=== PATIENT | female | born 1940 | race Caucasian/White ===

== ENCOUNTER 2019-04-24 08:28 | Inpatient (IN) | payer OTHER, SELFPAY ==
[2019-04-24] VITALS (15 sets, daily range): BP systolic 103–263; BP diastolic 53–114; PULSE 63–90; RESP 9–23; TEMP 36.4–37.2; O2SAT 90–98
--- NOTE | 2019-04-24 08:35 | ED.GENADUL_ITS ---
Discharge Plan Disposition Patient Disposition: [facility] INPATIENT Condition: Stable Discharge Details Chief Complaint: Orthopedic Clinical Impression: Subcapital fracture of right hip Primary Care Provider: [facility] ED Provider: Lennox Lopez Home Meds and New Rx's Prescriptions: No Action cholecalciferol (vitamin D3) 1,000 UNIT capsule 1,000 unit PO DAILY RF: 0 amlodipine 5 MG tablet 5 mg PO DAILY Qty: 90 RF: 4 ascorbate calcium (vitamin C) 500 MG tablet 500 mg PO DAILY RF: 0 pravastatin 10 MG tablet 10 mg PO DAILY Qty: 90 RF: 3 levetiracetam [Keppra] 500 MG tablet 500 mg PO BID Qty: 60 RF: 3 docusate sodium [Stool Softener] 100 MG capsule 100 mg PO DAILY RF: 0 levothyroxine [Synthroid] 88 MCG tablet 88 mcg PO DAILY Qty: 90 RF: 3 aspirin 325 mg Tablet 325 mg PO DAILY RF: 0 Medical Decision Making 78-year-old female presents from home where she lives alone. She states she was feeding her horses yesterday, slipped and fell on icy ground landing on her right hip. She denies striking her head and states no loss of consciousness and no head/neck/chest/back/abdominal pain. She states she hobbled around and was able to make it to bed last night, unable to get out of bed today due to right hip pain. EMS was called and patient brought to the ER. She will note that she has not been taking prescribed Eliquis, but does states she takes her other medications, which were reconciled by our nursing staff. Last meal was yesterday lunch prior to falling. She has normal vital signs. Her right hip is tender to palpation and rotation. Differential diagnosis includes pelvic fracture, right hip fracture. Patient had IV access established, screening labs, EKG, chest x-ray obtained and she is referred for radiographs of the hip and pelvis. She is given 15 mg of Toradol for analgesia, as she requested no narcotics. There is right subcapital hip fracture present. Discussed with Dr. Gaines. As patient has been n.p.o., consideration for repair today. He requests admission of the patient to the medicine service given her past medical history. Social work to see the patient regarding care of her home and animals as well. Note: Triaged with last name Norsworthy, changed to Odell. ECG Data Attestation: I personally reviewed and interpreted this ECG (s) as follows: Interpretation: Normal sinus rhythm, rate of 83, QRS is narrow, there is no ST segment elevation. Biphasic P wave present. HPI General Mode of arrival: EMS . Date/Time Provider Initiated Documentation: 04/24/19 09:11 . Limitations to Documentation: no limitations . Information obtained by: patient and EMS . History of Present Illness 78 year old F presents to the emergency department with the chief complaint of Right hip pain after fall yesterday, described as moderate, Quality is described as dull, and is localized to the right and lower extremity. Patient reports no radiation. Patient started experiencing this hour(s) and it has been constant. Rest improves symptom(s), Movement worsens symptoms . Patient notes no other symptoms.; denies chest pain, headaches, seizure, syncope and weakness. Patient did receive the following treatments prior to arrival, none Related Data Home Medications Medication Instructions Recorded Confirmed cholecalciferol (vitamin D3) 1,000 unit PO DAILY 11/03/12 10/06/15 amlodipine 5 mg PO DAILY #90 tab-cap 12/12/14 ascorbate calcium (vitamin C) 500 mg PO DAILY 01/16/15 10/06/15 pravastatin 10 mg PO DAILY #90 tab-cap 06/25/15 04/24/19 levetiracetam [Keppra] 500 mg PO BID #60 tab-cap 10/08/15 docusate sodium [Stool Softener] 100 mg PO DAILY tab-cap 10/18/15 levothyroxine [Synthroid] 88 mcg PO DAILY #90 tab-cap 12/17/15 04/24/19 aspirin 325 mg PO DAILY 04/24/19 04/24/19 Allergies Allergy/AdvReac Type Severity Reaction Status Date / Time Sulfa (Sulfonamide Allergy Unknown Unverified 04/24/19 10:32 Antibiotics) codeine AdvReac Mild NAUSEA Unverified 04/24/19 10:32 General Stated Complaint: Orthopedic SUSI: 3 Review of Systems Narrative: Mechanical slip on icy ground while feeding horses yesterday. Lives alone. 6 systems reviewed and otherwise negative. PENDING SALE TO [facility] Family History Mother No problems noted. Father Cancer Grandfather , WWII at age 31. No problems noted. Grandfather No problems noted. Grandmother Heart disease Grandmother No problems noted. Social History Smoking/Tobacco Use Status: Current every day Alcohol Intake: never Drug use: Never Substance use type: does not use Do you feel safe at home: Yes Do you feel safe in your relationship?: Yes Additional Social history: Pt lives alone Exam Narrative Exam Narrative: GEN: awake, alert, oriented 3. Pleasant, well groomed, interactive. HEAD: Normocephalic, atraumatic ENT: Mucous membranes dry, oropharynx unremarkable, External ear exam unremarkable EYES: PERRL, EOMI NECK: Full ROM, no NATALIA, no menigismus CHEST/RESP: Nontender, clear to auscultation bilateral, no wheeze/rhonchi/rales CARDIOVASCULAR: RRR, no murmur, rub sherif. 2+ Rad pulse bilateral ABDOMEN: Soft, nontender, no mass. +Bowel sounds EXT: Right hip pain with palpation and rotation. Palpable DP bilateral. Distal sensation intact. Pelvis is stable to compression Neuro: Grossly normal neurologic exam, conversant, interactive. Psych: Speech fluent, thoughts congruent, affect normal Course Vital Signs Vital signs: Vital Signs Temperature 36.8 C 04/24/19 08:24 Pulse 81 04/24/19 08:24 Respiratory Rate 20 04/24/19 08:24 Blood Pressure 137/65 04/24/19 08:24 Pulse Oximetry 95 04/24/19 08:24 Temperature 36.8 C 04/24/19 08:24 Temperature Source Oral 04/24/19 08:24 Pulse 81 04/24/19 08:24 Respiratory Rate 20 04/24/19 08:24 Blood Pressure 137/65 04/24/19 08:24 Blood Pressure Position Sitting 04/24/19 08:24 Pulse Oximetry 95 04/24/19 08:24 Oxygen Delivery Method Room Air 04/24/19 08:24 Oxygen Flow Rate 0 04/24/19 08:24
[2019-04-24] MEDS: Normal Saline 1,000 ML 1000 ML IV (08:47)
[2019-04-24] MEDS: Ketorolac 15 MG/ML VIAL IVP ×3 (08:47→23:50)
[2019-04-24 08:56] LABS: Abs Immature Grans 0.04 k/cumm (0.0-0.09); Absolute Basophil Count 0.03 k/cumm (0.0-0.2); Absolute Eosinophil Count 0.01 k/cumm (0.0-0.7); Absolute Lymphocyte Count 1.08 k/cumm (1.2-3.4); Absolute Monocyte Count 1.43 k/cumm (0.11-0.7); Absolute Neutrophil Count 11.96 k/cumm (1.2-6.7); Basophils % 0.2; Eosinophils % 0.1; HCT 45.3 % (36.0-46.0); HGB 14.9 g/dL (12.0-15.5); Immature Grans % 0.3 %; Lymphocytes % 7.4; Mean Corp. HGB Concentration 32.9 g/dL (32.0-36.0); Mean Corpuscular Hemoglobin 28.9 pg (27.0-33.0); Monocytes % 9.8; Neutrophils % 82.2; Platelet Count 193 x1000/uL (130-400); RBC 5.15 m/cumm (4.00-5.20); RBC Distribution Width 14.8 % (11.7-14.6); White Blood Cell Count 14.55 k/cumm (4.4-10.8)
[2019-04-24 09:07] LABS: ALT 20 U/L (14-59); AST 24 U/L (15-37); Albumin 3.5 g/dL (3.4-5.0); Alkaline Phosphatase 81 U/L (46-116); Anion Gap 9.9 mmol/L (3-11); BUN 19 mg/dL (7-18); Bilirubin, Total 1.2 mg/dL (0.2-1.0); CO2 28.1 mmol/L (21.0-32.0); Calcium 8.9 mg/dL (8.5-10.1); Chloride 103 mmol/L (98-107); Glucose 115 mg/dL (74-106); Potassium 4.1 mmol/L (3.5-5.1); Sodium 141 mmol/L (136-145); Total Protein 7.3 g/dL (6.4-8.2)
--- NOTE | 2019-04-24 09:10 | DI.RAD_ITS ---
EXAM: XR HIP RT COMPLETE AP PELVIS INDICATION: Fall, R pain. COMPARISON: No exams were available for comparison TECHNIQUE: 2D digital imaging was performed. FINDINGS: There is a mildly impacted subcapital fracture of the right femur. The femoral head is seated within the acetabulum. No other fracture or dislocation is identified. Soft tissues are unremarkable. IMPRESSION: Mildly impacted subcapital fracture of the right femur.
[2019-04-24 09:16] LABS: Troponin I < 0.05 ng/Ml (<0.06)
[2019-04-24 09:18] LABS: Prothrombin Time 10.5 sec (9.3-11.0)
--- NOTE | 2019-04-24 09:20 | DI.RAD_ITS ---
EXAM: XR CHEST 1V IN DI DEPT INDICATION: Fall, R hip pain. COMPARISON: CHEST 2 VIEWS PA,LAT from 09/30/2015 TECHNIQUE: 2D digital imaging was performed. FINDINGS: The heart is at the upper limits of normal in size given the projection. There is atherosclerosis of the thoracic aorta. No focal infiltrates are seen. No effusions or pneumothoraces are identified. There is a right convex scoliosis of the thoracic spine. Bones are intact. IMPRESSION: No acute pulmonary process.
--- NOTE | 2019-04-24 10:25 | HPE_ITS ---
Assessment and Plan Assessment and plan (1) Closed right hip fracture: Status: Acute Assessment and plan: Plan: Educated patient on surgery covering surgical technique, recovery process, benefits and risks including but not limited to risk of infection, blood clot, damage to soft tissue/blood vessels/nerves in detail. After discussion patient gives verbal understanding of risks and elects to proceed with scheduling surgery. Patient had opportunity to have questions answered to their satisfaction. They will contact office if issues arise. Pat ient will continue to be scheduled for likely pinning of right hip fracture with Dr. Gaines. Qualifiers: Encounter type: initial encounter Qualified Code(s): S72.001A - Fractu re of unspecified part of neck of right femur, initial encounter for closed fracture History of Present Illness Narrative: Ms. Bain is a 78-year-old female who presents to hospital via ambulance this AM after a fall that happened at home yesterday. Patient reports she fell on the ice at 2 pm yesterady while feeding her horses. Reports she was able to stand up, walk, move a bale of hay and she was able to make her way back to the house. She reports extreme discomfort overnight when laying in bed. This morning she was unable to move and called the ambulance for help. Patient lives alone and cares for her cat, dog and horses on her own. Denies any numbness or tingling. Denies any previous right hip trauma. Denies any baseline right hip/anterior groin pain. Reports the last time she ate was yesterday at lunchtime. Pertinent Surgical Information She describes having a catheter entered into her bladder in her early 20s. However, review of her chart shows previous history of exploratory laparoscopy from documentation on 10/06/15; discharge paperwork from that same visit states exploratory laparotomy on 10/08/15. Provider decided to not do an abdominal exam due to patient's acute hip fracture, lack of positive abdomen ROS and patient already laying uncomfortably on her side. Denies past medical history of: Hypertension, known stroke, angina, asthma, COPD, sleep apnea, renal issues, liver issues, hepatitis, gastrointestinal issues, ulcers, bleeding disorders, known seizures, migraines, anxiety, depression, diabetes, autoimmune disorders Denies prior complications from surgery or anesthesia. Review of Systems Cardiovascular Cardiovascular: Denies chest pain, Denies rapid heart rate, Denies irregular heart rhythm, Denies palpitations, Denies dyspnea, Denies orthopnea, Denies paroxysmal nocturnal dyspnea and Denies slow heart rate Respiratory Respiratory: Reports cough (dry chronic cough; nonproductive; no recent change), Denies dyspnea and Denies wheezing Gastrointestinal Gastrointestinal: Denies abdominal pain Endocrine Endocrine: Denies palpitations Allergic/Immunologic Allergic/Immunologic: Denies wheezing [facility] Medical History (Updated 04/24/19 @ 10:58 by Becky Bowie) Atrial fibrillation (Chronic) Unable to afford eliquis Takes ASA daily Closed right hip fracture (Acute 04/23/19) Hyperlipidemia (Chronic) Hypothyroidism (Chronic) TIA (transient ischemic attack) (Chronic) Pt denied hx of stroke Discharge problem list from 10/08/15 states TIA Surgical History (Updated 04/24/19 @ 10:50 by Becky Bowie) History of cystogram (Acute) Pt describes cystogram Discharge problem list from 10/08/15 states hx of exploratory laparotomy Family History Mother No problems noted. Father Cancer Grandfather , WWII at age 31. No problems noted. Grandfather No problems noted. Grandmother Heart disease Grandmother No problems noted. Social History Smoking/Tobacco Use Status: Current every day Alcohol Intake: never Drug use: Never Substance use type: does not use Do you feel safe at home: Yes Do you feel safe in your relationship?: Yes Additional Social history: Pt lives alone Meds Home Medications and Allergies Home Medications Medication Instructions Recorded Confirmed Type cholecalciferol (vitamin D3) 1,000 unit PO DAILY 11/03/12 10/06/15 History amlodipine 5 mg PO DAILY #90 tab-cap 12/12/14 History ascorbate calcium (vitamin C) 500 mg PO DAILY 01/16/15 10/06/15 History pravastatin 10 mg PO DAILY #90 tab-cap 06/25/15 04/24/19 History levetiracetam [Keppra] 500 mg PO BID #60 tab-cap 10/08/15 History docusate sodium [Stool Softener] 100 mg PO DAILY tab-cap 10/18/15 History levothyroxine [Synthroid] 88 mcg PO DAILY #90 tab-cap 12/17/15 04/24/19 History aspirin 325 mg PO DAILY 04/24/19 04/24/19 History Allergies Allergy/AdvReac Type Severity Reaction Status Date / Time Sulfa (Sulfonamide Allergy Unknown Unverified 04/24/19 10:32 Antibiotics) codeine AdvReac Mild NAUSEA Unverified 04/24/19 10:32 Exam Const General: cooperative and no acute distress Orientation: alert and awake Resp Effort & Inspection: normal respiratory effort and able to speak in complete sentences Auscultation: clear to auscultation bilaterally, no rales, no rhonchi and no wheezes Cardio Heart Sounds: S1 normal, S2 normal and no murmurs Results Labs Result diagrams: 04/24/19 08:37 04/24/19 08:37 Labs: Laboratory Results - last 24 hr 04/24/19 04/24/19 04/24/19 08:37 08:37 08:37 WBC 14.55 H RBC 5.15 Hgb 14.9 Hct 45.3 MCV 88.0 MCH 28.9 MCHC 32.9 RDW 14.8 H Plt Count 193 MPV 11.0 Immature Gran % 0.3 Neutrophils % 82.2 Lymphocytes % 7.4 Monocytes % 9.8 Eosinophils % 0.1 Basophils % 0.2 Absolute Neutrophils 11.96 H Absolute Lymphocytes 1.08 L Absolute Monocytes 1.43 H Absolute Eosinophils 0.01 Absolute Basophils 0.03 PT 10.5 INR 1.0 Sodium 141 Potassium 4.1 Chloride 103 Carbon Dioxide 28.1 Anion Gap 9.9 BUN 19 H Creatinine 0.90 Estimated GFR/1.73 m2 >= 60.00 Glucose 115 H Calcium 8.9 Total Bilirubin 1.2 H AST 24 ALT 20 Alkaline Phosphatase 81 Troponin I Total Protein 7.3 Albumin 3.5 Patient ABO/Rh Antibody Screen 04/24/19 04/24/19 08:37 08:37 WBC RBC Hgb Hct MCV MCH MCHC RDW Plt Count MPV Immature Gran % Neutrophils % Lymphocytes % Monocytes % Eosinophils % Basophils % Absolute Neutrophils Absolute Lymphocytes Absolute Monocytes Absolute Eosinophils Absolute Basophils PT INR Sodium Potassium Chloride Carbon Dioxide Anion Gap BUN Creatinine Estimated GFR/1.73 m2 Glucose Calcium Total Bilirubin AST ALT Alkaline Phosphatase Troponin I < 0.05 Total Protein Albumin Patient ABO/Rh AB Negative Antibody Screen Negative Last Vital Signs Temp 36.8 C 04/24/19 08:24 Pulse 81 04/24/19 08:24 Resp 20 04/24/19 08:24 BP 137/65 04/24/19 08:24 Pulse Ox 95 04/24/19 08:24
[2019-04-24] MEDS: Lactated Ringers 1,000 ML 30 ML IV (12:55)
--- NOTE | 2019-04-24 13:05 | DI.RAD_ITS ---
EXAM: XR HIP RT IN OR CLINICAL HISTORY: fracture of right hip. TECHNIQUE: 2D digital imaging was performed. Fluoroscopy was utilized by Dr. Gaines in the OR becca sharma the reduction and internal fixation of the right subcapital femoral neck fracture. COMPARISON: XR HIP RT COMPLETE AP PELVIS from 04/24/2019 FINDINGS: Three partially threaded screws are seen transfixing the fracture. Please refer to the procedure r eport for complete details. IMPRESSION: Status post internal fixation of the right femoral neck fracture. FLUORO TIME: 81.8 seconds
--- NOTE | 2019-04-24 14:09 | DI.RAD_ITS ---
EXAM: XR HIP RT COMPLETE AND AP PELVIS INDICATION: check hardware and reduction R hip in RR.. COMPARISON: XR HIP RT COMPLETE AP PELVIS from 04/24/2019 TECHNIQUE: 2D digital imaging was performed. FINDINGS: There are now 3 partially threaded screws transfixing the subcapital fracture of the right femur. Al ignment appears near anatomic. No new fracture or dislocation is identified. Soft tissues are unrem arkable. IMPRESSION: Status post internal fixation of the subcapital fracture of the right femur.
[2019-04-24] MEDS: POTASSIUM CHLORIDE/0.9% NACL 1,000 ML 125 MEQ IV ×2 (15:10→23:51)
--- NOTE | 2019-04-24 15:51 | W.PM.HP.N ---
Date of service: 04/24/19 Time of Service: 15:51 Assessment and Plan Assessment and plan (1) Closed right hip fracture: Start date: 04/24/19 Start time: 16:10 Status: Acute Assessment and plan: Fell on ice yesterday, OR today with Dr. Gaines pinning of right femur. Awake post operative with minimal pain. Will check labs in am. PT/OT and pain control. Qualifiers: Encounter type: initial encounter Qualified Code(s): S72.001A - Fracture of unspecified part of neck of right femur, initial encounter for closed fracture (2) Atrial fibrillation: Start date: 04/24/19 Start time: 16:12 Status: Chronic Assessment and plan: Regular rate and rhythm at this time. Can not afford eliquis so she takes Asa 325 daily. Will continue daily aspirin and monitor VSS (3) Mild cognitive impairment with memory loss: Start date: 04/24/19 Start time: 16:13 Status: Acute Assessment and plan: Does not appear impaired at this time. AAOx3. Wants to go home to tend to pets. (4) Hypothyroidism: Start date: 04/24/19 Start time: 16:14 Status: Chronic Assessment and plan: Continue levothyroxine (5) Hyperlipidemia: Start date: 04/24/19 Start time: 16:14 Status: Chronic Assessment and plan: Continue pravastatin (6) TIA (transient ischemic attack): Start date: 04/24/19 Start time: 16:14 Status: Chronic Assessment and plan: In the past With underlying Afib. will continue Asa. (7) DVT prophylaxis: Start date: 04/24/19 Start time: 16:16 Status: Acute Assessment and plan: Enoxaparin subcut (8) Tobacco dependence: Start date: 04/24/19 Start time: 16:15 Status: Acute Assessment and plan: Smokes about 1/4 pack a day. Nicotine replacement ordered. Not interested in cessation at this time. Above case discussed with Dr. Camacho who is in agreement. History of Present Illness History of Present Illness Chief Complaint: Fall, Hip fx Narrative: 78 y.o female with PMH of Afib ( on asa, can not afford eliquis), TIA, Hypothyroidism, HLD, Smoker 1/4 pack per day presents to [facility] ED after a fall on ice yesterday. Imaging in ED revealing mild impacted subcapital fx of the right femur, labs unremarkable. Dr. Gaines consulted on patient. She was taken to the OR for pinning of right hip fracture. Upon evaluation of patient, she is sitting up in bed, pain controlled, stating I can now move my leg without pain. She is asking when she can go home and take care of her pets. She is admitted to M/S for management of post operative care and pain. Labs will be monitored, pain control and PT/OT evaluation. She denies CP, SOB, N/V/D Review of Systems All systems reviewed & are unremarkable except as noted in HPI and below PFSH Medical History Atrial fibrillation (Chronic) Unable to afford eliquis Takes ASA daily Closed right hip fracture (Acute 04/23/19) Hyperlipidemia (Chronic) Hypothyroidism (Chronic) TIA (transient ischemic attack) (Chronic) Pt denied hx of stroke Discharge problem list from 10/08/15 states TIA Surgical History History of cystogram (Acute) Pt describes cystogram Discharge problem list from 10/08/15 states hx of exploratory laparotomy Family History Mother No problems noted. Father Cancer Grandfather , WWII at age 31. No problems noted. Grandfather No problems noted. Grandmother Heart disease Grandmother No problems noted. Social History Smoking/Tobacco Use Status: Current every day Alcohol Intake: never Drug use: Never Substance use type: does not use Do you feel safe at home: Yes Do you feel safe in your relationship?: Yes Additional Social history: Pt lives alone Meds Home Medications and Allergies Home Medications Medication Instructions Recorded Confirmed Type cholecalciferol (vitamin D3) 1,000 unit PO DAILY 11/03/12 04/24/19 History amlodipine 5 mg PO DAILY #90 tab-cap 12/12/14 04/24/19 History ascorbate calcium (vitamin C) 500 mg PO DAILY 01/16/15 04/24/19 History pravastatin 10 mg PO DAILY #90 tab-cap 06/25/15 04/24/19 History docusate sodium [Stool Softener] 100 mg PO DAILY tab-cap 10/18/15 04/24/19 History levothyroxine [Synthroid] 88 mcg PO DAILY #90 tab-cap 12/17/15 04/24/19 History aspirin 325 mg PO DAILY 04/24/19 04/24/19 History Allergies Allergy/AdvReac Type Severity Reaction Status Date / Time Sulfa (Sulfonamide Allergy Unknown Unverified 04/24/19 10:32 Antibiotics) codeine AdvReac Mild NAUSEA Unverified 04/24/19 10:32 Exam Const General: cooperative, healthy appearing, comfortable and no acute distress Nutritional Appearance: average body habitus Orientation: alert, awake and oriented x3 HENMT Head: normal to inspection General nose exam: external nose normal Face and sinus: normal facial exam Mouth: oral mucosae normal Eyes Eyelids: eyelids normal Conjunctivae: conjunctivae normal Pupils: PERRL EOM: EOM intact bilaterally Neck Neck: normal visual inspection Thyroid: thyroid normal Carotids: normal carotid upstroke Lymphatic: no lymphadenopathy noted Chest Chest: normal inspection of the chest Resp Effort & Inspection: normal respiratory effort, able to speak in complete sentences and cough (smokers cough) Quality of cough: dry Auscultation: clear to auscultation bilaterally Cardio Jugular venous pressure: no JVD Rate: regular rate Rhythm: regular rhythm Heart Sounds: S1 normal and S2 normal GI Inspection: normal to inspection Palpation: soft and no hepatosplenomegaly Auscultation: normal bowel sounds General: deferred Back/Spine/Pelvis Back: no CVA tenderness Thoracic/Lumbar Spine: thoracic and lumbar spine normal to inspection Skin General skin exam: other (drsg to right hip from surgical procedure) Lesions: no lesions Rashes: no rashes Neuro General: alert, awake and oriented x3 Cognition: normal cognition Speech: speech normal Extrem General: no clubbing, cyanosis or edema Right upper extremity: full ROM Left upper extremity: full ROM Left lower extremity: full ROM Psych Appearance: grossly normal Mental Status: mental status grossly normal Speech and Movement: speech and movement normal Results Labs Result diagrams: 04/24/19 08:37 04/24/19 08:37 Labs: Laboratory Results - last 24 hr 04/24/19 04/24/19 04/24/19 08:37 08:37 08:37 WBC 14.55 H RBC 5.15 Hgb 14.9 Hct 45.3 MCV 88.0 MCH 28.9 MCHC 32.9 RDW 14.8 H Plt Count 193 MPV 11.0 Immature Gran % 0.3 Neutrophils % 82.2 Lymphocytes % 7.4 Monocytes % 9.8 Eosinophils % 0.1 Basophils % 0.2 Absolute Neutrophils 11.96 H Absolute Lymphocytes 1.08 L Absolute Monocytes 1.43 H Absolute Eosinophils 0.01 Absolute Basophils 0.03 PT 10.5 INR 1.0 Sodium 141 Potassium 4.1 Chloride 103 Carbon Dioxide 28.1 Anion Gap 9.9 BUN 19 H Creatinine 0.90 Estimated GFR/1.73 m2 >= 60.00 Glucose 115 H Calcium 8.9 Total Bilirubin 1.2 H AST 24 ALT 20 Alkaline Phosphatase 81 Troponin I Total Protein 7.3 Albumin 3.5 Patient ABO/Rh Antibody Screen 04/24/19 04/24/19 08:37 08:37 WBC RBC Hgb Hct MCV MCH MCHC RDW Plt Count MPV Immature Gran % Neutrophils % Lymphocytes % Monocytes % Eosinophils % Basophils % Absolute Neutrophils Absolute Lymphocytes Absolute Monocytes Absolute Eosinophils Absolute Basophils PT INR Sodium Potassium Chloride Carbon Dioxide Anion Gap BUN Creatinine Estimated GFR/1.73 m2 Glucose Calcium Total Bilirubin AST ALT Alkaline Phosphatase Troponin I < 0.05 Total Protein Albumin Patient ABO/Rh AB Negative Antibody Screen Negative Last Vital Signs Temp 36.7 C 04/24/19 15:02 Pulse 75 04/24/19 15:02 Resp 18 04/24/19 15:02 BP 107/61 04/24/19 15:02 Pulse Ox 98 04/24/19 15:02
--- NOTE | 2019-04-24 16:45 | ROE_ITS ---
DATE OF PROCEDURE: April 24, 2019 PREOPERATIVE DIAGNOSIS: Subcapital fracture, right femur. POSTOPERATIVE DIAGNOSIS: Same. PROCEDURE: In situ fixation of subcapital fracture right femur using three 6.5 cannulated screws. ANESTHESIA: General, Kayleigh Lieberman CRNA SURGEON: Lennox Gaines M.D. CONCRETE MIXER: Godwin Boss INDICATIONS: This is a 78-year-old white female who lives alone and has horses to take care of. Yes terday she slipped on the ice while tending to the horses, landing on her right side. She was able t o continue with her chores, although was uncomfortable. She went to bed and when she woke up this mo rning her pain had intensified overnight. She was now unable to bear weight on her right leg. She p roceeded to the Emergency Room where x-rays showed a subcapital fracture of the right femur. The fem oral head on the AP view was impacted and in some valgus. On the lateral view the fracture was anato chinyere with no anterior or posterior angulation seen. I felt because of the anatomic lateral view that the patient would be a good candidate for cannulated screw fixation. This was discussed with the abby rincon in detail and she wished to have me proceed with what I thought was best. PROCEDURE: The patient was taken to the operating room on 04/24/2019. She was placed supine on the f racture table and a general anesthetic was administered. The right lower extremity was placed in sin gle leg traction and then internally rotated until the femoral neck was parallel to the floor. Once again the femoral head was in some mild valgus impaction on the AP view but was anatomic on the later al view. With the help of the C-arm intensifier localization, I made an approximately three inch inc ision laterally, centered over the flare of the proximal femur. The incision was carried down throug h the skin, subcu, iliotibial band and lateralis muscle, down to bone. With C-arm image intensificat ion guidance, I placed three guide pins in the femoral head that were widely dispersed on the femoral head. Once I had felt there was good position of the three guide pins, I proceeded to measure the g uide pins, drill the lateral cortex with a cannulated drill, and then insert the appropriate length 6 .5 cannulated screws. Excellent purchase in the femoral head was obtained. The lateral bone from th e lateral femoral cortex was very strong and solid and I got good compression across the fracture. T he C-arm was then used to confirm on AP and lateral views that the threads of the screws were well-co ntained in the subchondral bone of the femoral head and without penetration. At this point the guide pins were removed. The wound was irrigated with saline solution. The wound margins were infiltrate d with 0.25% Marcaine with an epinephrine solution down to bone. The iliotibial band was approximate d with a couple of interrupted [id number] sutures of #1 Vicryl suture material. The skin and perez bcu were approximated with a running subcuticular suture, supplemented with Steri-Strips. Xeroform g auze and sterile gauze 4x4's were placed over the incision and taped with foam elastic tape. The pat ient was taken out of traction, her anesthesia was reversed without complications and she was dischar ged to the recovery room in good condition. Estimated blood loss was 30 cc's. The patient will be a dmitted for postop pain control and mobilization with PT.
[2019-04-24] MEDS: Normal Saline Flush 10 ML SYR IVP ×2 (17:05→23:51)
[2019-04-24] MEDS: ceFAZolin 1 GM/50 ML BAG IVPB ×2 (17:05→23:51)
[2019-04-24] MEDS: Pravastatin 20 MG TAB 10 MG PO (20:27)
[2019-04-24] MEDS: Docusate Sodium 100 MG CAP PO (20:28)
[2019-04-25] VITALS (9 sets, daily range): BP systolic 100–156; BP diastolic 49–82; PULSE 73–93; RESP 14–24; TEMP 36.8–37.5; O2SAT 90–96
[2019-04-25] MEDS: ceFAZolin 1 GM/50 ML BAG IVPB ×2 (05:52→11:48)
[2019-04-25] MEDS: Ketorolac 15 MG/ML VIAL IVP ×4 (05:52→23:58)
[2019-04-25] MEDS: Levothyroxine 88 MCG TAB PO (05:53)
[2019-04-25 06:58] LABS: Abs Immature Grans 0.04 k/cumm (0.0-0.09); Absolute Basophil Count 0.02 k/cumm (0.0-0.2); Absolute Lymphocyte Count 1.02 k/cumm (1.2-3.4); Absolute Monocyte Count 1.24 k/cumm (0.11-0.7); Absolute Neutrophil Count 15.36 k/cumm (1.2-6.7); Basophils % 0.1; HCT 37.6 % (36.0-46.0); HGB 11.9 g/dL (12.0-15.5); Immature Grans % 0.2 %; Lymphocytes % 5.8; Mean Corp. HGB Concentration 31.6 g/dL (32.0-36.0); Mean Corpuscular Hemoglobin 28.6 pg (27.0-33.0); Mean Corpuscular Volume 90.4 fL (80-95); Mean Platelet Volume 11.2 fL (8.0-11.0); Neutrophils % 86.9; Platelet Count 153 x1000/uL (130-400); RBC 4.16 m/cumm (4.00-5.20); RBC Distribution Width 14.9 % (11.7-14.6); White Blood Cell Count 17.67 k/cumm (4.4-10.8)
[2019-04-25 07:18] LABS: Anion Gap 8.6 mmol/L (3-11); BUN 34 mg/dL (7-18); CO2 23.4 mmol/L (21.0-32.0); CREATININE 1.06 mg/dL (0.55-1.02); Chloride 109 mmol/L (98-107); Glucose 135 mg/dL (74-106); Potassium 4.5 mmol/L (3.5-5.1); Sodium 141 mmol/L (136-145)
[2019-04-25] MEDS: Pantoprazole 40 MG TABCR PO (07:23)
[2019-04-25] MEDS: Nicotine 7 MG/24 HR PATCH TD (08:02)
[2019-04-25] MEDS: Multivitamin w/Minerals TAB 1 TAB PO (08:04)
[2019-04-25] MEDS: Aspirin 325 MG TAB PO (08:04)
[2019-04-25] MEDS: amLODIPine 5 MG TAB PO (08:05)
[2019-04-25] MEDS: Ascorbic Acid 500 MG TAB PO (08:05)
[2019-04-25] MEDS: Docusate Sodium 100 MG CAP PO ×2 (08:05→20:27)
[2019-04-25] MEDS: Cholecalciferol (Vitamin D3) 1,000 UNIT TAB 1000 UNITS PO (08:05)
[2019-04-25] MEDS: POTASSIUM CHLORIDE/0.9% NACL 1,000 ML 125 MEQ IV (08:11)
--- NOTE | 2019-04-25 10:18 | IN_ITS ---
Date of service: 04/25/19 PT Notes Visit Reasons: RIGHT HIP FX Physical Therapy Inpatient Initial Evaluation Date: 04/25/2019 Referring Doctor: Lennox Gaines MD PT Orders: PT CONSULT: S/P ortho Surgery Precautions: Fall. Standard. Activity as tolerated. Patient Profile/Admitting Diagnosis: Pt is a 78-year-old female s/p ELIS of right subcapital femoral fracture following a fall on the icy ground while feeding her horses on 04/23/2019. Pt was brought to the ER on 04/24/2019. PMHX: Medical History Atrial fibrillation (Chronic) Unable to afford eliquis Takes ASA daily Closed right hip fracture (Acute 04/23/19) Hyperlipidemia (Chronic) Hypothyroidism (Chronic) TIA (transient ischemic attack) (Chronic) Pt denied hx of stroke Discharge problem list from 10/08/15 states TIA Surgical History History of cystogram (Acute) Pt describes cystogram Discharge problem list from 10/08/15 states hx of exploratory laparotomy Social History/Home Situation: Pt lives alone. She has one step onto her sun porch to enter the home and 14 steps to get to the second floor where her bedroom is. Equipment Owned/DME: none Subjective: Pt reports no pain when lying in bed. Objective: General Observation: IV in RUE. Mental Status: Alert and oriented x4 Pain: 0/10 with rest Vital Signs: SpO2 97% on RA with rest ROM: Right Upper Extremity: Shoulder Flexion WFL. Shoulder abduction WFL. Elbow flexion WFL. Wrist flexion WFL. Opening and closing of hand WFL. Left Upper Extremity: Shoulder Flexion WFL. Shoulder abduction WFL. Elbow flexion WFL. Wrist flexion WFL. Opening and closing of hand WFL. Right Lower Extremity: Hip flexion to about 10 degrees from 90 degrees while sitting on the edge of the bed. Hip abduction WFL. Knee flexion WFL. Ankle dorsiflexion WFL. Ankle plantarflexion WFL. Left Lower Extremity: Hip flexion WFL. Hip abduction WFL. Knee flexion WFL. Ankle dorsiflexion WFL. Ankle plantarflexion WFL. Strength: Right Upper Extremity: Shoulder flexors 5/5. Shoulder abductors 5/5. Elbow flexors 5/5. Elbow extensors 5/5. Metal Cutter strong. Left Upper Extremity: Shoulder flexors 5/5. Shoulder abductors 5/5. Elbow flexors 5/5. Elbow extensors 5/5. Metal Cutter strong. Right Lower Extremity: Hip flexors 3-/5. Hip abductors 4/5. Knee flexors 4+/5. Knee extensors 3-/5. Ankle dorsiflexors 5/5. Ankle plantarflexors 5/5. Left Lower Extremity: Hip flexors 5/5. Hip abductors 5/5. Knee flexors 5/5. Knee extensors 5/5. Ankle dorsiflexors 5/5. Ankle plantarflexors 5/5. Sensation: Intact as to pain and pressure on bilateral lower extremities. Bed Mobility/Transfers: Rolling SBA Supine to sit SBA Sit to supine SBA Sit to stand CGA with cues to push up from chair/bed Stand to sit CGA with cues to reach back for chair/bed Bed to chair Min A Chair to bed Min A Gait: Pt is able to ambulate 30 feet with WBAT using a two-wheeled walker. Min A of PT with wheelchair follow by student PT. Pt required a seated rest break after 10 feet. She reports some pain with ambulation. Balance: Static Sitting: Normal Dynamic Sitting: Normal Static Standing: Good Dynamic Standing: Fair Special Tests: Mobility Limitations Standardized Measure [facility]-PAC 6 clicks Basic Mobility Inpatient Short Form: Raw Score: 20 CMS Score: 35.83% deficit Informed Consent/Education: Patient instructed in purpose of PT consult and plan of care. Assessment: Pt is a 78-year-old female s/p ORIF of right subcapital femoral fracture following a fall on the icy ground while feeding her horses on 04/23/2019. Pt was brought to the ER on 04/24/2019. At the time of the initial evaluation the pt presented with impairment level findings and functional limitations as listed below. AM-PAC score of 20 indicates good prognosis for discharge to home when medically cleared. Patient manifested with antalgic gait and required minimal verbal cues for walker management. Her pain level limited her activity tolerance and added instability during gait activity. Patient will continue to benefit from skilled services in order to facilitate independent mobility level prior to discharge home alone. Patient presents with clinical signs and symptoms consistent with current/admitting diagnoses that have resulted to mobility limitations, gait instability and generalized weakness, as demonstrated by the following impairment level findings: 1. Decreased strength to right LE hip and knee major muscle groups 2. Impaired standing balance 3. Impaired activity tolerance 4. Pain on right hip with ambulation Impairments are contributing to the following functional limitations: 1. Dependent bed mobility skills 2. Increased dependence with transfers 3. Inability to safely ambulate without assistive device and physical assistance 4. Increase completion time for mobility ADL performance 5. Increased fall risk 6. Inability to negotiate steps alone safely Patient is assessed as a 89251 moderate complexity based on the following: History: Pt is a 78-year-old female s/p ORIF of right subcapital femoral fracture following a fall on the icy ground while feeding her horses on 04/23/2019 and brought to the ER on 04/24/2019. Examination: Demonstrable impairment in strength and balance with underlying impairments and functional limitations as documented above Presentation: Evolving Decision Makin moderate complexity Goals: Goals X1 week 1. Supine-Sit independent 2. Sit-Supine independent 3. Sit-Stand independent 4. Stand-Sit independent 5. Bed-Chair independent 6. Chair-Bed independent 7. Independent gait on level surface with use of least restrictive device for at least 300 feet without report of pain nor dyspnea 8. Independent stair negotiation while holding onto bilateral rails for at least 15 steps without report of pain nor dyspnea 9. Independent with home exercise program 10. Good dynamic standing balance/tolerance Plan of Care/Treatment Plan: 1-2x/day, 7 days/week x 1 week. Plan of care has been reviewed with the AIRPLANE NAVIGATOR providing the service under Physical Therapy direction. Initiate Physical Therapy intervention for strengthening, bed mobility, transfers, gait, stairs, balance training, use of assistive device. DISCHARGE RECOMMENDATIONS: Patient will benefit from home health PT services in order to progress mobility level using least restrictive assistive ambulatory device, assess home safety, identify additional equipment needs, and establish a functional maintenance program that will increase ability of patient to remain at home. TREATMENT CODE/TIME: 13944 x 47 minutes beginning at 10:18 A.M. Thank you very much for this referral. Jose Valencia, SPT Doctor of Physical Therapy Student [facility] Supervision provided by Jewell Kelly PT, DPT, CLT [facility], [place]
[2019-04-25] MEDS: Normal Saline Flush 10 ML SYR IVP ×3 (11:47→23:59)
--- NOTE | 2019-04-25 12:46 | W.NUTCONSULT ---
Date of service: 04/25/19 Time of Service: 12:47 Nutritional Consult ASSESSMENT: 78 year old female s/p surg for right hip fracture, pinning of right femur. BMI on low end of normal. Following regular meal plan with excellent intake. not at nutritional risk at this time. will follow prn . MONITORING AND EVALUATION: weight, po intake Time Spent in Nutritional Counseling and Treatment: 0 time spent face to face
[2019-04-25] MEDS: Enoxaparin 30 MG/0.3 ML SYR SC (13:39)
--- NOTE | 2019-04-25 13:55 | W.PM.PROGNOT ---
Date of Service Date of service: 04/25/19 Time of Service: 13:55 Assessment and Plan Assessment and plan (1) Closed right hip fracture: Status: Acute Assessment and plan: Assessment: Stable and doing very well in first postop day following in situ cannulated screw fixation of a subcapital fracture of the right femur. She should be able to be discharged home as long as she has someone to help her with meals and groceries. Plan: Consult discharge planning to obtain adequate resources for home discharge. Will DC her IV fluid. Continue mobilize with PT. Send her home when she is fully independent with transfers and ambulation and is taking just p.o. pain meds. Qualifiers: Encounter type: initial encounter Qualified Code(s): S72.001A - Fracture of unspecified part of neck of right femur, initial encounter for closed fracture Subjective Subjective Interval history since last seen: She says she is having no pain today. She says she would like to go home from the hospital. She has someone who comes in and feeds her animals, but there is no one no help her with her meals. Exam Narrative Exam Narrative: She is afebrile vital signs are stable. Hemoglobin 11.9 g today. Today can passively flex her up to 90 degrees and internal and external rotation are completely non-irritable at this time. She still has a Mcdowell in. She is not taking any IV narcotics. Objective Objective Clinical Data: Abnormal lab results 04/25/19 04/25/19 Range/Units 06:26 06:26 WBC 17.67 H (4.4-10.8) k/cumm Hgb 11.9 L D (12.0-15.5) g/dL MCHC 31.6 L (32.0-36.0) g/dL RDW 14.9 H (11.7-14.6) % MPV 11.2 H (8.0-11.0) fL Absolute Neutrophils 15.36 H (1.2-6.7) k/cumm Absolute Lymphocytes 1.02 L (1.2-3.4) k/cumm Absolute Monocytes 1.24 H (0.11-0.7) k/cumm Chloride 109 H (98-107) mmol/L BUN 34 H D (7-18) mg/dL Creatinine 1.06 H (0.55-1.02) mg/dL Glucose 135 H (74-106) mg/dL Calcium 8.0 L (8.5-10.1) mg/dL Vital Signs Temperature 36.8 C 04/25/19 11:18 Temperature Source Tympanic 04/25/19 11:18 Pulse 74 04/25/19 08:56 Pulse Rhythm Regular 04/25/19 08:40 Respiratory Rate 14 04/25/19 11:18 Respiratory Effort Non-Labored 04/25/19 08:40 Respiratory Depth Normal 04/25/19 08:40 Respiratory Pattern Normal 04/25/19 08:40 Blood Pressure 131/82 04/25/19 11:18 Blood Pressure Position Sitting 04/24/19 08:24 Pulse Oximetry 93 L 04/25/19 11:18 Respiratory End-tidal CO2 36 04/24/19 14:35 Oxygen Delivery Method Room Air 04/25/19 11:18 Oxygen Flow Rate 0 04/25/19 11:18 Pain Level 0 04/25/19 11:48 Intake & Output 04/24/19 04/25/19 04/25/19 23:59 11:59 23:59 Intake Total 2811 / 2811 1548.917 / 1598.917 50 / 1598.917 Output Total 400 / 600 750 / 750 Balance 2411 / 2211 798.917 / 848.917 50 / 848.917 Intake: IV 2561 / 2561 1548.917 / 1598.917 50 / 1598.917 Oral 250 / 250 Output: Urine 300 / 500 750 / 750 Estimated Blood Loss 100 / 100 Other: Urine Color Yellow Light Diana Urine Appearance Clear Clear Emesis Description None Laboratory Results WBC 17.67 k/cumm (4.4-10.8) H 04/25/19 06:26 RBC 4.16 m/cumm (4.00-5.20) 04/25/19 06:26 Hgb 11.9 g/dL (12.0-15.5) L D 04/25/19 06:26 Hct 37.6 % (36.0-46.0) 04/25/19 06:26 MCV 90.4 fL (80-95) 04/25/19 06:26 MCH 28.6 pg (27.0-33.0) 04/25/19 06:26 MCHC 31.6 g/dL (32.0-36.0) L 04/25/19 06:26 RDW 14.9 % (11.7-14.6) H 04/25/19 06:26 Plt Count 153 x1000/uL (130-400) 04/25/19 06:26 MPV 11.2 fL (8.0-11.0) H 04/25/19 06:26 Immature Gran % 0.2 % 04/25/19 06:26 Neutrophils % 86.9 04/25/19 06:26 Lymphocytes % 5.8 04/25/19 06:26 Monocytes % 7.0 04/25/19 06:26 Eosinophils % 0.0 04/25/19 06:26 Basophils % 0.1 04/25/19 06:26 Absolute Neutrophils 15.36 k/cumm (1.2-6.7) H 04/25/19 06:26 Absolute Lymphocytes 1.02 k/cumm (1.2-3.4) L 04/25/19 06:26 Absolute Monocytes 1.24 k/cumm (0.11-0.7) H 04/25/19 06:26 Absolute Eosinophils 0.00 k/cumm (0.0-0.7) 04/25/19 06:26 Absolute Basophils 0.02 k/cumm (0.0-0.2) 04/25/19 06:26 PT 10.5 sec (9.3-11.0) 04/24/19 08:37 INR 1.0 (0.9-1.1) 04/24/19 08:37 Sodium 141 mmol/L (136-145) 04/25/19 06:26 Potassium 4.5 mmol/L (3.5-5.1) 04/25/19 06:26 Chloride 109 mmol/L (98-107) H 04/25/19 06:26 Carbon Dioxide 23.4 mmol/L (21.0-32.0) 04/25/19 06:26 Anion Gap 8.6 mmol/L (3-11) 04/25/19 06:26 BUN 34 mg/dL (7-18) H D 04/25/19 06:26 Creatinine 1.06 mg/dL (0.55-1.02) H 04/25/19 06:26 Estimated GFR/1.73 m2 50.40 (mL/min/1.73m2) 04/25/19 06:26 Glucose 135 mg/dL (74-106) H 04/25/19 06:26 Calcium 8.0 mg/dL (8.5-10.1) L 04/25/19 06:26 Magnesium 2.0 mg/dL (1.8-2.4) 04/25/19 06:26 Total Bilirubin 1.2 mg/dL (0.2-1.0) H 04/24/19 08:37 AST 24 U/L (15-37) 04/24/19 08:37 ALT 20 U/L (14-59) 04/24/19 08:37 Alkaline Phosphatase 81 U/L (46-116) 04/24/19 08:37 Troponin I < 0.05 ng/Ml (<0.06) 04/24/19 08:37 Total Protein 7.3 g/dL (6.4-8.2) 04/24/19 08:37 Albumin 3.5 g/dL (3.4-5.0) 04/24/19 08:37 Patient ABO/Rh AB Negative 04/24/19 16:07 Antibody Screen Negative 04/24/19 16:07
--- NOTE | 2019-04-25 14:55 | CHAPLAIN ---
I know Kelsey as Kelsey Osullivan, from outside the hospital. This morning she said she is feeling well and has been up and walking around. She was tending to her horses when she fell on the ice, then managed to get up, and back inside her house, and into bed for the night before coming to the ER yesterday. She then had surgery on her hip. Kelsey currently attends [employer] in [place] and is very happy there, she said.
--- NOTE | 2019-04-25 15:44 | W.PM.PROGNOT ---
Date of Service Date of service: 04/25/19 Time of Service: 15:45 Assessment and Plan Assessment and plan (1) Closed right hip fracture: Status: Acute Assessment and plan: Postop day #1. Progressing as expected. Pain well controlled. Further management per Ortho Qualifiers: Encounter type: initial encounter Qualified Code(s): S72.001A - Fracture of unspecified part of neck of right femur, initial encounter for closed fracture (2) Atrial fibrillation: Status: Chronic Assessment and plan: Clinically she sounds to be in regular rhythm at present time. She is not on long-term oral anticoagulation but takes antiplatelet therapy with aspirin. She remains on Lovenox for DVT prophylaxis. (3) Acute blood loss anemia: Status: Acute Assessment and plan: We will start the patient on iron supplementation and monitor blood count. (4) Leukocytosis, unspecified: Status: Acute Assessment and plan: May be a leukemoid reaction due to the stress of her fracture. Her white cell count was mildly elevated yesterday but is risen further today. She remains afebrile. I will obtain a urine for urinalysis and urine culture but withhold antibiotics unless there is evidence for UTI or she spikes a fever. Qualifiers: Leukocytosis type: unspecified Qualified Code(s): D72.829 - Elevated white blood cell count, unspecified (5) DVT prophylaxis: Status: Acute Assessment and plan: Continue enoxaparin for DVT prophylaxis for 4 weeks postop. She is to remain on aspirin along with Lovenox. Subjective Subjective Interval history since last seen: Postop day #1 ORIF right subcapital femur fracture. Patient is doing well. Her pain is well controlled. Her pain is currently being managed with Toradol and Tylenol. She does not want any narcotic analgesics. She is tolerating an oral diet well and denies any nausea or vomiting or abdominal pain. She has no dysuria and no fevers. No shortness of breath or chest pain. Her Richey catheter has been removed. Labs this morning show an elevated white cell count of 17,000. She has a mild anemia with a hemoglobin 11.9 g. Electrolytes are within normal limits. BUN and creatinine are mildly elevated at 34 and 1.06. She continues to receive IV fluids. I will check urinalysis and urine culture to rule out UTI given her leukocytosis although she denies symptoms, nevertheless she just had her richey removed. Exam Narrative Exam Narrative: Alert and oriented person place time circumstance lying in bed in supine position. Lungs are clear to auscultation. Heart is regular rate and rhythm without murmur rub or gallop. Abdomen reveals normal active bowel sounds soft and nontender nondistended. Lower extremities right thigh is covered with a dressing. There is some mild tenderness to palpation. There is no ecchymosis around the bandage. She has normal popliteal and pedal pulses in the right leg. Objective Objective Clinical Data: Abnormal lab results 04/25/19 04/25/19 Range/Units 06:26 06:26 WBC 17.67 H (4.4-10.8) k/cumm Hgb 11.9 L D (12.0-15.5) g/dL MCHC 31.6 L (32.0-36.0) g/dL RDW 14.9 H (11.7-14.6) % MPV 11.2 H (8.0-11.0) fL Absolute Neutrophils 15.36 H (1.2-6.7) k/cumm Absolute Lymphocytes 1.02 L (1.2-3.4) k/cumm Absolute Monocytes 1.24 H (0.11-0.7) k/cumm Chloride 109 H (98-107) mmol/L BUN 34 H D (7-18) mg/dL Creatinine 1.06 H (0.55-1.02) mg/dL Glucose 135 H (74-106) mg/dL Calcium 8.0 L (8.5-10.1) mg/dL Vital Signs Temperature 36.8 C 04/25/19 11:18 Temperature Source Tympanic 04/25/19 11:18 Pulse 74 04/25/19 08:56 Pulse Rhythm Regular 04/25/19 08:40 Respiratory Rate 14 04/25/19 11:18 Respiratory Effort Non-Labored 04/25/19 08:40 Respiratory Depth Normal 04/25/19 08:40 Respiratory Pattern Normal 04/25/19 08:40 Blood Pressure 131/82 04/25/19 11:18 Blood Pressure Position Sitting 04/24/19 08:24 Pulse Oximetry 93 L 04/25/19 11:18 Respiratory End-tidal CO2 36 04/24/19 14:35 Oxygen Delivery Method Room Air 04/25/19 11:18 Oxygen Flow Rate 0 04/25/19 11:18 Pain Level 0 04/25/19 11:48 Intake & Output 04/24/19 04/25/19 04/25/19 23:59 11:59 23:59 Intake Total 2811 / 2811 1548.917 / 1598.917 50 / 1598.917 Output Total 400 / 600 750 / 1100 350 / 1100 Balance 2411 / 2211 798.917 / 498.917 -300 / 498.917 Intake: IV 2561 / 2561 1548.917 / 1598.917 50 / 1598.917 Oral 250 / 250 Output: Urine 300 / 500 750 / 1100 350 / 1100 Estimated Blood Loss 100 / 100 Other: Urine Color Yellow Light Diana Yellow Straw Urine Appearance Clear Clear Clear Emesis Description None Voiding Methods Bedside Commode Laboratory Results WBC 17.67 k/cumm (4.4-10.8) H 04/25/19 06:26 RBC 4.16 m/cumm (4.00-5.20) 04/25/19 06:26 Hgb 11.9 g/dL (12.0-15.5) L D 04/25/19 06:26 Hct 37.6 % (36.0-46.0) 04/25/19 06:26 MCV 90.4 fL (80-95) 04/25/19 06:26 MCH 28.6 pg (27.0-33.0) 04/25/19 06:26 MCHC 31.6 g/dL (32.0-36.0) L 04/25/19 06:26 RDW 14.9 % (11.7-14.6) H 04/25/19 06:26 Plt Count 153 x1000/uL (130-400) 04/25/19 06:26 MPV 11.2 fL (8.0-11.0) H 04/25/19 06:26 Immature Gran % 0.2 % 04/25/19 06:26 Neutrophils % 86.9 04/25/19 06:26 Lymphocytes % 5.8 04/25/19 06:26 Monocytes % 7.0 04/25/19 06:26 Eosinophils % 0.0 04/25/19 06:26 Basophils % 0.1 04/25/19 06:26 Absolute Neutrophils 15.36 k/cumm (1.2-6.7) H 04/25/19 06:26 Absolute Lymphocytes 1.02 k/cumm (1.2-3.4) L 04/25/19 06:26 Absolute Monocytes 1.24 k/cumm (0.11-0.7) H 04/25/19 06:26 Absolute Eosinophils 0.00 k/cumm (0.0-0.7) 04/25/19 06:26 Absolute Basophils 0.02 k/cumm (0.0-0.2) 04/25/19 06:26 PT 10.5 sec (9.3-11.0) 04/24/19 08:37 INR 1.0 (0.9-1.1) 04/24/19 08:37 Sodium 141 mmol/L (136-145) 04/25/19 06:26 Potassium 4.5 mmol/L (3.5-5.1) 04/25/19 06:26 Chloride 109 mmol/L (98-107) H 04/25/19 06:26 Carbon Dioxide 23.4 mmol/L (21.0-32.0) 04/25/19 06:26 Anion Gap 8.6 mmol/L (3-11) 04/25/19 06:26 BUN 34 mg/dL (7-18) H D 04/25/19 06:26 Creatinine 1.06 mg/dL (0.55-1.02) H 04/25/19 06:26 Estimated GFR/1.73 m2 50.40 (mL/min/1.73m2) 04/25/19 06:26 Glucose 135 mg/dL (74-106) H 04/25/19 06:26 Calcium 8.0 mg/dL (8.5-10.1) L 04/25/19 06:26 Magnesium 2.0 mg/dL (1.8-2.4) 04/25/19 06:26 Total Bilirubin 1.2 mg/dL (0.2-1.0) H 04/24/19 08:37 AST 24 U/L (15-37) 04/24/19 08:37 ALT 20 U/L (14-59) 04/24/19 08:37 Alkaline Phosphatase 81 U/L (46-116) 04/24/19 08:37 Troponin I < 0.05 ng/Ml (<0.06) 04/24/19 08:37 Total Protein 7.3 g/dL (6.4-8.2) 04/24/19 08:37 Albumin 3.5 g/dL (3.4-5.0) 04/24/19 08:37 Patient ABO/Rh AB Negative 04/24/19 16:07 Antibody Screen Negative 04/24/19 16:07
--- NOTE | 2019-04-25 16:10 | PT.INTREAT ---
Date of service: 04/26/19 Time of Service: 16:10 PT Notes Visit Reasons: RIGHT HIP FX Inpatient Physical Therapy Treatment Note [facility] Date: 04/25/2019 PRECAUTIONS: Fall. Standard. WBAT on R LE. SUBJECTIVE: Patient is agreeable to a PT consult. She reports feeling better after resting in bed the whole afternoon. She did report being tuckered out from the morning's PT session. She continues to report pain on the R hip with weight bearing. Denies headache, chest pain and dizziness through out session. She states that the cough she has had for quite a while now. OBJECTIVE: Wound dressing over surgical area. Minimal swelling noted on adjacent area. PAIN: 6/10 on the right hip aggravated with WB. BED MOBILITY/TRANSFERS Rolling L/R: SBA with HOB flat Supine-sit: SBA with HOB flat Sit-supine: SBA with HOB flat Sit-stand: CGA Stand-sit: CGA Bed-Chair: minimal assist Chair-bed: minimal assist GAIT Assistive Device: FWW Weight bearing: WBAT Assist: CGA Distance: 15' + 15' Deviation: Step to gait pattern, antalgic gait, asymmetric step height and length THEREX: Patient tolerated exercises written on ex sheet to increase range of motion on B hip and knees. ASSESSMENT: Patient understands the decreased safety of going home alone at this time and would like to give it a few days to see how stable she can be with her walking. She is receptive to services to facilitate return to PLOF at her home setting. PLAN: Continue with PT POC as initially established. TREATMENT CODE/TIME: 48248 and 16671 x 30 minutes beginning at 16:10 PM.
--- NOTE | 2019-04-25 19:15 | PDOC.CMIN ---
Care Management Initial Assess REASON FOR HOSPITALIZATION:: Right Hip Fx PAST MEDICAL HISTORY/PAST SURGICAL HISTORY:: Medical: a-fib, TIA, hypercholesterolemia, hyperthyroidism due to Graves disease with secondary ablation 2001 now hypothyroidism, kidney stones, tobacco abuse, H/O hematuria, onchomycosis, COPD, osteoporosis, H/O abnormal mammogram. Surgical: exploratory laparoscopy, thyroid ablation. PREVIOUS FUNCTIONAL STATUS/SOCIAL/FAMILY SUPPORTS:: Kelsey resides alone on her farm in [place], [place] where she has 2 horses, a dog and cats. She also has one son, Dillan, who lives locally with his Nuris. Kelsey fell while feeding her horses, she approximates they are nearing twenty years old as they were old when I got them ten years ago. She is independent for the most part at baseline. She manages her own home and farm animals though appears to take time with tasks and struggles with shortness of breath. She enjoys grocery shopping at the [facility]- and attending jain at the [facility] in [place]. She transports herself. CURRENT FUNCTIONAL STATUS:: Kelsey is lying in bed, she is pleasant in interaction and forthcoming with information, providing animated stories about her life, events leading up to her hospitalization and her support system. She appears to be pursing her lips and short of breath when talking. ADVANCE DIRECTIVES:: On file at [facility]. Her friend Ruby Solorio, is agent, and neighbor Jolene Cast, is alternate. Has patient been provided with information about the portal?: Yes Did the patient sign up for the portal?: No CODE STATUS:: Full Code INSURANCE COVERAGE / FINANCIAL ISSUES:: Medicare replacement-[employer] CURRENT HOME/COMMUNITY SERVICES/EQUIPMENT:: No current supports identified. Kelsey reports previously meeting with an agency service center representative who offered her many supports which she did not accept. She does remember having MOW for awhile as well. She reports she is disabled due to glaucoma and progressively using her sight. PRIMARY CARE PHYSICIAN:: [facility]; [facility] POTENTIAL DISCHARGE NEEDS:: COA: MOW and Options referral. VNA: [facility]/OT, FWW coordinated through DME of patient's choice (orders faxed to [facility]). Follow up appointments, PT intervention for increased mobility and gait training prior to discharge. PATIENT/FAMILY EDUCATION NEEDS:: Review of discharge instructions, discuss [facility]. ANTICIPATED BARRIERS TO DISCHARGE:: None identified. TRANSPORTATION:: Via private vehicle with her good friend, Cassia. PLAN:: Kelsey intends on returning home when ready per MD. CM faxed referrals to COA: M[facility] and [facility] referral, and VNA: [facility] PT/OT, as well FWW coordinated through DME of patient's choice (orders faxed to [facility]). Kelsey will transport via private vehicle with her good friend, Cassia.
[2019-04-25] MEDS: Ferrous Gluconate 324 MG TAB PO (20:28)
[2019-04-25 20:30] LABS: Bilirubin Negative (Negative); Blood Negative (Negative); Clarity Clear (Clear); Glucose Negative (Negative); Ketones Negative (Negative); Leukocyte Esterase Negative (Negative); Nitrite Negative (Negative); Specific Gravity 1.015 (1.005-1.025)
[2019-04-25] MEDS: Pravastatin 20 MG TAB 10 MG PO (20:38)
[2019-04-26] VITALS (7 sets, daily range): BP systolic 112–136; BP diastolic 75–93; PULSE 70–115; RESP 17–24; TEMP 36.5–37.2; O2SAT 93–97
[2019-04-26] MEDS: Acetaminophen 325 MG TAB 650 MG PO ×2 (04:17→23:26)
[2019-04-26] MEDS: Levothyroxine 88 MCG TAB PO (06:02)
[2019-04-26] MEDS: Normal Saline Flush 10 ML SYR IVP ×3 (06:07→19:30)
[2019-04-26] MEDS: Ketorolac 15 MG/ML VIAL IVP ×2 (06:07→11:28)
[2019-04-26] MEDS: Nicotine 7 MG/24 HR PATCH TD (07:55)
[2019-04-26] MEDS: Aspirin 325 MG TAB PO (07:56)
[2019-04-26] MEDS: Multivitamin w/Minerals TAB 1 TAB PO (07:56)
[2019-04-26] MEDS: Pantoprazole 40 MG TABCR PO (07:56)
[2019-04-26] MEDS: Cholecalciferol (Vitamin D3) 1,000 UNIT TAB 1000 UNITS PO (07:56)
[2019-04-26] MEDS: Ascorbic Acid 500 MG TAB PO (07:56)
[2019-04-26] MEDS: amLODIPine 5 MG TAB PO (07:57)
[2019-04-26] MEDS: Ferrous Gluconate 324 MG TAB PO ×2 (08:11→19:29)
[2019-04-26] MEDS: Docusate Sodium 100 MG CAP PO ×2 (09:20→19:29)
[2019-04-26 11:22] LABS: BUN 26 mg/dL (7-18); CREATININE 0.92 mg/dL (0.55-1.02); Calcium 8.8 mg/dL (8.5-10.1); Chloride 104 mmol/L (98-107); Estimated GFR 59.35 (mL/min/1.73m2); Glucose 96 mg/dL (74-106); Potassium 4.4 mmol/L (3.5-5.1); Sodium 140 mmol/L (136-145)
[2019-04-26 11:37] LABS: Abs Immature Grans 0.03 k/cumm (0.0-0.09); Absolute Basophil Count 0.03 k/cumm (0.0-0.2); Absolute Eosinophil Count 0.22 k/cumm (0.0-0.7); Absolute Lymphocyte Count 1.72 k/cumm (1.2-3.4); Basophils % 0.3; HCT 43.1 % (36.0-46.0); HGB 13.7 g/dL (12.0-15.5); Immature Grans % 0.3 %; Lymphocytes % 15.6; Mean Corp. HGB Concentration 31.8 g/dL (32.0-36.0); Mean Corpuscular Hemoglobin 28.7 pg (27.0-33.0); Mean Corpuscular Volume 90.2 fL (80-95); Mean Platelet Volume 11.7 fL (8.0-11.0); Monocytes % 12.7; Neutrophils % 69.1; Platelet Count 176 x1000/uL (130-400); RBC 4.78 m/cumm (4.00-5.20); RBC Distribution Width 15.4 % (11.7-14.6)
--- NOTE | 2019-04-26 12:11 | W.PM.PROGNOT ---
Date of Service Date of service: 04/26/19 Time of Service: 12:11 Assessment and Plan Assessment and plan (1) Closed right hip fracture: Status: Acute Assessment and plan: Postop day #2. Progressing as expected. Pain well controlled. Further management per Ortho Qualifiers: Encounter type: initial encounter Qualified Code(s): S72.001A - Fracture of unspecified part of neck of right femur, initial encounter for closed fracture (2) Atrial fibrillation: Status: Chronic Assessment and plan: Clinically she sounds to be in regular rhythm at present time. She is not on long-term oral anticoagulation but takes antiplatelet therapy with aspirin. She remains on Lovenox for DVT prophylaxis. Qualifiers: Atrial fibrillation type: paroxysmal Qualified Code(s): I48.0 - Paroxysmal atrial fibrillation (3) Acute blood loss anemia: Status: Acute Assessment and plan: Anemia is improving. She is currently being treated with oral iron supplementation.. (4) Leukocytosis, unspecified: Status: Acute Assessment and plan: Probably leukemoid reaction to her hip fracture. She remains afebrile. Urinalysis was negative for UTI. She does have a nonproductive cough. However lung sounds are clear. Preoperative chest x-ray was negative for any pneumonia. In light of her recent leukocytosis I will check a repeat chest x-ray to be sure there is no evidence for atelectasis or perioperative pneumonia. Qualifiers: Leukocytosis type: unspecified Qualified Code(s): D72.829 - Elevated white blood cell count, unspecified (5) DVT prophylaxis: Status: Acute Assessment and plan: Continue enoxaparin for DVT prophylaxis for 4 weeks postop. She is to remain on aspirin along with Lovenox. Subjective Subjective Patient reports: no new complaints and feels better; denies shortness of breath and fever Interval history since last seen: Her leukocytosis is resolving. Total WBC count is down to 11,000 today. She has been afebrile overnight. Urinalysis from yesterday was negative for UTI. Her anemia is improving her hemoglobin is up to 13 g. I have her on oral iron supplementation. Exam Narrative Exam Narrative: Elderly female who was standing up with the use of a walker. 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 She denies any acute complaints and feels good. She is alert and oriented. Lungs are clear to auscultation. Heart is regular rate and rhythm Objective Objective Clinical Data: Abnormal lab results 04/25/19 04/26/19 04/26/19 Range/Units 20:20 11:00 11:00 WBC 11.00 H (4.4-10.8) k/cumm MCHC 31.8 L (32.0-36.0) g/dL RDW 15.4 H (11.7-14.6) % MPV 11.7 H (8.0-11.0) fL Absolute Neutrophils 7.60 H (1.2-6.7) k/cumm Absolute Monocytes 1.40 H (0.11-0.7) k/cumm BUN 26 H (7-18) mg/dL Urine Urobilinogen 1.0 H (Up TO 0.2) EU/dL Vital Signs Temperature 36.9 C 04/26/19 11:10 Temperature Source Tympanic 04/26/19 11:10 Pulse 89 04/26/19 11:10 Pulse Rhythm Irregular 04/26/19 08:20 Respiratory Rate 21 04/26/19 11:10 Respiratory Effort 04/26/19 08:20 Respiratory Depth Deep 04/26/19 08:20 Respiratory Pattern Tachypnea 04/26/19 08:20 Blood Pressure 112/75 04/26/19 11:10 Blood Pressure Position Sitting 04/24/19 08:24 Pulse Oximetry 96 04/26/19 11:10 Respiratory End-tidal CO2 36 04/24/19 14:35 Oxygen Delivery Method Room Air 04/26/19 11:10 Oxygen Flow Rate 0 04/26/19 11:10 Pain Level 1 04/26/19 11:28 Comment 04/26/19 08:16 Intake & Output 04/25/19 04/26/19 04/26/19 23:59 11:59 23:59 Intake Total 744 / 2292.917 Output Total 1450 / 2200 1900 / 1900 Balance -706 / 92.917 -1900 / -1900 Intake: IV 504 / 2.917 Oral 240 / 240 Output: Urine 1450 / 2200 1900 / 1900 Other: Urine Color Yellow Yellow Urine Appearance Clear Clear Urine Odor Normal Voiding Methods Bedside Commode Bedside Commode Laboratory Results WBC 11.00 k/cumm (4.4-10.8) H 04/26/19 11:00 RBC 4.78 m/cumm (4.00-5.20) 04/26/19 11:00 Hgb 13.7 g/dL (12.0-15.5) 04/26/19 11:00 Hct 43.1 % (36.0-46.0) 04/26/19 11:00 MCV 90.2 fL (80-95) 04/26/19 11:00 MCH 28.7 pg (27.0-33.0) 04/26/19 11:00 MCHC 31.8 g/dL (32.0-36.0) L 04/26/19 11:00 RDW 15.4 % (11.7-14.6) H 04/26/19 11:00 Plt Count 176 x1000/uL (130-400) 04/26/19 11:00 MPV 11.7 fL (8.0-11.0) H 04/26/19 11:00 Immature Gran % 0.3 % 04/26/19 11:00 Neutrophils % 69.1 04/26/19 11:00 Lymphocytes % 15.6 04/26/19 11:00 Monocytes % 12.7 04/26/19 11:00 Eosinophils % 2.0 04/26/19 11:00 Basophils % 0.3 04/26/19 11:00 Absolute Neutrophils 7.60 k/cumm (1.2-6.7) H 04/26/19 11:00 Absolute Lymphocytes 1.72 k/cumm (1.2-3.4) 04/26/19 11:00 Absolute Monocytes 1.40 k/cumm (0.11-0.7) H 04/26/19 11:00 Absolute Eosinophils 0.22 k/cumm (0.0-0.7) 04/26/19 11:00 Absolute Basophils 0.03 k/cumm (0.0-0.2) 04/26/19 11:00 PT 10.5 sec (9.3-11.0) 04/24/19 08:37 INR 1.0 (0.9-1.1) 04/24/19 08:37 Sodium 140 mmol/L (136-145) 04/26/19 11:00 Potassium 4.4 mmol/L (3.5-5.1) 04/26/19 11:00 Chloride 104 mmol/L (98-107) 04/26/19 11:00 Carbon Dioxide 32.0 mmol/L (21.0-32.0) 04/26/19 11:00 Anion Gap 4.0 mmol/L (3-11) 04/26/19 11:00 BUN 26 mg/dL (7-18) H 04/26/19 11:00 Creatinine 0.92 mg/dL (0.55-1.02) 04/26/19 11:00 Estimated GFR/1.73 m2 59.35 (mL/min/1.73m2) 04/26/19 11:00 Glucose 96 mg/dL (74-106) 04/26/19 11:00 Calcium 8.8 mg/dL (8.5-10.1) 04/26/19 11:00 Magnesium 2.0 mg/dL (1.8-2.4) 04/25/19 06:26 Total Bilirubin 1.2 mg/dL (0.2-1.0) H 04/24/19 08:37 AST 24 U/L (15-37) 04/24/19 08:37 ALT 20 U/L (14-59) 04/24/19 08:37 Alkaline Phosphatase 81 U/L (46-116) 04/24/19 08:37 Troponin I < 0.05 ng/Ml (<0.06) 04/24/19 08:37 Total Protein 7.3 g/dL (6.4-8.2) 04/24/19 08:37 Albumin 3.5 g/dL (3.4-5.0) 04/24/19 08:37 Urine Color Yellow (Yellow) 04/25/19 20:20 Urine Clarity Clear (Clear) 04/25/19 20:20 Urine pH 6.0 (5-8) 04/25/19 20:20 Ur Specific [place] 1.015 (1.005-1.025) 04/25/19 20:20 Urine Protein Negative mg/dL (Negative) 04/25/19 20:20 Urine Ketones Negative mg/dL (Negative) 04/25/19 20:20 Urine Blood Negative (Negative) 04/25/19 20:20 Urine Nitrite Negative (Negative) 04/25/19 20:20 Urine Bilirubin Negative (Negative) 04/25/19 20:20 Urine Urobilinogen 1.0 EU/dL (Up TO 0.2) H 04/25/19 20:20 Ur Leukocyte Esterase Negative (Negative) 04/25/19 20:20 Urine Glucose Negative mg/dL (Negative) 04/25/19 20:20 Patient ABO/Rh AB Negative 04/24/19 16:07 Antibody Screen Negative 04/24/19 16:07
--- NOTE | 2019-04-26 12:48 | DI.RAD_ITS ---
EXAM: XR CHEST 2V PA LATERAL INDICATION: Cough, leukocytosis. COMPARISON: XR CHEST 1V IN DI DEPT from 04/24/2019 TECHNIQUE: 2D digital imaging was performed. FINDINGS: The heart size and pulmonary vasculature are within normal limits. There is atherosclerosis and tort uosity of the thoracic aorta. No focal consolidating infiltrates are seen. No effusions or pneumoth oraces are identified. The lungs appear hyperinflated consistent with underlying COPD. Age-appropri ate degenerative changes are seen in the spine. IMPRESSION: No acute pulmonary process.
--- NOTE | 2019-04-26 13:22 | PT.INTREAT ---
Date of service: 04/26/19 Time of Service: 11:58 PT Notes Visit Reasons: RIGHT HIP FX Physical Therapy Inpatient Treatment Note Date: 04/26/2019 PRECAUTIONS: Fall. Standard. WBAT on R LE. SUBJECTIVE: Patient is agreeable to a PT consult. She reports feeling better after resting in bed the whole afternoon. She did report being tuckered out from the morning's PT session. She continues to report pain on the R hip with weight bearing. Denies headache, chest pain and dizziness through out session. She states that the cough she has had for quite a while now. OBJECTIVE: Wound dressing over surgical area. Minimal swelling noted on adjacent area. PAIN: 6/10 on the right hip aggravated with WB. BED MOBILITY/TRANSFERS Rolling L/R: SBA with HOB flat Supine-sit: SBA with HOB flat Sit-supine: SBA with HOB flat Sit-stand: CGA Stand-sit: CGA Bed-Chair: [facility] Chair-bed: [facility] GAIT Assistive Device: FWW Weight bearing: WBAT Assist: CGA in the morning, SBA in the afternoon Distance: 30' + 30'. For the afternoon session, patient managed 100' x 2. Deviation: Step to gait pattern, antalgic gait, asymmetric step height and length THEREX: Patient tolerated exercises written on ex sheet to increase range of motion on B hip and knees. For the afternoon session, patient managed therapeutic exercises comprising of LAQs, seated hip flexion as well as hip abduction and extension ins tanding while holding onto horizontal rail without undue pain. ASSESSMENT: Patient understands the decreased safety of going home alone at this time and would like to give it a few days to see how stable she can be with her walking. She is receptive to services to facilitate return to PLOF at her home setting. PLAN: Continue with PT POC as initially established. TREATMENT CODE/TIME: Session 1- 66090 and 14722 x 30 minutes beginning at 11:58 AM. Session 2- [id number] and 65133 x 51 minutes beginning at 13:41 PM.
[2019-04-26] MEDS: Enoxaparin 30 MG/0.3 ML SYR SC (14:11)
--- NOTE | 2019-04-26 17:12 | CMPROGNOTE_ITS ---
- If Service Date Differs Date of service: 04/26/19 Time of Service: 17:12 Care Management Progress Note S/O: Kelsey remains at [facility] awaiting further management per Ortho. CM unsuccessfully attempts to meet with her on several occasions today but she is either sleeping or nursing staff are in the room. CM will continue to follow. A: Kelsey is a 78 year old female admitted to [facility] on 04/24/2019 for a right hip fracture. P: No change in plan. Script for FWW still needs to be signed by Dr. Gaines. CM spoke with [facility] today to confirm receipt of referral. CM will continue to support patient and discharge planning needs.
[2019-04-26] MEDS: Pravastatin 20 MG TAB 10 MG PO (19:30)
[2019-04-27] VITALS (7 sets, daily range): BP systolic 129–176; BP diastolic 70–89; PULSE 65–91; RESP 18–28; TEMP 36.4–36.9; O2SAT 95–98
[2019-04-27] MEDS: HYDROcodone 5/Acetaminophen 325 TAB PO (04:24)
[2019-04-27] MEDS: Levothyroxine 88 MCG TAB PO (06:45)
[2019-04-27] MEDS: Nicotine 7 MG/24 HR PATCH TD (08:51)
[2019-04-27] MEDS: Aspirin 325 MG TAB PO (08:51)
[2019-04-27] MEDS: Multivitamin w/Minerals TAB 1 TAB PO (08:51)
[2019-04-27] MEDS: Ascorbic Acid 500 MG TAB PO (08:52)
[2019-04-27] MEDS: Cholecalciferol (Vitamin D3) 1,000 UNIT TAB 1000 UNITS PO (08:52)
[2019-04-27] MEDS: Ferrous Gluconate 324 MG TAB PO ×2 (08:53→20:30)
[2019-04-27] MEDS: amLODIPine 5 MG TAB PO (08:53)
[2019-04-27] MEDS: Pantoprazole 40 MG TABCR PO (08:53)
[2019-04-27] MEDS: Docusate Sodium 100 MG CAP PO ×2 (08:53→20:31)
[2019-04-27] MEDS: Apixaban 2.5 MG TAB PO ×2 (10:10→20:30)
--- NOTE | 2019-04-27 13:07 | PT.INIE ---
Date of service: 04/27/19 Time of Service: 11:37 PT Notes Visit Reasons: RIGHT HIP FX Physical Therapy Inpatient Initial Evalaution Date: 04/27/2019 PRECAUTIONS: Fall. Standard. WBAT on R LE. SUBJECTIVE: Patient is agreeable to a PT consult. She reports feeling better after resting in bed the whole afternoon. She did report being tuckered out from the morning's PT session. She continues to report pain on the R hip with weight bearing. Denies headache, chest pain and dizziness through out session. She states that the cough she has had for quite a while now. OBJECTIVE: Wound dressing over surgical area. Minimal swelling noted on adjacent area. PAIN: 6/10 on the right hip aggravated with WB. BED MOBILITY/TRANSFERS Sit-stand: SBA Stand-sit: SBA Bed-Chair: SBA Chair-bed: SBA GAIT Assistive Device: FWW Weight bearing: WBAT Assist: CGA in the morning, SBA in the afternoon Distance: 30' + 30'. For the afternoon session, patient managed 100' x 2. Deviation: Step to gait pattern, antalgic gait, asymmetric step height and length THEREX: Patient tolerated exercises written on ex sheet to increase range of motion on B hip and knees. For the afternoon session, patient managed therapeutic exercises comprising of LAQs, seated hip flexion as well as hip abduction and extension ins tanding while holding onto horizontal rail without undue pain. ASSESSMENT: Patient understands the decreased safety of going home alone at this time and would like to give it a few days to see how stable she can be with her walking. She is receptive to services to facilitate return to OF at her home setting. PLAN: Continue with PT POC as initially established. TREATMENT CODE/TIME: Session 1- [id number] and 03622 x 30 minutes beginning at 11:58 AM. Session 2- 70499 and 68733 x 51 minutes beginning at 13:41 PM.
--- NOTE | 2019-04-27 13:49 | PT.INTREAT ---
Date of service: 04/27/19 Time of Service: 11:37 PT Notes Visit Reasons: RIGHT HIP FX Physical Therapy Inpatient Treatment Note Date: 04/27/2019 PRECAUTIONS: Fall. Standard. WBAT on R LE. SUBJECTIVE: Patient states that her friend Mitiz has agreed to stay with her as her live-in caregiver for 2 weeks when she gets discharged from this hospital. She is also agreeable to home health PT and OT to allow her to transition back to home. She does not report any pain in the right hip at rest and with movement for the morning and afternoon sessions. She did express some discomfort with instructions on step through gait pattern. Denies headache, chest pain and dizziness through out session. She states that the cough she has had for quite a while now. OBJECTIVE: Wound dressing now removed from surgical area. Decreased swelling noted on surgical area. PAIN: 0/10 BED MOBILITY/TRANSFERS Rolling L/R: Independent Supine-sit: Independent Sit-supine: Independent Sit-stand: [facility] Stand-sit: [facility] Bed-Chair: [facility] Chair-bed: [facility] GAIT Assistive Device: FWW Weight bearing: WBAT Assist: SBA Distance: 120 feet +30 feet +30 feet for the morning session. 100 feet x 2 for the afternoon session. Deviation: Step to gait pattern. Asymmetric step height and length. Verbal cues given for increased step height and length to facilitate step through gait pattern. STAIRS: Patient negotiated three 4 inch steps and two 6 inch steps while holding onto bilateral rails with step to gait pattern requiring minimal verbal cues for safe technique. ASSESSMENT: Patient has demonstrated increased independence with mobility ADL performance and requires minimal verbal cueing for facilitation of step through gait pattern using the front wheeled walker. PLAN: Will benefit from the use of a front wheeled walker for discharge to home. Continue with PT POC as initially established. Patient will go home with live-in caregiver Mitzi for 2 weeks. Patient will benefit from home health PT services in order to progress mobility level using least restrictive assistive ambulatory device, assess home safety, identify additional equipment needs, and establish a functional maintenance program that will increase ability of patient to remain at home. TREATMENT CODE/TIME: Session 1- 49131 x 25 minutes beginning at 11:37 AM. Session 2- 11591 x 28 minutes beginning at 14:12 PM.
--- NOTE | 2019-04-27 14:19 | CMPROGNOTE_ITS ---
- If Service Date Differs Date of service: 04/27/19 Time of Service: 14:19 Care Management Progress Note S/O: Kelsey is sitting in a chair when CM comes to meet with her. She easily engages in conversation and states she is upset because someone told her she would be going across the street soon. CM reassures her the plan is for her to return home with services. 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 CM will continue to follow. A: Kelsey is a 78 year old female admitted to [facility] on 04/24/2019 for a right hip fracture. P: Kelsey will be discharged home when deemed medically ready by provider. Anticipate [facility] and Meals on Wheels through [employer] [facility], in addition to [facility] nursing, PT and OT at time of discharge. Kelsey will be transported home by her friend Mitzi via private vehicle when ready. CM has coordinated FWW through [facility], which is to be delivered to [facility] tomorrow morning. CM will continue to follow.
--- NOTE | 2019-04-27 14:36 | CHAPLAIN ---
Kelsey was sitting up finishing a conversation with her daycare assistant when I stopped in. She said he hadn't gotten the idea somehow that she was being transported from here to [facility], and that she wouldn't be able to leave there. She is very fearful of this she said, and she is not sure why she thought that was going to happen, but relieved that it isn't. Instead she will likely be discharged home tomorrow. A friend has been caring for her animals, (2 horses, cat, dog) and she said she recently asked a friend is she was willing to take the animals when Kelsey dies and Kelsey was relieved to learn that her friend would do this. Kel[facility] [employer] in [place], [place] and her roller checker, Rev. Josue Ramey, knows that she is here. He likely didn't visit today because of the snow, Kelsey said.
--- NOTE | 2019-04-27 15:04 | PGE_ITS ---
Date of Service Date of service: 04/27/19 Time of Service: 15:05 Assessment and Plan Assessment and plan (1) Closed right hip fracture: Status: Acute Assessment and plan: Postop day #3. Progressing as expected. Pain well controlled. Further management per Ortho. Plan for discharge home tomorrow with home health services including PT and OT and ENTRY LEVEL MANAGEMENT. Patient will need DVT prophylaxis for 4 weeks of Eliquis at 2.5 mg twice a day. Qualifiers: Encounter type: initial encounter Qualified Code(s): S72.001A - Fracture of unspecified part of neck of right femur, initial encounter for closed fracture (2) Atrial fibrillation: Status: Chronic Assessment and plan: As the patient will be placed on low-dose Eliquis for DVT prophylaxis I am going to discontinue her aspirin to reduce her risk of bleeding. Qualifiers: Atrial fibrillation type: paroxysmal Qualified Code(s): I48.0 - Paroxysmal atrial fibrillation (3) Acute blood loss anemia: Status: Acute Assessment and plan: Anemia is improving. She is currently being treated with oral iron supplementation.. (4) DVT prophylaxis: Status: Acute (5) Discharge planning issues: Status: Acute Assessment and plan: Plan is for discharge home tomorrow with home health services including OT and PT and ENTRY LEVEL MANAGEMENT. Subjective Subjective Patient reports: no new complaints Interval history since last seen: Postop day #3 ORIF right femoral subcapital fracture. Patient denies any shortness of breath or chest pain no nausea or vomiting. No dysuria. She states she did well with physical therapy ambulating with the use of her walker. For the ease of the patient's administration of her medications I have switched her Lovenox to Eliquis for DVT prophylaxis.Plan is to discharge the patient tomorrow with home health services including PT and OT as well as ENTRY LEVEL MANAGEMENT. As the patient will not require Lovenox shots there will be no need for nursing care. Exam Narrative Exam Narrative: Elderly female sitting up in her chair reading her book. Lungs are clear to auscultation. Heart is irregularly irregular at a controlled rate Right hip wound is well approximated with no induration and very minuscule bruise at the incision site. No drainage. Objective Objective Clinical Data: Vital Signs Temperature 36.4 C L 04/27/19 07:40 Temperature Source Tympanic 04/27/19 07:40 Pulse 66 04/27/19 07:40 Pulse Rhythm Regular 04/27/19 11:31 Respiratory Rate 28 H 04/27/19 13:57 Respiratory Effort Non-Labored 04/27/19 13:57 Respiratory Depth Shallow 04/27/19 13:57 Respiratory Pattern Tachypnea 04/27/19 13:57 Blood Pressure 129/70 04/27/19 07:40 Blood Pressure Position Sitting 04/24/19 08:24 Pulse Oximetry 96 04/27/19 14:03 Respiratory End-tidal CO2 36 04/24/19 14:35 Oxygen Delivery Method Room Air 04/27/19 14:03 Oxygen Flow Rate 0 04/27/19 14:03 Pain Level 0 04/27/19 07:40 Comment 04/26/19 08:16 Intake & Output 04/26/19 04/27/19 04/27/19 23:59 11:59 23:59 Intake Total 260 / 260 240 / 240 Output Total 400 / 2300 850 / 850 Balance -140 / -2040 -850 / -610 240 / -610 Intake: IV Oral 250 / 250 240 / 240 Output: Urine 400 / 2300 850 / 850 Other: Urine Color Yellow Yellow Urine Appearance Clear Clear Urine Odor Normal Normal Voiding Methods Toilet Toilet Laboratory Results WBC 11.00 k/cumm (4.4-10.8) H 04/26/19 11:00 RBC 4.78 m/cumm (4.00-5.20) 04/26/19 11:00 Hgb 13.7 g/dL (12.0-15.5) 04/26/19 11:00 Hct 43.1 % (36.0-46.0) 04/26/19 11:00 MCV 90.2 fL (80-95) 04/26/19 11:00 MCH 28.7 pg (27.0-33.0) 04/26/19 11:00 MCHC 31.8 g/dL (32.0-36.0) L 04/26/19 11:00 RDW 15.4 % (11.7-14.6) H 04/26/19 11:00 Plt Count 176 x1000/uL (130-400) 04/26/19 11:00 MPV 11.7 fL (8.0-11.0) H 04/26/19 11:00 Immature Gran % 0.3 % 04/26/19 11:00 Neutrophils % 69.1 04/26/19 11:00 Lymphocytes % 15.6 04/26/19 11:00 Monocytes % 12.7 04/26/19 11:00 Eosinophils % 2.0 04/26/19 11:00 Basophils % 0.3 04/26/19 11:00 Absolute Neutrophils 7.60 k/cumm (1.2-6.7) H 04/26/19 11:00 Absolute Lymphocytes 1.72 k/cumm (1.2-3.4) 04/26/19 11:00 Absolute Monocytes 1.40 k/cumm (0.11-0.7) H 04/26/19 11:00 Absolute Eosinophils 0.22 k/cumm (0.0-0.7) 04/26/19 11:00 Absolute Basophils 0.03 k/cumm (0.0-0.2) 04/26/19 11:00 PT 10.5 sec (9.3-11.0) 04/24/19 08:37 INR 1.0 (0.9-1.1) 04/24/19 08:37 Sodium 140 mmol/L (136-145) 04/26/19 11:00 Potassium 4.4 mmol/L (3.5-5.1) 04/26/19 11:00 Chloride 104 mmol/L (98-107) 04/26/19 11:00 Carbon Dioxide 32.0 mmol/L (21.0-32.0) 04/26/19 11:00 Anion Gap 4.0 mmol/L (3-11) 04/26/19 11:00 BUN 26 mg/dL (7-18) H 04/26/19 11:00 Creatinine 0.92 mg/dL (0.55-1.02) 04/26/19 11:00 Estimated GFR/1.73 m2 59.35 (mL/min/1.73m2) 04/26/19 11:00 Glucose 96 mg/dL (74-106) 04/26/19 11:00 Calcium 8.8 mg/dL (8.5-10.1) 04/26/19 11:00 Magnesium 2.0 mg/dL (1.8-2.4) 04/25/19 06:26 Total Bilirubin 1.2 mg/dL (0.2-1.0) H 04/24/19 08:37 AST 24 U/L (15-37) 04/24/19 08:37 ALT 20 U/L (14-59) 04/24/19 08:37 Alkaline Phosphatase 81 U/L (46-116) 04/24/19 08:37 Troponin I < 0.05 ng/Ml (<0.06) 04/24/19 08:37 Total Protein 7.3 g/dL (6.4-8.2) 04/24/19 08:37 Albumin 3.5 g/dL (3.4-5.0) 04/24/19 08:37 Urine Color Yellow (Yellow) 04/25/19 20:20 Urine Clarity Clear (Clear) 04/25/19 20:20 Urine pH 6.0 (5-8) 04/25/19 20:20 Ur Specific [place] 1.015 (1.005-1.025) 04/25/19 20:20 Urine Protein Negative mg/dL (Negative) 04/25/19 20:20 Urine Ketones Negative mg/dL (Negative) 04/25/19 20:20 Urine Blood Negative (Negative) 04/25/19 20:20 Urine Nitrite Negative (Negative) 04/25/19 20:20 Urine Bilirubin Negative (Negative) 04/25/19 20:20 Urine Urobilinogen 1.0 EU/dL (Up TO 0.2) H 04/25/19 20:20 Ur Leukocyte Esterase Negative (Negative) 04/25/19 20:20 Urine Glucose Negative mg/dL (Negative) 04/25/19 20:20 Patient ABO/Rh AB Negative 04/24/19 16:07 Antibody Screen Negative 04/24/19 16:07
--- NOTE | 2019-04-27 15:57 | PHARADMIT ---
Addendum entered by Leslie Wagner 05/01/19 16:40: Pharmacy Note Subjective significantly improved PT glover per morning report Objective VS okay no labs Assessment no med changed Plan waiting to hear from [facility] about placement Addendum entered by Marjan Preciado 04/30/19 09:41: Pharmacy Note Subjective post op day 6, SNF referrals sent, working with PT Objective vs ok, no labs Assessment pt on apixaban, no med changes noted Plan Addendum entered by Pedro Pablo Parekh III 04/28/19 12:57: Pharmacy Note Subjective Closed right hip fracture post-op day #4. Objective VS-OK Pain:0/10 No Labs Assessment on Eliquis Plan Patient was to be discharged home today, but PT did not feel patient would be safe at home. Recommends SNF for rehab. CM sending referrals. Original Note: Admission Pharmacy Clinical Review RIGHT HIP FRACTURE Code Status Full Code Current Weight Wgt-56.5 kg Renally Cleared and Narrow Therapeutic Index Meds CrCl~ 44.9 mL/min Meds-OK QTc Value / Action Taken QTc-437 (na) BP Control, Fever BP-129/70 Tmax- 37C Electrolytes reviewed Na-140 K+4.4 Mag-2.0 DVT Prophylaxis Lovenox DC'd on Eliquis Opiate Usage / Scheduled Bowel Regimen Ordered Yes Yes Plt/SCr for Heparin / Enoxaparin Plts-176 SCr-0.92 INR for Warfarin inr-1.0 H/H stable, WBC/Bands H&H- 13.7/43.1 WBC- 11.00 Antibiotic appropriateness Ancef Pre & Post-OP Cultures and Sensitivities Urine-No Growt/24hrs Surgical ABX d/c within 24 hr Yes DM control / Insulin Dosing BG-96 Heart Failure (Check EF%) (DAWIT's, B-Block, Diuretics) Norvasc, IV to PO Switch No Home Meds Reviewed Yes Home Meds Not Ordered Keppra, ASA, Xarelto Comments
[2019-04-27] MEDS: Pravastatin 20 MG TAB 10 MG PO (20:30)
--- NOTE | 2019-04-27 23:10 | NUR.NOTE ---
Patient rang the calling brown and was on the phone and stated the person on the phone would like to speak to me seeing that i am her nurse for the night. The person on the opposite end identified her name has Becky, and she stated the patient will not be able to go home tomorrow has was scheduled because she will not be living with patient. Becky stated the only thing she will be able to do is to look after the patients horses, because she has her own place and she is unable to stay with the patient. Charge Nurse was informed of same
[2019-04-28] MEDS: Acetaminophen 325 MG TAB 650 MG PO ×2 (00:36→21:13)
[2019-04-28] MEDS: Levothyroxine 88 MCG TAB PO (05:26)
[2019-04-28 07:55] VITALS: BP 123/86; PULSE 82; RESP 20; TEMP 36.8; O2SAT 94
[2019-04-28] MEDS: amLODIPine 5 MG TAB PO (09:45)
[2019-04-28] MEDS: Ferrous Gluconate 324 MG TAB PO ×2 (09:45→20:59)
[2019-04-28] MEDS: Multivitamin w/Minerals TAB 1 TAB PO (09:45)
[2019-04-28] MEDS: Docusate Sodium 100 MG CAP PO ×2 (09:45→20:59)
[2019-04-28] MEDS: Apixaban 2.5 MG TAB PO ×2 (09:46→20:59)
[2019-04-28] MEDS: Pantoprazole 40 MG TABCR PO (09:46)
[2019-04-28] MEDS: Cholecalciferol (Vitamin D3) 1,000 UNIT TAB 1000 UNITS PO (09:46)
[2019-04-28] MEDS: Ascorbic Acid 500 MG TAB PO (09:46)
[2019-04-28] MEDS: Nicotine 7 MG/24 HR PATCH TD (09:48)
[2019-04-28 11:40] VITALS: BP 147/84; PULSE 67; RESP 21; TEMP 36.7; O2SAT 97
--- NOTE | 2019-04-28 12:34 | W.PM.PROGNOT ---
Date of Service Date of service: 04/28/19 Time of Service: 12:34 Assessment and Plan Assessment and plan (1) Closed right hip fracture: Start date: 04/28/19 Start time: 12:37 Status: Acute Assessment and plan: Postop day #4. Pain well controlled. Further management per Ortho. Eliquis BID x 4 weeks. PT recommend Rehab patient is agreeable. CM to place referrals. Qualifiers: Encounter type: initial encounter Qualified Code(s): S72.001A - Fracture of unspecified part of neck of right femur, initial encounter for closed fracture (2) Atrial fibrillation: Start date: 04/28/19 Start time: 12:38 Status: Chronic Assessment and plan: Rate controlled at this time. Placed on eliquis for hip surgery. Low dose aspirin dcd. Qualifiers: Atrial fibrillation type: paroxysmal Qualified Code(s): I48.0 - Paroxysmal atrial fibrillation (3) Hypothyroidism: Start date: 04/28/19 Start time: 12:40 Status: Chronic Assessment and plan: Continue levothyroxine (4) Hyperlipidemia: Start date: 04/28/19 Start time: 12:40 Status: Chronic Assessment and plan: Continue pravastatin (5) TIA (transient ischemic attack): Start date: 04/28/19 Start time: 12:40 Status: Chronic Assessment and plan: In the past With underlying Afib. Asa changed to eliquis. See above. (6) DVT prophylaxis: Start date: 04/28/19 Start time: 12:41 Status: Acute Assessment and plan: 2.5 mg eliquis po BID (7) Tobacco dependence: Start date: 04/28/19 Start time: 12:41 Status: Acute Assessment and plan: Smokes about 1/4 pack a day. Nicotine replacement ordered. Not interested in cessation at this time. . (8) Acute blood loss anemia: Start date: 04/28/19 Start time: 12:41 Status: Acute Assessment and plan: Anemia no present at this time. She is currently being treated with oral iron supplementation.. (9) Discharge planning issues: Start date: 04/28/19 Start time: 12:42 Status: Acute Assessment and plan: PT recommend rehab, patient is agreeable. CM to send Referrals, Thank you CM. Above case discussed with Dr. Fitzpatrick who is in agreement. Subjective Subjective Patient reports: no new complaints Interval history since last seen: Doing well. pain controlled, Ideally would like to go home but at this point PT feels patient is not safe for home. She has agreed to Rehab. CM is working on referrals at this time. She denies CP, SOB, N/V/D. Exam Narrative Exam Narrative: Elderly female sitting up in chair. Pleasant cooperative, answering questions appropriately. Lungs are clear to auscultation. Even unlabored breaths Heart is irregularly irregular at a controlled rate. Right hip wound is well approximated with no induration and very minuscule bruise at the incision site. No drainage. Objective Objective Clinical Data: Vital Signs Temperature 36.7 C 04/28/19 11:40 Temperature Source Tympanic 04/28/19 11:40 Pulse 67 04/28/19 11:40 Pulse Rhythm Regular 04/28/19 00:40 Respiratory Rate 21 04/28/19 11:40 Respiratory Effort Non-Labored 04/28/19 00:40 Respiratory Depth Normal 04/28/19 00:40 Respiratory Pattern Normal 04/28/19 00:40 Blood Pressure 147/84 H 04/28/19 11:40 Blood Pressure Position Sitting 04/24/19 08:24 Pulse Oximetry 97 04/28/19 11:40 Respiratory End-tidal CO2 36 04/24/19 14:35 Oxygen Delivery Method Room Air 04/28/19 11:40 Oxygen Flow Rate 0 04/28/19 11:40 Pain Level 0 04/28/19 11:40 Comment 04/26/19 08:16 Intake & Output 04/27/19 04/28/19 04/28/19 23:59 11:59 23:59 Intake Total 720 / 720 Output Total 700 / 1550 300 / 300 Balance 20 / -830 -300 / -300 Intake: Oral 720 / 720 Output: Urine 700 / 1550 300 / 300 Other: Urine Color Yellow Yellow Urine Appearance Clear Cloudy Urine Odor None Normal Voiding Methods Toilet Toilet Laboratory Results WBC 11.00 k/cumm (4.4-10.8) H 04/26/19 11:00 RBC 4.78 m/cumm (4.00-5.20) 04/26/19 11:00 Hgb 13.7 g/dL (12.0-15.5) 04/26/19 11:00 Hct 43.1 % (36.0-46.0) 04/26/19 11:00 MCV 90.2 fL (80-95) 04/26/19 11:00 MCH 28.7 pg (27.0-33.0) 04/26/19 11:00 MCHC 31.8 g/dL (32.0-36.0) L 04/26/19 11:00 RDW 15.4 % (11.7-14.6) H 04/26/19 11:00 Plt Count 176 x1000/uL (130-400) 04/26/19 11:00 MPV 11.7 fL (8.0-11.0) H 04/26/19 11:00 Immature Gran % 0.3 % 04/26/19 11:00 Neutrophils % 69.1 04/26/19 11:00 Lymphocytes % 15.6 04/26/19 11:00 Monocytes % 12.7 04/26/19 11:00 Eosinophils % 2.0 04/26/19 11:00 Basophils % 0.3 04/26/19 11:00 Absolute Neutrophils 7.60 k/cumm (1.2-6.7) H 04/26/19 11:00 Absolute Lymphocytes 1.72 k/cumm (1.2-3.4) 04/26/19 11:00 Absolute Monocytes 1.40 k/cumm (0.11-0.7) H 04/26/19 11:00 Absolute Eosinophils 0.22 k/cumm (0.0-0.7) 04/26/19 11:00 Absolute Basophils 0.03 k/cumm (0.0-0.2) 04/26/19 11:00 PT 10.5 sec (9.3-11.0) 04/24/19 08:37 INR 1.0 (0.9-1.1) 04/24/19 08:37 Sodium 140 mmol/L (136-145) 04/26/19 11:00 Potassium 4.4 mmol/L (3.5-5.1) 04/26/19 11:00 Chloride 104 mmol/L (98-107) 04/26/19 11:00 Carbon Dioxide 32.0 mmol/L (21.0-32.0) 04/26/19 11:00 Anion Gap 4.0 mmol/L (3-11) 04/26/19 11:00 BUN 26 mg/dL (7-18) H 04/26/19 11:00 Creatinine 0.92 mg/dL (0.55-1.02) 04/26/19 11:00 Estimated GFR/1.73 m2 59.35 (mL/min/1.73m2) 04/26/19 11:00 Glucose 96 mg/dL (74-106) 04/26/19 11:00 Calcium 8.8 mg/dL (8.5-10.1) 04/26/19 11:00 Magnesium 2.0 mg/dL (1.8-2.4) 04/25/19 06:26 Total Bilirubin 1.2 mg/dL (0.2-1.0) H 04/24/19 08:37 AST 24 U/L (15-37) 04/24/19 08:37 ALT 20 U/L (14-59) 04/24/19 08:37 Alkaline Phosphatase 81 U/L (46-116) 04/24/19 08:37 Troponin I < 0.05 ng/Ml (<0.06) 04/24/19 08:37 Total Protein 7.3 g/dL (6.4-8.2) 04/24/19 08:37 Albumin 3.5 g/dL (3.4-5.0) 04/24/19 08:37 Urine Color Yellow (Yellow) 04/25/19 20:20 Urine Clarity Clear (Clear) 04/25/19 20:20 Urine pH 6.0 (5-8) 04/25/19 20:20 Ur Specific [place] 1.015 (1.005-1.025) 04/25/19 20:20 Urine Protein Negative mg/dL (Negative) 04/25/19 20:20 Urine Ketones Negative mg/dL (Negative) 04/25/19 20:20 Urine Blood Negative (Negative) 04/25/19 20:20 Urine Nitrite Negative (Negative) 04/25/19 20:20 Urine Bilirubin Negative (Negative) 04/25/19 20:20 Urine Urobilinogen 1.0 EU/dL (Up TO 0.2) H 04/25/19 20:20 Ur Leukocyte Esterase Negative (Negative) 04/25/19 20:20 Urine Glucose Negative mg/dL (Negative) 04/25/19 20:20 Patient ABO/Rh AB Negative 04/24/19 16:07 Antibody Screen Negative 04/24/19 16:07
--- NOTE | 2019-04-28 13:46 | PDOC.CMPRO ---
- If Service Date Differs Date of service: 04/28/19 Time of Service: 13:46 Care Management Progress Note S/O: Kelsey is sitting in a chair when CM comes to meet with her. She expresses concerns about running out of heating fuel at home. CM contacts [employer] and [facility] for assistance with emergency fuel and is informed that Kelsey has exhausted financial assistance with both agencies. CM then contacts [facility] [employer] to enlist their help in obtaining emergency fuel. Rossy from [employer] states they will pay for fuel as long as Kelsey can find someone to turn down the thermostat in her home. Kelsey contacts her friend, Zenobia, and asks that she do so. CM will continue to follow. A: Kelsey is a 78 year old female admitted to [facility] on 04/24/2019 for a right hip fracture. P: At PT and provider's recommendation, CM discussed a SNF placement with patient. She is agreeable to the [facility] in [place], [place], and [facility]. CM coordinates referrals to both facilities. Kelsey will remain at [facility] awaiting placement. CM will continue to follow.
--- NOTE | 2019-04-28 14:55 | PT.INTREAT ---
Date of service: 04/28/19 Time of Service: 14:55 PT Notes Visit Reasons: RIGHT HIP FX Inpatient Physical Therapy Treatment Note [facility] Date: 04/28/2019 PRECAUTIONS: Fall. Standard. Activity as tolerated. SUBJECTIVE: Pt reports that she is tired today. She notes that she has agreed to go to a SNF ([facility]) as her plans to go home had fallen through. OBJECTIVE: PAIN: 0/10 at rest BED MOBILITY/TRANSFERS Rolling L/R: Supine-sit: Independent Sit-supine: Independent with cues to hook LLE under RLE to transfer back into bed Sit-stand: Supervision Stand-sit: Supervision Bed-Chair: Supervision Chair-bed: Supervision GAIT Assistive Device: FWW Weight bearing: WBAT Assist: SBA by PT and HUMAN RESOURCES FILE CLERK with intermittent CGA Distance: 75 feet + 75 feet Comments: Step to gait pattern. Provided cues for pt to step through for more normalized gait, however, the pt had a difficult time with this. Asymmetrical step length and height. Often requires cues to bend her R knee with swing through. Pt complained of pain of 5-6/10 with leading with the LLE. THERAPEUTIC ACTIVITIES: Side stepping to R at the edge of mat table x 6 LLE Forward stepping to green tape on floor with forward/backward weight shift 2x10 ASSESSMENT: Pt appeared to be more fatigued today with ambulation. She had great difficulty following cues to ambulate with a step through gait pattern. Pt reports increases in pain in the RLE when leading with the LLE, however was able to complete anterior/posterior weight shifts without increases in pain. She would continue to benefit from skilled physical therapy for reduction in pain and improved functional mobility prior to returning home. PLAN: Continue to with established POC. Pt is to be discharge to SNF when medically cleared and a bed has been secured in SNF. TREATMENT CODE/TIME: 45105 x 50' beginning at 15:55 P.M. Jose Valencia, SPT Doctor of Physical Therapy Student [facility] Supervision provided by Jewell Kelly PT, DPT, CLT [facility] [place], [place]
[2019-04-28 16:10] VITALS: BP 112/64; PULSE 74; RESP 21; TEMP 36.6; O2SAT 95
--- NOTE | 2019-04-28 16:18 | PTTR_ITS ---
Date of service: 04/28/19 Time of Service: 16:18 PT Notes Visit Reasons: RIGHT HIP FX Inpatient Physical Therapy Treatment Note [facility] Date: 04/28/2019 PRECAUTIONS: Fall, WBAT R SUBJECTIVE: Kelsey feels upset by her friend flaking out on me last night. She reports that her friend no longer wants her to stay in her home or to help care for Kelsey. OBJECTIVE: PAIN: Patient complained of right LE pain with ther ex and gait training BED MOBILITY/TRANSFERS Supine-sit: I with HOB flat Sit-supine: S with HOB flat and with use of leg international guest coordinator Sit-stand: S Stand-sit: S GAIT Assistive Device: FWW Weight bearing: WBAT R Assist: SBA Distance: 100' x2 Deviation:Max instruction for step-through gait pattern, verbal and tactile cueing for continuous FWW advancement THEREX: Patient completed a lower extremity strengthening and stabilization program, in a supine position, as per flow sheet. She requires assist with hip abduction exercise. STAIRS: Up/down 3?4 and 2?6 using 1 rail/SPC and a step to pattern with SBA ASSESSMENT: Patient tolerated session with complaint of increased right LE pain with all PT activity. She requires step through instruction as well as cueing for continuous FWW advancement. She would benefit from continued gait and transfer training as well as strengthening for improved mobility. PLAN: Continue with PT's POC TREATMENT CODE/TIME: Session 1: 50 minutes; 06346 x2, [id number]
[2019-04-28] MEDS: Pravastatin 20 MG TAB 10 MG PO (20:59)
[2019-04-28 21:50] VITALS: BP 105/51; PULSE 72; RESP 16; TEMP 37.4; O2SAT 96
[2019-04-29 01:03] VITALS: BP 130/76; PULSE 62; RESP 18; TEMP 36.7; O2SAT 92
[2019-04-29 04:00] VITALS: BP 143/74; PULSE 64; RESP 16; TEMP 36.9; O2SAT 96
[2019-04-29] MEDS: Levothyroxine 88 MCG TAB PO (05:49)
[2019-04-29] MEDS: Nicotine 7 MG/24 HR PATCH TD (07:54)
[2019-04-29] MEDS: Cholecalciferol (Vitamin D3) 1,000 UNIT TAB 1000 UNITS PO (07:55)
[2019-04-29] MEDS: Docusate Sodium 100 MG CAP PO ×2 (07:55→20:02)
[2019-04-29] MEDS: amLODIPine 5 MG TAB PO (07:55)
[2019-04-29] MEDS: Multivitamin w/Minerals TAB 1 TAB PO (07:55)
[2019-04-29] MEDS: Ascorbic Acid 500 MG TAB PO (07:56)
[2019-04-29] MEDS: Pantoprazole 40 MG TABCR PO (07:56)
[2019-04-29] MEDS: Ferrous Gluconate 324 MG TAB PO ×2 (07:56→19:59)
[2019-04-29] MEDS: Apixaban 2.5 MG TAB PO ×2 (07:56→19:58)
[2019-04-29 08:10] VITALS: BP 138/68; PULSE 68; RESP 16; TEMP 36.8; O2SAT 95
[2019-04-29 15:20] VITALS: BP 113/62; PULSE 71; RESP 16; TEMP 36.8; O2SAT 99
--- NOTE | 2019-04-29 16:18 | PGE_ITS ---
Date of Service Date of service: 04/29/19 Time of Service: 16:18 Assessment and Plan Assessment and plan (1) Closed right hip fracture: Start date: 04/29/19 Start time: 16:19 Status: Acute Assessment and plan: Postop day #5. Pain well controlled. Further management per Ortho. Eliquis BID x 4 weeks. PT recommend Rehab patient is agreeable. Waiting to hear back on referrals. Qualifiers: Encounter type: initial encounter Qualified Code(s): S72.001A - Fracture of unspecified part of neck of right femur, initial encounter for closed fracture (2) Atrial fibrillation: Start date: 04/29/19 Start time: 16:19 Status: Chronic Assessment and plan: Rate controlled at this time. Placed on eliquis for hip surgery. Low dose aspirin dcd. Qualifiers: Atrial fibrillation type: paroxysmal Qualified Code(s): I48.0 - Paroxysmal atrial fibrillation (3) Hypothyroidism: Start date: 04/29/19 Start time: 16:19 Status: Chronic Assessment and plan: Continue levothyroxine (4) Hyperlipidemia: Start date: 04/29/19 Start time: 16:19 Status: Chronic Assessment and plan: Continue pravastatin (5) TIA (transient ischemic attack): Start date: 04/29/19 Start time: 16:19 Status: Chronic Assessment and plan: In the past With underlying Afib. Asa changed to eliquis. See above. (6) DVT prophylaxis: Start date: 04/29/19 Start time: 16:19 Status: Acute Assessment and plan: 2.5 mg eliquis po BID (7) Tobacco dependence: Start date: 04/29/19 Start time: 16:19 Status: Acute Assessment and plan: Smokes about 1/4 pack a day. Nicotine replacement ordered. Not interested in cessation at this time. . (8) Acute blood loss anemia: Start date: 04/29/19 Start time: 16:19 Status: Acute Assessment and plan: Anemia not present at this time. She is currently being treated with oral iron supplementation.. (9) Discharge planning issues: Start date: 04/29/19 Start time: 16:20 Status: Acute Assessment and plan: PT recommend rehab, patient is agreeable. Waiting to hear back on referrals. Above case discussed with Dr. Mccord who is in agreement. Subjective Subjective Patient reports: no new complaints Interval history since last seen: Doing well sitting up in chair eating lunch. Not in any pain, continue to work with PT/OT while waiting for bed at rehab. Exam Narrative Exam Narrative: Elderly female sitting up in chair. Pleasant cooperative, answering questions appropriately. Lungs are clear to auscultation. Even unlabored breaths Heart is irregularly irregular at a controlled rate. Right hip wound is well approximated with no induration and very minuscule bruise at the incision site. No drainage. Objective Objective Clinical Data: Vital Signs Temperature 36.8 C 04/29/19 15:20 Temperature Source Tympanic 04/29/19 15:20 Pulse 71 04/29/19 15:20 Pulse Rhythm Irregular 04/29/19 10:39 Respiratory Rate 16 04/29/19 15:20 Respiratory Effort Non-Labored 04/29/19 10:39 Respiratory Depth Normal 04/29/19 10:39 Respiratory Pattern Normal 04/29/19 10:39 Blood Pressure 113/62 04/29/19 15:20 Blood Pressure Position Sitting 04/24/19 08:24 Pulse Oximetry 99 04/29/19 15:20 Respiratory End-tidal CO2 36 04/24/19 14:35 Oxygen Delivery Method Room Air 04/29/19 15:20 Oxygen Flow Rate 0 04/29/19 15:20 Pain Level 0 04/29/19 08:10 Comment 04/26/19 08:16 Intake & Output 04/28/19 04/29/19 04/29/19 23:59 11:59 23:59 Intake Total 480 / 1090 500 / 500 Output Total 1550 / 2200 825 / 825 Balance -1070 / -1110 -325 / -325 Intake: Oral 480 / 1090 500 / 500 Output: Urine 1550 / 2200 825 / 825 Other: Urine Color Yellow Yellow Yellow Urine Appearance Clear Clear Clear Urine Odor None Normal Stool Occult Blood Positive Stool Size Moderate Moderate Moderate Stool Characteristics Formed Soft Soft Hard Brown Brown Voiding Methods Toilet Toilet Laboratory Results WBC 11.00 k/cumm (4.4-10.8) H 04/26/19 11:00 RBC 4.78 m/cumm (4.00-5.20) 04/26/19 11:00 Hgb 13.7 g/dL (12.0-15.5) 04/26/19 11:00 Hct 43.1 % (36.0-46.0) 04/26/19 11:00 MCV 90.2 fL (80-95) 04/26/19 11:00 MCH 28.7 pg (27.0-33.0) 04/26/19 11:00 MCHC 31.8 g/dL (32.0-36.0) L 04/26/19 11:00 RDW 15.4 % (11.7-14.6) H 04/26/19 11:00 Plt Count 176 x1000/uL (130-400) 04/26/19 11:00 MPV 11.7 fL (8.0-11.0) H 04/26/19 11:00 Immature Gran % 0.3 % 04/26/19 11:00 Neutrophils % 69.1 04/26/19 11:00 Lymphocytes % 15.6 04/26/19 11:00 Monocytes % 12.7 04/26/19 11:00 Eosinophils % 2.0 04/26/19 11:00 Basophils % 0.3 04/26/19 11:00 Absolute Neutrophils 7.60 k/cumm (1.2-6.7) H 04/26/19 11:00 Absolute Lymphocytes 1.72 k/cumm (1.2-3.4) 04/26/19 11:00 Absolute Monocytes 1.40 k/cumm (0.11-0.7) H 04/26/19 11:00 Absolute Eosinophils 0.22 k/cumm (0.0-0.7) 04/26/19 11:00 Absolute Basophils 0.03 k/cumm (0.0-0.2) 04/26/19 11:00 PT 10.5 sec (9.3-11.0) 04/24/19 08:37 INR 1.0 (0.9-1.1) 04/24/19 08:37 Sodium 140 mmol/L (136-145) 04/26/19 11:00 Potassium 4.4 mmol/L (3.5-5.1) 04/26/19 11:00 Chloride 104 mmol/L (98-107) 04/26/19 11:00 Carbon Dioxide 32.0 mmol/L (21.0-32.0) 04/26/19 11:00 Anion Gap 4.0 mmol/L (3-11) 04/26/19 11:00 BUN 26 mg/dL (7-18) H 04/26/19 11:00 Creatinine 0.92 mg/dL (0.55-1.02) 04/26/19 11:00 Estimated GFR/1.73 m2 59.35 (mL/min/1.73m2) 04/26/19 11:00 Glucose 96 mg/dL (74-106) 04/26/19 11:00 Calcium 8.8 mg/dL (8.5-10.1) 04/26/19 11:00 Magnesium 2.0 mg/dL (1.8-2.4) 04/25/19 06:26 Total Bilirubin 1.2 mg/dL (0.2-1.0) H 04/24/19 08:37 AST 24 U/L (15-37) 04/24/19 08:37 ALT 20 U/L (14-59) 04/24/19 08:37 Alkaline Phosphatase 81 U/L (46-116) 04/24/19 08:37 Troponin I < 0.05 ng/Ml (<0.06) 04/24/19 08:37 Total Protein 7.3 g/dL (6.4-8.2) 04/24/19 08:37 Albumin 3.5 g/dL (3.4-5.0) 04/24/19 08:37 Urine Color Yellow (Yellow) 04/25/19 20:20 Urine Clarity Clear (Clear) 04/25/19 20:20 Urine pH 6.0 (5-8) 04/25/19 20:20 Ur Specific [place] 1.015 (1.005-1.025) 04/25/19 20:20 Urine Protein Negative mg/dL (Negative) 04/25/19 20:20 Urine Ketones Negative mg/dL (Negative) 04/25/19 20:20 Urine Blood Negative (Negative) 04/25/19 20:20 Urine Nitrite Negative (Negative) 04/25/19 20:20 Urine Bilirubin Negative (Negative) 04/25/19 20:20 Urine Urobilinogen 1.0 EU/dL (Up TO 0.2) H 04/25/19 20:20 Ur Leukocyte Esterase Negative (Negative) 04/25/19 20:20 Urine Glucose Negative mg/dL (Negative) 04/25/19 20:20 Patient ABO/Rh AB Negative 04/24/19 16:07 Antibody Screen Negative 04/24/19 16:07
--- NOTE | 2019-04-29 19:04 | CMPROGNOTE_ITS ---
- If Service Date Differs Date of service: 04/29/19 Time of Service: 19:04 Care Management Progress Note S/O: Kelsey was lying in bed when CM met with her. She reported that she was feeling comfortable at this time. CM discussed her plan of care, which is to consider her placement options on Wednesday, when the admissions department will review her referrals. Referrals have been sent to [facility] as well as the [facility]. Her insurance will require a prior auth from the facilities. Kelsey reported that she is doing well working with PT, and she is encouraged by her progress. CM will continue to follow. A: Kelsey is a 78 year old female admitted to [facility] on 04/24/2019 for a right hip fracture. P: At PT and provider's recommendation, CM discussed a SNF placement with patient. She is agreeable to the [facility] in [place], [place], and [facility]. CM coordinates referrals to both facilities. Kelsey's insurance will require a prior auth for SNF placement. Kelsey will remain at [facility] awaiting placement. CM will continue to follow.
[2019-04-29 19:11] VITALS: BP 123/76; PULSE 75; RESP 16; TEMP 36.6; O2SAT 95
[2019-04-29] MEDS: Pravastatin 20 MG TAB 10 MG PO (19:58)
[2019-04-29 20:20] VITALS: BP 132/79; PULSE 72; RESP 17; TEMP 36.5; O2SAT 95
[2019-04-30 03:22] VITALS: BP 125/78; PULSE 62; RESP 16; TEMP 36.5; O2SAT 94
[2019-04-30] MEDS: Levothyroxine 88 MCG TAB PO (04:48)
[2019-04-30 08:57] VITALS: BP 130/79; PULSE 63; RESP 22; TEMP 36.6; O2SAT 94
[2019-04-30] MEDS: amLODIPine 5 MG TAB PO (09:10)
[2019-04-30] MEDS: Nicotine 7 MG/24 HR PATCH TD (09:10)
[2019-04-30] MEDS: Cholecalciferol (Vitamin D3) 1,000 UNIT TAB 1000 UNITS PO (09:10)
[2019-04-30] MEDS: Ascorbic Acid 500 MG TAB PO (09:10)
[2019-04-30] MEDS: Docusate Sodium 100 MG CAP PO ×2 (09:11→20:50)
[2019-04-30] MEDS: Multivitamin w/Minerals TAB 1 TAB PO (09:11)
[2019-04-30] MEDS: Ferrous Gluconate 324 MG TAB PO ×2 (09:11→20:49)
[2019-04-30] MEDS: Apixaban 2.5 MG TAB PO ×2 (09:11→20:50)
[2019-04-30] MEDS: Pantoprazole 40 MG TABCR PO (09:11)
--- NOTE | 2019-04-30 11:17 | PTTR_ITS ---
PT Notes Visit Reasons: RIGHT HIP FX Date: 04/29/2019 PRECAUTIONS:fall SUBJECTIVE: Kelsey states that she feels as though she can go home. OBJECTIVE: [] BED MOBILITY/TRANSFERS Sit-stand: S Stand-sit: S GAIT Assistive Device: FWW Weight bearing: AT right Assist: SBA Distance: 150' Deviation: cues to take longer stride length, especially of left LE, as well as cues to pay attention to what she is doing. THEREX: seated global LE strength and stabilization. ASSESSMENT: tolerated session well. Is relatively safe with transfers as long as she pays attention to what she is doing. PLAN: continue POC TREATMENT CODE/TIME: 30 min. [id number], [id number] CC: Dictated by: RACHELLE Ortega, ReneeDictated: 04/29/19Dictated Time: 1203 <Electronically signed by RACHELLE Ortega>04/29/19 1211 Transcribed Date: 04/29/19 Transcribed Time: 1203 By: ARLENE
--- NOTE | 2019-04-30 11:27 | W.PM.PROGNOT ---
Date of Service Date of service: 04/30/19 Time of Service: 11: Assessment and Plan Assessment and plan (1) Closed right hip fracture: Start date: 04/30/19 Start time: 11:29 Status: Acute Assessment and plan: Postop day #6 Pain well controlled. Awaiting pre auth at this time for patient to go to Rehab facility for PT/OT to regain strength and mobility Qualifiers: Encounter type: initial encounter Qualified Code(s): S72.001A - Fracture of unspecified part of neck of right femur, initial encounter for closed fracture (2) DVT prophylaxis: Start date: 04/30/19 Start time: 11:30 Status: Acute Assessment and plan: 2.5 mg eliquis po BID (3) Tobacco dependence: Start date: 04/30/19 Start time: 11:30 Status: Acute Assessment and plan: Smokes about 1/4 pack a day. Nicotine replacement ordered. Continue to check interest in smoking cessation . (4) Discharge planning issues: Start date: 04/30/19 Start time: 11:30 Status: Acute Assessment and plan: PT recommend rehab, patient is agreeable. [facility]. Above case discussed with Dr. Mccord who is in agreement. Subjective Subjective Patient reports: no new complaints Interval history since last seen: Continue to be doing well. Pain controlled awaiting preauthorization for a bed at rehab. Denies CP, SOB, N/V/D. Exam Narrative Exam Narrative: Elderly female sitting up in chair. Pleasant cooperative, answering questions appropriately. Lungs are clear to auscultation. Even unlabored breaths Heart is RRR s1 s2 no murmur appreciated. Eyes PERRLA, Right hip wound is well approximated with no induration and very minuscule bruise at the incision site. No drainage. Objective Objective Clinical Data: Vital Signs Temperature 36.6 C 04/30/19 08:57 Temperature Source Temporal Artery Scan 04/30/19 08:57 Pulse 63 04/30/19 08:57 Pulse Rhythm Irregular 04/30/19 10:06 Respiratory Rate 22 04/30/19 08:57 Respiratory Effort Non-Labored 04/30/19 10:06 Respiratory Depth Normal 04/30/19 10:06 Respiratory Pattern Normal 04/30/19 10:06 Blood Pressure 130/79 04/30/19 08:57 Blood Pressure Position Sitting 04/24/19 08:24 Pulse Oximetry 94 L 04/30/19 08:57 Respiratory End-tidal CO2 36 04/24/19 14:35 Oxygen Delivery Method Room Air 04/30/19 08:57 Oxygen Flow Rate 0 04/30/19 08:57 Pain Level 0 04/30/19 08:57 Comment 04/26/19 08:16 Intake & Output 04/29/19 04/29/19 04/30/19 11:59 23:59 11:59 Intake Total 500 / 980 480 / 980 1450 / 1450 Output Total 825 / 1175 350 / 1175 1300 / 1300 Balance -325 / -195 130 / -195 150 / 150 Intake: Oral 500 / 980 480 / 980 1450 / 1450 Output: Urine 825 / 1175 350 / 1175 1300 / 1300 Other: Urine Color Yellow Yellow Yellow Urine Appearance Clear Clear Clear Urine Odor Normal Comment voided at toilet Stool Occult Blood Positive Stool Size Moderate Moderate Stool Characteristics Soft Soft Brown Voiding Methods Toilet Toilet Toilet Laboratory Results WBC 11.00 k/cumm (4.4-10.8) H 04/26/19 11:00 RBC 4.78 m/cumm (4.00-5.20) 04/26/19 11:00 Hgb 13.7 g/dL (12.0-15.5) 04/26/19 11:00 Hct 43.1 % (36.0-46.0) 04/26/19 11:00 MCV 90.2 fL (80-95) 04/26/19 11:00 MCH 28.7 pg (27.0-33.0) 04/26/19 11:00 MCHC 31.8 g/dL (32.0-36.0) L 04/26/19 11:00 RDW 15.4 % (11.7-14.6) H 04/26/19 11:00 Plt Count 176 x1000/uL (130-400) 04/26/19 11:00 MPV 11.7 fL (8.0-11.0) H 04/26/19 11:00 Immature Gran % 0.3 % 04/26/19 11:00 Neutrophils % 69.1 04/26/19 11:00 Lymphocytes % 15.6 04/26/19 11:00 Monocytes % 12.7 04/26/19 11:00 Eosinophils % 2.0 04/26/19 11:00 Basophils % 0.3 04/26/19 11:00 Absolute Neutrophils 7.60 k/cumm (1.2-6.7) H 04/26/19 11:00 Absolute Lymphocytes 1.72 k/cumm (1.2-3.4) 04/26/19 11:00 Absolute Monocytes 1.40 k/cumm (0.11-0.7) H 04/26/19 11:00 Absolute Eosinophils 0.22 k/cumm (0.0-0.7) 04/26/19 11:00 Absolute Basophils 0.03 k/cumm (0.0-0.2) 04/26/19 11:00 PT 10.5 sec (9.3-11.0) 04/24/19 08:37 INR 1.0 (0.9-1.1) 04/24/19 08:37 Sodium 140 mmol/L (136-145) 04/26/19 11:00 Potassium 4.4 mmol/L (3.5-5.1) 04/26/19 11:00 Chloride 104 mmol/L (98-107) 04/26/19 11:00 Carbon Dioxide 32.0 mmol/L (21.0-32.0) 04/26/19 11:00 Anion Gap 4.0 mmol/L (3-11) 04/26/19 11:00 BUN 26 mg/dL (7-18) H 04/26/19 11:00 Creatinine 0.92 mg/dL (0.55-1.02) 04/26/19 11:00 Estimated GFR/1.73 m2 59.35 (mL/min/1.73m2) 04/26/19 11:00 Glucose 96 mg/dL (74-106) 04/26/19 11:00 Calcium 8.8 mg/dL (8.5-10.1) 04/26/19 11:00 Magnesium 2.0 mg/dL (1.8-2.4) 04/25/19 06:26 Total Bilirubin 1.2 mg/dL (0.2-1.0) H 04/24/19 08:37 AST 24 U/L (15-37) 04/24/19 08:37 ALT 20 U/L (14-59) 04/24/19 08:37 Alkaline Phosphatase 81 U/L (46-116) 04/24/19 08:37 Troponin I < 0.05 ng/Ml (<0.06) 04/24/19 08:37 Total Protein 7.3 g/dL (6.4-8.2) 04/24/19 08:37 Albumin 3.5 g/dL (3.4-5.0) 04/24/19 08:37 Urine Color Yellow (Yellow) 04/25/19 20:20 Urine Clarity Clear (Clear) 04/25/19 20:20 Urine pH 6.0 (5-8) 04/25/19 20:20 Ur Specific [place] 1.015 (1.005-1.025) 04/25/19 20:20 Urine Protein Negative mg/dL (Negative) 04/25/19 20:20 Urine Ketones Negative mg/dL (Negative) 04/25/19 20:20 Urine Blood Negative (Negative) 04/25/19 20:20 Urine Nitrite Negative (Negative) 04/25/19 20:20 Urine Bilirubin Negative (Negative) 04/25/19 20:20 Urine Urobilinogen 1.0 EU/dL (Up TO 0.2) H 04/25/19 20:20 Ur Leukocyte Esterase Negative (Negative) 04/25/19 20:20 Urine Glucose Negative mg/dL (Negative) 04/25/19 20:20 Patient ABO/Rh AB Negative 04/24/19 16:07 Antibody Screen Negative 04/24/19 16:07
--- NOTE | 2019-04-30 11:29 | PT.INTREAT ---
PT Notes Visit Reasons: RIGHT HIP FX Inpatient Physical Therapy Treatment Note [facility] Date: 04/30/2019 SUBJECTIVE: I want to go home. OBJECTIVE: [] BED MOBILITY/TRANSFERS Sit-stand: S Stand-sit: S GAIT Assistive Device: FWW Weight bearing: AT right Assist: SBA Distance: 75' Deviation: cues to increase stride length of the left LE. THEREX: global LE strength and hip stabilization. See flowsheet for details. STAIRS: ascend/descend 3-4 steps and 2-6 steps x 2 with 2 rails and SBA, using the step to gait pattern. ASSESSMENT: tolerated session well. She continues to require cues for proper stride length. Reports no pain. Is safe with her transfers. PLAN: continue progressing following PT POC. TREATMENT CODE/TIME: 40'. [id number], [id number] x2.
[2019-04-30 11:36] VITALS: BP 105/74; PULSE 64; RESP 20; TEMP 36.6; O2SAT 942
[2019-04-30 16:10] VITALS: BP 156/76; PULSE 68; RESP 22; TEMP 37; O2SAT 97
[2019-04-30 19:05] VITALS: BP 131/71; PULSE 74; RESP 18; TEMP 36.2; O2SAT 96
--- NOTE | 2019-04-30 20:03 | PDOC.CMPRO ---
- If Service Date Differs Date of service: 04/30/19 Time of Service: 20:03 Care Management Progress Note S/O: Kelsey had visitors when CM attempted to visit. Per provider, no change to current plan. Seeking placement for short rehab stay, which will need prior auth for her insurance. CM will follow up with facilities chosen by Kelsey. CM will continue to follow. A: Kelsey is a 78 year old female admitted to [facility] on 04/24/2019 for a right hip fracture. P: At PT and provider's recommendation, CM discussed a SNF placement with patient. She is agreeable to the [facility] in [place], [place], and [facility]. CM coordinates referrals to both facilities. Kelsey's insurance will require a prior auth for SNF placement. Kelsey will remain at [facility] awaiting placement. CM will continue to follow.
[2019-04-30] MEDS: Pravastatin 20 MG TAB 10 MG PO (20:49)
[2019-04-30 23:41] VITALS: BP 131/81; PULSE 68; RESP 20; TEMP 36.4; O2SAT 94
[2019-05-01 03:45] VITALS: BP 135/79; PULSE 65; RESP 18; TEMP 36.8; O2SAT 95
[2019-05-01] MEDS: Levothyroxine 88 MCG TAB PO (05:26)
[2019-05-01 07:45] VITALS: BP 116/71; PULSE 71; RESP 18; TEMP 36.2; O2SAT 98
[2019-05-01] MEDS: Ascorbic Acid 500 MG TAB PO (07:47)
[2019-05-01] MEDS: Nicotine 7 MG/24 HR PATCH TD (07:47)
[2019-05-01] MEDS: Docusate Sodium 100 MG CAP PO ×2 (07:47→20:26)
[2019-05-01] MEDS: Multivitamin w/Minerals TAB 1 TAB PO (07:47)
[2019-05-01] MEDS: Ferrous Gluconate 324 MG TAB PO ×2 (07:47→20:26)
[2019-05-01] MEDS: amLODIPine 5 MG TAB PO (07:47)
[2019-05-01] MEDS: Cholecalciferol (Vitamin D3) 1,000 UNIT TAB 1000 UNITS PO (07:47)
[2019-05-01] MEDS: Apixaban 2.5 MG TAB PO ×2 (07:47→20:26)
[2019-05-01] MEDS: Pantoprazole 40 MG TABCR PO (07:47)
[2019-05-01 10:43] VITALS: O2SAT 98
[2019-05-01 10:44] VITALS: RESP 26
--- NOTE | 2019-05-01 14:04 | PGE_ITS ---
Date of Service Date of service: 05/01/19 Time of Service: 14:04 Assessment and Plan Assessment and plan (1) Closed right hip fracture: Start date: 05/01/19 Start time: 14:29 Status: Acute Assessment and plan: Postop day 7 doing well. No pain, ambulatory with walker. Would benefit from SNIF, H/R accepted pending auth. Qualifiers: Encounter type: initial encounter Qualified Code(s): S72.001A - Fracture of unspecified part of neck of right femur, initial encounter for closed fracture (2) DVT prophylaxis: Start date: 05/01/19 Start time: 14:34 Status: Acute Assessment and plan: 2.5 mg eliquis po BID (3) Tobacco dependence: Start date: 05/01/19 Start time: 14:34 Status: Acute Assessment and plan: Smokes about 1/4 pack a day. Nicotine replacement ordered. Continue to check interest in smoking cessation . (4) Discharge planning issues: Start date: 05/01/19 Start time: 14:34 Status: Acute Assessment and plan: PT recommend rehab, patient is agreeable. Waiting for [facility] willing to take patient. Above case discussed with Dr. Mccord who is in agreement. Subjective Subjective Patient reports: no new complaints Interval history since last seen: Doing well. No complaints. Continues to wait for authorization to SNIF. H/R pending. Possible discharge to there tomorrow. Exam Narrative Exam Narrative: Elderly female sitting up in chair. Pleasant cooperative, answering questions appropriately. Lungs are clear to auscultation. Even unlabored breaths Heart is RRR s1 s2 no murmur appreciated. Eyes PERRLA, Right hip wound is well approximated with no induration and very minuscule bruise at the incision site. No drainage. Const General: cooperative, healthy appearing, comfortable and no acute distress Nutritional Appearance: average body habitus Orientation: alert, awake and oriented x3 HENMT Head: normal to inspection General nose exam: external nose normal Face and sinus: normal facial exam Mouth: oral mucosae normal Eyes Eyelids: eyelids normal Conjunctivae: conjunctivae normal Pupils: PERRL EOM: EOM intact bilaterally Neck Neck: normal visual inspection Thyroid: thyroid normal Carotids: normal carotid upstroke Lymphatic: no lymphadenopathy noted Chest Chest: normal inspection of the chest Resp Effort & Inspection: normal respiratory effort, able to speak in complete sentences and cough (smokers cough) Quality of cough: dry Auscultation: clear to auscultation bilaterally Cardio Jugular venous pressure: no JVD Rate: regular rate Rhythm: regular rhythm Heart Sounds: S1 normal and S2 normal GI Inspection: normal to inspection Palpation: soft and no hepatosplenomegaly Auscultation: normal bowel sounds General: deferred Back/Spine/Pelvis Back: no CVA tenderness Thoracic/Lumbar Spine: thoracic and lumbar spine normal to inspection Skin General skin exam: other (drsg to right hip from surgical procedure) Lesions: no lesions Rashes: no rashes Neuro General: alert, awake and oriented x3 Cognition: normal cognition Speech: speech normal Extrem General: no clubbing, cyanosis or edema Right upper extremity: full ROM Left upper extremity: full ROM Left lower extremity: full ROM Psych Appearance: grossly normal Mental Status: mental status grossly normal Speech and Movement: speech and movement normal Objective Objective Clinical Data: Vital Signs Temperature 36.2 C L 05/01/19 07:45 Temperature Source Temporal Artery Scan 05/01/19 07:45 Pulse 71 05/01/19 07:45 Pulse Rhythm Irregular 05/01/19 07:34 Respiratory Rate 26 H 05/01/19 10:44 Respiratory Effort 05/01/19 10:44 Respiratory Depth Shallow 05/01/19 10:44 Respiratory Pattern Normal 05/01/19 07:34 Blood Pressure 116/71 05/01/19 07:45 Blood Pressure Position Sitting 04/24/19 08:24 Pulse Oximetry 98 05/01/19 10:43 Respiratory End-tidal CO2 36 04/24/19 14:35 Oxygen Delivery Method Room Air 05/01/19 10:43 Oxygen Flow Rate 0 05/01/19 10:43 Pain Level 0 05/01/19 07:45 Comment 04/26/19 08:16 Intake & Output 04/30/19 05/01/19 05/01/19 23:59 11:59 23:59 Intake Total 240 / 1690 200 / 440 240 / 440 Output Total 400 / 1700 Balance -160 / -10 200 / 440 240 / 440 Intake: Oral 240 / 1690 200 / 440 240 / 440 Output: Urine 400 / 1700 Other: Urine Color Yellow Yellow Urine Appearance Clear Clear Urine Odor Normal Normal Stool Size Moderate Stool Characteristics Formed Soft Brown Voiding Methods Toilet Toilet Laboratory Results WBC 11.00 k/cumm (4.4-10.8) H 04/26/19 11:00 RBC 4.78 m/cumm (4.00-5.20) 04/26/19 11:00 Hgb 13.7 g/dL (12.0-15.5) 04/26/19 11:00 Hct 43.1 % (36.0-46.0) 04/26/19 11:00 MCV 90.2 fL (80-95) 04/26/19 11:00 MCH 28.7 pg (27.0-33.0) 04/26/19 11:00 MCHC 31.8 g/dL (32.0-36.0) L 04/26/19 11:00 RDW 15.4 % (11.7-14.6) H 04/26/19 11:00 Plt Count 176 x1000/uL (130-400) 04/26/19 11:00 MPV 11.7 fL (8.0-11.0) H 04/26/19 11:00 Immature Gran % 0.3 % 04/26/19 11:00 Neutrophils % 69.1 04/26/19 11:00 Lymphocytes % 15.6 04/26/19 11:00 Monocytes % 12.7 04/26/19 11:00 Eosinophils % 2.0 04/26/19 11:00 Basophils % 0.3 04/26/19 11:00 Absolute Neutrophils 7.60 k/cumm (1.2-6.7) H 04/26/19 11:00 Absolute Lymphocytes 1.72 k/cumm (1.2-3.4) 04/26/19 11:00 Absolute Monocytes 1.40 k/cumm (0.11-0.7) H 04/26/19 11:00 Absolute Eosinophils 0.22 k/cumm (0.0-0.7) 04/26/19 11:00 Absolute Basophils 0.03 k/cumm (0.0-0.2) 04/26/19 11:00 PT 10.5 sec (9.3-11.0) 04/24/19 08:37 INR 1.0 (0.9-1.1) 04/24/19 08:37 Sodium 140 mmol/L (136-145) 04/26/19 11:00 Potassium 4.4 mmol/L (3.5-5.1) 04/26/19 11:00 Chloride 104 mmol/L (98-107) 04/26/19 11:00 Carbon Dioxide 32.0 mmol/L (21.0-32.0) 04/26/19 11:00 Anion Gap 4.0 mmol/L (3-11) 04/26/19 11:00 BUN 26 mg/dL (7-18) H 04/26/19 11:00 Creatinine 0.92 mg/dL (0.55-1.02) 04/26/19 11:00 Estimated GFR/1.73 m2 59.35 (mL/min/1.73m2) 04/26/19 11:00 Glucose 96 mg/dL (74-106) 04/26/19 11:00 Calcium 8.8 mg/dL (8.5-10.1) 04/26/19 11:00 Magnesium 2.0 mg/dL (1.8-2.4) 04/25/19 06:26 Total Bilirubin 1.2 mg/dL (0.2-1.0) H 04/24/19 08:37 AST 24 U/L (15-37) 04/24/19 08:37 ALT 20 U/L (14-59) 04/24/19 08:37 Alkaline Phosphatase 81 U/L (46-116) 04/24/19 08:37 Troponin I < 0.05 ng/Ml (<0.06) 04/24/19 08:37 Total Protein 7.3 g/dL (6.4-8.2) 04/24/19 08:37 Albumin 3.5 g/dL (3.4-5.0) 04/24/19 08:37 Urine Color Yellow (Yellow) 04/25/19 20:20 Urine Clarity Clear (Clear) 04/25/19 20:20 Urine pH 6.0 (5-8) 04/25/19 20:20 Ur Specific [place] 1.015 (1.005-1.025) 04/25/19 20:20 Urine Protein Negative mg/dL (Negative) 04/25/19 20:20 Urine Ketones Negative mg/dL (Negative) 04/25/19 20:20 Urine Blood Negative (Negative) 04/25/19 20:20 Urine Nitrite Negative (Negative) 04/25/19 20:20 Urine Bilirubin Negative (Negative) 04/25/19 20:20 Urine Urobilinogen 1.0 EU/dL (Up TO 0.2) H 04/25/19 20:20 Ur Leukocyte Esterase Negative (Negative) 04/25/19 20:20 Urine Glucose Negative mg/dL (Negative) 04/25/19 20:20 Patient ABO/Rh AB Negative 04/24/19 16:07 Antibody Screen Negative 04/24/19 16:07
[2019-05-01 15:30] VITALS: BP 128/75; PULSE 64; RESP 17; TEMP 36.6; O2SAT 97
--- NOTE | 2019-05-01 15:59 | PDOC.CMPRO ---
- If Service Date Differs Date of service: 05/01/19 Time of Service: 15:59 Care Management Progress Note S/O: Kelsey is sitting in a chair watching television when CM meets with her today. Kelsey is doing better but would benefit from a short term SNF placement to regain some strength. Kelsey at first states she wishes to return home but after further discussion, she is agreeable to short-term rehab. Rossy from [facility] comes to [facility] to meet with Kelsey, but Kelsey declines her assistance with utility bills. CM will continue to follow. A: Kelsey is a 78 year old female admitted to [facility] on 04/24/2019 for a right hip fracture. P: CM coordinated referrals to the [facility] and [facility], at Kelsey's request. The [facility] declines Kelsey as they are out of network with her health insurance. We continue to await a response from the [facility]. CM will continue to follow.
--- NOTE | 2019-05-01 16:15 | PT.INTREAT ---
Date of service: 05/01/19 Time of Service: 10:27 PT Notes Visit Reasons: RIGHT HIP FX Inpatient Physical Therapy Treatment Note [facility] Date: 05/01/2019 PRECAUTIONS: Fall. Standard. Activity as tolerated. SUBJECTIVE: Patient is happy to learn from BRIANNA Mcneill that she is leaving at 1 pm today at start of PT session. Patient reports that she is calling friends to see if any of them can pick her up. She denies pain, dizziness, and headache throughout PT session. OBJECTIVE: Wound well-approximated. No drainage seen. PAIN: 0/10 at rest BED MOBILITY/TRANSFERS Sit-stand: Independent Stand-sit: Independent Bed-Chair: Independent Chair-bed: Independent GAIT Assistive Device: FWW Weight bearing: WBAT Assist: Supervision Distance: 80 feet + 80 feet. In the afternoon session, patient toelrated 240 feet of level surface ambulation. Comments: Step to gait pattern. Cotninued asymmetrical step length and height as patient remains not fully able to perform a step through gait pattern. Continues to require cues to bend her R knee with swing through. STAIRS: Patient tolerated up and down three 4-inch steps and two 6-inch steps while holding onto bilateral rails with step to gait pattern THERAPEUTIC ACTIVITIES: Exercises to increase hip abduction, hip extension, and bilateral PF for the morning and afternoon sessions. ASSESSMENT: Patient continues to require minimal verbal cueing to facilitate step through gait pattern. She however reports no pain in the R hip since yesterday. She would continue to benefit from skilled physical therapy for reduction in pain and improved functional mobility prior to returning home. Per conversation with patient and CM today, there are barriers to going home due to increased fall risk and ffailure to thrive. Said barriers include lack of adequate heating, questionable status of phone connection, first floor of the house not yet set up for patient to stay in, and unplowed house entrance. PLAN: Continue with established POC. Pt is to be discharge to SNF when medically cleared and a bed has been secured in SNF. TREATMENT CODE/TIME: Session 1- 62159 and 92965 x 33 minutes beginning at 10:27 AM. Session 2- 67810 x 21 minutes beginning at 16:15 PM. Jewell Kelly PT, DPT, CLT [facility] [place], [place]
--- NOTE | 2019-05-01 16:31 | CHAPLAIN ---
Kelsey was resting in bed when I visited. She said her friend who had agreed to help her out at home when she is discharged, has decided she can't do that. The friend will continue to care for Kelsey's animals, a dog, a cat and two horses, but rescinded her offer provide support and care for Kelsey, although Kelsey doesn't think she needs much help. Now she is considering going to [facility] for further PT before going home. Kelsey is a member of the [employer] [facility] in [place], [place] and gave me permission to contact her litigation partner, Rev. Josue Ramey, to let him know that Kelsey will likely go to [facility] tomorrow, and I left a message for him.
[2019-05-01] MEDS: Pravastatin 20 MG TAB 10 MG PO (20:26)
[2019-05-01 20:30] VITALS: BP 127/78; PULSE 72; RESP 16; TEMP 36.8; O2SAT 97
[2019-05-02 00:20] VITALS: BP 114/68; PULSE 64; RESP 16; TEMP 36.4; O2SAT 99
[2019-05-02] MEDS: Levothyroxine 88 MCG TAB PO (06:32)
[2019-05-02 08:00] VITALS: BP 120/64; PULSE 90; RESP 18; TEMP 36.6; O2SAT 99
[2019-05-02 09:10] VITALS: O2SAT 100
[2019-05-02] MEDS: Ferrous Gluconate 324 MG TAB PO (09:19)
[2019-05-02] MEDS: Cholecalciferol (Vitamin D3) 1,000 UNIT TAB 1000 UNITS PO (09:19)
[2019-05-02] MEDS: Pantoprazole 40 MG TABCR PO (09:19)
[2019-05-02] MEDS: Multivitamin w/Minerals TAB 1 TAB PO (09:19)
[2019-05-02] MEDS: amLODIPine 5 MG TAB PO (09:19)
[2019-05-02] MEDS: Apixaban 2.5 MG TAB PO (09:20)
[2019-05-02] MEDS: Docusate Sodium 100 MG CAP PO (09:20)
[2019-05-02] MEDS: Ascorbic Acid 500 MG TAB PO (09:20)
[2019-05-02] MEDS: Nicotine 7 MG/24 HR PATCH TD (09:21)
[2019-05-02 11:30] VITALS: BP 122/60; PULSE 91; RESP 18; TEMP 36.6; O2SAT 100
--- NOTE | 2019-05-02 12:40 | PDOC.CMPRO ---
Care Management Progress Note S/O: Kelsey remains pleasant in interaction and reluctantly agreeable to short-term rehab. [facility] through Kelsey's insurance for rehab stay. CM continues to follow and will coordinate discharge to the rehab once insurance has approved her stay. A: Kelsey is a 78 year old female admitted to [facility] on 04/24/2019 for a right hip fracture. P: Kelsey will discharge to [facility]; awaiting health insurance prior-auth approval. CM continues to follow.
--- NOTE | 2019-05-02 12:49 | PT.INPN ---
Date of service: 05/02/19 Time of Service: 10:38 PT Notes Visit Reasons: RIGHT HIP FX Inpatient Physical Therapy Progress Note [facility] Date: 05/02/2019 PRECAUTIONS: Fall. Standard. Activity as tolerated. SUBJECTIVE: Pt reports that she has not experienced pain for three days. OBJECTIVE: PAIN: 0/10 BED MOBILITY/TRANSFERS Sit-stand: independent Stand-sit: independent GAIT Assistive Device: FWW Weight bearing: WBAT on R LE Assist: supervision by PT and PT Distance: 75 feet + 60 feet with walker Comments: Step to gait pattern. Asymmetrical step length and height. Attempted to use cane for UE support on the L for about 30 feet, however, this appeared to be more difficult and pt demonstrated shuffling gait. STAIRS: Pt was able to perform stairs using unilateral UE support on the railing and use of cane in LUE. She completed 6? steps x 2 and 4? steps x 2 with SBA of PT and PT student. Step to gait pattern with cues for ASSESSMENT: Pt continues to demonstrate decreased step length and height on the RLE with ambulation. With the use of walker the pt showed improvements in step through gait pattern. She had some difficulty with coordination with attempt at using cane and began to demonstrate a shuffling gait pattern. She was instructed to complete HEP including seated marches, LAQ, and seated clamshells. Pt would continue to benefit from skilled physical therapy at this time. Pt is a 78-year-old female s/p ORIF of right subcapital femoral fracture following a fall on the icy ground while feeding her horses on 04/23/2019. Pt was brought to the ER on 04/24/2019. At the time of the initial evaluation the pt presented with impairment level findings and functional limitations as listed below. Patient continues to present with clinical signs and symptoms consistent with current/admitting diagnoses that have resulted to mobility limitations, gait instability and generalized weakness, as demonstrated by the following impairment level findings: 1. Decreased strength to right LE hip and knee major muscle groups 2. Impaired standing balance 3. Impaired activity tolerance Impairments continue to contributing to the following functional limitations: 1. Inability to safely ambulate without assistive device and physical assistance 2. Increase completion time for mobility ADL performance 3. Increased fall risk 4. Inability to negotiate steps alone safely Goals: Goals X1 week 1. Supine-Sit independent MET 2. Sit-Supine independent MET 3. Sit-Stand independent MET 4. Stand-Sit independent MET 5. Bed-Chair independent NOT MET 6. Chair-Bed independent NOT MET 7. Independent gait on level surface with use of least restrictive device for at least 300 feet without report of pain nor dyspnea NOT MET 8. Independent stair negotiation while holding onto bilateral rails for at least 15 steps without report of pain nor dyspnea NOT MET 9. Independent with home exercise program NOT MET 10. Good dynamic standing balance/tolerance NOT MET DISCHARGE RECOMMENDATIONS: Patient will benefit from alf facility placement for continued skilled physical therapy services in order to progress mobility level, strength, and balance in preparation for a safe discharge to home. TREATMENT CODE/TIME: 10481 x 3 beginning at 10:38 P.M. JULIA Ortega Doctor of Physical Therapy Student [facility] Supervision provided by Jewell Kelly PT, DPT, CLT [facility] [place], [place]
--- NOTE | 2019-05-02 13:59 | DSE_ITS ---
Date of service: 05/02/19 Time of Service: 13:59 DS: Diagnosis Discharge Diagnosis (1) Closed right hip fracture: Status: Acute (2) DVT prophylaxis: Status: Acute (3) Tobacco dependence: Status: Acute (4) Discharge planning issues: Status: Acute Discharge Plan Disposition Patient Disposition: SNF (LEVEL 1) [facility] Condition: Stable Discharge Details Chief Complaint: Orthopedic Clinical Impression: Subcapital fracture of right hip Reason For Visit: RIGHT HIP FX Admit Date/Time: 04/24/19 13:16 Admit Provider: Lennox Gaines Attending Provider: Lennox Gaines Primary Care Provider: [facility] ED Provider: Lennox Lopez Hospital Course Hospital Course: This is a 78 y.o female with PMH of Afib ( on asa because she can not afford eliquis), TIA, Hypothyroidism, HLD, Smoker 1/4 pack per day who presented to the ED at [facility] after sustaining a mechanical fall on ice yesterday. Imaging in ED revealing mild impacted subcapital fracture of the right femur, labs unremarkable. Dr. Gaines was consulted and she was taken to the OR for pinning of right hip fracture. post operative course was uncomplicated. she did have some leukocytosis but infection work up unremarkable and it was thought to be due to a leukemoid reaction to the fracture. She peaked at 17 and is normalizing with last WBC at 11.0. she had some mild postoperative anemia from blood loss which has improved with iron supplementation. She has been working with physical therapy and has slowly been re-ambulating with a walker. she remained in sinus rhythm and apixaban for DVT prophylaxis p ost operatively. She has not returned to her ambulatory baseline and it is felt she could benefit from a rehabilitation stay prior to discharge back to home. she is eating and drinking and is hemodynamically stable. she has no postoperative pain. her bowels and bladder functioning well. referrals have been placed and she has been accepted at [facility] for ongoing rehab. Home Meds and New Rx's Prescriptions: New acetaminophen [Tylenol] 325 mg Tablet 650 mg PO Q4H PRN PRNQty: 0 RF: 0 pantoprazole 40 mg Tablet,Delayed Release (Dr/Ec) 40 mg PO DAILY@0730 Qty: 0 RF: 0 nicotine 7 mg/24 hr Patch 24 Hour 7 mg transdermal DAILY Qty: 0 RF: 0 Therems-M 27-0.4 mg Tablet 1 tab PO DAILY Qty: 0 RF: 0 ferrous gluconate 324 mg (37.5 mg iron) Tablet 324 mg PO BID Qty: 0 RF: 0 Eliquis 2.5 mg Tablet 2.5 mg PO BID Qty: 0 RF: 0 Continued cholecalciferol (vitamin D3) 1,000 UNIT capsule 1,000 unit PO DAILY RF: 0 amlodipine 5 MG tablet 5 mg PO DAILY Qty: 90 RF: 4 ascorbate calcium (vitamin C) 500 MG tablet 500 mg PO DAILY RF: 0 pravastatin 10 MG tablet 10 mg PO DAILY Qty: 90 RF: 3 docusate sodium [Stool Softener] 100 MG capsule 100 mg PO DAILY RF: 0 levothyroxine [Synthroid] 88 MCG tablet 88 mcg PO DAILY Qty: 90 RF: 3 Discontinued aspirin 325 mg Tablet 325 mg PO DAILY RF: 0 Discharge Instructions Instructions: Hip Fracture (GEN) Additional Instructions: Routine rehabilitation per rehab protocol. continue smoking cessation education. Activity:: walker for gait safety and stability Equipment/Supplies:: No Equipment Needed Diet:: As Tolerated Discharge Orders Discharge Orders: Discharge Order (Routine); Ordered 05/02/19 Ordered By: Francia Vasquez DS: Summary Status at Discharge Functional status at discharge: uses cane/walker Overall status at discharge: patient is progressing back to baseline Mental Status: mental status grossly normal Speech and Movement: speech and movement normal Mood: congruent mood Affect: normal affect Exam Const General: cooperative, healthy appearing, comfortable, no acute distress and well developed Nutritional Appearance: average body habitus Orientation: alert, awake and oriented x3 HENMT Head: normal to inspection, normocephalic and atraumatic Mouth: oral mucosae normal Resp Effort & Inspection: normal respiratory effort Auscultation: clear to auscultation bilaterally Cardio Rate: regular rate Rhythm: regular rhythm GI Inspection: normal to inspection Palpation: soft Auscultation: normal bowel sounds Skin Lesions: lesion noted (surgical lesion to right hip healed, approximated, no redness or drainage.) Rashes: no rashes Neuro General: alert, awake and oriented x3 Cognition: normal cognition Speech: speech normal Gait: gait assisted Method: walker Extrem General: normal to inspection, full ROM and no pedal edema Psych Mental Status: mental status grossly normal Speech and Movement: speech and movement normal Mood: congruent mood Affect: normal affect DS: Data Vitals/I&O Vitals and I&O: Vital Signs Temperature 36.6 C 05/02/19 11:30 Temperature Source Tympanic 05/02/19 11:30 Pulse 91 H 05/02/19 11:30 Pulse Rhythm Irregular 05/02/19 04:44 Respiratory Rate 18 05/02/19 11:30 Respiratory Effort 05/02/19 04:44 Respiratory Depth Shallow 05/02/19 04:44 Respiratory Pattern Normal 05/02/19 04:44 Blood Pressure 122/60 05/02/19 11:30 Blood Pressure Position Sitting 04/24/19 08:24 Pulse Oximetry 100 05/02/19 11:30 Respiratory End-tidal CO2 36 04/24/19 14:35 Oxygen Delivery Method Room Air 05/02/19 11:30 Oxygen Flow Rate 0 05/02/19 11:30 Pain Level 1 05/02/19 11:30 Comment 04/26/19 08:16 Intake & Output 05/01/19 05/02/19 05/02/19 23:59 11:59 23:59 Intake Total 720 / 1160 360 / 600 240 / 600 Balance 720 / 1160 360 / 600 240 / 600 Intake: Oral 720 / 1160 360 / 600 240 / 600 Other: Urine Color Yellow Yellow Urine Appearance Clear Clear Comment per patient Voiding Methods Toilet Toilet [facility] Medical History Atrial fibrillation (Chronic) Unable to afford eliquis Takes ASA daily Closed right hip fracture (Acute 04/23/19) Hyperlipidemia (Chronic) Hypothyroidism (Chronic) TIA (transient ischemic attack) (Chronic) Pt denied hx of stroke Discharge problem list from 10/08/15 states TIA Surgical History History of cystogram (Acute) Pt describes cystogram Discharge problem list from 10/08/15 states hx of exploratory laparotomy Family History Mother No problems noted. Father Cancer Grandfather , WWII at age 31. No problems noted. Grandfather No problems noted. Grandmother Heart disease Grandmother No problems noted. Social History Smoking/Tobacco Use Status: Current every day Alcohol Intake: never Drug use: Never Substance use type: does not use Do you feel safe at home: Yes Do you feel safe in your relationship?: Yes Additional Social history: Pt lives alone
--- NOTE | 2019-05-02 14:29 | CMDISCH_ITS ---
LACE Index Scoring Tool - Questions: Length of Stay (in days): 7 - 13 Acuity (Admit via E.D.?): Yes E.D. Visits: 1 - Answers: Total Score: 9 Risk of Readmission: Low Risk Care Management Discharge Reason for Hospitalization: Right Hip Fx Discharge Plan: Kelsey will discharge to [facility] for a short term rehab stay prior to returning home. She will transport via W[facility]C Van provided by [facility]. CM continues to follow. Patient/Family Education Needs: Review of discharge instructions, discuss Ask Me Three. Services Needed at Discharge: Senior Living Facility ([facility]), Transportation (Coordinated through SNF)
== END 2019-05-02 15:20 | disposition skilled nursing facility (03) | DRG 481 ==
LOC: ER 12:15 → SUR 13:21 → ER 14:48 → MS 15:08 → DSU 17:24
PROVIDERS: Internal Medicine; Nurse Practitioner Family; Admitting Provider Orthopaedic Surgery; Emergency Provider Emergency Medicine; PCP Internal Medicine; Visit Provider Orthopaedic Surgery
PROC: 0QS634Z Reposition Right Upper Femur with Internal Fixation Device, Percutaneous Approach (ICD-10-PCS; CPT 27235; principal; 2019-04-24 10:20)
DX: S72.011A Unspecified intracapsular fracture of right femur, initial encounter for closed fracture (principal); D62 Acute posthemorrhagic anemia; W00.0XXA Fall on same level due to ice and snow, initial encounter; D72.829 Elevated white blood cell count, unspecified; Y83.8 Other surgical procedures as the cause of abnormal reaction of the patient, or of later complication, without mention of misadventure at the time of the procedure; I48.91 Unspecified atrial fibrillation; Z79.82 Long term (current) use of aspirin; Z86.73 Personal history of transient ischemic attack (TIA), and cerebral infarction without residual deficits; E03.9 Hypothyroidism, unspecified; E78.5 Hyperlipidemia, unspecified; F17.210 Nicotine dependence, cigarettes, uncomplicated; G31.84 Mild cognitive impairment of uncertain or unknown etiology
CPT/HCPCS: 27235; 36415; 51702; 80048; 80053; 86850; 86900; 86901; 93005; 96361; 96374; 97110; 97162; 97530; 99222; 99223; 99232; 99233; 99239; 99285; NC; 71045; 71046; 73501; 73502; 81003; 83735; 84484; 85025; 85610; 87086; 93010; 99284; J0690; J1100; J1650; J1885; J2001; J2405; J2704; J3010

== ENCOUNTER 2019-05-04 16:56 | Outpatient (REF) | payer OTHER, SELFPAY ==
[2019-05-04 18:48] LABS: Abs Immature Grans 0.04 k/cumm (0.0-0.09); Absolute Eosinophil Count 0.24 k/cumm (0.0-0.7); Absolute Lymphocyte Count 2.22 k/cumm (1.2-3.4); Absolute Monocyte Count 1.03 k/cumm (0.11-0.7); Anion Gap 8.8 mmol/L (3-11); BUN 27 mg/dL (7-18); Basophils % 0.3; CO2 29.2 mmol/L (21.0-32.0); CREATININE 1.16 mg/dL (0.55-1.02); Chloride 104 mmol/L (98-107); Eosinophils % 2.1; Estimated GFR 45.42 (mL/min/1.73m2); Glucose 94 mg/dL (74-106); HCT 41.7 % (36.0-46.0); HGB 13.2 g/dL (12.0-15.5); Immature Grans % 0.3 %; Lymphocytes % 19.4; Mean Corp. HGB Concentration 31.7 g/dL (32.0-36.0); Mean Corpuscular Hemoglobin 28.9 pg (27.0-33.0); Mean Corpuscular Volume 91.4 fL (80-95); Mean Platelet Volume 11.6 fL (8.0-11.0); Neutrophils % 68.9; Platelet Count 290 x1000/uL (130-400); Potassium 4.4 mmol/L (3.5-5.1); RBC 4.56 m/cumm (4.00-5.20); RBC Distribution Width 15.1 % (11.7-14.6); Sodium 142 mmol/L (136-145); White Blood Cell Count 11.45 k/cumm (4.4-10.8)
[2019-05-04 18:50] LABS: Absolute Basophil Count 0.03 k/cumm (0.0-0.2); Absolute Neutrophil Count 7.89 k/cumm (1.2-6.7)
== END 2019-05-04 17:16 ==
LOC: LBN 16:56
PROVIDERS: PCP Internal Medicine; Visit Provider Nurse Practitioner Adult Health
DX: D62 Acute posthemorrhagic anemia (principal); E78.5 Hyperlipidemia, unspecified; Z86.73 Personal history of transient ischemic attack (TIA), and cerebral infarction without residual deficits
CPT/HCPCS: 80048; 85025

== ENCOUNTER 2019-05-16 11:27 | Outpatient (CLI) | payer OTHER, SELFPAY ==
--- NOTE | 2019-05-16 11:30 | DI.RAD_ITS ---
EXAM: XR HIP RT COMPLETE AND AP PELVIS INDICATION: 1ST POST OP IM NAIL. COMPARISON: XR HIP RT COMPLETE AP PELVIS from 04/24/2019 TECHNIQUE: 2D digital imaging was performed. FINDINGS: There are again seen 3 partially threaded screws transfixing the subcapital fracture of the right fem ur. The fracture is stable. IMPRESSION:
== END 2019-05-16 11:47 ==
PROVIDERS: PCP Internal Medicine; Referring Provider Internal Medicine; Visit Provider Orthopaedic Surgery
DX: S72.011D Unspecified intracapsular fracture of right femur, subsequent encounter for closed fracture with routine healing (principal); S72.001D Fracture of unspecified part of neck of right femur, subsequent encounter for closed fracture with routine healing; X58.XXXD Exposure to other specified factors, subsequent encounter
CPT/HCPCS: 73502

== ENCOUNTER 2019-06-13 10:39 | Outpatient (CLI) | payer OTHER, SELFPAY ==
--- NOTE | 2019-06-13 10:30 | DI.RAD_ITS ---
EXAM: XR HIP RT AP LAT ONLY INDICATION: f/u fx. COMPARISON: XR HIP RT COMPLETE AP PELVIS from 05/16/2019 TECHNIQUE: 2D digital imaging was performed. FINDINGS: Screws are again noted in the right femoral neck and head for fracture fixation. There has been cont inued healing of the subcapital fracture. No new abnormalities are seen. DATA REPOSITORY: RADIATION DOSE DELIVERED:
== END 2019-06-13 10:59 ==
PROVIDERS: PCP Internal Medicine; Referring Provider Internal Medicine; Visit Provider Orthopaedic Surgery
DX: S72.001D Fracture of unspecified part of neck of right femur, subsequent encounter for closed fracture with routine healing; X58.XXXD Exposure to other specified factors, subsequent encounter
CPT/HCPCS: 73502

== ENCOUNTER 2019-08-15 11:39 | Outpatient (CLI) | payer OTHER, SELFPAY ==
--- NOTE | 2019-08-15 10:00 | DI.RAD_ITS ---
EXAM: XR HIP RT AP LAT ONLY CLINICAL HISTORY: F/U HIP FRACTURE TECHNIQUE: 2D digital imaging was performed. COMPARISON: XR HIP RT AP LAT ONLY from 06/13/2019 FINDINGS: There has been no change in fracture or hardware alignment. IMPRESSION: Stable appearance of right hip.
== END 2019-08-15 11:59 ==
PROVIDERS: PCP Internal Medicine; Referring Provider Internal Medicine; Visit Provider Orthopaedic Surgery
DX: S72.001D Fracture of unspecified part of neck of right femur, subsequent encounter for closed fracture with routine healing (principal); X58.XXXD Exposure to other specified factors, subsequent encounter
CPT/HCPCS: 99213; 73502

== ENCOUNTER 2020-12-09 11:21 | Emergency (ER) | payer MEDICARE, SELFPAY ==
[2020-12-09 11:23] VITALS: BP 144/81; PULSE 94; RESP 18; TEMP 37.3; O2SAT 100
--- NOTE | 2020-12-09 11:30 | RT.EKG_ITS ---
APPROVED REPORT Exam: Resting ECG Reason for Exam: abd pain Patient Location: E HR:73 bpm ECG Measurements Heart Rate 73 AXIS RI 147 P 81 QRSd 84 QRS 13 QT 396 T 53 QTc 432 Conclusion Sinus rhythm...normal P axis, V-rate 60- 99 Atrial premature complexes...SV complexes w/ short R-R intvls Consider left ventricular hypertrophy...(S V1+R V5/V6) >3.25mV Nonspecific T abnrm, anterolateral leads...T <-0.10mV, I aVL V2-V6 sinus rhythm at 73, PACs, nonspecific ST changes, no STEMI, nondiagnostic EKG
[2020-12-09] MEDS: Normal Saline 500 ML IV (11:35)
[2020-12-09] MEDS: Ondansetron 4 MG/2 ML VIAL IVP (11:38)
--- NOTE | 2020-12-09 11:42 | W.ED.GENAD ---
Discharge Plan Disposition Patient Disposition: HOME Condition: Improving Discharge Details Clinical Impression: Gastritis Primary Care Provider: [facility] ED Provider: Lea Escobar Home Meds and New Rx's Prescriptions: New ondansetron 4 mg tablet,disintegrating 4 mg PO Q6H PRN (Reason: nausea and vomiting) Qty: 10 RF: 0 pantoprazole 40 mg tablet,delayed release (DR/EC) 40 mg PO DAILY Qty: 20 RF: 0 Continued cholecalciferol (vitamin D3) 1,000 UNIT capsule 1,000 unit PO DAILY RF: 0 amlodipine 5 MG tablet 5 mg PO DAILY Qty: 90 RF: 4 ascorbate calcium (vitamin C) 500 MG tablet 500 mg PO DAILY RF: 0 docusate sodium [Stool Softener] 100 MG capsule 100 mg PO DAILY RF: 0 pravastatin 10 mg tablet 20 mg PO DAILY Qty: 90 RF: 3 latanoprost 0.005 % drops 1 drp ophthalmic (eye) QPM RF: 0 levothyroxine 75 mcg tablet 75 mcg PO DAILY RF: 0 acetaminophen [Tylenol] 325 mg Tablet 650 mg PO Q4H PRN PRNQty: 0 RF: 0 Therems-M 27-0.4 mg Tablet 1 tab PO DAILY Qty: 0 RF: 0 ferrous gluconate 324 mg (37.5 mg iron) Tablet 324 mg PO BID Qty: 0 RF: 0 Eliquis 2.5 mg Tablet 2.5 mg PO BID Qty: 0 RF: 0 Discharge Instructions Instructions: Gastritis (ED) Additional Instructions: Please continue to encourage frequent sips of fluids. Please follow a bland diet including bananas, rice, applesauce, toast. You may use the Zofran as prescribed if you develop any recurrence of your nausea or vomiting. Please take the pantoprazole as prescribed to help with the inflammation of your stomach. Please call your primary care tomorrow to schedule follow-up appointment this week for reevaluation. If you develop fever/chills, increased pain, inability to hydrate or other new/worsening symptom care urgently once again. Referrals: [facility] [Primary Care Provider] - Discharge Data Discharge Date/Time-TO BE ENTERED AT DEPARTURE: 12/09/20 19:05 Medical Decision Making <Joleen Corrigan MD - Last Filed: 12/19/20 10:51> Kelsey Kd is a 80-year-old woman with history of hyperlipidemia, hypothyroidism, atrial fibrillation who presented to the emergency department with 4 days of nausea and vomiting, initially with diarrhea, now with mild abdominal pain. On exam patient is well and nontoxic-appearing. There is mild diffuse abdominal TTP, no rebound or guarding. No extremity edema. Concern for appendicitis, enteritis, diverticulitis, inflammatory bowel disease, metabolic/lyte derangement, UTI, other. Doubt ACS. Exam/hx at this time is not consistent with pulmonary infection, acute intracranial emergency, including infection/bleeding, acute aortic pathology, pulmonary embolism, sepsis, mesenteric ischemia. EKG obtained and non-diagnostic. Plan for IV placement, telemetry, IVF hydration, IV zofran, screening labs, CT a/p. Pt declines pain medication at this time. CT shows gastritis. Labs reviewed, lactate 1.4, Cr 1.1, WBC 14.74. Plan for GI cocktail. Pt reassessed, feels significantly improved after meds. Pt signed out to Lea Escobar at time of shift change with tropx2, PO challenge and reassessment pending. Medical Records Medical records reviewed: Yes I reviewed the patient's medical records. Imaging Data Radiologic Study: Attestation: I personally reviewed and interpreted this imaging study as follows: Lab Data Lab results reviewed: Yes I reviewed the patient's lab results. Labs: Laboratory Tests Range/Units 12/09/20 12/09/20 12/09/20 11:30 11:30 11:30 WBC (4.4-10.8) 10^3/uL 14.74 H RBC (3.93-5.22) 10^6/uL 5.59 H Hgb (11.2-15.7) g/dL 16.0 H Hct (36.0-46.0) % 49.4 H MCV (80-95) fL 88.4 MCH (27.0-33.0) pg 28.6 MCHC (32.0-36.0) % 32.4 RDW (11.7-14.6) % 14.2 Plt Count (130-400) 10^3/uL 201 MPV (8.0-11.0) fL 11.2 H Immature Gran % 0.4 Neutrophils % 77.2 Lymphocytes % 10.9 Monocytes % 10.9 Eosinophils % 0.1 Basophils % 0.5 Nucleated RBC % % 0 Absolute Neutrophils (1.2-6.7) 10^3/uL 11.38 H Absolute Lymphocytes (1.2-3.4) 10^3/uL 1.61 Absolute Monocytes (0.1-0.8) 10^3/uL 1.61 H Absolute Eosinophils (0.0-0.7) 10^3/uL 0.01 Absolute Basophils (0.0-0.2) 10^3/uL 0.07 RBC Morphology Normal VBG Lactate (0.6-1.4) mmol/L 1.4 Sodium (136-145) mmol/L 138 Potassium (3.5-5.1) mmol/L 3.6 Chloride (98-107) mmol/L 102 Carbon Dioxide (21.0-32.0) mmol/L 30.8 Anion Gap (3-11) mmol/L 5.2 BUN (7-18) mg/dL 23 H Creatinine (0.55-1.02) mg/dL 1.1 H Estimated GFR/1.73 m2 (mL/min/1.73m2) 48.04 Glucose (74-106) mg/dL 116 H Calcium (8.5-10.1) mg/dL 8.8 Total Bilirubin (0.2-1.0) mg/dL 0.9 AST (15-37) U/L 17 ALT (14-59) U/L 14 Alkaline Phosphatase (46-116) U/L 79 Troponin I (<0.06) ng/mL Total Protein (6.4-8.2) g/dL 6.9 Albumin (3.4-5.0) g/dL 3.2 L TSH (0.36-3.74) uIU/mL Urine Color (Yellow) Urine Clarity (Clear) Urine pH (5-8) Ur Specific [place] (1.005-1.025) Urine Protein (Negative) mg/dL Urine Ketones (Negative) mg/dL Urine Blood (Negative) Urine Nitrite (Negative) Urine Bilirubin (Negative) Urine Urobilinogen (Up TO 0.2) EU/dL Ur Leukocyte Esterase (Negative) Urine RBC (0-2) HPF Urine WBC (0-5) HPF Ur Epithelial Cells (Negative) HPF Urine Crystals (Negative) HPF Urine Bacteria (Negative) HPF Urine Casts (Negative) LPF Urine Mucus (Negative) Ur Culture Indicated? Urine Glucose (Negative) mg/dL Range/Units 12/09/20 12/09/20 12/09/20 11:30 11:30 12:05 WBC (4.4-10.8) 10^3/uL RBC (3.93-5.22) 10^6/uL Hgb (11.2-15.7) g/dL Hct (36.0-46.0) % MCV (80-95) fL MCH (27.0-33.0) pg MCHC (32.0-36.0) % RDW (11.7-14.6) % Plt Count (130-400) 10^3/uL MPV (8.0-11.0) fL Immature Gran % Neutrophils % Lymphocytes % Monocytes % Eosinophils % Basophils % Nucleated RBC % % Absolute Neutrophils (1.2-6.7) 10^3/uL Absolute Lymphocytes (1.2-3.4) 10^3/uL Absolute Monocytes (0.1-0.8) 10^3/uL Absolute Eosinophils (0.0-0.7) 10^3/uL Absolute Basophils (0.0-0.2) 10^3/uL RBC Morphology VBG Lactate (0.6-1.4) mmol/L Sodium (136-145) mmol/L Potassium (3.5-5.1) mmol/L Chloride (98-107) mmol/L Carbon Dioxide (21.0-32.0) mmol/L Anion Gap (3-11) mmol/L BUN (7-18) mg/dL Creatinine (0.55-1.02) mg/dL Estimated GFR/1.73 m2 (mL/min/1.73m2) Glucose (74-106) mg/dL Calcium (8.5-10.1) mg/dL Total Bilirubin (0.2-1.0) mg/dL AST (15-37) U/L ALT (14-59) U/L Alkaline Phosphatase (46-116) U/L Troponin I (<0.06) ng/mL < 0.05 Total Protein (6.4-8.2) g/dL Albumin (3.4-5.0) g/dL TSH (0.36-3.74) uIU/mL 1.57 Urine Color (Yellow) Yellow Urine Clarity (Clear) Sl Cloudy Urine pH (5-8) 6.0 Ur Specific [place] (1.005-1.025) 1.025 Urine Protein (Negative) mg/dL 100 H Urine Ketones (Negative) mg/dL 40 H Urine Blood (Negative) Trace-lysed H Urine Nitrite (Negative) Negative Urine Bilirubin (Negative) Small H Urine Urobilinogen (Up TO 0.2) EU/dL 4.0 H Ur Leukocyte Esterase (Negative) Small H Urine RBC (0-2) HPF 0-2 Urine WBC (0-5) HPF 5-10 Ur Epithelial Cells (Negative) HPF Moderate Urine Crystals (Negative) HPF Negative Urine Bacteria (Negative) HPF Rare Urine Casts (Negative) LPF 0-2 Hyaline Urine Mucus (Negative) Trace Ur Culture Indicated? No/Sq. Contamination Urine Glucose (Negative) mg/dL Negative Range/Units 12/09/20 16:13 WBC (4.4-10.8) 10^3/uL RBC (3.93-5.22) 10^6/uL Hgb (11.2-15.7) g/dL Hct (36.0-46.0) % MCV (80-95) fL MCH (27.0-33.0) pg MCHC (32.0-36.0) % RDW (11.7-14.6) % Plt Count (130-400) 10^3/uL MPV (8.0-11.0) fL Immature Gran % Neutrophils % Lymphocytes % Monocytes % Eosinophils % Basophils % Nucleated RBC % % Absolute Neutrophils (1.2-6.7) 10^3/uL Absolute Lymphocytes (1.2-3.4) 10^3/uL Absolute Monocytes (0.1-0.8) 10^3/uL Absolute Eosinophils (0.0-0.7) 10^3/uL Absolute Basophils (0.0-0.2) 10^3/uL RBC Morphology VBG Lactate (0.6-1.4) mmol/L Sodium (136-145) mmol/L Potassium (3.5-5.1) mmol/L Chloride (98-107) mmol/L Carbon Dioxide (21.0-32.0) mmol/L Anion Gap (3-11) mmol/L BUN (7-18) mg/dL Creatinine (0.55-1.02) mg/dL Estimated GFR/1.73 m2 (mL/min/1.73m2) Glucose (74-106) mg/dL Calcium (8.5-10.1) mg/dL Total Bilirubin (0.2-1.0) mg/dL AST (15-37) U/L ALT (14-59) U/L Alkaline Phosphatase (46-116) U/L Troponin I (<0.06) ng/mL < 0.05 Total Protein (6.4-8.2) g/dL Albumin (3.4-5.0) g/dL TSH (0.36-3.74) uIU/mL Urine Color (Yellow) Urine Clarity (Clear) Urine pH (5-8) Ur Specific [place] (1.005-1.025) Urine Protein (Negative) mg/dL Urine Ketones (Negative) mg/dL Urine Blood (Negative) Urine Nitrite (Negative) Urine Bilirubin (Negative) Urine Urobilinogen (Up TO 0.2) EU/dL Ur Leukocyte Esterase (Negative) Urine RBC (0-2) HPF Urine WBC (0-5) HPF Ur Epithelial Cells (Negative) HPF Urine Crystals (Negative) HPF Urine Bacteria (Negative) HPF Urine Casts (Negative) LPF Urine Mucus (Negative) Ur Culture Indicated? Urine Glucose (Negative) mg/dL ECG Data Attestation: I personally reviewed and interpreted this ECG (s) as follows: Interpretation: EKG shows sinus rhythm at 73, PACs, nonspecific ST changes, no STEMI, nondiagnostic EKG <RIZWAN Rush - Last Filed: 12/09/20 17:39> Care transition to myself from Dr. Corrigan. Please see her initial note regarding history, presentation and exam. In brief, patient is a pleasant 80-year-old female presenting today with 4 days of nausea and vomiting. Was endorsing some right lower quadrant pain on presentation. CT imaging revealed gastritis. Labs were largely unremarkable. Mild leukocytosis the patient did appear concentrated. Creatinine was elevated at 1.1 but this is patient's baseline. Patient was treated with Zofran and pantoprazole. At the time I assume care, repeat troponin is pending. Patient is having p.o. challenge. Repeat troponin remains less than 0.05. Reevaluated the patient. She reports that she is feeling much improved. Is eating toast and applesauce. Is hydrating p.o. She denies discussed her disposition at length. She reports that she has cats, dogs and horses at home and would like to be able to discharge back to home. Plan to discharge home with Zofran and pantoprazole. Will have patient follow-up closely with primary care. Reevaluated the patient. She continued to do well after eating. Continues to wish for discharge. She remains hemodynamically stable. Return precautions were discussed. Will send Zofran and pantoprazole to her pharmacy of choice. Return precautions were discussed. Encourage that she call her primary care in the morning to schedule prompt follow-up appointment. All of her questions and concerns were addressed and she is in agreement this plan. HPI <Joleen Corrigan MD - Last Filed: 12/19/20 10:51> General Mode of arrival: ambulatory. Date/Time Provider Initiated Documentation: 12/09/20 11:33. Limitations to Documentation: no limitations. Information obtained by: patient, RN notes reviewed and old records reviewed. HPI Narrative: Kelsey Yi is a 80 y/o woman with history of TIA, hyperlipidemia, hypothyroidism, A. fib on Eliquis, mild cognitive impairment presenting to emergency department chief complaint vomiting. Patient reports that on 12/05 she developed mild diarrhea and vomiting after eating dinner. Patient reports that diarrhea resolved the next day, however she has had continued vomiting. Patient reports that she has not held food down for the past 2 days. She states that emesis looks like what ever she tries to eat, no black or bloody emesis. No black or bloody diarrhea. She reports abdominal pain, generalized but somewhat worse in the right lower quadrant, denies any other pain. She reports chronic cough at baseline (patient is a smoker), cough is unchanged. She denies fever, shortness of breath, numbness, focal weakness, rash, dysuria, urinary frequency, swelling. Has never had similar symptoms in the past. Related Data Home Medications Medication Instructions Recorded Confirmed cholecalciferol (vitamin D3) 1,000 unit PO DAILY 11/03/12 08/15/19 amlodipine 5 mg PO DAILY #90 tab-cap 12/12/14 12/09/20 ascorbate calcium (vitamin C) 500 mg PO DAILY 01/16/15 08/15/19 docusate sodium [Stool Softener] 100 mg PO DAILY tab-cap 10/18/15 08/15/19 Eliquis 2.5 mg PO BID #0 tab 05/02/19 12/09/20 Therems-M 1 tab PO DAILY #0 tab 05/02/19 08/15/19 acetaminophen [Tylenol] 650 mg PO Q4H PRN PRN #0 tab 05/02/19 08/15/19 ferrous gluconate 324 mg PO BID #0 tab 05/02/19 08/15/19 pravastatin 10 mg tablet 20 mg PO DAILY #90 tab-cap 06/20/19 12/09/20 latanoprost 1 drp OPHTHALMIC (EYE) QPM 12/09/20 12/09/20 levothyroxine 75 mcg PO DAILY 12/09/20 12/09/20 ondansetron 4 mg PO Q6H PRN #10 tab 12/09/20 pantoprazole 40 mg PO DAILY #20 tab 12/09/20 Previous Rx's Medication Instructions Recorded Eliquis 2.5 mg PO BID #0 tab 05/02/19 Therems-M 1 tab PO DAILY #0 tab 05/02/19 acetaminophen [Tylenol] 650 mg PO Q4H PRN PRN #0 tab 05/02/19 ferrous gluconate 324 mg PO BID #0 tab 05/02/19 ondansetron 4 mg PO Q6H PRN #10 tab 12/09/20 pantoprazole 40 mg PO DAILY #20 tab 12/09/20 Allergies Allergy/AdvReac Type Severity Reaction Status Date / Time Sulfa (Sulfonamide Allergy Unknown Unverified 12/09/20 11:33 Antibiotics) codeine AdvReac Mild NAUSEA Unverified 12/09/20 11:33 General Stated Complaint: Abd Prob SUSI: 3 Review of Systems <Joleen Corrigan MD - Last Filed: 12/19/20 10:51> Narrative: Constitutional: denies fevers Eyes: denies eye pain ENT: denies ear pain, dental pain, sore throat Cardiovascular: denies chest pain, edema Respiratory: denies SOB, cough GI: reports abdominal pain, vomiting, diarrhea : denies flank pain, dysuria MSK: denies back pain, neck pain, arthralgias, myalgias Skin: denies rash Neuro: denies headaches, numbness, weakness PFSH <Joleen Corrigan MD - Last Filed: 12/19/20 10:51> Medical History Atrial fibrillation Unable to afford eliquis Takes ASA daily Hyperlipidemia Hypothyroidism TIA (transient ischemic attack) Pt denied hx of stroke Discharge problem list from 10/08/15 states TIA Surgical History (Updated 05/16/19 @ 17:51 by Becky Bowie) Closed right hip fracture (04/23/19) S/P screw fixation DOS: 04/24/19 History of cystogram Pt describes cystogram Discharge problem list from 10/08/15 states hx of exploratory laparotomy Family History Mother No problems noted. Father Cancer Grandfather , WWII at age 31. No problems noted. Grandfather No problems noted. Grandmother Heart disease Grandmother No problems noted. Social History Smoking/Tobacco Use Status: Current every day Tobacco Type: cigarettes Smoking risk assessment performed?: Yes Alcohol Intake: never Drug use: Never Substance use type: does not use Current gender identity: female Do you feel safe at home: Yes Do you feel safe in your relationship?: Yes Additional Social history: Pt lives alone Exam <Joleen Corrigan MD - Last Filed: 12/19/20 10:51> Narrative Exam Narrative: Constitutional: well and [id number], pleasant, conversing normally HENT: head atraumatic/normocephalic/normal inspection, mucous membranes moist Eyes: conjunctiva normal, sclera normal, pupils 3mm b/l Neck: no stridor, normal ROM, trachea midline Chest: normal inspection Resp: normal work of breathing, LCTAB Cardio: normal rate, normal rhythm, no murmur appreciated GI: abdomen soft, mild diffuse TTP, no rebound, no guarding, non-distended Back: normal inspection, no rash Skin: warm, dry, normal color, no rash Neuro: alert, not altered, grossly non-focal, normal tone Ext: no edema, no posterior calf TTP Psych: normal mood, normal affect, normal behavior Course <Joleen Corrigan MD - Last Filed: 12/19/20 10:51> Vital Signs Vital signs: Vital Signs Temperature 37.3 C 12/09/20 11:23 Pulse 94 H 12/09/20 11:23 Respiratory Rate 18 12/09/20 11:23 Blood Pressure 144/81 H 12/09/20 11:23 Pulse Oximetry 100 12/09/20 11:23 Temperature 37.3 C 12/09/20 11:23 Temperature Source Oral 12/09/20 11:23 Pulse 94 H 12/09/20 11:23 Respiratory Rate 18 12/09/20 11:23 Blood Pressure 144/81 H 12/09/20 11:23 Blood Pressure Position Sitting 12/09/20 11:23 Pulse Oximetry 100 12/09/20 11:23 Oxygen Delivery Method Room Air 12/09/20 11:23 Oxygen Flow Rate 0 12/09/20 11:23 Pain Level 0 12/09/20 11:23 Sign Out <Joleen Corrigan MD - Last Filed: 12/19/20 10:51> Sign Out Data: Sign Out Comment: Patient signed out to Lea Escobar with troponin x2, p.o. challenge, reassessment pending. Last updated by Joleen Corrigan MD at 12/09/20 16:07
[2020-12-09 11:47] LABS: Abs Immature Grans 0.06 10^3/uL (0.0-0.06); Absolute Lymphocyte Count 1.61 10^3/uL (1.2-3.4); Basophils % 0.5; Eosinophils % 0.1; HCT 49.4 % (36.0-46.0); Immature Grans % 0.4; Lymphocytes % 10.9; MCH 28.6 pg (27.0-33.0); MCHC 32.4 % (32.0-36.0); MCV 88.4 fL (80-95); MPV 11.2 fL (8.0-11.0); Monocytes % 10.9; Neutrophils % 77.2; Nucleated RBC 0 %; Platelet Count 201 10^3/uL (130-400); RBC 5.59 10^6/uL (3.93-5.22); RDW 14.2 % (11.7-14.6); RDW-SD 45.6 fL; WBC 14.74 10^3/uL (4.4-10.8)
[2020-12-09 11:49] LABS: Lactate 1.4 mmol/L (0.6-1.4)
[2020-12-09 11:53] LABS: Absolute Basophil Count 0.07 10^3/uL (0.0-0.2); Absolute Eosinophil Count 0.01 10^3/uL (0.0-0.7); Absolute Monocyte Count 1.61 10^3/uL (0.1-0.8); Absolute Neutrophil Count 11.38 10^3/uL (1.2-6.7)
[2020-12-09 12:10] LABS: Bilirubin Small (Negative); Blood Trace-lysed (Negative); Clarity Sl Cloudy (Clear); Glucose Negative (Negative); Ketones 40 mg/dL (Negative); Leukocyte Esterase Small (Negative); Nitrite Negative (Negative); Specific Gravity 1.025 (1.005-1.025)
[2020-12-09 12:12] LABS: ALT 14 U/L (14-59); AST 17 U/L (15-37); Albumin 3.2 g/dL (3.4-5.0); Alkaline Phosphatase 79 U/L (46-116); Anion Gap 5.2 mmol/L (3-11); BUN 23 mg/dL (7-18); Bilirubin, Total 0.9 mg/dL (0.2-1.0); CO2 30.8 mmol/L (21.0-32.0); CREATININE 1.1 mg/dL (0.55-1.02); Calcium 8.8 mg/dL (8.5-10.1); Chloride 102 mmol/L (98-107); Estimated GFR 48.04 (mL/min/1.73m2); Glucose 116 mg/dL (74-106); Potassium 3.6 mmol/L (3.5-5.1); Sodium 138 mmol/L (136-145); Total Protein 6.9 g/dL (6.4-8.2)
--- NOTE | 2020-12-09 12:15 | DI.CT_ITS ---
Exam(s) CT ABDOMEN PELVIS W EXAM: CT ABDOMEN PELVIS W CLINICAL HISTORY: rlq pain, vomiting TECHNIQUE: Imaging Protocol: Axial computed tomography images with coronal and sagittal reformatted images were created and reviewed CONTRAST MATERIAL: Intravenous: Omnipaque 350 Contrast volume:77 mL Oral: No COMPARISON: No exams were available for comparison FINDINGS: ABDOMEN: Lung Bases: Emphysematous changes are present in the lung bases. Small hiatal hernia. Liver: Normal density. No measurable mass. Portal, Superior Mesenteric, and Splenic Veins: Unremarkable. Gallbladder and Biliary Tract: No radiodense calculus or dilation. Pancreas: Normal density, no abnormal calcifications or inflammatory process. Spleen: Normal. Adrenals: No masses seen. Kidneys: Normal size, contour and axis. No radiodense stones or obstructive uropathy. Simple renal cy sts. The largest is 3.3 cm. No follow-up recommended. Abdominal Aorta: Abdominal portion non-dilated. Atherosclerosis. Bowel: No evidence of obstruction. There is diffuse thickening of the wall of the body and fundus of the stomach with mucosal enhancement. Appendix is unremarkable. Peritoneal Cavity: No ascites, collection or mesenteric inflammatory response. No free air. Lymph Nodes: Within normal limits. Bones: Within normal limits for the patient's age. There are 3 partially threaded screws transfixing an old right femoral neck fracture. Degenerative changes are seen in the spine. There is a left co nvex scoliosis of the lumbar spine. Soft Tissues: Unremarkable. PELVIS: Bladder: Symmetric distention, no gross wall thickening. Reproductive Organs: Unremarkable as visualized. Lymph Nodes: Within normal limits. Bones: Within normal limits for the patient's age. IMPRESSION: 1. Thickening of the wall of the body and fundus of the stomach with mucosal enhancement suspicious f or gastritis. No abscess or pneumoperitoneum is present. 2. Other nonacute findings in the abdomen and pelvis as described above. 3. Results of this exam have been verbally communicated with provider. RADIATION DOSE DELIVERED: 571.27mGy.cm Total DLP DATA REPOSITORY: All CT scans at this facility are submitted to the National Radiology Data Registry (NRDR) Dose Index Registry (DIR) with the [employer] (A[employer]). RADIATION OPTIMIZATION: All CT scans at this facility use at least one of these dose optimization te chniques: automated exposure control; mA and/or kV adjustment per patient size (includes targeted exa ms where dose is matched to clinical indication); or iterative reconstruction.
[2020-12-09 12:16] LABS: RBC 0-2 HPF (0-2)
[2020-12-09 12:17] LABS: Bacteria Rare HPF (Negative); C & S Indicated? No/Sq. Contamination; Casts 0-2 Hyaline LPF (Negative); Crystals Negative HPF (Negative); Epithelial Cells Moderate HPF (Negative); Mucus Trace (Negative)
[2020-12-09 12:19] LABS: Diff Comment Agrees w/ Instrument; RBC Morphology Normal
[2020-12-09 12:22] LABS: TSH (W/Ref FT4) 1.57 uIU/mL (0.36-3.74)
[2020-12-09 13:14] VITALS: BP 129/72; RESP 16; TEMP 36.9; O2SAT 91
[2020-12-09] MEDS: Omnipaque 350 MG/ML 100 ML BTL IV (14:28)
[2020-12-09 15:05] VITALS: BP 150/63; RESP 16; O2SAT 92
[2020-12-09 16:22] VITALS: BP 117/71; PULSE 70; RESP 20; TEMP 37.6; O2SAT 92
[2020-12-09 16:24] LABS: Troponin I < 0.05 ng/mL (<0.06)
[2020-12-09 16:40] LABS: Troponin I < 0.05 ng/mL (<0.06)
[2020-12-09 17:42] VITALS: BP 129/74; PULSE 75; RESP 18; TEMP 36.9; O2SAT 94
--- NOTE | 2020-12-10 14:50 | CMACTNOTE_ITS ---
- If Service Date Differs Date of service: 12/10/20 Time of Service: 14:50 Care Management Activity Note CM receives a pre-authorization request from [facility] in [place], [place] for the ondansetron prescribed to Kelsey by ED provider. ALLEN contacts [facility]'s insurance company and is advised that ondansetron 4 mg disintegrating tablet PO Q6H, Quantity 10, does not require pre-authorization. ALLEN telephones [facility] to ask that they run the prescription for 3 days instead of the 2 days which does require pre-authorization.
== END 2020-12-09 19:05 | disposition home or self-care (01) ==
PROVIDERS: Student in an Organized Health Care Education/Training Program; Emergency Provider Physician Assistant; PCP Internal Medicine
DX: K29.00 Acute gastritis without bleeding (principal); E03.9 Hypothyroidism, unspecified; R11.2 Nausea with vomiting, unspecified
CPT/HCPCS: 36415; 80053; 93005; 96361; 96374; 99285; 74177; 81003; 81015; 83605; 84443; 84484; 85025; 93010; 99284; J2405; J3490

== ENCOUNTER 2022-05-26 08:35 | Inpatient (IN) | payer MEDICARE, SELFPAY ==
[2022-05-26] VITALS (106 sets, daily range): BP systolic 78–230; BP diastolic 35–164; PULSE 66–179; RESP 4–39; TEMP 36.7–37.6; O2SAT 77–98
--- NOTE | 2022-05-26 08:15 | RT.EKG_ITS ---
APPROVED REPORT Exam: Resting ECG Reason for Exam: tachycardia Patient Location: E HR:174 bpm ECG Measurements Heart Rate 174 AXIS WA 92 P 0 QRSd 80 QRS 23 QT 285 T 94 QTc 486 Conclusion Supraventricular tachycardia...V-rate>(220-age), QRSd<120 Probable LVH with secondary repol abnrm...multiple LVH criteria Atrial fibrillation with rapid ventricular response at a rate of 174. Normal axis. LVH based on vol tage criteria in V5 and V6. Compared to prior dated November 2020 A-fib with RVR has replaced normal s inus rhythm
--- NOTE | 2022-05-26 08:42 | ED.GENADUL_ITS ---
Discharge Plan Disposition [facility] Discharge Details Clinical Impression: Loculated pleural effusion, Atrial fibrillation with RVR Primary Care Provider: [facility] ED Provider: Omid Stone Home Meds and New Rx's Prescriptions: No Action cholecalciferol (vitamin D3) 1,000 UNIT capsule 1,000 unit PO DAILY Patient Comments: pt unsure if she takes this 09/30/15 amlodipine 5 MG tablet 5 mg PO DAILY Qty: 90 Patient Comments: pt unsure when she took this last 09/30/15 ascorbate calcium (vitamin C) 500 MG tablet 500 mg PO DAILY Patient Comments: pt unsure when she took this last 09/30/15 docusate sodium [Stool Softener] 100 MG capsule 100 mg PO DAILY Patient Comments: Pt states these medicines she does not take and should be removed pravastatin 10 mg tablet 20 mg PO DAILY Qty: 90 latanoprost 0.005 % drops 1 drp ophthalmic (eye) QPM Patient Comments: INSTILL 1 DROP IN BOTH EYES EVERY EVENING levothyroxine 75 mcg tablet 75 mcg PO DAILY Patient Comments: TAKE 1 TABLET BY MOUTH EVERY DAY IN THE MORNING ON AN EMPTY STOMACH ondansetron 4 mg tablet,disintegrating 4 mg PO Q6H PRN (Reason: nausea and vomiting) Qty: 10 0RF Patient Comments: Pt states these medicines she does not take and should be removed pantoprazole 40 mg tablet,delayed release (DR/EC) 40 mg PO DAILY Qty: 20 0RF Patient Comments: Pt states these medicines she does not take and should be removed acetaminophen [Tylenol] 325 mg Tablet 650 mg PO Q4H PRN PRNQty: 0 0RF Therems-M 27-0.4 mg Tablet 1 tab PO DAILY Qty: 0 0RF Patient Comments: Pt states these medicines she does not take and should be removed ferrous gluconate 324 mg (37.5 mg iron) Tablet 324 mg PO BID Qty: 0 0RF Patient Comments: Pt states these medicines she does not take and should be removed Eliquis 2.5 mg Tablet 2.5 mg PO BID Qty: 0 0RF Medical Decision Making This is a 81-year-old female who self reports being a DNR, DNI, past medical history of TIA, hyperlipidemia, hypothyroidism, A-fib, takes Eliquis daily, presents to the ER reporting back pain for the past 24 hours, no obvious injury or trauma, denies recent illness. Upon presentation found to be in what appears to be A-fib with RVR. Patient does report that she is compliant with her medications. Plan to obtain IV access, initiate a cardiac work-up including D- dimer, CTA of the thorax, abdomen, pelvis for concern of potential PE, aneurysm, dissection, etc. We will provide 10 diltiazem IV for her RVR. We will also provide IV acetaminophen for her back pain. Heart rate now 138, blood pressure 160/132. Plan to provide an additional 10 IV of diltiazem and monitor carefully. Patient had her CTA, informed by radiology that the quality was poor and recommend repeat study. Given her back pain we will also add a recons of her thoracic and lumbar spine. Given her ongoing discomfort we will provide 2 mg IV morphine. We will also provide IV fluid given her repeat dose of IV contrast. Laboratory values reveal leukocytosis of 31.54. We will add on lactate, procalcitonin, blood cultures. Hemoglobin 14.2 hematocrit 45 platelet count 422. Absolute neutrophils 28.51. D-dimer 2080. INR 1.1. Lactate 1.9. Potassium 5.6. Patient is receiving IV fluid and has no EKG changes consistent with hyperkalemia. Creatinine 1.2 with a GFR of 46.05. LFTs unremarkable. Troponin less than 50. BNP 6502. TSH 8.66. Free T41.31. Procalcitonin 7 Patient received 2 separate boluses of IV diltiazem, heart rate remains A-fib with RVR, plan to initiate a diltiazem infusion. Case discussed with pulmonology, Dr. Maria who came to bedside to evaluate patient, please see her note. Believe the patient likely has a loculated effusion. Recommends a pigtail chest tube and recommends initiating IV Zosyn. Case then discussed with surgery, Dr. Osei. We discussed the case, discussed the recommendations of pulmonology, Dr. Maria. Plan now is to discuss the case with our hospitalist team for admission to our ICU with A-fib, RVR, right- sided loculated effusion and or potential mass. Plan for chest tube; however, unclear whether this will happen here in the ER, OR, or in the ICU. IV diltiazem drip increased to 7-1/2, heart rate remains in the 120-130s. Case discussed with Dr. Mccord our hospitalist team. She is agreeable to admission to our ICU and will write admission orders. Diltiazem drip increased to 10, heart rate now 118. This documentation was generated using [employer] dictation system, please disregard any oddities of phrase or misspellings. I did receive a call from surgery, Dr. Cornell. She stated that she was going to attempt to come to the ER to evaluate the patient and depending on where the patient stood with bed placement to the ICU she would either perform the chest tube here or there, still undecided. Medical Records Medical records reviewed: Yes I reviewed the patient's medical records. Imaging Data Radiologic Study: Attestation: I personally reviewed and interpreted this imaging study as follows: Imaging: CT Scan Radiologist's impression: Exam(s) CT THORAX ABD/PEL CTA EXAM: CT THORAX ABD/PEL CTA CLINICAL HISTORY: Back pain, A-fib, PE versus dissection. TECHNIQUE: Imaging Protocol: Axial computed tomography images with coronal and sagittal reformatted images were created and reviewed CONTRAST MATERIAL: Intravenous: Omnipaque 350 Contrast volume:100 ml Oral: None COMPARISON: CT CT ABDOMEN PELVIS W from 12/09/[address] THORAX ABD/PEL CTA from 05/26/2022 FINDINGS: CHEST: PULMONARY ARTERIES: No central pulmonary emboli evident. Opacification of the more distal pulmonary arteries is suboptimal here. LUNGS: There is a moderate size right pleural effusion now evident. There is consolidated lung in the right middle lobe with central hypodensity suspicious for neoplasm or developing abscess. Largest central hypodensity in lung at this level measures 3 x 2.5 cm. There is volume loss in the basal segments of the right lower lobe where there is significant pleural effusion. No significant focal left lung findings. No pleural effusion on the left side.. MEDIASTINUM: There is no hilar nor mediastinal adenopathy. CARDIAC: Heart size upper normal. There is a small pericardial effusion. AORTA: Caliber of the thoracic aorta is within normal limits.There is no evidence of aortic dissection. ABDOMEN: There is no evidence of abdominal aortic aneurysm nor dissection.Mild arterial megaly of the common iliac arteries.The celiac and superior mesenteric arteries are patent. There is no ascites. LIVER: There are no focal hepatic lesions nor dilatation of intrahepatic ducts. GALLBLADDER/BILIARY: No obvious gallbladder pathology. CBD is not dilated. PANCREAS: Pancreatic duct diameter is upper normal. No obvious pancreatic mass. SPLEEN: Spleen is not enlarged. There are no intrasplenic lesions. Splenic and portal veins are patent. ADRENALS: There are no significant adrenal masses. KIDNEYS: Benign cysts left kidney superior pole measures 3 cm. No renal masses. No hydronephrosis.. ABDOMINAL AORTA: Calcified. Upper normal diameter. No dissection. LYMPH NODES: There is no retroperitoneal nor para-aortic adenopathy. No obvious mesenteric masses. ABDOMINAL WALL: No evidence of significant anterior abdominal wall hernia. GI: There is no evidence of bowel obstruction, free air, nor abscess. PELVIS: LYMPH NODES: There is no intrapelvic nor inguinal adenopathy. GI: No evidence of appendicitis.No evidence of sigmoid diverticulitis. URINARY BLADDER: Trabeculated wall. No obvious mass. REPRODUCTIVE: Age-appropriate OSSEOUS: No significant osseous lesions. Right hip hardware. Scoliosis. No osseous lesions. IMPRESSION: 1. No evidence of aortic dissection, as per request. 2. No obvious pulmonary emboli in 1st and 2nd order vessels. More distal to this 3 vessels are not adequately opacified. 3. Right middle lobe mass with central hypodensity. Either collapsed lung developing cavitation or neoplasm. There is a moderate size ipsilateral right pleural effusion. No obvious adenopathy. 4. Left lung is clear and there is no pleural fluid on the left side. Small pericardial effusion. Lab Data Lab results reviewed: Yes I reviewed the patient's lab results. Labs: 05/26/22 13:00 Blood Blood Culture - Pending 05/26/22 12:53 Pleural Body Fluid Culture - Pending 05/26/22 12:53 Pleural Gram Stain - Pending 05/26/22 09:40 Blood Blood Culture - Pending Laboratory Tests Range/Units 05/26/22 05/26/22 05/26/22 08:35 08:35 08:35 WBC (4.4-10.8) 10^3/uL 31.54 H* RBC (3.93-5.22) 10^6/uL 5.16 Hgb (11.2-15.7) g/dL 14.2 Hct (36.0-46.0) % 45.0 MCV (80-95) fL 87 MCH (27.0-33.0) pg 27.5 MCHC (32.0-36.0) % 31.6 L RDW (11.7-14.6) % 14.2 Plt Count (130-400) 10^3/uL 422 H MPV (8.0-11.0) fL 10.2 Immature Gran % 1.0 Neutrophils % 90.4 Lymphocytes % 3.4 Monocytes % 4.9 Eosinophils % 0.0 Basophils % 0.3 Nucleated RBC % (0.0-0.3) % 0.0 Absolute Neutrophils (1.2-6.7) 10^3/uL 28.51 H Absolute Lymphocytes (1.2-3.4) 10^3/uL 1.07 L Absolute Monocytes (0.1-0.8) 10^3/uL 1.55 H Absolute Eosinophils (0.0-0.7) 10^3/uL 0.00 Absolute Basophils (0.0-0.2) 10^3/uL 0.09 RBC Morphology Normal PT (9.3-11.0) sec INR (0.9-1.1) APTT (21.5-31.9) sec D-Dimer (<500) ng/mlFEU VBG Lactate (0.6-1.4) mmol/L Sodium (136-145) mmol/L 137 Potassium (3.5-5.1) mmol/L 5.6 H Chloride (98-107) mmol/L 98 Carbon Dioxide (21.0-32.0) mmol/L 32.4 H Anion Gap (3-11) mmol/L 6.6 BUN (7-18) mg/dL 25 H Creatinine (0.55-1.02) mg/dL 1.2 H Est GFR (CKD-EPI 2020) (mL/min/1.73m2) 46.05 Glucose (74-106) mg/dL 122 H Calcium (8.5-10.1) mg/dL 9.2 Magnesium (1.8-2.4) mg/dL 2.0 Total Bilirubin (0.2-1.0) mg/dL 0.9 AST (15-37) U/L 25 ALT (14-59) U/L 42 Alkaline Phosphatase (46-116) U/L 72 Troponin I (<or=60) ng/L < 50 NT-Pro-B Natriuret Pep (<300) pg/mL 6502 H Total Protein (6.4-8.2) g/dL 7.0 Albumin (3.4-5.0) g/dL 2.5 L Procalcitonin ng/mL TSH (0.36-3.74) uIU/mL 8.66 H Free T4 (0.76-1.46) ng/dL 1.31 Urine Color (Yellow) Urine Clarity (Clear) Urine pH (5-8) Ur Specific [place] (1.005-1.025) Urine Protein (Negative) mg/dL Urine Ketones (Negative) mg/dL Urine Blood (Negative) Urine Nitrite (Negative) Urine Bilirubin (Negative) Urine Urobilinogen (Up TO 0.2) EU/dL Ur Leukocyte Esterase (Negative) Urine RBC (0-2) HPF Urine WBC (0-5) HPF Ur Epithelial Cells (Negative) HPF Urine Crystals (Negative) HPF Urine Bacteria (Negative) HPF Urine Casts (Negative) LPF Urine Mucus (Negative) Ur Culture Indicated? Urine Glucose (Negative) mg/dL COVID-19 Source SARS-CoV-2 (PCR) Influenza Type A (PCR) Influenza Type B (PCR) RSV (PCR) Add-On Test Request Range/Units 05/26/22 05/26/22 05/26/22 08:49 08:50 10:20 WBC (4.4-10.8) 10^3/uL RBC (3.93-5.22) 10^6/uL Hgb (11.2-15.7) g/dL Hct (36.0-46.0) % MCV (80-95) fL MCH (27.0-33.0) pg MCHC (32.0-36.0) % RDW (11.7-14.6) % Plt Count (130-400) 10^3/uL MPV (8.0-11.0) fL Immature Gran % Neutrophils % Lymphocytes % Monocytes % Eosinophils % Basophils % Nucleated RBC % (0.0-0.3) % Absolute Neutrophils (1.2-6.7) 10^3/uL Absolute Lymphocytes (1.2-3.4) 10^3/uL Absolute Monocytes (0.1-0.8) 10^3/uL Absolute Eosinophils (0.0-0.7) 10^3/uL Absolute Basophils (0.0-0.2) 10^3/uL RBC Morphology PT (9.3-11.0) sec 11.5 H INR (0.9-1.1) 1.1 APTT (21.5-31.9) sec 26.0 D-Dimer (<500) ng/mlFEU 2080 H VBG Lactate (0.6-1.4) mmol/L Sodium (136-145) mmol/L Potassium (3.5-5.1) mmol/L Chloride (98-107) mmol/L Carbon Dioxide (21.0-32.0) mmol/L Anion Gap (3-11) mmol/L BUN (7-18) mg/dL Creatinine (0.55-1.02) mg/dL Est GFR (CKD-EPI 2020) (mL/min/1.73m2) Glucose (74-106) mg/dL Calcium (8.5-10.1) mg/dL Magnesium (1.8-2.4) mg/dL Total Bilirubin (0.2-1.0) mg/dL AST (15-37) U/L ALT (14-59) U/L Alkaline Phosphatase (46-116) U/L Troponin I (<or=60) ng/L NT-Pro-B Natriuret Pep (<300) pg/mL Total Protein (6.4-8.2) g/dL Albumin (3.4-5.0) g/dL Procalcitonin ng/mL TSH (0.36-3.74) uIU/mL Free T4 (0.76-1.46) ng/dL Urine Color (Yellow) Urine Clarity (Clear) Urine pH (5-8) Ur Specific [place] (1.005-1.025) Urine Protein (Negative) mg/dL Urine Ketones (Negative) mg/dL Urine Blood (Negative) Urine Nitrite (Negative) Urine Bilirubin (Negative) Urine Urobilinogen (Up TO 0.2) EU/dL Ur Leukocyte Esterase (Negative) Urine RBC (0-2) HPF Urine WBC (0-5) HPF Ur Epithelial Cells (Negative) HPF Urine Crystals (Negative) HPF Urine Bacteria (Negative) HPF Urine Casts (Negative) LPF Urine Mucus (Negative) Ur Culture Indicated? Urine Glucose (Negative) mg/dL COVID-19 Source Cancelled Nasopharynx SARS-CoV-2 (PCR) Cancelled Negative Influenza Type A (PCR) Cancelled Negative Influenza Type B (PCR) Cancelled Negative RSV (PCR) Cancelled Negative Add-On Test Request Range/Units 05/26/22 05/26/22 05/26/22 12:53 13:00 13:00 WBC (4.4-10.8) 10^3/uL RBC (3.93-5.22) 10^6/uL Hgb (11.2-15.7) g/dL Hct (36.0-46.0) % MCV (80-95) fL MCH (27.0-33.0) pg MCHC (32.0-36.0) % RDW (11.7-14.6) % Plt Count (130-400) 10^3/uL MPV (8.0-11.0) fL Immature Gran % Neutrophils % Lymphocytes % Monocytes % Eosinophils % Basophils % Nucleated RBC % (0.0-0.3) % Absolute Neutrophils (1.2-6.7) 10^3/uL Absolute Lymphocytes (1.2-3.4) 10^3/uL Absolute Monocytes (0.1-0.8) 10^3/uL Absolute Eosinophils (0.0-0.7) 10^3/uL Absolute Basophils (0.0-0.2) 10^3/uL RBC Morphology PT (9.3-11.0) sec INR (0.9-1.1) APTT (21.5-31.9) sec D-Dimer (<500) ng/mlFEU VBG Lactate (0.6-1.4) mmol/L 1.9 H Sodium (136-145) mmol/L Potassium (3.5-5.1) mmol/L Chloride (98-107) mmol/L Carbon Dioxide (21.0-32.0) mmol/L Anion Gap (3-11) mmol/L BUN (7-18) mg/dL Creatinine (0.55-1.02) mg/dL Est GFR (CKD-EPI 2020) (mL/min/1.73m2) Glucose (74-106) mg/dL Calcium (8.5-10.1) mg/dL Magnesium (1.8-2.4) mg/dL Total Bilirubin (0.2-1.0) mg/dL AST (15-37) U/L ALT (14-59) U/L Alkaline Phosphatase (46-116) U/L Troponin I (<or=60) ng/L < 50 NT-Pro-B Natriuret Pep (<300) pg/mL Total Protein (6.4-8.2) g/dL Cancelled Albumin (3.4-5.0) g/dL Procalcitonin ng/mL 7.0 TSH (0.36-3.74) uIU/mL Free T4 (0.76-1.46) ng/dL Urine Color (Yellow) Urine Clarity (Clear) Urine pH (5-8) Ur Specific [place] (1.005-1.025) Urine Protein (Negative) mg/dL Urine Ketones (Negative) mg/dL Urine Blood (Negative) Urine Nitrite (Negative) Urine Bilirubin (Negative) Urine Urobilinogen (Up TO 0.2) EU/dL Ur Leukocyte Esterase (Negative) Urine RBC (0-2) HPF Urine WBC (0-5) HPF Ur Epithelial Cells (Negative) HPF Urine Crystals (Negative) HPF Urine Bacteria (Negative) HPF Urine Casts (Negative) LPF Urine Mucus (Negative) Ur Culture Indicated? Urine Glucose (Negative) mg/dL COVID-19 Source SARS-CoV-2 (PCR) Influenza Type A (PCR) Influenza Type B (PCR) RSV (PCR) Add-On Test Request Range/Units 05/26/22 05/26/22 13:30 Unknown WBC (4.4-10.8) 10^3/uL RBC (3.93-5.22) 10^6/uL Hgb (11.2-15.7) g/dL Hct (36.0-46.0) % MCV (80-95) fL MCH (27.0-33.0) pg MCHC (32.0-36.0) % RDW (11.7-14.6) % Plt Count (130-400) 10^3/uL MPV (8.0-11.0) fL Immature Gran % Neutrophils % Lymphocytes % Monocytes % Eosinophils % Basophils % Nucleated RBC % (0.0-0.3) % Absolute Neutrophils (1.2-6.7) 10^3/uL Absolute Lymphocytes (1.2-3.4) 10^3/uL Absolute Monocytes (0.1-0.8) 10^3/uL Absolute Eosinophils (0.0-0.7) 10^3/uL Absolute Basophils (0.0-0.2) 10^3/uL RBC Morphology PT (9.3-11.0) sec INR (0.9-1.1) APTT (21.5-31.9) sec D-Dimer (<500) ng/mlFEU VBG Lactate (0.6-1.4) mmol/L Sodium (136-145) mmol/L Potassium (3.5-5.1) mmol/L Chloride (98-107) mmol/L Carbon Dioxide (21.0-32.0) mmol/L Anion Gap (3-11) mmol/L BUN (7-18) mg/dL Creatinine (0.55-1.02) mg/dL Est GFR (CKD-EPI 2020) (mL/min/1.73m2) Glucose (74-106) mg/dL Calcium (8.5-10.1) mg/dL Magnesium (1.8-2.4) mg/dL Total Bilirubin (0.2-1.0) mg/dL AST (15-37) U/L ALT (14-59) U/L Alkaline Phosphatase (46-116) U/L Troponin I (<or=60) ng/L NT-Pro-B Natriuret Pep (<300) pg/mL Total Protein (6.4-8.2) g/dL Albumin (3.4-5.0) g/dL Procalcitonin ng/mL TSH (0.36-3.74) uIU/mL Free T4 (0.76-1.46) ng/dL Urine Color (Yellow) Yellow Urine Clarity (Clear) Clear Urine pH (5-8) 6.0 Ur Specific [place] (1.005-1.025) 1.010 Urine Protein (Negative) mg/dL 30 H Urine Ketones (Negative) mg/dL Negative Urine Blood (Negative) Moderate H Urine Nitrite (Negative) Negative Urine Bilirubin (Negative) Negative Urine Urobilinogen (Up TO 0.2) EU/dL 0.2 Ur Leukocyte Esterase (Negative) Negative Urine RBC (0-2) HPF 10-20 H Urine WBC (0-5) HPF 0-2 Ur Epithelial Cells (Negative) HPF Few Urine Crystals (Negative) HPF Negative Urine Bacteria (Negative) HPF Negative Urine Casts (Negative) LPF Negative Urine Mucus (Negative) Negative Ur Culture Indicated? No Urine Glucose (Negative) mg/dL Negative COVID-19 Source SARS-CoV-2 (PCR) Influenza Type A (PCR) Influenza Type B (PCR) RSV (PCR) Add-On Test Request Cancelled ECG Data Attestation: I personally reviewed and interpreted this ECG (s) as follows: Interpretation: A-fib with RVR, ventricular of 174. No STEMI HPI General Mode of arrival: EMS . Date/Time Provider Initiated Documentation: 05/26/22 08:37 . Limitations to Documentation: no limitations . Information obtained by: patient and EMS . HPI Narrative: This is a 81-year-old female with a past medical history of hyperlipidemia, hypothyroidism, A-fib, smoker, on Eliquis, presenting to the ER reporting mid back pain for the past 24 hours, denies injury, so severe it has caused her to crawl around on the ground. Patient reports that occasionally she gets back pain but nothing like this. She reports the pain is moderate to severe and worse with movement. She denies any recent illness or trauma. Patient denies fever, headache, neck pain, chest pain. She reports that her chronic shortness of breath is at its baseline, she is not O2 dependent. Denies abdominal pain, nausea, vomiting, change in bowel or bladder function, radiation of pain down her legs or into her abdomen, pain or swelling in her legs. She has not taken any medication prior to arrival. Upon presentation her heart rate was noted to be on the monitor but appears to be A-fib with RVR, rate in the 160s, she denies any chest pain, chest pressure, rapid feeling in her chest, acute shortness of breath, etc. patient tells me verbally that she has both a DNR and DNI. Unfortunately she is a rather vague and poor historian. Related Data Home Medications Medication Instructions Recorded Confirmed cholecalciferol (vitamin D3) 25 1,000 unit PO DAILY 11/03/12 05/26/22 mcg (1,000 unit) capsule amlodipine 5 mg tablet 5 mg PO DAILY #90 tab-caps 12/12/14 05/26/22 ascorbate calcium (vitamin C) 500 500 mg PO DAILY 01/16/15 05/26/22 mg tablet docusate sodium 100 mg capsule 100 mg PO DAILY 10/18/15 08/15/19 (Stool Softener) acetaminophen 325 mg tablet 650 mg PO Q4H PRN PRN #0 tabs 05/02/19 05/26/22 (Tylenol) apixaban 2.5 mg tablet (Eliquis) 2.5 mg PO BID #0 tabs 05/02/19 05/26/22 ferrous gluconate 324 mg (37.5 mg 324 mg PO BID #0 tabs 05/02/19 08/15/19 iron) tablet multivitamin,ia-aydl-hwwcbejr 27 1 tab PO DAILY #0 tabs 05/02/19 08/15/19 mg-0.4 mg tablet (ms-M) pravastatin 10 mg tablet 20 mg PO DAILY #90 tab-caps 06/20/19 05/26/22 latanoprost 0.005 % eye drops 1 drp ophthalmic (eye) QPM 12/09/20 05/26/22 levothyroxine 75 mcg tablet 75 mcg PO DAILY 12/09/20 05/26/22 ondansetron 4 mg disintegrating 4 mg PO Q6H PRN nausea and 12/09/20 tablet vomiting #10 tabs pantoprazole 40 mg tablet,delayed 40 mg PO DAILY #20 tabs 12/09/20 release Previous Rx's Medication Instructions Recorded acetaminophen 325 mg tablet 650 mg PO Q4H PRN PRN #0 tabs 05/02/19 (Tylenol) apixaban 2.5 mg tablet (Eliquis) 2.5 mg PO BID #0 tabs 05/02/19 ferrous gluconate 324 mg (37.5 mg 324 mg PO BID #0 tabs 05/02/19 iron) tablet multivitamin,me-jork-iixhefkh 27 1 tab PO DAILY #0 tabs 05/02/19 mg-0.4 mg tablet (ms-M) ondansetron 4 mg disintegrating 4 mg PO Q6H PRN nausea and 12/09/20 tablet vomiting #10 tabs pantoprazole 40 mg tablet,delayed 40 mg PO DAILY #20 tabs 12/09/20 release Allergies Allergy/AdvReac Type Severity Reaction Status Date / Time Sulfa (Sulfonamide Allergy Unknown Unverified 05/26/22 08:16 Antibiotics) codeine AdvReac Mild NAUSEA Unverified 05/26/22 08:16 General Stated Complaint: Nk/Back Pain SUSI: 2 Review of Systems Constitutional Constitutional: Denies fatigue, Denies fever(s) and Denies headache(s) ENT Ears, Nose, Mouth, and Throat: Denies headache(s) and Denies neck pain Cardiovascular Cardiovascular: Denies chest pain and Reports dyspnea (Chronic) Respiratory Respiratory: Reports cough (Chronic) and Reports dyspnea (Chronic) Gastrointestinal Gastrointestinal: Denies abdominal pain, Denies nausea and Denies vomiting Musculoskeletal Musculoskeletal: Reports back pain, Denies neck pain, Denies numbness and Denies tingling Integumentary/Breasts Skin/Breast: Denies rash Neurologic Neurologic: Denies headache(s), Denies numbness and Denies tingling Endocrine Endocrine: Denies fatigue Hematologic/Lymphatic Hematologic/Lymphatic: Reports easy bleeding and Reports easy bruising PFSH All Active Problems (Updated 05/26/22 @ 14:08 by RIZWAN Iraheta) Respiratory failure with hypoxia (Acute) Atrial fibrillation with RVR (Acute) Loculated pleural effusion (Acute) Gastritis (Acute) Discharge planning issues (Acute) Leukocytosis, unspecified (Acute) Acute blood loss anemia (Acute) DVT prophylaxis (Acute) Tobacco dependence (Acute) Closed right hip fracture (Acute 04/23/19) S/P screw fixation DOS: 04/24/19 TIA (transient ischemic attack) (Chronic) Pt denied hx of stroke Discharge problem list from 10/08/15 states TIA Hyperlipidemia (Chronic) Hypothyroidism (Chronic) Atrial fibrillation (Chronic) on Eliquis Mild cognitive impairment with memory loss (Acute) Surgical History History of cystogram Pt describes cystogram Discharge problem list from 10/08/15 states hx of exploratory laparotomy Family History Mother No problems noted. Father Cancer Grandfather , WWII at age 31. No problems noted. Grandfather No problems noted. Grandmother Heart disease Grandmother No problems noted. Social History Smoking/Tobacco Use Status: Current every day Tobacco Type: cigarettes Smoking risk assessment performed?: Yes Alcohol Intake: never Drug use: Never Substance use type: does not use Current gender identity: female Do you feel safe at home: Yes Do you feel safe in your relationship?: Yes Additional Social history: Pt lives alone Exam Const General: cooperative, no acute distress and other (Appears uncomfortable, yells in discomfort) Orientation: alert, awake, oriented to person, oriented to place and confused (Unsure of exact date) [facility] Head: normal to inspection, normocephalic and atraumatic Face and sinus: normal facial exam Mouth: moist mucous membranes abnormal (Slightly dry) Eyes General: appearance normal, both eyes and all related structures Conjunctivae: conjunctivae normal Neck Neck: normal visual inspection, full ROM, no meningeal signs, trachea midline, supple and nontender Resp Effort & Inspection: normal respiratory effort, able to speak in complete sentences and tachypneic (mild) Auscultation: diminished lung sounds bilaterally in the lower lung aragon Cardio Rate: tachycardic (160s) Rhythm: abnormal rhythm irregularly irregular GI Palpation: soft, not firm, no guarding, no pulsatile masses and nontender Auscultation: normal bowel sounds Back/Spine/Pelvis Back: no CVA tenderness and back tenderness (Diffuse thoracic, no spasm or ecchymosis. No midline point tenderness) Skin General skin exam: no rashes or lesions noted Neuro General: patient alert, patient awake, moves all extremities and no focal motor deficits Cognition: normal cognition Speech: speech normal Gait: normal gait Motor: muscle tone normal throughout Sensory Exam: no sensory deficits noted Extrem General: normal to inspection, full ROM, capillary refill normal, no pedal edema and no calf tenderness Psych Appearance: grossly normal Mental Status: mental status grossly normal Course Vital Signs Vital signs: Vital Signs Temperature 37.2 C 05/26/22 08:10 Pulse 169 H 05/26/22 08:10 Respiratory Rate 16 05/26/22 08:10 Blood Pressure 133/95 H 05/26/22 08:10 Pulse Oximetry 90 L 05/26/22 08:10 Temperature 37.2 C 05/26/22 08:10 Pulse 169 H 05/26/22 08:10 Respiratory Rate 16 05/26/22 08:10 Respiratory Effort Short of Breath, Incrsd Work of Breathing 05/26/22 08:29 Blood Pressure 133/95 H 05/26/22 08:10 Pulse Oximetry 90 L 05/26/22 08:10 Pain Level 2 05/26/22 08:10 Critical Care Time Critical Care Time Critical Care Time: Yes Total Critical Care Time: 45 Attestation: Upon my evaluation, this patient had a high probability of clinically significant, life-threatening deterioration due to their current medical conditions, which required my direct attention, intervention, and personal management. I have personally provided greater than 30 minutes of critical care time exclusive of the time spend on separately billable procedures. Time includes obtaining a history, examining the patient, pulse oximetry, review of laboratory data, radiology results, discussion with consultants, arranging urgent treatment with development of a management plan, evaluation of patient's response to treatment, and monitoring for potential decompensation. Interventions were performed as documented above.
[2022-05-26 08:45] LABS: Abs Immature Grans 0.31 10^3/uL (0.0-0.06); Basophils % 0.3; HGB 14.2 g/dL (11.2-15.7); Lymphocytes % 3.4; MCH 27.5 pg (27.0-33.0); MCHC 31.6 % (32.0-36.0); MCV 87 fL (80-95); MPV 10.2 fL (8.0-11.0); Monocytes % 4.9; Neutrophils % 90.4; Platelet Count 422 10^3/uL (130-400); RBC 5.16 10^6/uL (3.93-5.22); RDW 14.2 % (11.7-14.6); RDW-SD 45.5 fL
--- NOTE | 2022-05-26 08:45 | DI.CT_ITS ---
Exam(s) CT THORAX ABD/PEL CTA EXAM: CT THORAX ABD/PEL CTA CLINICAL HISTORY: Back pain, rapid A-fib, PE versus aneurysm. TECHNIQUE: Imaging Protocol: Axial computed tomography images with coronal and sagittal reformatted images were created and reviewed CONTRAST MATERIAL: Intravenous: Omnipaque 350 Contrast volume:100 ml Oral: None COMPARISON: CT CT ABDOMEN PELVIS W from 12/09/2020 FINDINGS: This study was repeated because of poor contrast fusion. See final report. A single dictation was performed so as to avoid a 2nd charge IMPRESSION: Please refer to final report RADIATION DOSE DELIVERED: 859.67mGy.cm Total DLP DATA REPOSITORY: All CT scans at this facility are submitted to the National Radiology Data Registry (NRDR) Dose Index Registry (DIR) with the [employer] (ACR). RADIATION OPTIMIZATION: All CT scans at this facility use at least one of these dose optimization te chniques: automated exposure control; mA and/or kV adjustment per patient size (includes targeted exa ms where dose is matched to clinical indication); or iterative reconstruction.
[2022-05-26 08:47] LABS: Absolute Basophil Count 0.09 10^3/uL (0.0-0.2); Absolute Lymphocyte Count 1.07 10^3/uL (1.2-3.4); Absolute Monocyte Count 1.55 10^3/uL (0.1-0.8); Absolute Neutrophil Count 28.51 10^3/uL (1.2-6.7)
[2022-05-26 08:48] LABS: WBC 31.54 10^3/uL (4.4-10.8)
[2022-05-26] MEDS: dilTIAZem 25 MG/5 ML VIAL 10 MG IVP ×2 (08:50→09:20)
[2022-05-26 09:06] LABS: Diff Comment Agrees w/ Instrument; RBC Morphology Normal
[2022-05-26 09:08] LABS: NT-proBNP 6502 pg/mL (<300); TSH (W/Ref FT4) 8.66 uIU/mL (0.36-3.74)
[2022-05-26 09:15] LABS: INR 1.1 (0.9-1.1); Prothrombin Time 11.5 sec (9.3-11.0)
[2022-05-26 09:18] LABS: ALT 42 U/L (14-59); AST 25 U/L (15-37); Albumin 2.5 g/dL (3.4-5.0); Alkaline Phosphatase 72 U/L (46-116); Anion Gap 6.6 mmol/L (3-11); BUN 25 mg/dL (7-18); Bilirubin, Total 0.9 mg/dL (0.2-1.0); CO2 32.4 mmol/L (21.0-32.0); CREATININE 1.2 mg/dL (0.55-1.02); Calcium 9.2 mg/dL (8.5-10.1); Chloride 98 mmol/L (98-107); Estimated GFR 46.05 (mL/min/1.73m2); Glucose 122 mg/dL (74-106); Potassium 5.6 mmol/L (3.5-5.1); Sodium 137 mmol/L (136-145); Troponin I < 50 ng/L (<or=60)
[2022-05-26 09:27] LABS: FREE T4 1.31 ng/dL (0.76-1.46)
[2022-05-26 09:31] LABS: D-Dimer 2080 ng/mlFEU (<500)
--- NOTE | 2022-05-26 10:15 | DI.CT_ITS ---
Exam(s) CT THORAX ABD/PEL CTA EXAM: CT THORAX ABD/PEL CTA CLINICAL HISTORY: Back pain, A-fib, PE versus dissection. TECHNIQUE: Imaging Protocol: Axial computed tomography images with coronal and sagittal reformatted images were created and reviewed CONTRAST MATERIAL: Intravenous: Omnipaque 350 Contrast volume:100 ml Oral: None COMPARISON: CT CT ABDOMEN PELVIS W from 12/09/[address] THORAX ABD/PEL CTA from 05/26/2022 FINDINGS: CHEST: PULMONARY ARTERIES: No central pulmonary emboli evident. Opacification of the more distal pulmonary arteries is suboptimal here. LUNGS: There is a moderate size right pleural effusion now evident. There is consolidated lung in th e right middle lobe with central hypodensity suspicious for neoplasm or developing abscess. Largest central hypodensity in lung at this level measures 3 x 2.5 cm. There is volume loss in the basal seg ments of the right lower lobe where there is significant pleural effusion. No significant focal left lung findings. No pleural effusion on the left side.. MEDIASTINUM: There is no hilar nor mediastinal adenopathy. CARDIAC: Heart size upper normal. There is a small pericardial effusion. AORTA: Caliber of the thoracic aorta is within normal limits.There is no evidence of aortic dissectio n. ABDOMEN: There is no evidence of abdominal aortic aneurysm nor dissection.Mild arterial megaly of the common i liac arteries.The celiac and superior mesenteric arteries are patent. There is no ascites. LIVER: There are no focal hepatic lesions nor dilatation of intrahepatic ducts. GALLBLADDER/BILIARY: No obvious gallbladder pathology. CBD is not dilated. PANCREAS: Pancreatic duct diameter is upper normal. No obvious pancreatic mass. SPLEEN: Spleen is not enlarged. There are no intrasplenic lesions. Splenic and portal veins are bauer nt. ADRENALS: There are no significant adrenal masses. KIDNEYS: Benign cysts left kidney superior pole measures 3 cm. No renal masses. No hydronephrosis.. ABDOMINAL AORTA: Calcified. Upper normal diameter. No dissection. LYMPH NODES: There is no retroperitoneal nor para-aortic adenopathy. No obvious mesenteric masses. ABDOMINAL WALL: No evidence of significant anterior abdominal wall hernia. GI: There is no evidence of bowel obstruction, free air, nor abscess. PELVIS: LYMPH NODES: There is no intrapelvic nor inguinal adenopathy. GI: No evidence of appendicitis.No evidence of sigmoid diverticulitis. URINARY BLADDER: Trabeculated wall. No obvious mass. REPRODUCTIVE: Age-appropriate OSSEOUS: No significant osseous lesions. Right hip hardware. Scoliosis. No osseous lesions. IMPRESSION: 1. No evidence of aortic dissection, as per request. 2. No obvious pulmonary emboli in 1st and 2nd order vessels. More distal to this 3 vessels are not a dequately opacified. 3. Right middle lobe mass with central hypodensity. Either collapsed lung developing cavitation or n eoplasm. There is a moderate size ipsilateral right pleural effusion. No obvious adenopathy. 4. Left lung is clear and there is no pleural fluid on the left side. Small pericardial effusion. Findings in the abdomen as above but no acute intra-abdominal findings. Called by myself to ER provider. RADIATION DOSE DELIVERED: 451.85 mGy.cm Total DLP DATA REPOSITORY: All CT scans at this facility are submitted to the National Radiology Data Registry (NRDR) Dose Index Registry (DIR) with the [employer] (ACR). RADIATION OPTIMIZATION: All CT scans at this facility use at least one of these dose optimization te chniques: automated exposure control; mA and/or kV adjustment per patient size (includes targeted exa ms where dose is matched to clinical indication); or iterative reconstruction.
--- NOTE | 2022-05-26 10:55 | DI.CT_ITS ---
Exam(s) CT THORACIC LUMBAR SPINE REC EXAM: CT THORACIC LUMBAR SPINE REC CLINICAL HISTORY: pain,REcon TECHNIQUE: COMPARISON: CT CT THORAX ABD/PEL CTA from 05/26/2022 FINDINGS: CT THORACIC SPINAL COLUMN: Are no compression fractures. No listhesis. No acute compromise of the c anal. No facet malalignment. CT LUMBOSACRAL SPINAL COLUMN: There are no compression fractures nor listhesis. No pars defects. Mo derate facet arthropathy. No facet malalignment. Disc spaces exhibit normal height. No osseous les ions. IMPRESSION: No fractures, listhesis, facet malalignment, nor acute compromise of the spinal canal in the thoracic and lumbar spine levels.
[2022-05-26] MEDS: MORPHine 10 MG/ML VIAL 2 MG IVP (10:57)
[2022-05-26 11:14] LABS: COVID-19 PCR Negative (Negative); Influenza A PCR Negative (Negative); Influenza B PCR Negative (Negative); RSV PCR Negative (Negative)
[2022-05-26 11:15] LABS: Source Nasopharynx
[2022-05-26] MEDS: dilTIAZem 125 MG in Normal Saline 100 ML IV (11:52)
[2022-05-26] MEDS: Normal Saline 1,000 ML 125 ML IV (11:59)
--- NOTE | 2022-05-26 12:34 | W.PULMCC ---
General Date of Service Date of service: 05/26/22 Time of Service: 12:34 Reason for Admission to ICU: Loculated pleural effusion A. fib with RVR Assessment and Plan Assessment and plan (1) Leukocytosis, unspecified: Status: Acute Qualifiers: Leukocytosis type: unspecified Qualified Code(s): D72.829 - Elevated white blood cell count, unspecified (2) Tobacco dependence: Status: Acute (3) Respiratory failure with hypoxia: Status: Acute (4) Loculated pleural effusion: Status: Acute (5) Atrial fibrillation with RVR: Status: Acute Assessment and plan: This is a 81 yo woman with A.fib on Eliquis, HLD and smoking who presented to the ED with back pain and found to have Afib with RVR and a loculated right pleural effusion with concern for possible RML mass. She is currently on a diltiazem drip for the RVR. Her blood pressures are on the soft side. If she becomes more hypotensive, I would recommend an amiodarone drip instead of diltiazem. It is possible that the RML mass is either malignancy (although no nodules seen on 2020 Abdomen/pelvis scan) or an extension of the loculated effusion/pneumonia. Her ultrasound exam was limited by her pain, but I was able to appreciate clear loculations on POCUS and with her WBC count and her RVR I do this is most likely to represent and infectious etiology. I would favor placement of a pigtail for drainage and consideration of intrapleural lytics tomorrow if sufficient drainage has not been achieved. Her pain needs to be addressed prior to a procedure being performed. I will place orders for the fluid analysis but would request surgery be called to consider pigtail placement. Recommendations Pulmonary: Loculated pleural effusion - recommend surgery consultation for pigtail placement - recommend sending fluids for: pH, bacterial cultures, LDH, cell diff, total protein ( I have ordered) - would also recommend sending for cytopathology (as much fluid as able) - not ordered as its a paper order - recommend Zosyn for coverage - serum LDH and protein ordered - if insufficient drainage by tomorrow, I will consider intrapleural lytics if appropriate Hypoxic respiratory failure - supplemental O2 for sats 88-92% Cardiac: A. fib with RVR - on dilt gtt currently - if BP's do not tolerate then recommend amiodarone gtt - hold Eliquis given possible procedure Renal: No acute concerns I&O: Intake & Output 05/23/22 05/24/22 05/25/22 05/26/22 23:59 23:59 23:59 23:59 Intake Total 65 Balance 65 Weight 26.127 kg Daily Fluid Goal:: Even to slightly positive GI Nutrition: Ok for diet Infectious Disease: Pneumonia - Zosyn - strep and legionella urine antigens - prolcitonin ordered - sputum culture - f/u blood cultures Hematologic: Leukocytosis - likely due to sepsis - very high neutrophil to lymphocyte ratio Neurologic: Pain - recommend more aggressive control Endocrine: No acute concerns Lines: PIV Prophylaxis: on Eliquis Code Status: Resuscitation Status DNR/DNI Subjective Critical and life-threatening events over the past 24 hours: This is a 81 yo with A. fib (on Eliquis), TIA, HLD and active smoking who presents today for back pain. She states the pain has worsened over the last 24 hours. She denies any trauma. She denies feeling ill prior to this pain. In the ED she was found to be in A.fib with RVR and a CT found a right pleural effusion with concern for a right middle lobe mass. I was consulted to help in her assessment. On my evaluation of the CT, I am concerned the effusion is loculated and tracking up the medial portion of the pleural space and do have reasonable suspicion that the seen mass is actually a fluid collection. It is also possible (given her emphysema and smoking history) that she has a separate mass creating a post obstructive pneumonia leading to the effusion. She has not been participating in LDCT screening for lung cancer so do not have chest imaging to compare to. She did have a CT abdomen/pelvis in 2020 with clear lung bases. She is in considerable pain in her back, particularly with movement. She denies chest pains or breathing difficulty. Denies cough or sputum. Exam Narrative Exam Narrative: POCUS 05/26/22: Moderate loculated appearing right sided pleural effusion. Exam not completed on left and no cardiac POCUS done due to extreme patient discomfort. Gen: Grimacing in pain, normal respiratory effort, well-nourished HENT: PERRL Chest: No respiratory distress, normal appearance of chest, shallow breaths Heart: regular rate and rhythym, no murmurs, rubs or gallops Abdomen: Non-distended, soft, non tender Extremities: No clubbing, edema, cyanosis, rashes Neuro: AAOx3 , non focal Psych: cooperative, appropriate mental affect Most Recent VS/Results Last Vital Signs Temp 37.2 C 05/26/22 08:10 Pulse 126 H 05/26/22 11:56 Resp 26 H 05/26/22 11:56 BP 110/76 05/26/22 11:56 Pulse Ox 96 05/26/22 11:40 Laboratory Results - last 24 hr 05/26/22 05/26/22 05/26/22 08:35 08:35 08:35 WBC 31.54 H* RBC 5.16 Hgb 14.2 Hct 45.0 MCV 87 MCH 27.5 MCHC 31.6 L RDW 14.2 Plt Count 422 H MPV 10.2 Immature Gran % 1.0 Neutrophils % 90.4 Lymphocytes % 3.4 Monocytes % 4.9 Eosinophils % 0.0 Basophils % 0.3 Nucleated RBC % 0.0 Absolute Neutrophils 28.51 H Absolute Lymphocytes 1.07 L Absolute Monocytes 1.55 H Absolute Eosinophils 0.00 Absolute Basophils 0.09 RBC Morphology Normal PT INR APTT D-Dimer Sodium 137 Potassium 5.6 H Chloride 98 Carbon Dioxide 32.4 H Anion Gap 6.6 BUN 25 H Creatinine 1.2 H Est GFR (CKD-EPI 2020) 46.05 Glucose 122 H Calcium 9.2 Magnesium 2.0 Total Bilirubin 0.9 AST 25 ALT 42 Alkaline Phosphatase 72 Troponin I < 50 NT-Pro-B Natriuret Pep 6502 H Total Protein 7.0 Albumin 2.5 L TSH 8.66 H Free T4 1.31 COVID-19 Source SARS-CoV-2 (PCR) Influenza Type A (PCR) Influenza Type B (PCR) RSV (PCR) 05/26/22 05/26/22 05/26/22 08:49 08:50 10:20 WBC RBC Hgb Hct MCV MCH MCHC RDW Plt Count MPV Immature Gran % Neutrophils % Lymphocytes % Monocytes % Eosinophils % Basophils % Nucleated RBC % Absolute Neutrophils Absolute Lymphocytes Absolute Monocytes Absolute Eosinophils Absolute Basophils RBC Morphology PT 11.5 H INR 1.1 APTT 26.0 D-Dimer 2080 H Sodium Potassium Chloride Carbon Dioxide Anion Gap BUN Creatinine Est GFR (CKD-EPI 2020) Glucose Calcium Magnesium Total Bilirubin AST ALT Alkaline Phosphatase Troponin I NT-Pro-B Natriuret Pep Total Protein Albumin TSH Free T4 COVID-19 Source Cancelled Nasopharynx SARS-CoV-2 (PCR) Cancelled Negative Influenza Type A (PCR) Cancelled Negative Influenza Type B (PCR) Cancelled Negative RSV (PCR) Cancelled Negative Review of Systems All systems reviewed & are unremarkable except as noted in HPI and below Time spent with patient Time spent in Critical Care: 45 Time spent in Critical care included: Coordination of care, Chart review, Documenting critically ill care, Time at immediate bedside and Discussing critically ill care with other medical staff
[2022-05-26] MEDS: PIPERACILLIN/TAZO 3.375 GM in Normal Saline 50 ML IVPB ×2 (12:54→19:42)
[2022-05-26 13:09] LABS: Lactate 1.9 mmol/L (0.6-1.4)
[2022-05-26 13:29] LABS: Troponin I < 50 ng/L (<or=60)
[2022-05-26 13:38] LABS: Bilirubin Negative (Negative); Blood Moderate (Negative); Clarity Clear (Clear); Glucose Negative (Negative); Ketones Negative (Negative); Leukocyte Esterase Negative (Negative); Nitrite Negative (Negative); Urobilinogen 0.2 EU/dL (Up TO 0.2)
[2022-05-26 13:45] LABS: Bacteria Negative HPF (Negative); C & S Indicated? No; Casts Negative LPF (Negative); Crystals Negative HPF (Negative); Epithelial Cells Few HPF (Negative); Mucus Negative (Negative); WBC 0-2 HPF (0-5)
--- NOTE | 2022-05-26 16:28 | SCONE_ITS ---
Date of service: 05/26/22 Time of Service: 18:03 Assessment and Plan Assessment and plan (1) Loculated pleural effusion: Status: Acute Assessment and plan: 81yo female presented with back pain and found to have moderate Right-sided loculated pleural effusion with concern for a RML mass. Upon my attempt to evaluate the patient, and place pigtail catheter, she refused any intervention this evening. She stated that we can try in the morning. History of Present Illness History of Present Illness Chief Complaint: back/chest pain Narrative: This is a 81-year-old female who self reports being a DNR, DNI, past medical history of TIA, hyperlipidemia, hypothyroidism, A-fib, takes Eliquis daily, presents to the ER reporting back pain for the past 24 hours, no obvious injury or trauma, denies recent illness.? Upon presentation found to be in what appears to be A-fib with RVR.? Patient does report that she is compliant with her medications. During evaluation in the ED, the patient was found to have significant laboratory derangements, and a CT scan that demonstrated a moderate size Right pleural effusion now evident.? There is consolidated lung in the right middle lobe with central hypodensity suspicious for neoplasm or developing abscess.? Largest central hypodensity in lung at this level measures 3 x 2.5 cm.? There is volume loss in the basal segments of the right lower lobe where there is significant pleural effusion. Dr. Maria from Pulmonary [facility] saw the patient in consultation and requested a surgical consult for placement of a right-sided pigtail catheter, and she put in orders for fluid analysis. Consults Consult date: 05/26/22 Requesting physician: Farzaneh Rendon [facility] All Active Problems (Updated 05/26/22 @ 17:48 by Sonam Mccord MD) Pneumonia (Acute) Sepsis (Acute) Respiratory failure with hypoxia (Acute) Atrial fibrillation with RVR (Acute) Loculated pleural effusion (Acute) Gastritis (Acute) Discharge planning issues (Acute) Leukocytosis, unspecified (Acute) Acute blood loss anemia (Acute) DVT prophylaxis (Acute) Tobacco dependence (Acute) Closed right hip fracture (Acute 04/23/19) S/P screw fixation DOS: 04/24/19 TIA (transient ischemic attack) (Chronic) Pt denied hx of stroke Discharge problem list from 06/28/16 states TIA Hyperlipidemia (Chronic) Hypothyroidism (Chronic) Atrial fibrillation (Chronic) on Eliquis Mild cognitive impairment with memory loss (Acute) Surgical History History of cystogram Pt describes cystogram Discharge problem list from 10/08/15 states hx of exploratory laparotomy Family History Mother No problems noted. Father Cancer Grandfather , WWII at age 31. No problems noted. Grandfather No problems noted. Grandmother Heart disease Grandmother No problems noted. Social History Smoking/Tobacco Use Status: Current every day Tobacco Type: cigarettes Smoking risk assessment performed?: Yes Alcohol Intake: never Drug use: Never Substance use type: does not use Current gender identity: female Do you feel safe at home: Yes Do you feel safe in your relationship?: Yes Additional Social history: Pt lives alone Results Last Vital Signs Temp 98.4 F 05/26/22 16:00 Pulse 110 H 05/26/22 14:31 Resp 27 H 05/26/22 14:31 BP 122/75 05/26/22 14:31 Pulse Ox 95 05/26/22 14:31 Labs 05/26/22 08:35 05/26/22 08:35 Labs: Laboratory Results - last 24 hr 05/26/22 05/26/22 05/26/22 08:35 08:35 08:35 WBC 31.54 H* RBC 5.16 Hgb 14.2 Hct 45.0 MCV 87 MCH 27.5 MCHC 31.6 L RDW 14.2 Plt Count 422 H MPV 10.2 Immature Gran % 1.0 Neutrophils % 90.4 Lymphocytes % 3.4 Monocytes % 4.9 Eosinophils % 0.0 Basophils % 0.3 Nucleated RBC % 0.0 Absolute Neutrophils 28.51 H Absolute Lymphocytes 1.07 L Absolute Monocytes 1.55 H Absolute Eosinophils 0.00 Absolute Basophils 0.09 RBC Morphology Normal PT INR APTT D-Dimer VBG Lactate Sodium 137 Potassium 5.6 H Chloride 98 Carbon Dioxide 32.4 H Anion Gap 6.6 BUN 25 H Creatinine 1.2 H Est GFR (CKD-EPI 2020) 46.05 Glucose 122 H Calcium 9.2 Magnesium 2.0 Total Bilirubin 0.9 AST 25 ALT 42 Alkaline Phosphatase 72 Troponin I < 50 NT-Pro-B Natriuret Pep 6502 H Total Protein 7.0 Albumin 2.5 L Procalcitonin TSH 8.66 H Free T4 1.31 Urine Color Urine Clarity Urine pH Ur Specific [place] Urine Protein Urine Ketones Urine Blood Urine Nitrite Urine Bilirubin Urine Urobilinogen Ur Leukocyte Esterase Urine RBC Urine WBC Ur Epithelial Cells Urine Crystals Urine Bacteria Urine Casts Urine Mucus Ur Culture Indicated? Urine Glucose COVID-19 Source SARS-CoV-2 (PCR) Influenza Type A (PCR) Influenza Type B (PCR) RSV (PCR) Add-On Test Request 05/26/22 05/26/22 05/26/22 08:49 08:50 10:20 WBC RBC Hgb Hct MCV MCH MCHC RDW Plt Count MPV Immature Gran % Neutrophils % Lymphocytes % Monocytes % Eosinophils % Basophils % Nucleated RBC % Absolute Neutrophils Absolute Lymphocytes Absolute Monocytes Absolute Eosinophils Absolute Basophils RBC Morphology PT 11.5 H INR 1.1 APTT 26.0 D-Dimer 2080 H VBG Lactate Sodium Potassium Chloride Carbon Dioxide Anion Gap BUN Creatinine Est GFR (CKD-EPI 2020) Glucose Calcium Magnesium Total Bilirubin AST ALT Alkaline Phosphatase Troponin I NT-Pro-B Natriuret Pep Total Protein Albumin Procalcitonin TSH Free T4 Urine Color Urine Clarity Urine pH Ur Specific [place] Urine Protein Urine Ketones Urine Blood Urine Nitrite Urine Bilirubin Urine Urobilinogen Ur Leukocyte Esterase Urine RBC Urine WBC Ur Epithelial Cells Urine Crystals Urine Bacteria Urine Casts Urine Mucus Ur Culture Indicated? Urine Glucose COVID-19 Source Cancelled Nasopharynx SARS-CoV-2 (PCR) Cancelled Negative Influenza Type A (PCR) Cancelled Negative Influenza Type B (PCR) Cancelled Negative RSV (PCR) Cancelled Negative Add-On Test Request 05/26/22 05/26/22 05/26/22 12:53 13:00 13:00 WBC RBC Hgb Hct MCV MCH MCHC RDW Plt Count MPV Immature Gran % Neutrophils % Lymphocytes % Monocytes % Eosinophils % Basophils % Nucleated RBC % Absolute Neutrophils Absolute Lymphocytes Absolute Monocytes Absolute Eosinophils Absolute Basophils RBC Morphology PT INR APTT D-Dimer VBG Lactate 1.9 H Sodium Potassium Chloride Carbon Dioxide Anion Gap BUN Creatinine Est GFR (CKD-EPI 2020) Glucose Calcium Magnesium Total Bilirubin AST ALT Alkaline Phosphatase Troponin I < 50 NT-Pro-B Natriuret Pep Total Protein Cancelled Albumin Procalcitonin 7.0 TSH Free T4 Urine Color Urine Clarity Urine pH Ur Specific [place] Urine Protein Urine Ketones Urine Blood Urine Nitrite Urine Bilirubin Urine Urobilinogen Ur Leukocyte Esterase Urine RBC Urine WBC Ur Epithelial Cells Urine Crystals Urine Bacteria Urine Casts Urine Mucus Ur Culture Indicated? Urine Glucose COVID-19 Source SARS-CoV-2 (PCR) Influenza Type A (PCR) Influenza Type B (PCR) RSV (PCR) Add-On Test Request 05/26/22 05/26/22 13:30 Unknown WBC RBC Hgb Hct MCV MCH MCHC RDW Plt Count MPV Immature Gran % Neutrophils % Lymphocytes % Monocytes % Eosinophils % Basophils % Nucleated RBC % Absolute Neutrophils Absolute Lymphocytes Absolute Monocytes Absolute Eosinophils Absolute Basophils RBC Morphology PT INR APTT D-Dimer VBG Lactate Sodium Potassium Chloride Carbon Dioxide Anion Gap BUN Creatinine Est GFR (CKD-EPI 2020) Glucose Calcium Magnesium Total Bilirubin AST ALT Alkaline Phosphatase Troponin I NT-Pro-B Natriuret Pep Total Protein Albumin Procalcitonin TSH Free T4 Urine Color Yellow Urine Clarity Clear Urine pH 6.0 Ur Specific [place] 1.010 Urine Protein 30 H Urine Ketones Negative Urine Blood Moderate H Urine Nitrite Negative Urine Bilirubin Negative Urine Urobilinogen 0.2 Ur Leukocyte Esterase Negative Urine RBC 10-20 H Urine WBC 0-2 Ur Epithelial Cells Few Urine Crystals Negative Urine Bacteria Negative Urine Casts Negative Urine Mucus Negative Ur Culture Indicated? No Urine Glucose Negative COVID-19 Source SARS-CoV-2 (PCR) Influenza Type A (PCR) Influenza Type B (PCR) RSV (PCR) Add-On Test Request Cancelled Imaging Imaging Studies: CT C/A/P (05/26/2022): FINDINGS: CHEST: PULMONARY ARTERIES: No central pulmonary emboli evident.? Opacification of the more distal pulmonary arteries is suboptimal here. LUNGS: There is a moderate size right pleural effusion now evident.? There is consolidated lung in the right middle lobe with central hypodensity suspicious for neoplasm or developing abscess.? Largest central hypodensity in lung at this level measures 3 x 2.5 cm.? There is volume loss in the basal segments of the right lower lobe where there is significant pleural effusion. No significant focal left lung findings.? No pleural effusion on the left side..? MEDIASTINUM: There is no hilar nor mediastinal adenopathy.? CARDIAC: Heart size upper normal.? There is a small pericardial effusion. AORTA: Caliber of the thoracic aorta is within normal limits.There is no evidence of aortic dissection. ABDOMEN: There is no evidence of abdominal aortic aneurysm nor dissection.Mild arterial megaly of the common iliac arteries.The celiac and superior mesenteric arteries are patent. There is no ascites. LIVER: There are no focal hepatic lesions nor dilatation of intrahepatic ducts.? GALLBLADDER/BILIARY: No obvious gallbladder pathology.? CBD is not dilated. PANCREAS: Pancreatic duct diameter is upper normal.? No obvious pancreatic mass. SPLEEN: Spleen is not enlarged.? There are no intrasplenic lesions. Splenic and portal veins are patent. ADRENALS: There are no significant adrenal masses. KIDNEYS: Benign cysts left kidney superior pole measures 3 cm.? No renal masses.? No hydronephrosis.. ABDOMINAL AORTA: Calcified.? Upper normal diameter.? No dissection. LYMPH NODES: There is no retroperitoneal nor para-aortic adenopathy. No obvious mesenteric masses. ABDOMINAL WALL: No evidence of significant anterior abdominal wall hernia.? GI: There is no evidence of bowel obstruction, free air, nor abscess. PELVIS: LYMPH NODES: There is no intrapelvic nor inguinal adenopathy. GI: No evidence of appendicitis.No evidence of sigmoid diverticulitis. URINARY BLADDER: Trabeculated wall.? No obvious mass. REPRODUCTIVE: Age-appropriate OSSEOUS: No significant osseous lesions. Right hip hardware.? Scoliosis.? No osseous lesions. IMPRESSION: 1. No evidence of aortic dissection, as per request. 2. No obvious pulmonary emboli in 1st and 2nd order vessels.? More distal to this 3 vessels are not adequately opacified. 3. Right middle lobe mass with central hypodensity.? Either collapsed lung developing cavitation or neoplasm.? There is a moderate size ipsilateral right pleural effusion.? No obvious adenopathy. 4. Left lung is clear and there is no pleural fluid on the left side. ?Small pericardial effusion. Findings in the abdomen as above but no acute intra-abdominal findings.
[2022-05-26] MEDS: Lactated Ringers 1,000 ML 100 ML IV (16:46)
--- NOTE | 2022-05-26 16:55 | W.PM.OP ---
Operative Note Operative Note DATE OF PROCEDURE: 05/26/22 PRE-OP DIAGNOSIS: moderate Right loculated pleral effusion POST-OP DIAGNOSIS: same PROCEDURE: 1. Right pigtail thoracostomy tube placement SURGEON: Beto Cornell ANESTHESIA TYPE: Local By Surgeon Refer to Anesthesia Record PATHOLOGY: other (Fluid collected) Implants: Right pigtail catheter thoracostomy Indications: Moderate Right-sided loculated pleural effusion Procedure Description: After reviewing the risks and benefits, a time out was called. Once we were in agreement, we proceeded. Ultrasound was utilized find an appropriate pocket of fluid. The area was marked. It was prepped and draped in usual standard fashion. An appropriate space was found over the rib in the posterior mid-axillary line, and was infiltrated with local anesthesia. An incision was made. The pleural space was accessed and the catheter introduced using stnadard Seldinger technique. The catheter was advanced and fluid drawn to send for analysis.
[2022-05-26 17:08] LABS: LDH 171 U/L (81-234); Total Protein 6.7 g/dL (6.4-8.2)
--- NOTE | 2022-05-26 17:38 | HPE_ITS ---
Date of service: 05/26/22 Time of Service: 17:38 Assessment and Plan Assessment and plan (1) Sepsis: Status: Acute Assessment and plan: Due to suspected pneumonia w/ empyema, present on admission. Continue zosyn. I think that the patient is at this point euvolemic. D/c IVF. Await blood cultures, sputum culture, urine strep and legionella. Pulmonary and general surgery consulted for pigtail catheter placement. (2) Pneumonia: Status: Acute Assessment and plan: As above (3) Respiratory failure with hypoxia: Status: Acute Assessment and plan: Due to PNA/empyema as well as bronchospasm. As above Wean O2 as tolerated. Add prednisone. (4) Loculated pleural effusion: Status: Acute Assessment and plan: As above (5) Atrial fibrillation with RVR: Status: Acute Assessment and plan: On cardizem gtt. Continue. Hold anticoagulation due to anticipated procedure. (6) DVT prophylaxis: Status: Acute Assessment and plan: SCDs since eliquis is on hold (7) Discharge planning issues: Status: Acute Assessment and plan: DNR/DNI as discussed with the patient. Total Critical Care Time 60 minutes. History of Present Illness History of Present Illness Chief Complaint: Back pain Narrative: Mr Yi is a 81 year old female with PMhx of Afib on eliquis, Prior TIA, hypothyroidism, hyperlipidemia, who presented to [facility] ED today c/o back pain. The patient denies injury to her back and cannot tell me how long the pain has been going on, but does state that it got especially bad yesterday. She denies fevers, states she had not noticed how long she has been short of breath for, but that it has snuck up on her, denies palpitations. She still smokes. She denies noticing weight loss, but says apparently I have! Denies night sweats. In the ER, she was found to be in Afib w/ RVR with HR in 160s and 170s. She was started on cardizem drip. The rest of her workup revealed WBC of 31 and a loculated RML mass vs effusion with a central hypodensity. The patient was afebrile. Pulmonology consult was sought, and the finding was felt to be an effusion, likely an empyema. The patient was initiated on empiric zosyn. Hosp italist admission to the ICU was requested. General surgery is consulted for a pig tail catheter placement to drain the effusion. The patient is refusing to have this procedure done until tomorrow. Review of Systems All systems reviewed & are unremarkable except as noted in HPI and below PFSH All Active Problems (Updated 05/26/22 @ 17:48 by Sonam Mccord MD) Pneumonia (Acute) Sepsis (Acute) Respiratory failure with hypoxia (Acute) Atrial fibrillation with RVR (Acute) Loculated pleural effusion (Acute) Gastritis (Acute) Discharge planning issues (Acute) Leukocytosis, unspecified (Acute) Acute blood loss anemia (Acute) DVT prophylaxis (Acute) Tobacco dependence (Acute) Closed right hip fracture (Acute 04/23/19) S/P screw fixation DOS: 04/24/19 TIA (transient ischemic attack) (Chronic) Pt denied hx of stroke Discharge problem list from 10/08/15 states TIA Hyperlipidemia (Chronic) Hypothyroidism (Chronic) Atrial fibrillation (Chronic) on Eliquis Mild cognitive impairment with memory loss (Acute) Surgical History History of cystogram Pt describes cystogram Discharge problem list from 10/08/15 states hx of exploratory laparotomy Family History Mother No problems noted. Father Cancer Grandfather , WWII at age 31. No problems noted. Grandfather No problems noted. Grandmother Heart disease Grandmother No problems noted. Social History Smoking/Tobacco Use Status: Current every day Tobacco Type: cigarettes Smoking risk assessment performed?: Yes Alcohol Intake: never Drug use: Never Substance use type: does not use Current gender identity: female Do you feel safe at home: Yes Do you feel safe in your relationship?: Yes Additional Social history: Pt lives alone Meds Allergies and Home Medications Allergies Allergy/AdvReac Type Severity Reaction Status Date / Time Sulfa (Sulfonamide Allergy Unknown Unverified 05/26/22 08:16 Antibiotics) codeine AdvReac Mild NAUSEA Unverified 05/26/22 08:16 Home Medications Medication Instructions Recorded Confirmed Type cholecalciferol (vitamin D3) 25 1,000 unit PO DAILY 11/03/12 05/26/22 History mcg (1,000 unit) capsule amlodipine 5 mg tablet 5 mg PO DAILY #90 tab-caps 12/12/14 05/26/22 History ascorbate calcium (vitamin C) 500 500 mg PO DAILY 01/16/15 05/26/22 History mg tablet docusate sodium 100 mg capsule 100 mg PO DAILY 10/18/15 08/15/19 History (Stool Softener) acetaminophen 325 mg tablet 650 mg PO Q4H PRN PRN #0 tabs 05/02/19 05/26/22 Rx (Tylenol) apixaban 2.5 mg tablet (Eliquis) 2.5 mg PO BID #0 tabs 05/02/19 05/26/22 Rx ferrous gluconate 324 mg (37.5 mg 324 mg PO BID #0 tabs 05/02/19 08/15/19 Rx iron) tablet multivitamin,qo-tztk-aeumvykm 27 1 tab PO DAILY #0 tabs 05/02/19 08/15/19 Rx mg-0.4 mg tablet (Therems-M) pravastatin 10 mg tablet 20 mg PO DAILY #90 tab-caps 06/20/19 05/26/22 History latanoprost 0.005 % eye drops 1 drp ophthalmic (eye) QPM 12/09/20 05/26/22 History levothyroxine 75 mcg tablet 75 mcg PO DAILY 12/09/20 05/26/22 History ondansetron 4 mg disintegrating 4 mg PO Q6H PRN nausea and 12/09/20 Rx tablet vomiting #10 tabs pantoprazole 40 mg tablet,delayed 40 mg PO DAILY #20 tabs 12/09/20 Rx release Exam Narrative Exam Narrative: General: Cachectic appearing elderly female who is on 4L of O2, tachypneic Neurological: A&Ox3, forgetful, no focal deficits Psychiatric: anxious Skin: Visible skin dry, intact, no bruises or rashes HEENT: Atraumatic, normocephalic, EOMI, dry MM, clear oropharynx, no submandibular or cervical lymphadenopathy, no goiter or JVD Cardiovascular: irregularly irregular rhythm, tachycardic Lungs: Wheezing on expiration B Gastrointestinal: soft, nontender, nondistended Genitourinary: has a richey Extremities: no edema BLEs, +1 pedal pulses B Results Imaging Additional studies: CT chest/abdomen/pelvis: 1. No evidence of aortic dissection, as per request. 2. No obvious pulmonary emboli in 1st and 2nd order vessels.? More distal to this 3 vessels are not adequately opacified. 3. Right middle lobe mass with central hypodensity.? Either collapsed lung developing cavitation or neoplasm.? There is a moderate size ipsilateral right pleural effusion.? No obvious adenopathy. 4. Left lung is clear and there is no pleural fluid on the left side. ?Small pericardial effusion. Findings in the abdomen as above but no acute intra-abdominal findings. CT thoracic-lumbar spine: No fractures, listhesis, facet malalignment, nor acute compromise of the spinal canal in the thoracic and lumbar spine levels EKG: HR 174, SVT vs Afib. No acute ischemia. LVH. Rate related St-T abnormalities. Labs 05/26/22 08:35 05/26/22 08:35 Labs: Laboratory Results - last 24 hr 05/26/22 05/26/22 05/26/22 08:35 08:35 08:35 WBC 31.54 H* RBC 5.16 Hgb 14.2 Hct 45.0 MCV 87 MCH 27.5 MCHC 31.6 L RDW 14.2 Plt Count 422 H MPV 10.2 Immature Gran % 1.0 Neutrophils % 90.4 Lymphocytes % 3.4 Monocytes % 4.9 Eosinophils % 0.0 Basophils % 0.3 Nucleated RBC % 0.0 Absolute Neutrophils 28.51 H Absolute Lymphocytes 1.07 L Absolute Monocytes 1.55 H Absolute Eosinophils 0.00 Absolute Basophils 0.09 RBC Morphology Normal PT INR APTT D-Dimer VBG Lactate Sodium 137 Potassium 5.6 H Chloride 98 Carbon Dioxide 32.4 H Anion Gap 6.6 BUN 25 H Creatinine 1.2 H Est GFR (CKD-EPI 2020) 46.05 Glucose 122 H Calcium 9.2 Magnesium 2.0 Total Bilirubin 0.9 AST 25 ALT 42 Alkaline Phosphatase 72 Lactate Dehydrogenase Troponin I < 50 NT-Pro-B Natriuret Pep 6502 H Total Protein 7.0 Albumin 2.5 L Procalcitonin TSH 8.66 H Free T4 1.31 Urine Color Urine Clarity Urine pH Ur Specific [place] Urine Protein Urine Ketones Urine Blood Urine Nitrite Urine Bilirubin Urine Urobilinogen Ur Leukocyte Esterase Urine RBC Urine WBC Ur Epithelial Cells Urine Crystals Urine Bacteria Urine Casts Urine Mucus Ur Culture Indicated? Urine Glucose COVID-19 Source SARS-CoV-2 (PCR) Influenza Type A (PCR) Influenza Type B (PCR) RSV (PCR) Add-On Test Request 05/26/22 05/26/22 05/26/22 08:49 08:50 10:20 WBC RBC Hgb Hct MCV MCH MCHC RDW Plt Count MPV Immature Gran % Neutrophils % Lymphocytes % Monocytes % Eosinophils % Basophils % Nucleated RBC % Absolute Neutrophils Absolute Lymphocytes Absolute Monocytes Absolute Eosinophils Absolute Basophils RBC Morphology PT 11.5 H INR 1.1 APTT 26.0 D-Dimer 2080 H VBG Lactate Sodium Potassium Chloride Carbon Dioxide Anion Gap BUN Creatinine Est GFR (CKD-EPI 2020) Glucose Calcium Magnesium Total Bilirubin AST ALT Alkaline Phosphatase Lactate Dehydrogenase Troponin I NT-Pro-B Natriuret Pep Total Protein Albumin Procalcitonin TSH Free T4 Urine Color Urine Clarity Urine pH Ur Specific [place] Urine Protein Urine Ketones Urine Blood Urine Nitrite Urine Bilirubin Urine Urobilinogen Ur Leukocyte Esterase Urine RBC Urine WBC Ur Epithelial Cells Urine Crystals Urine Bacteria Urine Casts Urine Mucus Ur Culture Indicated? Urine Glucose COVID-19 Source Cancelled Nasopharynx SARS-CoV-2 (PCR) Cancelled Negative Influenza Type A (PCR) Cancelled Negative Influenza Type B (PCR) Cancelled Negative RSV (PCR) Cancelled Negative Add-On Test Request 05/26/22 05/26/22 05/26/22 12:53 13:00 13:00 WBC RBC Hgb Hct MCV MCH MCHC RDW Plt Count MPV Immature Gran % Neutrophils % Lymphocytes % Monocytes % Eosinophils % Basophils % Nucleated RBC % Absolute Neutrophils Absolute Lymphocytes Absolute Monocytes Absolute Eosinophils Absolute Basophils RBC Morphology PT INR APTT D-Dimer VBG Lactate 1.9 H Sodium Potassium Chloride Carbon Dioxide Anion Gap BUN Creatinine Est GFR (CKD-EPI 2020) Glucose Calcium Magnesium Total Bilirubin AST ALT Alkaline Phosphatase Lactate Dehydrogenase Troponin I < 50 NT-Pro-B Natriuret Pep Total Protein Cancelled Albumin Procalcitonin 7.0 TSH Free T4 Urine Color Urine Clarity Urine pH Ur Specific [place] Urine Protein Urine Ketones Urine Blood Urine Nitrite Urine Bilirubin Urine Urobilinogen Ur Leukocyte Esterase Urine RBC Urine WBC Ur Epithelial Cells Urine Crystals Urine Bacteria Urine Casts Urine Mucus Ur Culture Indicated? Urine Glucose COVID-19 Source SARS-CoV-2 (PCR) Influenza Type A (PCR) Influenza Type B (PCR) RSV (PCR) Add-On Test Request 05/26/22 05/26/22 05/26/22 13:30 16:35 Unknown WBC RBC Hgb Hct MCV MCH MCHC RDW Plt Count MPV Immature Gran % Neutrophils % Lymphocytes % Monocytes % Eosinophils % Basophils % Nucleated RBC % Absolute Neutrophils Absolute Lymphocytes Absolute Monocytes Absolute Eosinophils Absolute Basophils RBC Morphology PT INR APTT D-Dimer VBG Lactate Sodium Potassium Chloride Carbon Dioxide Anion Gap BUN Creatinine Est GFR (CKD-EPI 2020) Glucose Calcium Magnesium Total Bilirubin AST ALT Alkaline Phosphatase Lactate Dehydrogenase 171 Troponin I NT-Pro-B Natriuret Pep Total Protein 6.7 Albumin Procalcitonin TSH Free T4 Urine Color Yellow Urine Clarity Clear Urine pH 6.0 Ur Specific [place] 1.010 Urine Protein 30 H Urine Ketones Negative Urine Blood Moderate H Urine Nitrite Negative Urine Bilirubin Negative Urine Urobilinogen 0.2 Ur Leukocyte Esterase Negative Urine RBC 10-20 H Urine WBC 0-2 Ur Epithelial Cells Few Urine Crystals Negative Urine Bacteria Negative Urine Casts Negative Urine Mucus Negative Ur Culture Indicated? No Urine Glucose Negative COVID-19 Source SARS-CoV-2 (PCR) Influenza Type A (PCR) Influenza Type B (PCR) RSV (PCR) Add-On Test Request Cancelled Last Vital Signs Temp 36.9 C 05/26/22 16:00 Pulse 110 H 05/26/22 14:31 Resp 27 H 05/26/22 14:31 BP 122/75 05/26/22 14:31 Pulse Ox 95 05/26/22 14:31 Time Spent Time spent with Patient: 55-74 minutes Time was spent: preparing to see the patient(eg.review tests), obtaining and/or reviewing separately otained hiistory, ordering medications,tests, procedures, referring, communicating with other health reservoir caretaker, indepentently interpreting results, counseling the patient and care coordination
[2022-05-26] MEDS: LORazepam 2 MG/ML VIAL 0.5 MG IVP (19:07)
[2022-05-26] MEDS: methylPREDNISolone SUCC 125 MG VIAL IVP (19:07)
[2022-05-26] MEDS: Ipratropium 0.5 MG/2.5 ML UPD VIAL 0.25 MG UPD (19:27)
[2022-05-26] MEDS: Normal Saline Flush 10 ML SYR IVP (19:46)
[2022-05-26] MEDS: MORPHine 2 MG/ML SYR IVP (21:48)
[2022-05-26] MEDS: dilTIAZem 125 MG in Normal Saline 100 ML 15 MG IV (22:33)
[2022-05-27] VITALS (116 sets, daily range): BP systolic 72–116; BP diastolic 43–87; PULSE 66–117; RESP 1–34; TEMP 34–37; TEMPC 36; O2SAT 73–97; BMI 19.9
--- NOTE | 2022-05-27 | DI.RAD_ITS ---
Exam(s) XR PORTABLE CHEST AP POST LINE EXAM: XR PORTABLE CHEST AP POST LINE CLINICAL HISTORY: New right chest tube TECHNIQUE: 2D digital imaging was performed. COMPARISON: CR XR CHEST 2V PA LATERAL from 04/26/[address] THORAX ABD/PEL CTA from 05/26/[address] THORAX ABD/PEL CTA from 05/26/2022 FINDINGS: Multiple leads overlie the chest. Oxygen tubing is also seen. LUNGS: Bilateral pleural effusions, right greater than left. Adjacent infiltrate on the right. A ch est tube is now seen on the right side in the lower lung field. No air is seen outside the chest. T here is a tiny right apical pneumothorax. HEART: Enlarged. AORTA: Normal diameter. BONES: Scoliosis Soft tissues: Unremarkable. IMPRESSION: Tiny right pneumothorax status post placement of chest tube. Bilateral pleural effusions, right greater than left. Right basilar infiltrate. DATA REPOSITORY: RADIATION DOSE DELIVERED:
[2022-05-27] MEDS: PIPERACILLIN/TAZO 3.375 GM in Normal Saline 50 ML IVPB ×4 (00:04→18:18)
[2022-05-27] MEDS: MORPHine 2 MG/ML SYR IVP ×5 (00:22→23:13)
[2022-05-27] MEDS: LORazepam 2 MG/ML VIAL 0.5 MG IVP (02:27)
[2022-05-27 04:43] LABS: Anion Gap 6.3 mmol/L (3-11); BUN 41 mg/dL (7-18); CO2 27.7 mmol/L (21.0-32.0); CREATININE 1.7 mg/dL (0.55-1.02); Calcium 8.2 mg/dL (8.5-10.1); Chloride 102 mmol/L (98-107); Estimated GFR 30.32 (mL/min/1.73m2); Glucose 170 mg/dL (74-106); Magnesium 2.1 mg/dL (1.8-2.4); Potassium 5.4 mmol/L (3.5-5.1); Sodium 136 mmol/L (136-145)
[2022-05-27 04:45] LABS: Absolute Lymphocyte Count 0.56 10^3/uL (1.2-3.4); Basophils % 0.2; HGB 12.3 g/dL (11.2-15.7); Immature Grans % 1.2; Lymphocytes % 1.7; MCH 27.9 pg (27.0-33.0); MCHC 31.5 % (32.0-36.0); MCV 88 fL (80-95); MPV 10.5 fL (8.0-11.0); Monocytes % 1.6; Neutrophils % 95.3; Platelet Count 342 10^3/uL (130-400); RBC 4.41 10^6/uL (3.93-5.22); RDW 14.6 % (11.7-14.6); RDW-SD 46.9 fL
[2022-05-27 04:55] LABS: Absolute Basophil Count 0.07 10^3/uL (0.0-0.2); Absolute Monocyte Count 0.53 10^3/uL (0.1-0.8); Absolute Neutrophil Count 31.38 10^3/uL (1.2-6.7)
[2022-05-27 04:56] LABS: WBC 32.93 10^3/uL (4.4-10.8)
[2022-05-27 05:04] LABS: Diff Comment Agrees w/ Instrument; RBC Morphology Normal
[2022-05-27] MEDS: Normal Saline 500 ML IV (05:31)
[2022-05-27] MEDS: dilTIAZem 125 MG in Normal Saline 100 ML 10 MG IV (06:38)
--- NOTE | 2022-05-27 07:04 | W.PULMCC ---
General Date of Service Date of service: 05/27/22 Time of Service: 07:04 Reason for Admission to ICU: Loculated pleural effusion A. fib with RVR Assessment and Plan Assessment and plan (1) Leukocytosis, unspecified: Status: Acute Qualifiers: Leukocytosis type: unspecified Qualified Code(s): D72.829 - Elevated white blood cell count, unspecified (2) Tobacco dependence: Status: Acute (3) Respiratory failure with hypoxia: Status: Acute (4) Loculated pleural effusion: Status: Acute (5) Atrial fibrillation with RVR: Status: Acute Assessment and plan: This is a 81 yo woman with A.fib on Eliquis, HLD and smoking who presented to the ED with back pain and found to have Afib with RVR and a loculated right pleural effusion with concern for possible RML mass. She is currently on a diltiazem drip for the RVR. Her blood pressures are on the soft side. I changed her diltiazem to amiodarone given her hypotension. She is euvolemic so I do not see the utility of further fluids at this time. She refused chest tube placement last night. At minimum I would recommend a thoracentesis to at least get an answer for the etiology of the effusion. She has worsening renal function and a worsening white count. She is on Zosyn, but the space does need to be drained for source control. If her blood pressure does not improve despite switching to amiodarone, she may need vasopressor support - I would opt for phenylephrine first line and the Levophed as an addition if the phenylephrine if not enough. She would need central line placement for this. I also would recommend a head CT given the new AMS. I would recommend a conversation with Pastor Salas, and any other identified next of kin, regarding goals moving forward. It seems as though her acute illness is treatable, however this will likely require invasive measures for effective treatment. Recommendations Pulmonary: Loculated pleural effusion - recommend surgery consultation for pigtail placement or thoracentesis depending on patient amenability - recommend sending fluids for: pH, bacterial cultures, LDH, cell diff, total protein ( I have ordered) - would also recommend sending for cytopathology (as much fluid as able) - not ordered as its a paper order - continue Zosyn for coverage Hypoxic respiratory failure - supplemental O2 for sats 88-92% - recommend HFNC, currently on 15L NRB to maintain sats Cardiac: A. fib with RVR - stop diltiazem - amiodarone 150mg and then drip at 1 - hold Eliquis given possible procedure Renal: Acute Renal Failure - urine sodium I&O: Intake & Output 05/24/22 05/25/22 05/26/22 05/27/22 23:59 23:59 23:59 23:59 Intake Total 989.116 / 989.116 162.5 / 162.5 Output Total 525 / 525 100 / 100 Balance 464.116 / 464.116 62.5 / 62.5 Weight 44.5 kg 52.6 kg Daily Fluid Goal:: Even GI Nutrition: reassess safety for diet today Date of Last Bowel Movement: 05/25/22 Infectious Disease: Pneumonia - Zosyn - strep and legionella urine antigens not collected yet - prolcitonin elevated to 7 - sputum culture - not collected yet - f/u blood cultures Hematologic: Leukocytosis - likely due to sepsis - very high neutrophil to lymphocyte ratio Neurologic: Pain - pain control as needed Endocrine: No acute concerns Lines: PIV Prophylaxis: on Eliquis - being held currently Code Status: Resuscitation Status DNR/DNI Subjective Critical and life-threatening events over the past 24 hours: Patient refused chest tube placement last night. This morning she is no longer oriented and in my opinion not capable of consenting. She identified Pastor Salas as her proxy yesterday and he was called to come to the hospital to discuss moving forward. Her blood pressure was soft all night and received some fluids, however she remained on diltiazem. She tells me it is 1975 ans she is at home. Denies pain. Exam Narrative Exam Narrative: POCUS 05/27/22: Good cardiac windows seen. Normal LV and RV function. Atrial fibrillation. Small pericardial effusion with no tamponade physiology. IVC not collapsible with inspiration. Right pleural space with moderate sized effusion, appears less complicated as compared to yesterday now that patient is in a more advantageous position. POCUS 05/26/22: Moderate loculated appearing right sided pleural effusion. Exam not completed on left and no cardiac POCUS done due to extreme patient discomfort. Gen: Grimacing in pain, normal respiratory effort, well-nourished HENT: PERRL Chest: No respiratory distress, normal appearance of chest, shallow breaths Heart: regular rate and rhythym, no murmurs, rubs or gallops Abdomen: Non-distended, soft, non tender Extremities: No clubbing, edema, cyanosis, rashes Neuro: AAOx0, moving all extremities Psych: intermittently cooperative Most Recent VS/Results Last Vital Signs Temp 36.6 C 05/27/22 04:49 Pulse 91 H 05/27/22 04:49 Resp 14 05/27/22 04:49 BP 78/53 L 05/27/22 04:50 Pulse Ox 94 05/27/22 04:49 Laboratory Results - last 24 hr 05/26/22 05/26/22 05/26/22 08:35 08:35 08:35 WBC 31.54 H* RBC 5.16 Hgb 14.2 Hct 45.0 MCV 87 MCH 27.5 MCHC 31.6 L RDW 14.2 Plt Count 422 H MPV 10.2 Immature Gran % 1.0 Neutrophils % 90.4 Lymphocytes % 3.4 Monocytes % 4.9 Eosinophils % 0.0 Basophils % 0.3 Nucleated RBC % 0.0 Absolute Neutrophils 28.51 H Absolute Lymphocytes 1.07 L Absolute Monocytes 1.55 H Absolute Eosinophils 0.00 Absolute Basophils 0.09 RBC Morphology Normal PT INR APTT D-Dimer VBG Lactate Sodium 137 Potassium 5.6 H Chloride 98 Carbon Dioxide 32.4 H Anion Gap 6.6 BUN 25 H Creatinine 1.2 H Est GFR (CKD-EPI 2020) 46.05 Glucose 122 H Calcium 9.2 Magnesium 2.0 Total Bilirubin 0.9 AST 25 ALT 42 Alkaline Phosphatase 72 Lactate Dehydrogenase Troponin I < 50 NT-Pro-B Natriuret Pep 6502 H Total Protein 7.0 Albumin 2.5 L Procalcitonin TSH 8.66 H Free T4 1.31 Urine Color Urine Clarity Urine pH Ur Specific [place] Urine Protein Urine Ketones Urine Blood Urine Nitrite Urine Bilirubin Urine Urobilinogen Ur Leukocyte Esterase Urine RBC Urine WBC Ur Epithelial Cells Urine Crystals Urine Bacteria Urine Casts Urine Mucus Ur Culture Indicated? Urine Glucose COVID-19 Source SARS-CoV-2 (PCR) Influenza Type A (PCR) Influenza Type B (PCR) RSV (PCR) Add-On Test Request 05/26/22 05/26/22 05/26/22 08:49 08:50 10:20 WBC RBC Hgb Hct MCV MCH MCHC RDW Plt Count MPV Immature Gran % Neutrophils % Lymphocytes % Monocytes % Eosinophils % Basophils % Nucleated RBC % Absolute Neutrophils Absolute Lymphocytes Absolute Monocytes Absolute Eosinophils Absolute Basophils RBC Morphology PT 11.5 H INR 1.1 APTT 26.0 D-Dimer 0 H VBG Lactate Sodium Potassium Chloride Carbon Dioxide Anion Gap BUN Creatinine Est GFR (CKD-EPI 2020) Glucose Calcium Magnesium Total Bilirubin AST ALT Alkaline Phosphatase Lactate Dehydrogenase Troponin I NT-Pro-B Natriuret Pep Total Protein Albumin Procalcitonin TSH Free T4 Urine Color Urine Clarity Urine pH Ur Specific [place] Urine Protein Urine Ketones Urine Blood Urine Nitrite Urine Bilirubin Urine Urobilinogen Ur Leukocyte Esterase Urine RBC Urine WBC Ur Epithelial Cells Urine Crystals Urine Bacteria Urine Casts Urine Mucus Ur Culture Indicated? Urine Glucose COVID-19 Source Cancelled Nasopharynx SARS-CoV-2 (PCR) Cancelled Negative Influenza Type A (PCR) Cancelled Negative Influenza Type B (PCR) Cancelled Negative RSV (PCR) Cancelled Negative Add-On Test Request 05/26/22 05/26/22 05/26/22 12:53 13:00 13:00 WBC RBC Hgb Hct MCV MCH MCHC RDW Plt Count MPV Immature Gran % Neutrophils % Lymphocytes % Monocytes % Eosinophils % Basophils % Nucleated RBC % Absolute Neutrophils Absolute Lymphocytes Absolute Monocytes Absolute Eosinophils Absolute Basophils RBC Morphology PT INR APTT D-Dimer VBG Lactate 1.9 H Sodium Potassium Chloride Carbon Dioxide Anion Gap BUN Creatinine Est GFR (CKD-EPI 2020) Glucose Calcium Magnesium Total Bilirubin AST ALT Alkaline Phosphatase Lactate Dehydrogenase Troponin I < 50 NT-Pro-B Natriuret Pep Total Protein Cancelled Albumin Procalcitonin 7.0 TSH Free T4 Urine Color Urine Clarity Urine pH Ur Specific [place] Urine Protein Urine Ketones Urine Blood Urine Nitrite Urine Bilirubin Urine Urobilinogen Ur Leukocyte Esterase Urine RBC Urine WBC Ur Epithelial Cells Urine Crystals Urine Bacteria Urine Casts Urine Mucus Ur Culture Indicated? Urine Glucose COVID-19 Source SARS-CoV-2 (PCR) Influenza Type A (PCR) Influenza Type B (PCR) RSV (PCR) Add-On Test Request 05/26/22 05/26/22 05/26/22 13:30 16:35 Unknown WBC RBC Hgb Hct MCV MCH MCHC RDW Plt Count MPV Immature Gran % Neutrophils % Lymphocytes % Monocytes % Eosinophils % Basophils % Nucleated RBC % Absolute Neutrophils Absolute Lymphocytes Absolute Monocytes Absolute Eosinophils Absolute Basophils RBC Morphology PT INR APTT D-Dimer VBG Lactate Sodium Potassium Chloride Carbon Dioxide Anion Gap BUN Creatinine Est GFR (CKD-EPI 2020) Glucose Calcium Magnesium Total Bilirubin AST ALT Alkaline Phosphatase Lactate Dehydrogenase 171 Troponin I NT-Pro-B Natriuret Pep Total Protein 6.7 Albumin Procalcitonin TSH Free T4 Urine Color Yellow Urine Clarity Clear Urine pH 6.0 Ur Specific [place] 1.010 Urine Protein 30 H Urine Ketones Negative Urine Blood Moderate H Urine Nitrite Negative Urine Bilirubin Negative Urine Urobilinogen 0.2 Ur Leukocyte Esterase Negative Urine RBC 10-20 H Urine WBC 0-2 Ur Epithelial Cells Few Urine Crystals Negative Urine Bacteria Negative Urine Casts Negative Urine Mucus Negative Ur Culture Indicated? No Urine Glucose Negative COVID-19 Source SARS-CoV-2 (PCR) Influenza Type A (PCR) Influenza Type B (PCR) RSV (PCR) Add-On Test Request Cancelled 05/27/22 05/27/22 04:15 04:15 WBC 32.93 H* RBC 4.41 Hgb 12.3 Hct 39.0 MCV 88 MCH 27.9 MCHC 31.5 L RDW 14.6 Plt Count 342 MPV 10.5 Immature Gran % 1.2 Neutrophils % 95.3 Lymphocytes % 1.7 Monocytes % 1.6 Eosinophils % 0.0 Basophils % 0.2 Nucleated RBC % 0.0 Absolute Neutrophils 31.38 H Absolute Lymphocytes 0.56 L Absolute Monocytes 0.53 Absolute Eosinophils 0.00 Absolute Basophils 0.07 RBC Morphology Normal PT INR APTT D-Dimer VBG Lactate Sodium 136 Potassium 5.4 H Chloride 102 Carbon Dioxide 27.7 Anion Gap 6.3 BUN 41 H Creatinine 1.7 H Est GFR (CKD-EPI 2020) 30.32 Glucose 170 H Calcium 8.2 L Magnesium 2.1 Total Bilirubin AST ALT Alkaline Phosphatase Lactate Dehydrogenase Troponin I NT-Pro-B Natriuret Pep Total Protein Albumin Procalcitonin TSH Free T4 Urine Color Urine Clarity Urine pH Ur Specific [place] Urine Protein Urine Ketones Urine Blood Urine Nitrite Urine Bilirubin Urine Urobilinogen Ur Leukocyte Esterase Urine RBC Urine WBC Ur Epithelial Cells Urine Crystals Urine Bacteria Urine Casts Urine Mucus Ur Culture Indicated? Urine Glucose COVID-19 Source SARS-CoV-2 (PCR) Influenza Type A (PCR) Influenza Type B (PCR) RSV (PCR) Add-On Test Request Review of Systems Unobtainable due to mental status Time spent with patient Time spent in Critical Care: 45 Time spent in Critical care included: Chart review, Documenting critically ill care, Time at immediate bedside and Discussing critically ill care with other medical staff Multi-Disciplinary Checklist Lines/Tubes CENTRAL LINE: no ARTERIAL LINE: no PITT: yes, [place] Day#: 1 ENDOTRACHEAL TUBE: no ICU Maintenance GLUCOSE 140-180mg/dL: yes NUTRITION AT GOAL: no, Reason/Intervention: ate last night but not this morning PRESSURE ULCER: no RESTRAINTS: no ANTIBIOTICS(if yes, consider Stewardship): Yes Social Issues FAMILY UPDATED: no, Reason/Intervention: Pastor Salas called to come to hospital PT/OT: no, Reason/Intervention: not currently appropriate CODE STATUS: DNR/DNI Prophylaxis DVT PROPHYLAXIS: no Reason/Intervention: on Eliquis but being held for anticipation of procedure GI PROPHYLAXIS: no
[2022-05-27] MEDS: Normal Saline Flush 10 ML SYR IVP ×2 (07:10→20:49)
[2022-05-27] MEDS: Amiodarone in Dextrose 360 MG/200 ML BAG 500 MG IV (07:14)
[2022-05-27] MEDS: Levalbuterol 1.25 MG/3 ML UPD VIAL UPD ×3 (08:03→16:08)
[2022-05-27] MEDS: Ipratropium 0.5 MG/2.5 ML UPD VIAL 0.25 MG UPD ×4 (08:04→20:34)
--- NOTE | 2022-05-27 08:41 | INITIAL_ITS ---
- If Service Date Differs Date of service: 05/27/22 Time of Service: 08:41 Care Management Initial Assess REASON FOR HOSPITALIZATION:: Sepsis PAST MEDICAL HISTORY/PAST SURGICAL HISTORY:: All Active Problems (Updated 05/26/22 @ 17:48 by Sonam Mccord MD). Pneumonia (Acute). Sepsis (Acute). Respiratory failure with hypoxia (Acute). Atrial fibrillation with RVR (Acute). Loculated pleural effusion (Acute). Gastritis (Acute). Discharge planning issues (Acute). Leukocytosis, unspecified (Acute). Acute blood loss anemia (Acute). DVT prophylaxis (Acute). Tobacco dependence (Acute). Closed right hip fracture (Acute 04/23/19). S/P screw fixation. DOS: 04/24/19. TIA (transient ischemic attack) (Chronic). Pt denied hx of stroke. Discharge problem list from 10/08/15 states TIA. Hyperlipidemia (Chronic). Hypothyroidism (Chronic). Atrial fibrillation (Chronic). on Eliquis. Mild cognitive impairment with memory loss (Acute). Surgical History . History of cystogram. Pt describes cystogram. Discharge problem list from 10/08/15 states hx of exploratory laparotomy PREVIOUS FUNCTIONAL STATUS/SOCIAL/FAMILY SUPPORTS:: Kelsey resides alone on her farm in [place], [place] where she has 2 horses, a dog and cats. She has one child, a son named Dillan, however they are estranged. 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 She is independent at baseline, for the most part. She manages her own home and farm animals although this seems to be gettting more difficult. Kelsey is very involved with her zoroastrian and christianity community at the [facility] in [place], [place]. CURRENT FUNCTIONAL STATUS:: Kelsey was lying in bed asleep when CM went to see her. She is critically ill and remains ICU level of care. ALLEN met with her friend Octavia Alcantara who is one of two health care agents listed on her Advanced Directives from 2016. A prior AD document from 2014 had different contacts and was in another name. Kelsey legally changed her name around that time per her PCP and her good friend Inside Upholsterer Josue confirmed this as well. Octavia expressed concerns that she and Josue have about Kelsey returning home alone. They feel she is failing and unable to be independent. Octavia shared that she has not seen Kelsey in about 6 years and that Kelsey was having difficulties then. She had become disorganized and unable to function effectively at work. Octavia is recommending that Kelsey have a capacity evaluation to determine her ability to make safe decisions. She is aware that Kelsey will likely refused to go anywhere other than home. Octavia believes that she should have a guardian. ADVANCE DIRECTIVES:: On file -Kalli Merino and Octavia Alcantara HCAs Has patient been provided with info about the portal/API?: Yes Did the patient sign up for the portal?: No CODE STATUS:: DNR/DNI INSURANCE COVERAGE / FINANCIAL ISSUES:: AARP [employer] replacement CURRENT HOME/COMMUNITY SERVICES/EQUIPMENT:: none PRIMARY CARE PHYSICIAN:: Pro Loaiza MD - [place], [place] POTENTIAL DISCHARGE NEEDS:: follow up with PCP and plan of care PATIENT/FAMILY EDUCATION NEEDS:: Revirew of discharge instructions, limitations, activity, follow up plan, discuss Ask Me Three TRANSPORTATION:: via private vehicle with friend/family PLAN:: Anticpate Kelsey will prefer to discharge home when medically cleared by provider, however she may be more appropriate for SNF. Her friends are advocating for her not to be discharged home alone. CM will follow and offer support to Kelsey and assess for discharge concerns.
--- NOTE | 2022-05-27 09:49 | PGE_ITS ---
Date of Service Date of service: 05/27/22 Time of Service: 09:49 Assessment and Plan Assessment and plan (1) Sepsis: Status: Acute Assessment and plan: Due to suspected pneumonia w/ empyema, present on admission. Continue zosyn add vancomycin pending results of blood cultures and pleural fluid cultures Await blood cultures, sputum culture, urine strep and legionella. Pulmonary and general surgery consulted for pigtail catheter placement. Critical care time spent interviewing and examining the patient, reviewing studies, discussing case with patient's nurse and consulting physicians was 60 minutes (2) Pneumonia: Status: Acute Assessment and plan: As above (3) Respiratory failure with hypoxia: Status: Acute Assessment and plan: Due to PNA/empyema As above Wean O2 as tolerated. dc prednisone. She is not having uncontrolled bronchospasms and she is not in adrenal crisis. (4) Loculated pleural effusion: Status: Acute Assessment and plan: As above (5) Atrial fibrillation with RVR: Status: Acute Assessment and plan: Elquis on hold in anticipation of possible pleural catheter placement. Afib rate improved since addition of amiodarone. chuy summers dc'ed d/t hypotension (6) DVT prophylaxis: Status: Acute Assessment and plan: SCDs since eliquis is on hold (7) Discharge planning issues: Status: Acute Assessment and plan: DNR/DNI as per Dr. Mccord's discussion w/ the patient yesterday. Note two different advance directives were found on the patient. The initial one was under her prior name of Felecia Osullivan from January 15, 2015 w/ the same home address and same birthdate as [place]. A second advanced directive was found from 2016 under her current name also w/ same address and birthdate. Her carbon coater machine operator, Josue and her PCP, Dr. Loaiza confirmed that she had changed her naem legally. Near Eastern Archaeology Lecturer Josue states that she has no family support (she is estranged from her son and granddaughter) and she should not return home at the time of discharge, therefore we will work w/ her on SNF placement when she is medically stable. (8) Movement disorder: Status: Acute Assessment and plan: Unclear as to how long she has had this movement disorder. Her carbon coater machine operator Josue does not recall her movement being this pronounced. He says that she has always had an odd movement of her head dropping her head particularly when she talks. She has talked in a quiet voice, actually a whisper making it difficult for people to understand her. Pastor Salas says this has been going on for years. Her PCP has known her for 6 years and has not noted choreoathetoid movement or head jerking movements but says that she rarely comes into the office and often is non- compliant w/ medical workups or treatment. He is not aware of her being on any anti-psychotic meds or longwall headgate operator phenothiazines that could cause a dyskinesia. Subjective Subjective Interval history since last seen: Kelsey denies any pain. However, she is more confused today compared to yesterday per her nurse who admitted her yesterday. Whereas yesterday she was able to decide against the pleural catheter based on her concerns of bleeding from being on Eliquis, today she has been confused on date and her location (thought she was at home and thought it was 2022). However, she was able to correctly state the month (but not the year, she said 1922 rather than 2022) but able to correctly state her home address and name of her PCP, Wayne Mead. She states that she just wants to go home. She does not seem to understand that she has a potentially life threatening infection (pneumonia/empyema; +/- lung mass). Exam Narrative Exam Narrative: Kelsey is alert but oriented only to person, not to place, oriented to the month but not the year or date and does not seem to understand her circumstances of hospitalization She has choreoathetoid type movement of her head and neck and to a lesser extent her arms and hands but not noticeable in her legs. She is able to use both hands to pull at objects We are having difficulty having her leave her HF face mask on due to her constant movement of her head and neck Lungs: decr. BS at both bases R>>L, no wheezing Heart: irregularly irregular but rate improved since amiodarone drip and bolus was given Abdomen: slightly protuberant, but soft and nontender w/ decr. bowel sounds Legs: varicose veins but no calf or leg edema or cyanosis; she is able to voluntarily move her legs Hands and arms: she is able to pull at her face mask and her gown, able to grasp objects but w/ writhing motion Objective Last Vital Signs Temp 35.7 C L 05/27/22 08:00 Pulse 84 05/27/22 09:00 Resp 15 05/27/22 09:00 BP 76/47 L 05/27/22 09:00 Pulse Ox 94 05/27/22 09:00 Laboratory Results - last 24 hr 05/26/22 05/26/22 05/26/22 10:20 12:53 13:00 WBC RBC Hgb Hct MCV MCH MCHC RDW Plt Count MPV Immature Gran % Neutrophils % Lymphocytes % Monocytes % Eosinophils % Basophils % Nucleated RBC % Absolute Neutrophils Absolute Lymphocytes Absolute Monocytes Absolute Eosinophils Absolute Basophils RBC Morphology VBG Lactate Sodium Potassium Chloride Carbon Dioxide Anion Gap BUN Creatinine Est GFR (CKD-EPI 2020) Glucose Calcium Magnesium Lactate Dehydrogenase Troponin I < 50 Total Protein Cancelled Procalcitonin Urine Color Urine Clarity Urine pH Ur Specific [place] Urine Protein Urine Ketones Urine Blood Urine Nitrite Urine Bilirubin Urine Urobilinogen Ur Leukocyte Esterase Urine RBC Urine WBC Ur Epithelial Cells Urine Crystals Urine Bacteria Urine Casts Urine Mucus Ur Culture Indicated? Urine Glucose COVID-19 Source Nasopharynx SARS-CoV-2 (PCR) Negative Influenza Type A (PCR) Negative Influenza Type B (PCR) Negative RSV (PCR) Negative Add-On Test Request 05/26/22 05/26/22 05/26/22 13:00 13:30 16:35 WBC RBC Hgb Hct MCV MCH MCHC RDW Plt Count MPV Immature Gran % Neutrophils % Lymphocytes % Monocytes % Eosinophils % Basophils % Nucleated RBC % Absolute Neutrophils Absolute Lymphocytes Absolute Monocytes Absolute Eosinophils Absolute Basophils RBC Morphology VBG Lactate 1.9 H Sodium Potassium Chloride Carbon Dioxide Anion Gap BUN Creatinine Est GFR (CKD-EPI 2020) Glucose Calcium Magnesium Lactate Dehydrogenase 171 Troponin I Total Protein 6.7 Procalcitonin 7.0 Urine Color Yellow Urine Clarity Clear Urine pH 6.0 Ur Specific [place] 1.010 Urine Protein 30 H Urine Ketones Negative Urine Blood Moderate H Urine Nitrite Negative Urine Bilirubin Negative Urine Urobilinogen 0.2 Ur Leukocyte Esterase Negative Urine RBC 10-20 H Urine WBC 0-2 Ur Epithelial Cells Few Urine Crystals Negative Urine Bacteria Negative Urine Casts Negative Urine Mucus Negative Ur Culture Indicated? No Urine Glucose Negative COVID-19 Source SARS-CoV-2 (PCR) Influenza Type A (PCR) Influenza Type B (PCR) RSV (PCR) Add-On Test Request 05/26/22 05/27/22 05/27/22 Unknown 04:15 04:15 WBC 32.93 H* RBC 4.41 Hgb 12.3 Hct 39.0 MCV 88 MCH 27.9 MCHC 31.5 L RDW 14.6 Plt Count 342 MPV 10.5 Immature Gran % 1.2 Neutrophils % 95.3 Lymphocytes % 1.7 Monocytes % 1.6 Eosinophils % 0.0 Basophils % 0.2 Nucleated RBC % 0.0 Absolute Neutrophils 31.38 H Absolute Lymphocytes 0.56 L Absolute Monocytes 0.53 Absolute Eosinophils 0.00 Absolute Basophils 0.07 RBC Morphology Normal VBG Lactate Sodium 136 Potassium 5.4 H Chloride 102 Carbon Dioxide 27.7 Anion Gap 6.3 BUN 41 H Creatinine 1.7 H Est GFR (CKD-EPI 2020) 30.32 Glucose 170 H Calcium 8.2 L Magnesium 2.1 Lactate Dehydrogenase Troponin I Total Protein Procalcitonin Urine Color Urine Clarity Urine pH Ur Specific [place] Urine Protein Urine Ketones Urine Blood Urine Nitrite Urine Bilirubin Urine Urobilinogen Ur Leukocyte Esterase Urine RBC Urine WBC Ur Epithelial Cells Urine Crystals Urine Bacteria Urine Casts Urine Mucus Ur Culture Indicated? Urine Glucose COVID-19 Source SARS-CoV-2 (PCR) Influenza Type A (PCR) Influenza Type B (PCR) RSV (PCR) Add-On Test Request Cancelled Time Spent with Patient Time Spent with Patient: >50 minutes Time was spent: preparing to see the patient(eg.review tests), obtaining and/or reviewing separately otained hiistory, ordering medications,tests, procedures, referring, communicating with other health care transitions manager, indepentently interpreting results and care coordination
--- NOTE | 2022-05-27 10:30 | DI.CT_ITS ---
Exam(s) CT HEAD - STROKE PROTOCOL EXAM: CT HEAD - STROKE PROTOCOL CLINICAL HISTORY: acute mental status change. TECHNIQUE: Imaging Protocol: Axial computed tomography images with coronal and sagittal reformatted images were created and reviewed COMPARISON: CT HEAD WITHOUT CONTRAST from 10/01/2015 FINDINGS: Exam limited by patient motion. Scan repeated. Ventricles and Extra axial spaces: Normal in size and morphology for the patient's age. Hemorrhage: None. Cerebral parenchyma: No evidence of acute infarct. Mild atrophy. Moderate white matter changes con sistent with small vessel disease. No visible change from prior. Midline shift: None. Brainstem/Cerebellum: Normal. Calvarium: Normal. Visualized Paranasal sinuses/Mastoids: Clear. IMPRESSION: No acute abnormality. RADIATION DOSE DELIVERED: 1,384.85mGy.cm Total DLP 1,384.85mGy.cm Total DLP DATA REPOSITORY: All CT scans at this facility are submitted to the National Radiology Data Registry (NRDR) Dose Index Registry (DIR) with the [employer] ([employer]). RADIATION OPTIMIZATION: All CT scans at this facility use at least one of these dose optimization te chniques: automated exposure control; mA and/or kV adjustment per patient size (includes targeted exa ms where dose is matched to clinical indication); or iterative reconstruction.
[2022-05-27] MEDS: Amiodarone in Dextrose 360 MG/200 ML BAG 33.333 MG IV (10:49)
[2022-05-27] MEDS: LORazepam 2 MG/ML VIAL 1 MG IVP (10:51)
[2022-05-27] MEDS: VANCOMYCIN/WATER (PEG) 1 GM/200 ML BAG IV (12:59)
--- NOTE | 2022-05-27 14:51 | ANES.PREOP_ITS ---
General Info Date of Service Date Performed: 05/27/22 Height: 5 ft 4 in Weight: 52.6 kg Body Mass Index (BMI): 19.9 Surgical Procedure: Operation Date: 05/27/22 15:10 Proposed Procedure Side Surgeon p Chest Tube Insertion Right Terrance Ruiz MD Meds Allergies and Home Medications Allergies Allergy/AdvReac Type Severity Reaction Status Date / Time Sulfa (Sulfonamide Allergy Unknown Unverified 05/26/22 08:16 Antibiotics) codeine AdvReac Mild NAUSEA Unverified 05/26/22 08:16 Home Medication Medication Instructions Recorded cholecalciferol (vitamin D3) 25 1,000 unit PO DAILY 11/03/12 mcg (1,000 unit) capsule amlodipine 5 mg tablet 5 mg PO DAILY #90 tab-caps 12/12/14 ascorbate calcium (vitamin C) 500 500 mg PO DAILY 01/16/15 mg tablet docusate sodium 100 mg capsule 100 mg PO DAILY 10/18/15 (Stool Softener) acetaminophen 325 mg tablet 650 mg PO Q4H PRN PRN #0 tabs 05/02/19 (Tylenol) apixaban 2.5 mg tablet (Eliquis) 2.5 mg PO BID #0 tabs 05/02/19 ferrous gluconate 324 mg (37.5 mg 324 mg PO BID #0 tabs 05/02/19 iron) tablet multivitamin,ov-pyir-nlibomtu 27 1 tab PO DAILY #0 tabs 05/02/19 mg-0.4 mg tablet (Therems-M) pravastatin 10 mg tablet 20 mg PO DAILY #90 tab-caps 06/20/19 latanoprost 0.005 % eye drops 1 drp ophthalmic (eye) QPM 12/09/20 levothyroxine 75 mcg tablet 75 mcg PO DAILY 12/09/20 ondansetron 4 mg disintegrating 4 mg PO Q6H PRN nausea and 12/09/20 tablet vomiting #10 tabs pantoprazole 40 mg tablet,delayed 40 mg PO DAILY #20 tabs 12/09/20 release Current Visit Medications: Current Medications Generic Name Dose Route Start Last Admin Trade Name Freq PRN Reason Stop Dose Admin Acetaminophen 0 mg 05/26/22 12:28 Acetaminophen 325 Mg Tab PO Q4H PRN PRN Al Hydrox/Mg Hydrox/Simethicone 30 ml 05/26/22 12:28 Mylanta Suspension 30 Ml Cup PO Q2H PRN PRN Dimethicone/Zinc Oxide 0 gm 05/26/22 12:22 Maury Protect Cream 142 Gm Tube TP PRN PRN Docusate Sodium 100 mg 05/26/22 12:28 Docusate Sodium 100 Mg Cap PO TID PRN PRN Sodium Chloride 500 mls @ 0 mls/hr 05/26/22 12:27 05/27/22 10:42 Saline 500ml Bag IV Infused PRN PRN Infusion As Directed Piperacillin Sod/Tazobactam 50 mls @ 100 mls/hr 05/26/22 18:00 05/27/22 12:42 Sod 3.375 gm/ Sodium Chloride IVPB Infused Q6H [facility] Infusion Protocol Amiodarone HCl/Dextrose 360 mg in 200 mls @ 33.333 mls/hr 05/27/22 07:15 05/27/22 13:18 Nexterone IV 0.5 mg/min DIRECTED [facility] 16.667 mls/hr Infusion Protocol 1 MG/MIN Vancomycin/PEG/NADA/Lysine/Water 750 mg in 150 mls @ 150 mls/hr 05/28/22 12:00 Vancocin Injection IVPB Q24H [facility] IV Miscellaneous Supplies 1 each 05/26/22 08:30 Iv Access IV DIRECTED [facility] IV Miscellaneous Supplies 1 each 05/26/22 12:30 Iv Access IV DIRECTED [facility] Ipratropium [place] 0.25 mg 05/26/22 20:00 05/27/22 12:45 Ipratropium 0.5 Mg/2.5 Ml Upd Vial UPD 0.5 mg QID [place] Administration Levalbuterol HCl 1.25 mg 05/26/22 17:59 05/27/22 12:45 Levalbuterol 1.25 Mg/3 Ml Upd Vial UPD 1.25 mg Q4H PRN PRN Administration Lorazepam 0.5 mg 05/26/22 18:52 05/27/22 02:27 Lorazepam 2 Mg/Ml Vial IVP 0.5 mg Q6H PRN PRN Administration Magnesium Hydroxide 30 ml 05/26/22 12:28 Milk Of Magnesia 30 Ml Cup PO DAILY PRN PRN Morphine Sulfate 2 mg 05/26/22 19:40 05/27/22 06:45 Morphine 2 Mg/Ml Syr IVP 2 mg Q1H PRN PRN Administration Polyethylene Glycol 17 gm 05/26/22 12:28 Polyethylene Glycol 3350 17 Gm Packet PO DAILY PRN PRN Constipation Prednisone 40 mg 05/27/22 08:30 05/27/22 09:39 Prednisone 20 Mg Tab PO Not Given DAILY KELTON Sodium Chloride 0 ml 05/26/22 12:27 05/27/22 07:10 Normal Saline Flush 10 Ml Syr IVP 20 ml PRN PRN Administration PFSH Active Problems Active Problems: Problem Status Onset Code Movement disorder G25.9 Pneumonia J18.9 Sepsis A41.9 Respiratory failure with hypoxia J96.91 Atrial fibrillation with RVR I48.91 Loculated pleural effusion J90 Gastritis K29.70 Discharge planning issues Z02.9 Leukocytosis, unspecified D72.829 Acute blood loss anemia D62 DVT prophylaxis Z29.9 Tobacco dependence F17.200 Closed right hip fracture 04/23/19 S72.001A TIA (transient ischemic attack) G45.9 Hyperlipidemia E78.5 Hypothyroidism E03.9 Atrial fibrillation I48.91 Mild cognitive impairment with memory loss G31.84 Surgical History Surgical History History of cystogram Pt describes cystogram Discharge problem list from 10/08/15 states hx of exploratory laparotomy Tobacco Smoking/Tobacco Use Status: Current every day Tobacco Type: cigarettes Alcohol Alcohol Intake: never Substance Use Substance use: Never Substance use type: does not use Vital Signs and Lab Results Vital Signs Most Recent Vital Signs in EMR: Most Recent Vital Signs Temp Pulse Resp BP Pulse Ox 35.7 C L 87 20 89/51 L 94 05/27/22 12:00 05/27/22 13:15 05/27/22 13:15 05/27/22 12:01 05/27/22 13:15 Lab Results 05/27/22 04:15 05/27/22 04:15 Blood Type / Crossmatch: No Data to Display Complete Blood Count: White Blood Count 32.93 10^3/uL (4.4-10.8) H* 05/27/22 04:15 Red Blood Count 4.41 10^6/uL (3.93-5.22) 05/27/22 04:15 Hemoglobin 12.3 g/dL (11.2-15.7) 05/27/22 04:15 Hematocrit 39.0 % (36.0-46.0) 05/27/22 04:15 Platelet Count 342 10^3/uL (130-400) 05/27/22 04:15 Venous Blood Lactate 1.9 mmol/L (0.6-1.4) H 05/26/22 13:00 Complete Metabolic Panel: Sodium 136 mmol/L (136-145) 05/27/22 04:15 Potassium 5.4 mmol/L (3.5-5.1) H 05/27/22 04:15 Chloride 102 mmol/L (98-107) 05/27/22 04:15 Carbon Dioxide 27.7 mmol/L (21.0-32.0) 05/27/22 04:15 BUN 41 mg/dL (7-18) H 05/27/22 04:15 Creatinine 1.7 mg/dL (0.55-1.02) H 05/27/22 04:15 Est GFR (CKD-EPI 2020) 30.32 (mL/min/1.73m2) 05/27/22 04:15 Magnesium 2.1 mg/dL (1.8-2.4) 05/27/22 04:15 Calcium 8.2 mg/dL (8.5-10.1) L 05/27/22 04:15 Albumin 2.5 g/dL (3.4-5.0) L 05/26/22 08:35 Glucose 170 mg/dL (74-106) H 05/27/22 04:15 Liver Function Panel: Alanine Aminotransferase (ALT/SGPT) 42 U/L (14-59) 05/26/22 08: 35 Aspartate Amino Transf (AST/SGOT) 25 U/L (15-37) 05/26/22 08:35 Coagulation Panel: INR International Normalized Ratio 1.1 (0.9-1.1) 05/26/22 08:4 9 Prothrombin Time 11.5 sec (9.3-11.0) H 05/26/22 08:49 Activated Partial Thromboplast Time 26.0 sec (21.5-31.9) 08:49 D-Dimer 2080 ng/mlFEU (<500) H 05/26/22 08:49 Cardiac Panel: Troponin I < 50 ng/L (<or=60) 05/26/22 NT-Pro-B Natriuret Pep 6502 pg/mL (<300) H 05/26/22 Arterial Blood Gas: No Data to Display Venous Blood Gas: No Data to Display Pancreas Panel: No Data to Display Thyroid Panel: Thyroid Stimulating Hormone (TSH) 8.66 uIU/mL (0.36-3.74) H 05/26/22 08:35 Infectious Disease: Coronavirus (COVID-19)(PCR) Negative (Negative) 05/26/22 10:20 Coronavirus 2019 Source Nasopharynx 05/26/22 10:20 Influenza Virus Type A (PCR) Negative (Negative) 05/26/22 10:2 0 Influenza Virus Type B (PCR) Negative (Negative) 05/26/22 10:2 0 Respiratory Syncytial Virus (PCR) Negative (Negative) 05/26/22 10:20 Blood Cultures: No Data to Display Toxicology Panel: No Data to Display Imaging and Studies Imaging and Studies Study information below may be from another EMR and interpreted by another provider. Please see original notes in EMR for more complete details. EKG Summary: 05/26/22: SVT/afib rvr, prob LVH Stress Test Summary: 05/2015: LVEF 54%, Echocardiogram Summary: 05/2015: LVEF 70%, no WMA, stress EKG negative. Carotid Artery Summary:: 10/2014: no sig stenosis. Anesthesia Assessment and Plan Anesthesia History Personal History: No History of Anesthesia Complications Family History: No Family History of Anesthesia Complications Exercise Tolerance Exercise Tolerance: Metabolic Equivalents<4 Cardiac & Pulmonary Exam Cardiac Exam: Normal S1/S2 Heart Sounds Pulmonary Exam: Unable to Assess Implantable Cardiac Device Does patient have a Pacemaker or an ICD?: No Airway Exam Known Difficult Airway: No Mallampati Class: 2 Mouth Opening: Normal (> 3cm) Thyromental Distance: Greater than 3 cm Neck Range of Motion: Full ROM Neck Circumference: Normal Teeth Condition: Normal Dentition ASA Classification ASA Score: ASA 3 Emergency Case?: Yes NPO Status NPO Status: NPO Clears >2 hours, Solids >8 hours Anesthesia Plan Resuscitation Status: DNR Modified During Perioperative Period Resuscitation Modifications: Pt. Requests for Clinical Judgement to be Used Anesthesia Technique: MAC Anesthesia Airway Planned: Natural Airway Monitors Used: Standard Monitors Preoperative Comments:: 81 yo female admitted with pleural effusion. Sig PMHx: confusion, afib rvr (on amio), smoker, respiratory failure (currently on HFNC), TIA, hypothyroid. Currently in the ICU, with increasing confusion, HFNC. did have low BPs and was discussed placing her on vasoactives as needed. Call placed to [facility] to discuss plan and obtain consent. Plan: MAC with DNR suspended for the procedure.
--- NOTE | 2022-05-27 15:45 | PAPNONF_PTH ---
PATIENT: Kelsey Yi LOC: U#:[id number] AGE/SX: 81/F ROOM: 209 RE05/26/[address]: Sonam Mccord : 1940 BED: A DIS: 06/05/2022 SPEC #: [id number] RECD: 05/27/22 17:31 STATUS: ALLISON REQ #: [id number] BAYRON: 05/27/22 15:[address]: Sonam Mccord DEPT: [facility] Cytology RECD BY: Rossy Gandhi ENTERED: 05/27/22 17:32 SP TYPE: PAPNONF ROSSI DR: Beto Cornell MD Silva, Kevin Amanda F. Van Straten, MD Tissues: 1 - BODY FLUID CYTO(NOT S/U/N/EM)[facility] Procedures: BODY FLUID CYTO(NOT SPU/UR/NIP/ENDOM)[facility] Comments: [id number] (TV = 60 ml, SENT FRESH) (REFRIGERATED)
--- NOTE | 2022-05-27 15:54 | SCONE_ITS ---
Date of service: 05/27/22 Time of Service: 15:54 Assessment and Plan Assessment and plan (1) Loculated pleural effusion: Status: Acute Assessment and plan: I agree that she has a large right-sided pleural effusion, and her leukocytosis and hemodynamics suggest empyema. However, the imaging also raises the possibility of a right lung mass concerning for malignancy. In that regards, the malignant pleural effusion is also within the differential diagnosis. I will place a right-sided tube thoracostomy today History of Present Illness History of Present Illness Chief Complaint: Right-sided pleural effusion Narrative: Kelsey is a 81-year-old woman who comes into the emergency department complaining of non-focal back pain. She was found to be in atrial fibrillation with a rapid ventricular response. Imaging demonstrated a right-sided pleural effusion.- Consulted for insertion of the tube thoracostomy to assist with diagnostic, and for therapeutic drainage. On my evaluation, she is delirious. She offers no specific complaint. Review of Systems Narrative: Unable to obtain review of systems because her mental status is not adequate to provide it to provide such history PFSH All Active Problems Movement disorder (Acute) Pneumonia (Acute) Sepsis (Acute) Respiratory failure with hypoxia (Acute) Atrial fibrillation with RVR (Acute) Loculated pleural effusion (Acute) Gastritis (Acute) Discharge planning issues (Acute) Leukocytosis, unspecified (Acute) Acute blood loss anemia (Acute) DVT prophylaxis (Acute) Tobacco dependence (Acute) Closed right hip fracture (Acute 04/23/19) S/P screw fixation DOS: 04/24/19 TIA (transient ischemic attack) (Chronic) Pt denied hx of stroke Discharge problem list from 10/08/15 states TIA Hyperlipidemia (Chronic) Hypothyroidism (Chronic) Atrial fibrillation (Chronic) on Eliquis Mild cognitive impairment with memory loss (Acute) Surgical History History of cystogram Pt describes cystogram Discharge problem list from 10/08/15 states hx of exploratory laparotomy Family History Mother No problems noted. Father Cancer Grandfather , WWII at age 31. No problems noted. Grandfather No problems noted. Grandmother Heart disease Grandmother No problems noted. Social History Smoking/Tobacco Use Status: Current every day Tobacco Type: cigarettes Smoking risk assessment performed?: Yes Alcohol Intake: never Drug use: Never Substance use type: does not use Current gender identity: female Do you feel safe at home: Yes Do you feel safe in your relationship?: Yes Additional Social history: Pt lives alone Exam Const General: in distress, anxious and frail appearing Nutritional Appearance: underweight Orientation: awake Limitations: altered mental status [facility] Head: normal to inspection Eyes General: appearance normal, both eyes and all related structures Neck Neck: full ROM, no lymphadenopathy, trachea midline and supple Resp Effort & Inspection: abnormal respiratory pattern, labored and tachypneic Auscultation: clear to auscultation bilaterally and rhonchi Cardio Jugular venous pressure: no JVD Heart Sounds: S1 normal and S2 normal GI Inspection: normal to inspection and non-distended Palpation: soft and nontender Skin General skin exam: no rashes or lesions noted Neuro General: patient awake, moves all extremities and patient confused Extrem Right lower extremity: no edema Left lower extremity: no edema Results Last Vital Signs Temp 96.3 F L 05/27/22 12:00 Pulse 87 05/27/22 13:15 Resp 20 05/27/22 13:15 BP 89/51 L 05/27/22 12:01 Pulse Ox 94 05/27/22 13:15 Labs 05/27/22 04:15 05/27/22 04:15 Labs: Laboratory Results - last 24 hr 05/26/22 05/27/22 05/27/22 16:35 04:15 04:15 WBC 32.93 H* RBC 4.41 Hgb 12.3 Hct 39.0 MCV 88 MCH 27.9 MCHC 31.5 L RDW 14.6 Plt Count 342 MPV 10.5 Immature Gran % 1.2 Neutrophils % 95.3 Lymphocytes % 1.7 Monocytes % 1.6 Eosinophils % 0.0 Basophils % 0.2 Nucleated RBC % 0.0 Absolute Neutrophils 31.38 H Absolute Lymphocytes 0.56 L Absolute Monocytes 0.53 Absolute Eosinophils 0.00 Absolute Basophils 0.07 RBC Morphology Normal Sodium 136 Potassium 5.4 H Chloride 102 Carbon Dioxide 27.7 Anion Gap 6.3 BUN 41 H Creatinine 1.7 H Est GFR (CKD-EPI 2020) 30.32 Glucose 170 H Calcium 8.2 L Magnesium 2.1 Lactate Dehydrogenase 171 Total Protein 6.7
--- NOTE | 2022-05-27 15:54 | ROE_ITS ---
Date of service: 05/27/22 Time of Service: 15:54 Operative Note Operative Note DATE OF PROCEDURE: 05/27/22 PRE-OP DIAGNOSIS: Empyema POST-OP DIAGNOSIS: same PROCEDURE: Insertion of right tube thoracostomy SURGEON: Terrance Ruiz ANESTHESIA TYPE: Local By Surgeon and MAC Refer to Anesthesia Record ESTIMATED BLOOD LOSS: 15 PATHOLOGY: other (Cytology) COMPLICATIONS: None Patient was transported to: ICU Patient's condition: stable Indications: Kelsey is a 81-year-old woman with a right-sided pleural effusion concerning for empyema. She has a leukocytosis, hypotension, CT findings concerning for empyema. I discussed the role of tube thoracostomy in terms of diagnosis and management with her healthcare proxy, who provided informed consent. Procedure Description: After the initiation of monitored anesthetic care, I prepped and draped the right-sided chest in the usual fashion. Next I anesthetized the skin with local creating a generous field block. I then made an incision over the area of the fifth rib. I dissected down through the fat and entered the pleural space on the top side of the rib. There is immediate drainage of slightly tinged straw- colored fluid. There were no adhesions of the lung to the chest wall. I then guided a 20 [place] chest tube apically and posteriorly tube was inserted to approximately 13 cm at the skin level. This was secured into place with a Prolene suture. The chest tube was then placed to Pleur-evac drainage, and we collected approximately 800 mL of fluid. Wound was dressed and the patient was brought back up to the intensive care unit.
--- NOTE | 2022-05-27 16:04 | W.ANESPOSTOP ---
Postoperative Evaluation Date, Time and Location Date Performed: 05/27/22 Time Performed: 16:04 Patient Location: Intensive Care Unit Vital Signs Most Recent Imported Vital Signs: Most Recent Vital Signs Temp Pulse Resp BP Pulse Ox 35.7 C L 87 20 89/51 L 94 05/27/22 12:00 05/27/22 13:15 05/27/22 13:15 05/27/22 12:01 05/27/22 13:15 Most Recent Manually Entered Vital Signs: Adult Blood Pressure: 96/52 Heart Rate: 88 Respirations: 22 Oxygen Saturation (%): 89 Temperature (C): 36 C Pain Score (0-10 Scale): 0 Pain Score Most Recent Pain Score: Most Recent Pain Score Pain Level 0 05/27/22 12:00 Assessment Mental Status: Other Airway and Respiratory Function: Other Cardiovascular Function: Other Hydration Status: Adequately Hydrated Nausea & Vomiting: No Nausea or Vomiting Pain: Other Peripheral Nerve Block: Patient did not receive a nerve block Postoperative Comments:: back to ICU, hemodynamically stable, remains confused and not answering questions appropriately.
[2022-05-27 16:27] LABS: Source: Pleural
[2022-05-27] MEDS: Lactated Ringers 500 ML 1000 ML IV ×2 (16:41→19:58)
[2022-05-27 16:58] LABS: Source Synovial
[2022-05-27 17:00] LABS: Clarity Cloudy
--- NOTE | 2022-05-27 17:12 | NCONE_ITS ---
Date of service: 05/27/22 Time of Service: 17:12 Assessment and Plan Assessment and plan (1) Movement disorder: Status: Acute (2) Delirium: Status: Acute Assessment and plan: Ms. Yi seems to suffering from a delirium at present, likely related to her medical illness. Her acquaintances note a decline over the years in her ability to care for herself and thus there may be an underlying element of neurodegeneration (dementia) contributing as well. A vitamin B12 level would be helpful at some point. In regards to the movements, they look like tardive dyskinesia and it sounds from history that she may have had these movements for some time but much less frequently and less obviously. Now more prominent in the setting of delirium. Less likely to be tics. Because these movements are TD-like, I would be less inclined to use neuroleptics as they may worsen the movements; thoough they may be needed from a mental status/agitation aspect. Benzodiazepines may be more helpful acutely for the movements if needed, but unfortunately, could make the mental status/delirium/agitation worse (if the latter develops). Oral medications such as tetrabenazpine can be helpful for TD but I think unlikely to have access to acutely/inpatient. History of Present Illness History of Present Illness Chief Complaint: abnormal movements Narrative: Handedness: unknown. Ms. Yi is a 81 year-old woman with atrial fibrillation on apixaban, hyperlipidemia, TIA, hypothyroidism, and cigarette smoking. It also sounds like she was somewhat of a hermit with decline in ability to care for herself over time and non-consistent medical care. Kelsey was admitted on 05/26/22 after presenting with 24 hours of new atraumatic back pain found to have afib with RVR but also a loculated right pleural effusion +/- underlying mass. She underwent chest tube placement and drainage this afternoon. Overnight, she became notably confused and has remained in delirium throughout the day. Additionally, she has been having frequent movements mainly of her head but also her mouth. She has been witnessed to have writhing turning movements of her head side to side and of the mouth. Per friends/acquaintances, she has made odd movements of the head/neck in the past but only rarely and nothing that they had previously remarked on. It is unknown if she has any significant history of neuroleptic use, history of tic disorder, etc. -Labs (05/26/22): W 31.54 -> 32.93, Hgb 14.2, Plt 422, Ddimer 2080, INR 1.1, lactate 1.9, Na 137, K 5.6 -> 5.4, Cr 1.2 -> 1.7, LFTs ok, trop x 2 neg, TSH 8.66, FT4 1.31, BNP 6502, procalcitonin 7 -CTH (05/27/22): No acute findings. Moderate atrophy and chronic vascular changes. I reviewed these images personally and this is my personal interpretation. Review of Systems Unobtainable due to mental status PFSH All Active Problems (Updated 05/27/22 @ 19:59 by Susana Fountain MD) Delirium (Acute) Movement disorder (Acute) Pneumonia (Acute) Sepsis (Acute) Respiratory failure with hypoxia (Acute) Atrial fibrillation with RVR (Acute) Loculated pleural effusion (Acute) Gastritis (Acute) Discharge planning issues (Acute) Leukocytosis, unspecified (Acute) Acute blood loss anemia (Acute) DVT prophylaxis (Acute) Tobacco dependence (Acute) Closed right hip fracture (Acute 04/23/19) S/P screw fixation DOS: 04/24/19 TIA (transient ischemic attack) (Chronic) Pt denied hx of stroke Discharge problem list from 10/08/15 states TIA Hyperlipidemia (Chronic) Hypothyroidism (Chronic) Atrial fibrillation (Chronic) on Eliquis Mild cognitive impairment with memory loss (Acute) Surgical History History of cystogram Pt describes cystogram Discharge problem list from 10/08/15 states hx of exploratory laparotomy Family History Mother No problems noted. Father Cancer Grandfather , WWII at age 31. No problems noted. Grandfather No problems noted. Grandmother Heart disease Grandmother No problems noted. Social History Smoking/Tobacco Use Status: Current every day Tobacco Type: cigarettes Smoking risk assessment performed?: Yes Alcohol Intake: never Drug use: Never Substance use type: does not use Current gender identity: female Do you feel safe at home: Yes Do you feel safe in your relationship?: Yes Additional Social history: Pt lives alone Visit Medication and Allergies Active Medications Generic Name Dose Route Start Last Admin Trade Name Freq PRN Reason Stop Dose Admin Acetaminophen 0 mg 05/26/22 12:28 Acetaminophen 325 Mg Tab PO Q4H PRN PRN Al Hydrox/Mg Hydrox/Simethicone 30 ml 05/26/22 12:28 Mylanta Suspension 30 Ml Cup PO Q2H PRN PRN Dimethicone/Zinc Oxide 0 gm 05/26/22 12:22 Maury Protect Cream 142 Gm Tube TP PRN PRN Docusate Sodium 100 mg 05/26/22 12:28 Docusate Sodium 100 Mg Cap PO TID PRN PRN Sodium Chloride 500 mls @ 0 mls/hr 05/26/22 12:27 05/27/22 10:42 Saline 500ml Bag IV Infused PRN PRN Infusion As Directed Piperacillin Sod/Tazobactam 50 mls @ 100 mls/hr 05/26/22 18:00 05/27/22 12:42 Sod 3.375 gm/ Sodium Chloride IVPB Infused Q6H [facility] Infusion Protocol Amiodarone HCl/Dextrose 360 mg in 200 mls @ 33.333 mls/hr 05/27/22 07:15 05/27/22 13:18 Nexterone IV 0.5 mg/min DIRECTED KELTON 16.667 mls/hr Infusion Protocol 1 MG/MIN Vancomycin/PEG/NADA/Lysine/Water 750 mg in 150 mls @ 150 mls/hr 05/28/22 12:00 Vancocin Injection IVPB Q24H [facility] IV Miscellaneous Supplies 1 each 05/26/22 08:30 Iv Access IV DIRECTED [facility] IV Miscellaneous Supplies 1 each 05/26/22 12:30 Iv Access IV DIRECTED [facility] Ipratropium [place] 0.25 mg 05/26/22 20:00 05/27/22 16:09 Ipratropium 0.5 Mg/2.5 Ml Upd Vial UPD 0.5 mg QID KELTON Administration Levalbuterol HCl 1.25 mg 05/26/22 17:59 05/27/22 16:08 Levalbuterol 1.25 Mg/3 Ml Upd Vial UPD 1.25 mg Q4H PRN PRN Administration Lorazepam 0.5 mg 05/26/22 18:52 05/27/22 02:27 Lorazepam 2 Mg/Ml Vial IVP 0.5 mg Q6H PRN PRN Administration Magnesium Hydroxide 30 ml 05/26/22 12:28 Milk Of Magnesia 30 Ml Cup PO DAILY PRN PRN Morphine Sulfate 2 mg 05/26/22 19:40 05/27/22 06:45 Morphine 2 Mg/Ml Syr IVP 2 mg Q1H PRN PRN Administration Polyethylene Glycol 17 gm 05/26/22 12:28 Polyethylene Glycol 3350 17 Gm Packet PO DAILY PRN PRN Constipation Prednisone 40 mg 05/27/22 08:30 05/27/22 09:39 Prednisone 20 Mg Tab PO Not Given DAILY KELTON Sodium Chloride 0 ml 05/26/22 12:27 05/27/22 07:10 Normal Saline Flush 10 Ml Syr IVP 20 ml PRN PRN Administration Allergies Sulfa (Sulfonamide Antibiotics) Allergy (Unknown, Unverified 05/26/22 08:16) codeine Adverse Reaction (Mild, Unverified 05/26/22 08:16) NAUSEA Exam Narrative Exam Narrative: Physical Exam: Constitutional: Patient of apparent stated age, well nourished, well developed, at times with side to side roving head movements > oral movements and calling out; appears mildly distressed Neck: Supple, no meningismus CV: RRR, S1, S2, no murmur Resp: CTAB Abd: Soft, nontender, nondistended Neuro: MS/Language/Speech: somnolent, turns to voice, but does not open eyes; not following commands though can say her name; repeats over and over that she wants to go home CN: PERRL, dolls eyes absent; visual aragon could not be tested, no facial asymmetry Sensory-Motor: Normal bulk and tone. Head movements as above with some oral movements. Worse when stimulated. Withdraws all extremities to noxious stimuli. Reflexes: 2+ DTRs, downgoing toes Coordination: no obvious ataxia Gait: not able to test at this time due to cognition Results Last Vital Signs Temp 96.3 F L 05/27/22 12:00 Pulse 92 H 05/27/22 16:37 Resp 25 H 05/27/22 16:37 BP 92/54 L 05/27/22 16:37 Pulse Ox 87 L 05/27/22 16:37 Labs 05/27/22 04:15 05/27/22 04:15 Labs: Laboratory Results - last 24 hr 05/26/22 05/26/22 05/27/22 15:40 16:35 04:15 WBC RBC Hgb Hct MCV MCH MCHC RDW Plt Count MPV Immature Gran % Neutrophils % Lymphocytes % Monocytes % Eosinophils % Basophils % Nucleated RBC % Absolute Neutrophils Absolute Lymphocytes Absolute Monocytes Absolute Eosinophils Absolute Basophils RBC Morphology Sodium 136 Potassium 5.4 H Chloride 102 Carbon Dioxide 27.7 Anion Gap 6.3 BUN 41 H Creatinine 1.7 H Est GFR (CKD-EPI 2020) 30.32 Glucose 170 H Calcium 8.2 L Magnesium 2.1 Lactate Dehydrogenase 171 Total Protein 6.7 Fluid Source Pleural Fluid pH 6.0 05/27/22 04:15 WBC 32.93 H* RBC 4.41 Hgb 12.3 Hct 39.0 MCV 88 MCH 27.9 MCHC 31.5 L RDW 14.6 Plt Count 342 MPV 10.5 Immature Gran % 1.2 Neutrophils % 95.3 Lymphocytes % 1.7 Monocytes % 1.6 Eosinophils % 0.0 Basophils % 0.2 Nucleated RBC % 0.0 Absolute Neutrophils 31.38 H Absolute Lymphocytes 0.56 L Absolute Monocytes 0.53 Absolute Eosinophils 0.00 Absolute Basophils 0.07 RBC Morphology Normal Sodium Potassium Chloride Carbon Dioxide Anion Gap BUN Creatinine Est GFR (CKD-EPI 2020) Glucose Calcium Magnesium Lactate Dehydrogenase Total Protein Fluid Source Fluid pH
[2022-05-27 18:15] LABS: Mononuclear Cells 13 %; Polynuclear Cells 84 %
[2022-05-27] MEDS: Amiodarone in Dextrose 360 MG/200 ML BAG 16.667 MG IV (18:19)
[2022-05-27] MEDS: ALBUMIN HUMAN 25 GM/100 ML BTL IVPB (20:01)
[2022-05-27 21:18] LABS: Sodium, Urine 12 mmol/L
[2022-05-27] MEDS: Lactated Ringers 1,000 ML 100 ML IV (21:18)
[2022-05-27 21:20] LABS: Bilirubin Small (Negative); Blood Large (Negative); Clarity Cloudy (Clear); Glucose Negative (Negative); Ketones Trace mg/dL (Negative); Leukocyte Esterase Negative (Negative); Nitrite Negative (Negative); Specific Gravity >= 1.030 (1.005-1.025)
[2022-05-27 21:29] LABS: Bacteria Negative HPF (Negative); C & S Indicated? No; Casts Negative LPF (Negative); Crystals Negative HPF (Negative); Epithelial Cells Few HPF (Negative); Mucus Negative (Negative); Other Cells Negative (Negative); RBC >50 HPF (0-2); WBC 0-2 HPF (0-5)
[2022-05-28] VITALS (116 sets, daily range): BP systolic 78–119; BP diastolic 41–68; PULSE 55–138; RESP 8–37; TEMP 34–37.4; O2SAT 76–95
--- NOTE | 2022-05-28 | DI.US_ITS ---
Exam(s) US RENAL EXAM: US RENAL CLINICAL HISTORY: DEAN TECHNIQUE: Ultrasound of both kidneys performed using standard protocol. COMPARISON: CT CT THORACIC LUMBAR SPINE REC from 05/26/[address] THORAX ABD/PEL CTA from 05/26/2022 US POCUS EXAM from 05/28/2022 FINDINGS: KIDNEYS: Both kidneys exhibit normal size. There is a 3 cm benign cyst in the superior pole of the l eft kidney. No other left kidney findings and no hydronephrosis. No cysts nor masses in the right kidney. Right renal cortex appears mildly hyperechoic but exhibits normal thickness. No calculi nor masses. No hydronephrosis. URINARY BLADDER: There is a Mcdowell catheter in the urinary bladder. The bladder is collapsed around the Mcdowell catheter. Cannot assess for masses in the bladder because it is collapsed. However, the recent CT scan of 05/13 did not reveal significant masses in the bladder, just bladder wall trabeculation. IMPRESSION: 1. No evidence of hydronephrosis. 2. Mcdowell catheter in the bladder. Benign cm cyst in the superior pole left kidney. No significant renal masses. No calculi nor hydron ephrosis on either side. No perinephric fluid. DATA REPOSITORY:
[2022-05-28] MEDS: LORazepam 2 MG/ML VIAL 0.5 MG IVP ×3 (00:23→17:45)
[2022-05-28] MEDS: Normal Saline 250 ML IV (01:32)
[2022-05-28] MEDS: PIPERACILLIN/TAZO 3.375 GM in Normal Saline 50 ML IVPB ×2 (05:44)
[2022-05-28 07:00] LABS: Lactate 1.1 mmol/L (0.6-1.4)
[2022-05-28 07:08] LABS: Abs Immature Grans 0.32 10^3/uL (0.0-0.06); Absolute Basophil Count 0.06 10^3/uL (0.0-0.2); Basophils % 0.2; HCT 39.3 % (36.0-46.0); HGB 12.3 g/dL (11.2-15.7); Lymphocytes % 2.6; MCH 28.1 pg (27.0-33.0); MCHC 31.3 % (32.0-36.0); MCV 90 fL (80-95); MPV 10.7 fL (8.0-11.0); Monocytes % 4.1; Neutrophils % 92.1; Platelet Count 287 10^3/uL (130-400); RBC 4.38 10^6/uL (3.93-5.22); RDW 15.2 % (11.7-14.6); RDW-SD 50.3 fL
[2022-05-28 07:16] LABS: Anion Gap 13.3 mmol/L (3-11); BUN 54 mg/dL (7-18); CO2 24.7 mmol/L (21.0-32.0); CREATININE 3.3 mg/dL (0.55-1.02); Calcium 8.2 mg/dL (8.5-10.1); Chloride 100 mmol/L (98-107); Estimated GFR 13.68 (mL/min/1.73m2); Glucose 160 mg/dL (74-106); Magnesium 2.3 mg/dL (1.8-2.4); Potassium 5.8 mmol/L (3.5-5.1); Sodium 138 mmol/L (136-145)
[2022-05-28 07:28] LABS: Absolute Monocyte Count 1.26 10^3/uL (0.1-0.8)
[2022-05-28 07:37] LABS: Burr Cells (echinocyte) 3+; Diff Comment Diff Reviewed
[2022-05-28 07:38] LABS: WBC 30.62 10^3/uL (4.4-10.8)
--- NOTE | 2022-05-28 07:57 | W.PM.PROGNOT ---
Date of Service Date of service: 05/28/22 Time of Service: 07:57 Assessment and Plan Assessment and plan (1) Loculated pleural effusion: Status: Acute Assessment and plan: Right-sided chest tube in place. Output of 1090 cc O2 saturation is 86% Patient is restless in bed. Denied having any pain or feelings of shortness of breath. Discussed with nursing the for possible central line. Request that the hospitalist determine further plan of care with the DPOA/healthcare proxy. If it is determined that their wishes are to proceed with central line for the need of pressors. Dr. Ruiz can place a central line later today. I saw Kelsey and I agree with Nuris's note. Deteriorating hemodynamics overnight consistent with septic shock. Her healthcare proxy provided informed consent for placement of central venous catheter to assist with resuscitation, as well as arterial blood pressure monitoring. Subjective Subjective Interval history since last seen: Arrived with the patient resting comfortably in bed. Upon waking, she is restless and verbalizing that she wants to go home. She denies having any pain or shortness of breath. Exam Const General: anxious and frail appearing Orientation: awake Resp Effort & Inspection: no audible wheezes, no cough and uses accessory muscles Other: Chest tube in place with 1090 dark-colored fluid in the canister. Dressing is intact. O2 sat 86% Objective Last Vital Signs Temp 36.7 C 05/28/22 03:53 Pulse 63 05/28/22 06:00 Resp 21 05/28/22 06:30 BP 97/56 L 05/28/22 06:00 Pulse Ox 85 L 05/28/22 06:30 Laboratory Results - last 24 hr 05/26/22 05/27/22 05/27/22 15:40 15:40 19:30 WBC RBC Hgb Hct MCV MCH MCHC RDW Plt Count MPV Immature Gran % Neutrophils % Lymphocytes % Monocytes % Eosinophils % Basophils % Nucleated RBC % Absolute Neutrophils Absolute Lymphocytes Absolute Monocytes Absolute Eosinophils Absolute Basophils RBC Morphology [place] Cells/Echinocytes VBG Lactate Sodium Potassium Chloride Carbon Dioxide Anion Gap BUN Creatinine Est GFR (CKD-EPI 2020) Glucose Calcium Magnesium Urine Color Urine Clarity Urine pH Ur Specific [place] Urine Protein Urine Ketones Urine Blood Urine Nitrite Urine Bilirubin Urine Urobilinogen Ur Leukocyte Esterase Urine RBC Urine WBC Ur Epithelial Cells Urine Crystals Urine Bacteria Urine Casts Urine Mucus Urine Other Ur Culture Indicated? Ur Random Sodium 12 Urine Glucose Fluid Source Pleural Synovial Fluid Color Yellow Fluid Clarity Cloudy Fluid pH 6.0 Fluid WBC 7288 Fld Polynuclear WBCs % 84 Fluid Mononuclear Cell 13 Path Cons Comment YES 05/27/22 05/28/22 05/28/22 21:05 06:55 06:55 WBC RBC Hgb Hct MCV MCH MCHC RDW Plt Count MPV Immature Gran % Neutrophils % Lymphocytes % Monocytes % Eosinophils % Basophils % Nucleated RBC % Absolute Neutrophils Absolute Lymphocytes Absolute Monocytes Absolute Eosinophils Absolute Basophils RBC Morphology [place] Cells/Echinocytes VBG Lactate 1.1 Sodium 138 Potassium 5.8 H Chloride 100 Carbon Dioxide 24.7 Anion Gap 13.3 H BUN 54 H Creatinine 3.3 H D Est GFR (CKD-EPI 2020) 13.68 Glucose 160 H Calcium 8.2 L Magnesium 2.3 Urine Color Brown Urine Clarity Cloudy Urine pH 5.0 Ur Specific [place] >= 1.030 H Urine Protein 100 H Urine Ketones Trace H Urine Blood Large H Urine Nitrite Negative Urine Bilirubin Small H Urine Urobilinogen 1.0 H Ur Leukocyte Esterase Negative Urine RBC >50 H Urine WBC 0-2 Ur Epithelial Cells Few Urine Crystals Negative Urine Bacteria Negative Urine Casts Negative Urine Mucus Negative Urine Other Negative Ur Culture Indicated? No Ur Random Sodium Urine Glucose Negative Fluid Source Fluid Color Fluid Clarity Fluid pH Fluid WBC Fld Polynuclear WBCs % Fluid Mononuclear Cell Path Cons Comment 05/28/22 06:55 WBC 30.62 H* RBC 4.38 Hgb 12.3 Hct 39.3 MCV 90 MCH 28.1 MCHC 31.3 L RDW 15.2 H Plt Count 287 MPV 10.7 Immature Gran % 1.0 Neutrophils % 92.1 Lymphocytes % 2.6 Monocytes % 4.1 Eosinophils % 0.0 Basophils % 0.2 Nucleated RBC % 0.0 Absolute Neutrophils 28.20 H Absolute Lymphocytes 0.80 L Absolute Monocytes 1.26 H Absolute Eosinophils 0.00 Absolute Basophils 0.06 RBC Morphology See Below [place] Cells/Echinocytes 3+ VBG Lactate Sodium Potassium Chloride Carbon Dioxide Anion Gap BUN Creatinine Est GFR (CKD-EPI 2020) Glucose Calcium Magnesium Urine Color Urine Clarity Urine pH Ur Specific [place] Urine Protein Urine Ketones Urine Blood Urine Nitrite Urine Bilirubin Urine Urobilinogen Ur Leukocyte Esterase Urine RBC Urine WBC Ur Epithelial Cells Urine Crystals Urine Bacteria Urine Casts Urine Mucus Urine Other Ur Culture Indicated? Ur Random Sodium Urine Glucose Fluid Source Fluid Color Fluid Clarity Fluid pH Fluid WBC Fld Polynuclear WBCs % Fluid Mononuclear Cell Path Cons Comment Procedures Arterial Line Time out performed: Yes Size (Gauge): 20 Technique used: guide wire technique Post-Procedure: line sutured into place and dry sterile dressing placed Patient tolerated procedure: well Complications: none Site: right and radial Central Line Placement Right SC: Time out performed: Yes Patient placed on monitor/pulse ox: Yes MD prep: mask, gown and gloves Central line prep: Chlorhexidine scrub and sterile drapes applied Local anesthesia used: lidocaine 1% Amount of anesthesia used (ml): 3 Ultrasound used for placement: Yes Central line lumen inserted: triple Post procedure: sutured in place, good blood return, all ports aspirated, flushed, capped and sterile dressing applied Post procedure x-ray: tip of catheter in good position Patient tolerated procedure: well and no complications Complications: none Time Spent with Patient Time Spent with Patient: 35-49 minutes Time was spent: preparing to see the patient(eg.review tests), referring, communicating with other health healthcare facility administrator, indepentently interpreting results and counseling the patient
[2022-05-28] MEDS: Levalbuterol 1.25 MG/3 ML UPD VIAL UPD ×3 (08:00→16:04)
[2022-05-28] MEDS: Ipratropium 0.5 MG/2.5 ML UPD VIAL 0.25 MG UPD ×4 (08:00→20:41)
[2022-05-28] MEDS: Lactated Ringers 1,000 ML 100 ML IV (08:00)
--- NOTE | 2022-05-28 08:27 | PDOC.CMPRO ---
- If Service Date Differs Date of service: 05/28/22 Time of Service: 08:27 Care Management Progress Note S/O:Kelsey remains critically ill and is being closely monitored in the ICU. She has minimal urine output and is persistently hypotensive. A central line was placed today to allow for vasopressor administration. Kelsey is confused and restless in bed. She was not able to have a conversation when CM met with her. Her friend and brand inspector, Josue came to see her today. He met with CM and expressed concerns about the aggressive treatment Kelsey is receiving. He stated that he does not believe Kelsey would want procedures and invasive monitoring given the gravity of her situation. [facility]sey's [facility] did not visit today so no new decisions about her care have been made. A: Kelsey is a 81 year old woman admitted on 05/26/22 with sepsis, pneumonia and empyema P: Kelsey's discharge plan is unclear at this time. She is critically ill and has not responded fully to treatment. Her [facility] has not seen or spoken with her in 6 years and is not familiar with what has been happening in her life. If aggressive treatment is to be continued, Kelsey may need transfer to a tertiary care facility. Her most recent advanced directive lists her as a full code but her current status is DNR/DNI which is what Kelsey reported to the ED physician when she presented to [facility].. CM will follow and offer support to Kelsey and assess for discharge concerns.
--- NOTE | 2022-05-28 08:50 | W.PM.PROGNOT ---
Date of Service Date of service: 05/28/22 Time of Service: 08:50 Assessment and Plan Assessment and plan (1) Sepsis: Status: Acute Assessment and plan: Secondary to pneumonia and possible empyema. Pleural fluid cultures and pleural fluid chemistries are pending at this time. Continue Zosyn and vancomycin at renally adjusted doses. Patient at this point will require vasopressors for blood pressure support if we were to continue full supportive care. I left messages with her DPOA, Octavia to discuss but he is understanding of [facility] goals of care. I discussed her case with Dr. Terrance Ruiz as well as texted with Dr. Rendon. Patient will need his central venous line as well as an A-line if are going to put her on vasopressors. I did a [id number] ultrasound of her heart her LV function appears to be normal her RV function appears normal although the RV appears to be upper limits in size and she has biatrial enlargement as well as dilated IVC with a lack of respiratory variation in her IVC of less than 50%. This point I do not think she is going to be responsive to volume on her blood pressure but would do better with vasoconstrictors such as phenylephrine or norepinephrine. Critical care time spent interviewing and examining the patient, reviewing studies, discussing case with patient's nurse and consulting physicians was 60 minutes (2) Respiratory failure with hypoxia: Status: Acute Assessment and plan: Patient continues to require high flow nasal cannula. She will leave a facemask because of her use of the high flow nasal cannula. If she deteriorates she will need intubation if this is within her goals of care is understood by her DPOA. (3) Pneumonia: Status: Acute Assessment and plan: Continue broad-spectrum antibiotics. Awaiting results of blood cultures. Sputum has not been able to be obtained. Await urine strep antigen and Legionella antigen results. (4) Loculated pleural effusion: Status: Acute Assessment and plan: Status postplacement of right-sided chest tube yesterday. Awaiting results of pleural fluid culture and chemistries.Pleural fluid had many white cells but no bacteria seen on the Gram stain. (5) Acute renal failure with oliguria: Status: Acute Assessment and plan: Likely secondary to ATN from hypotension. Continue supportive care patient will require vasopressors if her pressures not able to be maintained. Renal ultrasound is pending at this time. (6) Atrial fibrillation with RVR: Status: Acute Assessment and plan: Patient remains in sinus rhythm. Amiodarone drip was completed last night. Oral amiodarone was ordered however she is not taking p.o. safely therefore I will resume the amiodarone drip. (7) Movement disorder: Status: Acute Assessment and plan: Her movement disorder is in line with tardive dyskinesia but there is no history of phenothiazine use or antipsychotic use per my discussion with her PCP yesterday. However the PCP is only noted for 6 years and stated that she rarely comes in the office for follow-up. (8) Delirium: Status: Acute Assessment and plan: Likely metabolic encephalopathy secondary to sepsis superimposed on what sounds to be a dementia process. Dr. Fountain's input is appreciated in the evaluation of her movement disorder and delirium. (9) DVT prophylaxis: Status: Acute Assessment and plan: SCDs. Enoxaparin was not used initially in anticipation of her chest tube being placed. Now that the chest tube is in place we could consider renally adjusted heparin. However I will hold off on this pending decision making regarding placement of art line and CVP line (10) Discharge planning issues: Status: Acute Assessment and plan: Per Pastor Salas he feels that the patient cannot return home she has been failing for some time over several months and her home environment is not conducive to her recovery. She will likely need a SNF if she survives her acute illness. Subjective Subjective Interval history since last seen: Kelsey remains confused. At times she seems to be in pain but when asked if she is in pain she says no. She is not fully oriented. She answer some questions appropriately such as her dog and her horses names but she asks to go back to bed when in fact she is in bed. She is not oriented to her circumstances of her hospitalization. Exam Narrative Exam Narrative: Continues elderly female seems to be restless with dyskinetic type movements of her head and neck. When she is asleep however she seems to be calm and not moving around the bed. Lungs diminished breath sounds right lung base left side is clear Heart regular no appreciable murmur rub Abdomen soft nondistended nontender Mcdowell catheter with minimal urine output very dark brown Extremities without peripheral cyanosis or edema Objective Last Vital Signs Temp 36.7 C 05/28/22 03:53 Pulse 62 05/28/22 08:00 Resp 11 L 05/28/22 08:00 BP 97/56 L 05/28/22 06:00 Pulse Ox 85 L 05/28/22 06:30 Laboratory Results - last 24 hr 05/26/22 05/27/22 05/27/22 15:40 15:40 19:30 WBC RBC Hgb Hct MCV MCH MCHC RDW Plt Count MPV Immature Gran % Neutrophils % Lymphocytes % Monocytes % Eosinophils % Basophils % Nucleated RBC % Absolute Neutrophils Absolute Lymphocytes Absolute Monocytes Absolute Eosinophils Absolute Basophils RBC Morphology [place] Cells/Echinocytes VBG Lactate Sodium Potassium Chloride Carbon Dioxide Anion Gap BUN Creatinine Est GFR (CKD-EPI 2020) Glucose Calcium Magnesium Urine Color Urine Clarity Urine pH Ur Specific [place] Urine Protein Urine Ketones Urine Blood Urine Nitrite Urine Bilirubin Urine Urobilinogen Ur Leukocyte Esterase Urine RBC Urine WBC Ur Epithelial Cells Urine Crystals Urine Bacteria Urine Casts Urine Mucus Urine Other Ur Culture Indicated? Ur Random Sodium 12 Urine Glucose Fluid Source Pleural Synovial Fluid Color Yellow Fluid Clarity Cloudy Fluid pH 6.0 Fluid WBC 7288 Fld Polynuclear WBCs % 84 Fluid Mononuclear Cell 13 Path Cons Comment YES 05/27/22 05/28/22 05/28/22 21:05 06:55 06:55 WBC RBC Hgb Hct MCV MCH MCHC RDW Plt Count MPV Immature Gran % Neutrophils % Lymphocytes % Monocytes % Eosinophils % Basophils % Nucleated RBC % Absolute Neutrophils Absolute Lymphocytes Absolute Monocytes Absolute Eosinophils Absolute Basophils RBC Morphology [place] Cells/Echinocytes VBG Lactate 1.1 Sodium 138 Potassium 5.8 H Chloride 100 Carbon Dioxide 24.7 Anion Gap 13.3 H BUN 54 H Creatinine 3.3 H D Est GFR (CKD-EPI 2020) 13.68 Glucose 160 H Calcium 8.2 L Magnesium 2.3 Urine Color Brown Urine Clarity Cloudy Urine pH 5.0 Ur Specific [place] >= 1.030 H Urine Protein 100 H Urine Ketones Trace H Urine Blood Large H Urine Nitrite Negative Urine Bilirubin Small H Urine Urobilinogen 1.0 H Ur Leukocyte Esterase Negative Urine RBC >50 H Urine WBC 0-2 Ur Epithelial Cells Few Urine Crystals Negative Urine Bacteria Negative Urine Casts Negative Urine Mucus Negative Urine Other Negative Ur Culture Indicated? No Ur Random Sodium Urine Glucose Negative Fluid Source Fluid Color Fluid Clarity Fluid pH Fluid WBC Fld Polynuclear WBCs % Fluid Mononuclear Cell Path Cons Comment 05/28/22 06:55 WBC 30.62 H* RBC 4.38 Hgb 12.3 Hct 39.3 MCV 90 MCH 28.1 MCHC 31.3 L RDW 15.2 H Plt Count 287 MPV 10.7 Immature Gran % 1.0 Neutrophils % 92.1 Lymphocytes % 2.6 Monocytes % 4.1 Eosinophils % 0.0 Basophils % 0.2 Nucleated RBC % 0.0 Absolute Neutrophils 28.20 H Absolute Lymphocytes 0.80 L Absolute Monocytes 1.26 H Absolute Eosinophils 0.00 Absolute Basophils 0.06 RBC Morphology See Below [place] Cells/Echinocytes 3+ VBG Lactate Sodium Potassium Chloride Carbon Dioxide Anion Gap BUN Creatinine Est GFR (CKD-EPI 2020) Glucose Calcium Magnesium Urine Color Urine Clarity Urine pH Ur Specific [place] Urine Protein Urine Ketones Urine Blood Urine Nitrite Urine Bilirubin Urine Urobilinogen Ur Leukocyte Esterase Urine RBC Urine WBC Ur Epithelial Cells Urine Crystals Urine Bacteria Urine Casts Urine Mucus Urine Other Ur Culture Indicated? Ur Random Sodium Urine Glucose Fluid Source Fluid Color Fluid Clarity Fluid pH Fluid WBC Fld Polynuclear WBCs % Fluid Mononuclear Cell Path Cons Comment Reviewed Pertinent PMH: Yes Time Spent with Patient Time Spent with Patient: >50 minutes Time was spent: preparing to see the patient(eg.review tests), obtaining and/or reviewing separately otained hiistory, ordering medications,tests, procedures, referring, communicating with other health healthcare consultant, indepentently interpreting results and care coordination
--- NOTE | 2022-05-28 10:30 | W.POCUS ---
Pocus Exam Limited Cardiac Exam DATE OF EXAM: 05/28/22 TIME OF EXAM: 09:00 PROVIDER THAT PERFORMED THE STUDY: Omid Fitzpatrick REASON FOR EXAM: Hypotension, Hypoxia and Septic Shock VISUALIZED STRUCTURES: four chambers, LVOT, aortic valve, mitral valve, Interventricular septum and IVC VIEW OBTAINED: Apical 4-Chamber, Parasternal long-axis (poorly seen and image not captured), Parasternal short-axis and Subxiphoid PERTINENT FINDINGS/IMPRESSION: Plethoric IVC and RV dilation (RV is mildly dilated but normal function); no IVC inspiratory collapsability and No LV dysfunction INCIDENTAL FINDINGS: moderate sized complex right sided pleural effusion Exam complete
[2022-05-28 10:50] LABS: BE (Venous) -3 mmol/L (-2-3); HCO3 (Venous) 25 mmol/L (23-28); O2 Sat (Venous) 51 %; TCO2 (Venous) 24 mmol/L (24-29); pH (Venous) 7.21 (7.31-7.41); pO2 (Venous) 29 mmHg
[2022-05-28 10:52] LABS: Lactate 0.9 mmol/L (0.6-1.4); pCO2 (Venous) 62 mmHg (41-51)
[2022-05-28] MEDS: HYDROmorphone 2 MG/ML SYR 0.5 MG IVP ×2 (11:30→22:35)
[2022-05-28] MEDS: Normal Saline Flush 10 ML SYR IVP ×2 (11:32→17:48)
--- NOTE | 2022-05-28 13:15 | DI.RAD_ITS ---
Exam(s) XR PORTABLE CHEST AP EXAM: XR PORTABLE CHEST AP CLINICAL HISTORY: post central line placement. TECHNIQUE: 2D digital imaging was performed. COMPARISON: CR XR PORTABLE CHEST AP POST LINE from 05/27/2022 FINDINGS: Single AP portable view. Cardiomegaly again noted. Mediastinum not widened Right chest tube again noted. Small right pneumothorax is unchanged. Not increased in size. Size of the pleural effusions are stable. Increased interstitial markings in lung aragon again noted. There is a new right subclavian central line. Distal tip is in the right atrium. IMPRESSION: New right subclavian central line distal tip in the right atrium. Size of the small right pneumothorax is unchanged from yesterday. Size of the bilateral pleural effusions unchanged from yesterday. DATA REPOSITORY: RADIATION DOSE DELIVERED:
--- NOTE | 2022-05-28 13:24 | CHAPLAIN ---
Kelsey was on BiPap (?) when I visited and not awake. At times when she is awake, her nurse said she is not very responsive. She was admitted through the ED two days ago after complaining of back pain. Her aerial installer, Rev. Josue Ramey from [facility] in [place], has been in to visit her. Octavia Alcantara, from [place], is listed on a 2016 Advance Directive as one of Kelsey's Health Care Agents. Octavia told staff she hasn't really been in touch with Kelsey is about six years. Kelsey lives by herself in a farmhouse in [place], [place] and has animals (dogs, cats, horses) and will likely need help caring for them. According to Care Management notes, Octavia is advocating that Kelsey not go home alone and that she have a competency evaluation. The last time Kelsey was here, her last name was Venus. She had been a member of [employer] in [facility] for many years and has since become involved with [facility] in [place]. She worked for the [employer] system in [facility] [place] [facility] in her professional life. I wasn't able to speak with Kelsey today, but asked her nurse to page me when Fr. Salas visits again. I will continue to visit.
[2022-05-28] MEDS: PIPERACILLIN/TAZO 2.25 GM in Normal Saline 50 ML IVPB ×2 (14:23→20:39)
[2022-05-28 15:14] LABS: Nucleated Cells 14265 uL (0)
[2022-05-28] MEDS: ALBUMIN HUMAN 25 GM/100 ML BTL IV (15:29)
[2022-05-28] MEDS: Furosemide 100 MG/10 ML VIAL 80 MG IVP (15:29)
[2022-05-28 17:06] LABS: Glucose, Fluid 141 mg/dL (See Note)
--- NOTE | 2022-05-28 17:20 | CHAPLAIN ---
I visited with Kelsey this evening. Octavia Alcantara, who is Kelsey's HCA was there singing to Kelsey. Kelsey and Octavia belonged to the [employer] together a few years ago. Kelsey was restful at times and then would open her eyes, look about for few seconds and flail her arms a bit. She did look directly at Octavia at one point, when Octavia face was close to Kelsey, and Octavia asked Kelsey to look at her. At one point, Kelsey clearly said am I dying? She mumble other words while I was there, but we couldn't understand what she was saying. The only other time she looked directly at Octavia was when Octavia mentioned Kelsey's dog's name, Amanda, and and told Kelsey that Whit is safe and being cared for. Her nurse brought in a iPad to play classical music, a recommendation of Fr. Salas. 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 She lives in [place] and attends [employer] in [place], [place]. Her ice plant operator, Rev. Josue Ramey has been here to visit a few times.
[2022-05-28] MEDS: Amiodarone in Dextrose 360 MG/200 ML BAG 16.667 MG IV (18:03)
[2022-05-28 19:54] LABS: Legionella Ag Detection Urine Negative (Negative)
[2022-05-29] VITALS (206 sets, daily range): BP systolic 68–130; BP diastolic 44–87; PULSE 58–136; RESP 1–44; TEMP 36.3–37.7; O2SAT 68–94
[2022-05-29] MEDS: ALBUMIN HUMAN 25 GM/100 ML BTL IV (00:03)
[2022-05-29] MEDS: Amiodarone in Dextrose 360 MG/200 ML BAG 16.667 MG IV ×2 (00:15→13:00)
[2022-05-29] MEDS: PIPERACILLIN/TAZO 2.25 GM in Normal Saline 50 ML IVPB (02:01)
[2022-05-29] MEDS: LORazepam 2 MG/ML VIAL 0.5 MG IVP (03:29)
[2022-05-29 06:29] LABS: Absolute Basophil Count 0.05 10^3/uL (0.0-0.2); Absolute Monocyte Count 1.32 10^3/uL (0.1-0.8); Basophils % 0.2; HCT 35.8 % (36.0-46.0); HGB 10.8 g/dL (11.2-15.7); Immature Grans % 0.8; Lymphocytes % 3.3; MCH 27.1 pg (27.0-33.0); MCHC 30.2 % (32.0-36.0); MCV 90 fL (80-95); MPV 10.6 fL (8.0-11.0); Monocytes % 5.5; Neutrophils % 90.2; Platelet Count 269 10^3/uL (130-400); RBC 3.98 10^6/uL (3.93-5.22); RDW 15.7 % (11.7-14.6); RDW-SD 52.3 fL; WBC 23.94 10^3/uL (4.4-10.8)
[2022-05-29 06:48] LABS: Absolute Lymphocyte Count 0.79 10^3/uL (1.2-3.4); Absolute Neutrophil Count 21.59 10^3/uL (1.2-6.7)
[2022-05-29 06:52] LABS: ALT 33 U/L (14-59); AST 25 U/L (15-37); Albumin 3.1 g/dL (3.4-5.0); Alkaline Phosphatase 76 U/L (46-116); BUN 70 mg/dL (7-18); Bilirubin, Total 0.4 mg/dL (0.2-1.0); Calcium 8.1 mg/dL (8.5-10.1); Estimated GFR 8.95 (mL/min/1.73m2); Glucose 109 mg/dL (74-106); Total Protein 6.3 g/dL (6.4-8.2)
[2022-05-29 06:53] LABS: Magnesium 2.5 mg/dL (1.8-2.4)
--- NOTE | 2022-05-29 06:58 | PUCC_ITS ---
General Date of Service Date of service: 05/29/22 Time of Service: 06:59 Reason for Admission to ICU: Loculated pleural effusion A. fib with RVR Assessment and Plan Assessment and plan (1) Leukocytosis, unspecified: Status: Acute Qualifiers: Leukocytosis type: unspecified Qualified Code(s): D72.829 - Elevated white blood cell count, unspecified (2) Tobacco dependence: Status: Acute (3) Respiratory failure with hypoxia: Status: Acute (4) Loculated pleural effusion: Status: Acute (5) Atrial fibrillation with RVR: Status: Acute Assessment and plan: This is a 81 yo woman with A.fib on Eliquis, HLD and smoking who presented to the ED with back pain and found to have Afib with RVR and a loculated right pleural effusion with concern for possible RML mass. She has been on amiodarone and her rates are better controlled. She has not had micro growth from any cultures as of yet. I did order a MRSA nares in order to liberate vancomycin. She has worsening renal function, which is likely a combination of septic shock, congestive nephropathy and medications (vancomycin and Zosyn being given). She did get a double dose of contrast but there is growing evidence that contrast induced nephropathy if not a etiology for DEAN in humans (bulk of data supporting this is in animals) but rather a possible contributing cause in critically ill patients who are at risk. A clear and spencer discussion about her clinical declin e should be had with her next of kin and her to discuss whether dialysis would be in lines with her goals of care. If she does need dialysis, there is a 1/3 chance that she would need it for life and a 1/3 chance that she would have a worsened baseline kidney function after this acute illness. If she does want dialysis and fails the Lasix trial, she will need transfer to a tertiary center for this. Unfortunately the central line is in the right, but it could likely be pulled given her lack of pressors needs at this time. Recommendations Pulmonary: Loculated pleural effusion - surgical chest tube placed - fluid concerning for infectious etiology - changed Zosyn to cefepime given worsening renal failure - likely vanc is not needed - would recommend a repeat chest CT when stable to assess further fluid collection in the right plerual space/need for intrapleural lytics Hypoxic respiratory failure - supplemental O2 for sats 88-92% - HFNC - will change prn Xopenex to standing to be given with standing ipratropium Cardiac: A. fib with RVR - amiodarone gtt at 0.5 - recommend starting heparin drip given renal failure Septic Shock - recommend discontinuing albumin, patient is not intravascularly deplete - no outcome improvement with replacement of albumin outside of liver failure - right subclavian placed, would have preferred left given possible need for CRRT/HD given renal failure Renal: Acute Renal Failure - urine sodium low - recommend [place]ix [place] [facility] [place] 200mg IV trial - discussion with patient and next of kin regarding whether dialysis is something consistent with her goals - if no significant UOP with Lasix and HD consistent with patient goals then will need transfer to tertiary center for this I&O: Intake & Output 05/26/22 05/27/22 05/28/22 05/29/22 23:59 23:59 23:59 23:59 Intake Total 989.116 / 116.943 4687.668 / 2048.668 2717.499 / 2717.499 503.335 / 503.335 Output Total 525 / 525 990 / 1115 460 / 460 10 Balance 464.116 / 239.502 8857.668 / 509.954 5439.499 / 2257.499 493.335 / 493.335 Weight 44.5 kg 52.6 kg 54.6 kg 55.9 kg Daily Fluid Goal:: Even GI Nutrition: NPO for now Date of Last Bowel Movement: 05/25/22 Infectious Disease: Pneumonia - Zosyn changed to cefepime given worsening renal function as discussed yesterday - vanomycin is likely not needed as discussed yesterday - MRSA nares ordered - strep and legionella urine antigens pending - prolcitonin repeat is worse, however unsure clinical significance given worsening renal failure (which will raise the procal) - sputum culture - not collected yet - blood cultures negative Hematologic: Leukocytosis - likely due to sepsis - very high neutrophil to lymphocyte ratio - improving Neurologic: Pain - pain control as needed Endocrine: No acute concerns Lines: PIV Prophylaxis: recommend starting heparin gtt Code Status: Resuscitation Status DNR/DNI Subjective Critical and life-threatening events over the past 24 hours: Her white count is better and by the CXR it looks like the majority of fluid has been drained. The procal is higher, however this does not give much information as she is in renal failure now. She is not in pain but does state she is having a more difficult time breathing today. Exam Narrative Exam Narrative: POCUS 05/29/22: Left pleural space with a simple small to moderate pleural effus ion. IVC is larger than last exam and with no inspiratory variation. No change in size of pericardial effusion. Good cardiac function. POCUS 05/27/22: Good cardiac windows seen. Normal LV and RV function. Atrial fibrillation. Small pericardial effusion with no tamponade physiology. IVC not collapsible with inspiration. Right pleural space with moderate sized effusion, appears less complicated as compared to yesterday now that patient is in a more advantageous position. POCUS 05/26/22: Moderate loculated appearing right sided pleural effusion. Exam not completed on left and no cardiac POCUS done due to extreme patient discomfort. Gen: Grimacing in pain, normal respiratory effort, well-nourished HENT: PERRL Chest: No respiratory distress, normal appearance of chest, shallow breaths Heart: regular rate and rhythym, no murmurs, rubs or gallops Abdomen: Non-distended, soft, non tender Extremities: No clubbing, edema, cyanosis, rashes Neuro: moving all extremities Psych: intermittently cooperative Most Recent VS/Results Last Vital Signs Temp 36.6 C 05/29/22 05:00 Pulse 65 05/29/22 06:15 Resp 16 05/29/22 06:20 BP 98/52 L 05/29/22 06:15 Pulse Ox 84 L 05/29/22 06:20 Laboratory Results - last 24 hr 05/26/22 05/27/22 05/28/22 15:40 15:40 06:55 WBC RBC Hgb Hct MCV MCH MCHC RDW Plt Count MPV Immature Gran % Neutrophils % Lymphocytes % Monocytes % Eosinophils % Basophils % Nucleated RBC % Absolute Neutrophils Absolute Lymphocytes Absolute Monocytes Absolute Eosinophils Absolute Basophils RBC Morphology [place] Cells/Echinocytes VBG pH VBG pCO2 VBG pO2 VBG HCO3 VBG Total CO2 VBG O2 Saturation VBG Base Excess VBG Lactate Sodium 138 Potassium 5.8 H Chloride 100 Carbon Dioxide 24.7 Anion Gap 13.3 H BUN 54 H Creatinine 3.3 H D Est GFR (CKD-EPI 2020) 13.68 Glucose 160 H Calcium 8.2 L Magnesium 2.3 Fluid WBC 33076 Fluid Glucose 141 05/28/22 05/28/22 05/28/22 06:55 06:55 10:44 WBC 30.62 H* RBC 4.38 Hgb 12.3 Hct 39.3 MCV 90 MCH 28.1 MCHC 31.3 L RDW 15.2 H Plt Count 287 MPV 10.7 Immature Gran % 1.0 Neutrophils % 92.1 Lymphocytes % 2.6 Monocytes % 4.1 Eosinophils % 0.0 Basophils % 0.2 Nucleated RBC % 0.0 Absolute Neutrophils 28.20 H Absolute Lymphocytes 0.80 L Absolute Monocytes 1.26 H Absolute Eosinophils 0.00 Absolute Basophils 0.06 RBC Morphology See Below [place] Cells/Echinocytes 3+ VBG pH VBG pCO2 VBG pO2 VBG HCO3 VBG Total CO2 VBG O2 Saturation VBG Base Excess VBG Lactate 1.1 0.9 Sodium Potassium Chloride Carbon Dioxide Anion Gap BUN Creatinine Est GFR (CKD-EPI 2020) Glucose Calcium Magnesium Fluid WBC Fluid Glucose 05/28/22 05/29/22 10:44 05:30 WBC RBC Hgb Hct MCV MCH MCHC RDW Plt Count MPV Immature Gran % Neutrophils % Lymphocytes % Monocytes % Eosinophils % Basophils % Nucleated RBC % Absolute Neutrophils Absolute Lymphocytes Absolute Monocytes Absolute Eosinophils Absolute Basophils RBC Morphology [place] Cells/Echinocytes VBG pH 7.21 L VBG pCO2 62 H* VBG pO2 29 VBG HCO3 25 VBG Total CO2 24 VBG O2 Saturation 51 VBG Base Excess -3 L VBG Lactate Sodium Cancelled Potassium Cancelled Chloride Cancelled Carbon Dioxide Cancelled Anion Gap Cancelled BUN Cancelled Creatinine Cancelled Est GFR (CKD-EPI 2020) Cancelled Glucose Cancelled Calcium Cancelled Magnesium Fluid WBC Fluid Glucose Review of Systems All systems reviewed & are unremarkable except as noted in HPI and below Time spent with patient Time spent in Critical Care: 65 Time spent in Critical care included: Coordination of care, Chart review, Documenting critically ill care, Time at immediate bedside and Discussing critically ill care with other medical staff
[2022-05-29 07:07] LABS: Anion Gap 16.7 mmol/L (3-11); CO2 22.3 mmol/L (21.0-32.0); Chloride 99 mmol/L (98-107); Sodium 138 mmol/L (136-145)
[2022-05-29 07:08] LABS: Burr Cells (echinocyte) 2+; Diff Comment Diff Reviewed
[2022-05-29 07:10] LABS: Procalcitonin 16.7 ng/mL
--- NOTE | 2022-05-29 07:15 | RT.EKG_ITS ---
APPROVED REPORT Exam: Resting ECG Reason for Exam: hyperkalemia Patient Location: I HR:116 bpm ECG Measurements Heart Rate [address] [id number] P [id number] QRSd 83 QRS 9 QT 343 T 57 QTc 477 Conclusion Atrial flutter with variable block Low voltage, extremity leads...all extremity leads <0.5mV
[2022-05-29] MEDS: Furosemide 40 MG/4 ML VIAL (07:40)
[2022-05-29] MEDS: Ipratropium 0.5 MG/2.5 ML UPD VIAL 0.25 MG UPD ×4 (08:02→20:07)
[2022-05-29] MEDS: Levalbuterol 1.25 MG/3 ML UPD VIAL UPD ×4 (08:03→20:06)
--- NOTE | 2022-05-29 08:11 | W.PM.PROGNOT ---
Date of Service Date of service: 05/29/22 Time of Service: 07:30 Assessment and Plan Assessment and plan (1) Sepsis: Status: Acute Assessment and plan: Secondary to pneumonia and possible empyema. Pleural fluid cultures and pleural fluid chemistries are pending at this time. In light of her DEAN/oliguria, vancomycin has been put on hold, zosyn has been changed to cefepime. I have spoken w/ Dr. Rendon as well as [place] [facility] [place] Dr. Sonu Don who reviewed her case. He recommended that in light of her volume overloaded status that she be given stress test lasix i.e. 160 to 200 mg iv push and monitor U.O. over next couple hours. If her kidneys do not respond to this then she would likely require renal replacement treatment. He agrees w/ management of hyperkalemia i.e. insulin/D50, calcium gluconate, lokelma, beta agonist aerosol. Critical care time spent interviewing and examining the patient, reviewing studies, discussing case with patient's nurse and consulting physicians was 60 minutes (2) Respiratory failure with hypoxia: Status: Acute Assessment and plan: multifactorial primary insult was her complicated pneumonia/empyema however she is now in volume overload and requires diuresis or CRRT. Patient adamantly answered no when asked about hemodialysis. (3) Pneumonia: Status: Acute Assessment and plan: blood cultures are NGTD, pleural fluid gram stain w/ many PMN but no bacteria, pleural fluid culture is still pending. ATB changed to cefepime, vancomycin on hold, MRSA nasal swab is pending (4) Loculated pleural effusion: Status: Acute Assessment and plan: Status postplacement of right-sided chest tube placement 05/27. pleural fluid culture pending as noted above. Chest tube w/ 370 mL output yesterday; none last night but since she was repositioned in bed her output has been 125mL this morning from 7 am to 0830. (5) Acute renal failure with oliguria: Status: Acute Assessment and plan: multifactorial including ATN from contrast nephropathy and superimposed hypotension/decr. renal perfusion injury and antibiotics (although antibiotics are more likely to cause and acute interstitial nephritis). Per Dr. Don recommendation, give patient trial of lasix high dose i.e. 200 mg and if no response over 2hr then likely will need TEST ENGINE EVALUATOR, correct hyperkalemia and acidosis, control source of ATN i.e. avoid nephrotoxins and avoid hypotension (6) Atrial fibrillation with RVR: Status: Acute Assessment and plan: now back in afib; amiodarone drip resumed last night. (7) Movement disorder: Status: Acute Assessment and plan: Her movement disorder is in line with tardive dyskinesia but there is no history of phenothiazine use or antipsychotic use per my discussion with her PCP yesterday. However the PCP is only noted for 6 years and stated that she rarely comes in the office for follow-up. (8) Delirium: Status: Acute Assessment and plan: Likely metabolic encephalopathy secondary to sepsis superimposed on what sounds to be a dementia process. Dr. Fountain's input is appreciated in the evaluation of her movement disorder and delirium. (9) DVT prophylaxis: Status: Acute Assessment and plan: will place her on heparin drip as she has had her a-line and CVP line placed and chest tube is in place; therefore not likely going to need further invasive procedures and as she has PAF she will need anticoagulation to prevent CVA. (10) Discharge planning issues: Status: Acute Assessment and plan: Per Pastor Salas he feels that the patient cannot return home she has been failing for some time over several months and her home environment is not conducive to her recovery. She will likely need a SNF if she survives her acute illness. Subjective Subjective Interval history since last seen: Patient is more dyspneic this morning w/ low SPO2 in the mid 80's% despite HFNC @ 55 LPM. Patient had minimal response to lasix last night but only received one dose of lasix 80 mg. I discussed her case w/ [facility] [place], Dr. John Don. Patient has multifactorial causes for her DEAN w/ oliguria including sepsis w/ hypotension, ATN from contrast nephropathy (she acutally had her CTA done twice on admission and her rise in her creatinine correlates w/ this); she also is on Zosyn and Vancomycin for her empyema/pneumonia. Dr. Rendon has changed the Zosyn to cefepime. Exam Narrative Exam Narrative: Kelsey is alert and she is oriented to her name but thinks that she is at home; however, when I explained to her that she is in the hospital, not at home and that she was hopsitalized w/ a severe complicated pneumonia and that her kidney function has declined to the point where she is not making urine and may need hemodialysis, she was very clear that she does not want dialysis Kelsey is tachypneic, she has the TD type movement of her head and neck when she is awake she is tachypneic; neck veins do not appear distended Lungs: she has bibasilar rales but none heard in the upper lung aragon; right base w/ diminished breath sounds Heart: irregularly irregular and tachycardic (she has been in an out of afib, currently in afib @ 112 bpm) Abdomen: soft, nontender, active bowel sounds Extremities: no pitting edema Objective Last Vital Signs Temp 36.6 C 05/29/22 05:00 Pulse 107 H 05/29/22 08:03 Resp 22 05/29/22 08:03 BP 98/52 L 05/29/22 06:15 Pulse Ox 87 L 05/29/22 08:03 Laboratory Results - last 24 hr 05/26/22 05/27/22 05/28/22 15:40 15:40 10:44 WBC RBC Hgb Hct MCV MCH MCHC RDW Plt Count MPV Immature Gran % Neutrophils % Lymphocytes % Monocytes % Eosinophils % Basophils % Nucleated RBC % Absolute Neutrophils Absolute Lymphocytes Absolute Monocytes Absolute Eosinophils Absolute Basophils RBC Morphology Parrott Cells/Echinocytes VBG pH VBG pCO2 VBG pO2 VBG HCO3 VBG Total CO2 VBG O2 Saturation VBG Base Excess VBG Lactate 0.9 Sodium Potassium Chloride Carbon Dioxide Anion Gap BUN Creatinine Est GFR (CKD-EPI 2020) Glucose Calcium Magnesium Total Bilirubin AST ALT Alkaline Phosphatase Total Protein Albumin Procalcitonin Fluid WBC 67470 Fluid Glucose 141 05/28/22 05/29/22 05/29/22 10:44 05:30 05:30 WBC 23.94 H RBC 3.98 Hgb 10.8 L Hct 35.8 L MCV 90 MCH 27.1 MCHC 30.2 L RDW 15.7 H Plt Count 269 MPV 10.6 Immature Gran % 0.8 Neutrophils % 90.2 Lymphocytes % 3.3 Monocytes % 5.5 Eosinophils % 0.0 Basophils % 0.2 Nucleated RBC % 0.0 Absolute Neutrophils 21.59 H Absolute Lymphocytes 0.79 L Absolute Monocytes 1.32 H Absolute Eosinophils 0.00 Absolute Basophils 0.05 RBC Morphology See Below Parrott Cells/Echinocytes 2+ VBG pH 7.21 L VBG pCO2 62 H* VBG pO2 29 VBG HCO3 25 VBG Total CO2 24 VBG O2 Saturation 51 VBG Base Excess -3 L VBG Lactate Sodium Cancelled Potassium Cancelled Chloride Cancelled Carbon Dioxide Cancelled Anion Gap Cancelled BUN Cancelled Creatinine Cancelled Est GFR (CKD-EPI 2020) Cancelled Glucose Cancelled Calcium Cancelled Magnesium 2.5 H Total Bilirubin AST ALT Alkaline Phosphatase Total Protein Albumin Procalcitonin Fluid WBC Fluid Glucose 05/29/22 05/29/22 05:30 05:30 WBC RBC Hgb Hct MCV MCH MCHC RDW Plt Count MPV Immature Gran % Neutrophils % Lymphocytes % Monocytes % Eosinophils % Basophils % Nucleated RBC % Absolute Neutrophils Absolute Lymphocytes Absolute Monocytes Absolute Eosinophils Absolute Basophils RBC Morphology Brad Cells/Echinocytes VBG pH VBG pCO2 VBG pO2 VBG HCO3 VBG Total CO2 VBG O2 Saturation VBG Base Excess VBG Lactate Sodium 138 Potassium 6.0 H Chloride 99 Carbon Dioxide 22.3 Anion Gap 16.7 H BUN 70 H Creatinine Est GFR (CKD-EPI 2020) 8.95 Glucose 109 H Calcium 8.1 L Magnesium Total Bilirubin 0.4 AST 25 ALT 33 Alkaline Phosphatase 76 Total Protein 6.3 L Albumin 3.1 L Procalcitonin 16.7 Fluid WBC Fluid Glucose Time Spent with Patient Time Spent with Patient: >50 minutes Time was spent: preparing to see the patient(eg.review tests), ordering medications,tests, procedures, referring, communicating with other health child care worker ([place], [facility] [place]. Rendon, pulmonary, [facility]), indepentently interpreting results, counseling the patient and care coordination
[2022-05-29] MEDS: Dextrose 50%-Water 25 GM/50 ML SYR IVP (08:21)
[2022-05-29] MEDS: Calcium Gluconate 4.65 MEQ/10 ML VIAL 4.65 MG IVP (08:22)
[2022-05-29] MEDS: Normal Saline 100 ML (08:23)
[2022-05-29] MEDS: Normal Saline Flush 10 ML SYR IVP (08:23)
[2022-05-29 08:24] LABS: BE (Venous) -7 mmol/L (-2-3); HCO3 (Venous) 21 mmol/L (23-28); O2 Sat (Venous) 88 %; TCO2 (Venous) 21 mmol/L (24-29); pCO2 (Venous) 54 mmHg (41-51); pO2 (Venous) 56 mmHg
[2022-05-29] MEDS: Insulin REGULAR-Human 100 UNITS/ML UNIT 10 UNITS IV (08:25)
[2022-05-29] MEDS: Furosemide 100 MG/10 ML VIAL 200 MG IVP ×2 (08:26→12:28)
--- NOTE | 2022-05-29 08:52 | CMPROGNOTE_ITS ---
- If Service Date Differs Date of service: 05/29/22 Time of Service: 08:52 Care Management Progress Note S/O:Kelsey remains critically ill and is being closely monitored in the ICU. A meeting was held with Josue, her friend and epilepsy physician, and Octavia her HCA and Dr. Fitzpatrick. They discussed Kelsey's current condition and the decision was made NOT to initiate dialysis or any invasive procedures at this time. It is likely Kelsey will transition to comfort measures if she does not respond to recent medic ation changes. Rn Home Health Josue will provide CM with Kelsey's preference for burial arrangements if it becomes necessary. A: Kelsey is a 81 year old woman admitted on 05/26/22 with sepsis, pneumonia and empyema P: Kelsey's discharge plan is unclear at this time. She is critically ill and has not responded fully to treatment. Her HCA Octavia has not seen or spoken with her in 6 years and is not familiar with what has been happening in her life. If aggressive treatment is to be continued, Kelsey may need transfer to a tertiary care facility. Her most recent advanced directive lists her as a full code but her current status is DNR/DNI which is what Kelsey reported to the ED physician when she presented to [facility].. CM will follow and offer support to Kelsey and assess for discharge concerns.
[2022-05-29] MEDS: CEFEPIME 1 GM in Normal Saline 50 ML IVPB (10:10)
[2022-05-29] MEDS: Sodium Bicarbonate 50 MEQ/50 ML SYR IVP (10:30)
--- NOTE | 2022-05-29 10:50 | CHAPLAIN ---
I was visiting Kelsey this morning when her friend, aMrgy, from [facility] in [place], came in to visit. Kelsey is opening her eyes some this morning, but doesn't appear to be responding to people speaking with her. Her wharf operator, Fr. Josue Ramey is expected to visit again today. Octavia Alcantara, who is listed as a HCA on Kelsey's Advance Directive, has been visiting as well. She has not had much contact with Kesley in six years. I will continue to visit.
[2022-05-29 12:01] LABS: Anion Gap 14.9 mmol/L (3-11); BUN 75 mg/dL (7-18); CO2 25.1 mmol/L (21.0-32.0); Calcium 8.3 mg/dL (8.5-10.1); Chloride 99 mmol/L (98-107); Estimated GFR 8.31 (mL/min/1.73m2); Glucose 72 mg/dL (74-106); Potassium 5.2 mmol/L (3.5-5.1); Sodium 139 mmol/L (136-145)
[2022-05-29] MEDS: VANCOMYCIN/WATER (PEG) 750 MG/150 ML BAG 150 MG IVPB (12:27)
[2022-05-29 13:43] LABS: Path Consult (Tech Order) YES
[2022-05-29] MEDS: Sodium Zirconium Cyclosilicate 10 GM PKT PO ×2 (17:36→22:14)
[2022-05-29] MEDS: Amiodarone 200 MG TAB 400 MG PO (20:06)
[2022-05-29] MEDS: Metoprolol 5 MG/5 ML VIAL 2.5 MG IVP (20:07)
[2022-05-29 20:08] LABS: Anion Gap 16.3 mmol/L (3-11); CO2 23.7 mmol/L (21.0-32.0); Calcium 8.3 mg/dL (8.5-10.1); Chloride 99 mmol/L (98-107); Estimated GFR 8.11 (mL/min/1.73m2); Glucose 125 mg/dL (74-106); Potassium 4.7 mmol/L (3.5-5.1); Sodium 139 mmol/L (136-145)
[2022-05-29 20:12] LABS: CREATININE 5.1 mg/dL (0.55-1.02)
[2022-05-29 20:13] LABS: BUN 81 mg/dL (7-18)
[2022-05-29] MEDS: HYDROmorphone 2 MG/ML SYR 0.5 MG IVP (22:14)
[2022-05-29 23:27] LABS: Streptococcus Pneumoniae Ag, U Negative (Negative)
[2022-05-30] VITALS (66 sets, daily range): BP systolic 94–123; BP diastolic 58–84; PULSE 90–128; RESP 1–32; TEMP 36.6–37; O2SAT 82–95
[2022-05-30] MEDS: Amiodarone in Dextrose 360 MG/200 ML BAG 16.667 MG IV (01:04)
[2022-05-30] MEDS: Metoprolol 5 MG/5 ML VIAL 2.5 MG IVP ×2 (03:00→08:00)
[2022-05-30] MEDS: Normal Saline Flush 10 ML SYR IVP ×2 (03:01→21:06)
[2022-05-30] MEDS: Sodium Zirconium Cyclosilicate 10 GM PKT PO (05:37)
[2022-05-30 06:04] LABS: Abs Immature Grans 0.13 10^3/uL (0.0-0.06); Absolute Basophil Count 0.02 10^3/uL (0.0-0.2); Absolute Lymphocyte Count 0.75 10^3/uL (1.2-3.4); Basophils % 0.1; HCT 35.7 % (36.0-46.0); HGB 11.4 g/dL (11.2-15.7); Immature Grans % 0.7; Lymphocytes % 4.3; MCH 27.9 pg (27.0-33.0); MCHC 31.9 % (32.0-36.0); MCV 87 fL (80-95); MPV 10.8 fL (8.0-11.0); Monocytes % 7.4; Neutrophils % 87.5; Platelet Count 256 10^3/uL (130-400); RBC 4.09 10^6/uL (3.93-5.22); RDW 15.6 % (11.7-14.6); RDW-SD 50.2 fL
[2022-05-30 06:06] LABS: Absolute Monocyte Count 1.29 10^3/uL (0.1-0.8); Absolute Neutrophil Count 15.23 10^3/uL (1.2-6.7)
[2022-05-30 06:19] LABS: ALT 35 U/L (14-59); AST 28 U/L (15-37); Albumin 2.5 g/dL (3.4-5.0); Alkaline Phosphatase 46 U/L (46-116); Anion Gap 17.4 mmol/L (3-11); Bilirubin, Total 0.4 mg/dL (0.2-1.0); C-Reactive Protein 11.76 mg/dL (0.0-0.3); CO2 23.6 mmol/L (21.0-32.0); Calcium 8.3 mg/dL (8.5-10.1); Chloride 99 mmol/L (98-107); Estimated GFR 7.75 (mL/min/1.73m2); Glucose 116 mg/dL (74-106); Potassium 4.4 mmol/L (3.5-5.1); Sodium 140 mmol/L (136-145); Total Protein 5.8 g/dL (6.4-8.2)
[2022-05-30 06:23] LABS: BUN 87 mg/dL (7-18)
[2022-05-30 06:24] LABS: CREATININE 5.3 mg/dL (0.55-1.02)
[2022-05-30] MEDS: Ipratropium 0.5 MG/2.5 ML UPD VIAL 0.25 MG UPD ×4 (07:40→21:06)
[2022-05-30] MEDS: CEFEPIME 1 GM in Normal Saline 50 ML IVPB (08:01)
[2022-05-30] MEDS: Amiodarone 200 MG TAB 400 MG PO ×2 (08:01→21:06)
[2022-05-30] MEDS: predniSONE 20 MG TAB 40 MG PO (08:01)
--- NOTE | 2022-05-30 08:45 | DI.RAD_ITS ---
Exam(s) XR PORTABLE CHEST AP EXAM: XR PORTABLE CHEST AP CLINICAL HISTORY: follow up empyema, pneumonia TECHNIQUE: 2D digital imaging was performed. COMPARISON: CR XR PORTABLE CHEST AP POST LINE from 05/27/2022 CR XR PORTABLE CHEST AP from 05/28/2022 FINDINGS: Exam limited by leads in oxygen tubing overlying the chest LUNGS: Small bilateral pleural effusions, not significantly changed. Right-sided chest tube, unchang ed in position. No pneumothorax is visible current [place]. Increased densities are again noted at the right lung base.. HEART: Mildly enlarged, stable. No change in right sided central line. AORTA: Normal diameter. BONES: Scoliosis and degenerative changes> Soft tissues: Unremarkable. IMPRESSION: No pneumothorax visible on current exam. Stable findings of increased densities at the right lung ba se and small effusions. DATA REPOSITORY: RADIATION DOSE DELIVERED:
--- NOTE | 2022-05-30 09:01 | W.PM.PROGNOT ---
Date of Service Date of service: 05/30/22 Time of Service: 09:01 Assessment and Plan Assessment and plan (1) Sepsis: Status: Acute Assessment and plan: Secondary to pneumonia and empyema. Pleural fluid culture pending but gram stain was negative for bacteria but demonstrated many WBC. Blood culture is NGTD. Continue cefepime and vancomycin at renal adjusted doses. contnue chest tube drainage (reportedly had 130 mL overnight and another 200 mL this morning. As she has been hemodynamically stable for over 48 hrs, I will have nursing pull her arterial catheter. Critical care time spent interviewing and examining the patient, reviewing studies, discussing case with patient's nurse and consulting physicians was 35 minutes (2) Respiratory failure with hypoxia: Status: Acute Assessment and plan: multifactorial primary insult was her complicated pneumonia/empyema however she is now in volume overload and requires diuresis. fortunately she has responded to high dose Diuril and lasix. continue treatment of her pneumonia and empyema as above. (3) Pneumonia: Status: Acute Assessment and plan: blood cultures are NGTD, pleural fluid gram stain w/ many PMN but no bacteria, pleural fluid culture is still pending. ATB changed to cefepime, vancomycin on hold, MRSA nasal swab is pending (4) Loculated pleural effusion: Status: Acute Assessment and plan: Status postplacement of right-sided chest tube placement 05/27. pleural fluid culture pending as noted above. chest tube continues to put out significant amounts of fluid. surgery is following and managing her chest tube (5) Acute renal failure with oliguria: Status: Acute Assessment and plan: multifactorial including ATN from contrast nephropathy and superimposed hypotension/decr. renal perfusion injury and antibiotics (although antibiotics are more likely to cause and acute interstitial nephritis). patient remains in some pulmonary edema (I reviewed this morning chest xray) and she requires continued high dose furosemide drip and diuril . Urine output now at 50 to 75 mL/hour. She had urine output of 800 mL total yesterday and so far 0ver 900 mL since midnight (over past 10 hours). Her potassium is now normal. I have stopped her lokelma. Her bicarbonate level is normal. (6) Atrial fibrillation with RVR: Status: Acute Assessment and plan: remains in afib, I will increase her metoprolol dose and she is now on oral amiodarone so I will stop her drip. I will put her on heparin drip as her renal fxn has not recovered enough to resume her apixaban (7) Movement disorder: Status: Acute Assessment and plan: Her movement disorder is in line with tardive dyskinesia but there is no history of phenothiazine use or antipsychotic use per my discussion with her PCP yesterday. However the PCP is only noted for 6 years and stated that she rarely comes in the office for follow-up. (8) Delirium: Status: Acute Assessment and plan: Likely metabolic encephalopathy secondary to sepsis superimposed on what sounds to be a dementia process. This appears to be resolving w/ her improvement from her sepsis. (9) DVT prophylaxis: Status: Acute Assessment and plan: begin heparin drip (10) Discharge planning issues: Status: Acute Assessment and plan: Per Playground Official Josue he feels that the patient cannot return home she has been failing for some time over several months and her home environment is not conducive to her recovery. She will likely need a SNF if she survives her acute illness. Subjective Subjective Interval history since last seen: Kelsey is much more alert and oriented and speaking appropriately. She has been conversing w/ her Life Payroll Services Analyst and her finance business manager, Josue. She denies pain or dyspnea although she is still requiring HFNC at 35 lpm. She remains in afib w/ HR in the low 100's. BP has been stable and she has not required any vasopressors since the a-line was put in 2 days ago. Exam Narrative Exam Narrative: Kelsey is awake, alert and oriented to person, place ([facility]), date (2022) and circumstances. She is in no acute distress, not using accessory respiratory muscles Neck: supple, no overt JVD, no exhibiting any of her dyskinesia movements of her head and neck Lungs: left base w/ rales, right base w/ decr. breath sounds, upper aragon are clear Heart: irregularly irregular, w/ fast rate, I did not appreciate any murmur or rub Abdomen: soft, nontender, nondistended, normal bowel sounds Legs/arms: no cyanosis or edema Objective Last Vital Signs Temp 36.8 C 05/30/22 08:19 Pulse 103 H 05/30/22 08:19 Resp 16 05/30/22 08:19 BP 108/63 05/30/22 08:19 Pulse Ox 94 02/18/23 08:19 Laboratory Results - last 24 hr 05/27/22 05/27/22 05/29/22 15:40 19:30 11:20 WBC RBC Hgb Hct MCV MCH MCHC RDW Plt Count MPV Immature Gran % Neutrophils % Lymphocytes % Monocytes % Eosinophils % Basophils % Nucleated RBC % Absolute Neutrophils Absolute Lymphocytes Absolute Monocytes Absolute Eosinophils Absolute Basophils Sodium 139 Potassium 5.2 H Chloride 99 Carbon Dioxide 25.1 Anion Gap 14.9 H BUN 75 H Creatinine 5.0 H* D Est GFR (CKD-EPI 2020) 8.31 Glucose 72 L Calcium 8.3 L Total Bilirubin AST ALT Alkaline Phosphatase C-Reactive Protein Total Protein Albumin Ur Strep pneumoniae Ag Negative Path Cons Comment YES 05/29/22 05/30/22 05/30/22 19:36 05:30 05:30 WBC 17.40 H RBC 4.09 Hgb 11.4 Hct 35.7 L MCV 87 MCH 27.9 MCHC 31.9 L RDW 15.6 H Plt Count 256 MPV 10.8 Immature Gran % 0.7 Neutrophils % 87.5 Lymphocytes % 4.3 Monocytes % 7.4 Eosinophils % 0.0 Basophils % 0.1 Nucleated RBC % 0.0 Absolute Neutrophils 15.23 H Absolute Lymphocytes 0.75 L Absolute Monocytes 1.29 H Absolute Eosinophils 0.00 Absolute Basophils 0.02 Sodium 139 140 Potassium 4.7 4.4 Chloride 99 99 Carbon Dioxide 23.7 23.6 Anion Gap 16.3 H 17.4 H BUN 81 H* 87 H* Creatinine 5.1 H* 5.3 H* Est GFR (CKD-EPI 2020) 8.11 7.75 Glucose 125 H 116 H Calcium 8.3 L 8.3 L Total Bilirubin 0.4 AST 28 ALT 35 Alkaline Phosphatase 46 C-Reactive Protein 11.76 H Total Protein 5.8 L Albumin 2.5 L Ur Strep pneumoniae Ag Path Cons Comment Time Spent with Patient Time Spent with Patient: 35-49 minutes Time was spent: preparing to see the patient(eg.review tests), obtaining and/or reviewing separately otained hiistory, ordering medications,tests, procedures, indepentently interpreting results, counseling the patient and care coordination
[2022-05-30 09:54] LABS: Lactate Dehydrogenase (LD), BF 688 U/L; Protein,Total, BF 3.4 g/dL
[2022-05-30] MEDS: LORazepam 2 MG/ML VIAL 0.5 MG IVP ×2 (10:01→21:07)
--- NOTE | 2022-05-30 10:06 | DI.VRAD_ITS ---
PROCEDURE INFORMATION: Exam: XR Chest Exam date and time: 05/30/2022 9:30 AM Age: 81 years old Clinical indication: Other: Follow up empyema, pneumonia TECHNIQUE: Imaging protocol: Radiologic exam of the chest. Views: 1 view. COMPARISON: CR XR PORTABLE CHEST AP 05/28/2022 1:26 PM FINDINGS: Tubes, catheters and devices: Right subclavian line terminates in the right atrium and can be withdrawn 7 cm if desired.. Thoracostomy tube terminates in the right lung base. Overlying EKG wires Lungs: Opacities in both bases may represent atelectasis or pneumonia.. Pleural spaces: There may be small bilateral pleural effusions. Heart/Mediastinum: Stable cardiac silhouette Bones/joints: Unremarkable. IMPRESSION: 1. Right subclavian line terminates in the right atrium and can be withdrawn 7 cm if desired.. 2. Thoracostomy tube terminates in the right lung base. 3. Opacities in both bases may represent atelectasis or pneumonia.. 4. There may be small bilateral pleural effusions. Dictated and Authenticated by: Eva Mandujano MD. Ordering:[facility] Nanette Anne MD
[2022-05-30 11:33] LABS: PTT Activated 29.6 sec (21.5-31.9)
[2022-05-30] MEDS: Metoprolol 5 MG/5 ML VIAL IVP ×2 (12:14→17:49)
[2022-05-30] MEDS: Levalbuterol 1.25 MG/3 ML UPD VIAL UPD ×3 (12:36→21:06)
--- NOTE | 2022-05-30 13:49 | PGE_ITS ---
Date of Service Date of service: 05/30/22 Time of Service: 13:49 Assessment and Plan Assessment and plan (1) Loculated pleural effusion: Status: Acute Assessment and plan: Right thoracostomy tube in place. Pleural effusion significantly decreased. CT output 330cc/224hr. --maintain chest tube --pleural fluid: negative for malignant cells; abundant acute inflammation present (2) Sepsis: Status: Acute Assessment and plan: Central line catheter placed for septic shock noted to have tip in right atrium on CXR. --under sterile conditions, central line was withdrawn 2.5 centimeters, and a new dressing placed Subjective Subjective Interval history since last seen: Nursing reports pt now having increased urine output with very large doses of diuretics. Still with high FiO2 requirements on high-flow oxygen. Exam Const General: frail appearing and ill appearing Orientation: alert and awake Chest Other: Right thoracostomy tube intact to right chest with respiratory tidaling noted. No chest wall crepitus appreciated. Straw-colored output. CT to water seal. Resp Effort & Inspection: tachypneic and other (On hi-flow O2) GI Palpation: soft, not firm, no guarding and nontender Skin Other: warm, dry Objective Last Vital Signs Temp 98.2 F 05/30/22 08:19 Pulse 110 H 05/30/22 12:36 Resp 20 05/30/22 13:00 BP 114/70 05/30/22 12:14 Pulse Ox 93 05/30/22 13:00 Laboratory Results - last 24 hr 05/27/22 05/27/22 05/27/22 15:40 15:40 19:30 WBC RBC Hgb Hct MCV MCH MCHC RDW Plt Count MPV Immature Gran % Neutrophils % Lymphocytes % Monocytes % Eosinophils % Basophils % Nucleated RBC % Absolute Neutrophils Absolute Lymphocytes Absolute Monocytes Absolute Eosinophils Absolute Basophils APTT Sodium Potassium Chloride Carbon Dioxide Anion Gap BUN Creatinine Est GFR (CKD-EPI 2020) Glucose Calcium Total Bilirubin AST ALT Alkaline Phosphatase C-Reactive Protein Total Protein Albumin Fluid Type pleural fluid pleural fluid Fluid Total Protein 3.4 Fluid LDH 688 Ur Strep pneumoniae Ag Negative 05/29/22 05/30/22 05/30/22 19:36 05:30 05:30 WBC 17.40 H RBC 4.09 Hgb 11.4 Hct 35.7 L MCV 87 MCH 27.9 MCHC 31.9 L RDW 15.6 H Plt Count 256 MPV 10.8 Immature Gran % 0.7 Neutrophils % 87.5 Lymphocytes % 4.3 Monocytes % 7.4 Eosinophils % 0.0 Basophils % 0.1 Nucleated RBC % 0.0 Absolute Neutrophils 15.23 H Absolute Lymphocytes 0.75 L Absolute Monocytes 1.29 H Absolute Eosinophils 0.00 Absolute Basophils 0.02 APTT Sodium 139 140 Potassium 4.7 4.4 Chloride 99 99 Carbon Dioxide 23.7 23.6 Anion Gap 16.3 H 17.4 H BUN 81 H* 87 H* Creatinine 5.1 H* 5.3 H* Est GFR (CKD-EPI 2020) 8.11 7.75 Glucose 125 H 116 H Calcium 8.3 L 8.3 L Total Bilirubin 0.4 AST 28 ALT 35 Alkaline Phosphatase 46 C-Reactive Protein 11.76 H Total Protein 5.8 L Albumin 2.5 L Fluid Type Fluid Total Protein Fluid LDH Ur Strep pneumoniae Ag 05/30/22 11:00 WBC RBC Hgb Hct MCV MCH MCHC RDW Plt Count MPV Immature Gran % Neutrophils % Lymphocytes % Monocytes % Eosinophils % Basophils % Nucleated RBC % Absolute Neutrophils Absolute Lymphocytes Absolute Monocytes Absolute Eosinophils Absolute Basophils APTT 29.6 Sodium Potassium Chloride Carbon Dioxide Anion Gap BUN Creatinine Est GFR (CKD-EPI 2020) Glucose Calcium Total Bilirubin AST ALT Alkaline Phosphatase C-Reactive Protein Total Protein Albumin Fluid Type Fluid Total Protein Fluid LDH Ur Strep pneumoniae Ag Time Spent with Patient Time Spent with Patient: 25-34 minutes Time was spent: preparing to see the patient(eg.review tests), ordering medications,tests, procedures, referring, communicating with other health patient centered care specialist, indepentently interpreting results and counseling the patient
[2022-05-30] MEDS: Furosemide 100 MG/10 ML VIAL 80 MG IVP (16:00)
[2022-05-30 18:21] LABS: PTT Activated 54.1 sec (21.5-31.9)
[2022-05-31] VITALS (76 sets, daily range): BP systolic 88–120; BP diastolic 54–81; PULSE 64–127; RESP 1–32; TEMP 36.7–37.1; O2SAT 83–98
[2022-05-31 00:54] LABS: PTT Activated 40.1 sec (21.5-31.9)
[2022-05-31] MEDS: Normal Saline Flush 10 ML SYR IVP ×5 (06:08→19:44)
[2022-05-31 06:37] LABS: Absolute Lymphocyte Count 0.98 10^3/uL (1.2-3.4); Absolute Monocyte Count 1.06 10^3/uL (0.1-0.8); Basophils % 0.1; HCT 32.9 % (36.0-46.0); HGB 10.7 g/dL (11.2-15.7); Immature Grans % 0.7; Lymphocytes % 6.9; MCH 27.3 pg (27.0-33.0); MCHC 32.5 % (32.0-36.0); MCV 84 fL (80-95); MPV 10.4 fL (8.0-11.0); Monocytes % 7.5; Neutrophils % 84.8; Platelet Count 238 10^3/uL (130-400); RBC 3.92 10^6/uL (3.93-5.22); RDW-SD 45.6 fL; WBC 14.17 10^3/uL (4.4-10.8)
[2022-05-31 06:42] LABS: Absolute Basophil Count 0.01 10^3/uL (0.0-0.2); Absolute Neutrophil Count 12.02 10^3/uL (1.2-6.7)
[2022-05-31 06:49] LABS: PTT Activated 63.6 sec (21.5-31.9)
[2022-05-31 07:03] LABS: ALT 26 U/L (14-59); AST 17 U/L (15-37); Albumin 2.2 g/dL (3.4-5.0); Alkaline Phosphatase 39 U/L (46-116); Anion Gap 13.8 mmol/L (3-11); Bilirubin, Total 0.4 mg/dL (0.2-1.0); C-Reactive Protein 10.51 mg/dL (0.0-0.3); CO2 28.2 mmol/L (21.0-32.0); Calcium 8.2 mg/dL (8.5-10.1); Chloride 101 mmol/L (98-107); Estimated GFR 8.95 (mL/min/1.73m2); Glucose 119 mg/dL (74-106); NT-proBNP 30913 pg/mL (<300); Potassium 3.4 mmol/L (3.5-5.1); Sodium 143 mmol/L (136-145); Total Protein 5.3 g/dL (6.4-8.2)
[2022-05-31 07:08] LABS: BUN 98 mg/dL (7-18); CREATININE 4.7 mg/dL (0.55-1.02)
[2022-05-31 07:22] LABS: Procalcitonin 5.1 ng/mL
[2022-05-31] MEDS: Ipratropium 0.5 MG/2.5 ML UPD VIAL 0.25 MG UPD ×4 (07:43→19:44)
[2022-05-31] MEDS: Levalbuterol 1.25 MG/3 ML UPD VIAL UPD ×4 (07:43→19:43)
[2022-05-31] MEDS: Furosemide 100 MG/10 ML VIAL 80 MG IVP (08:11)
[2022-05-31] MEDS: CEFEPIME 1 GM in Normal Saline 50 ML IVPB (08:27)
--- NOTE | 2022-05-31 09:33 | PGE_ITS ---
Date of Service Date of service: 05/31/22 Time of Service: 09:34 Assessment and Plan Assessment and plan (1) Sepsis: Status: Acute Assessment and plan: Secondary to pneumonia and empyema. MRSA screen is negative therefore I will discontinue her vancomycin but continue the cefepime. Anaerobic pleural culture showed no growth after 4 days. Aerobic culture from pleural fluid also shows no growth after 96 hours although the Gram stain showed many white cells but no bacteria. Continue cefepime Patient continues to require ICU level of care due to her hypoxemia. Critical care time spent interviewing and examining the patient, reviewing studies, discussing case with patient's nurse and consulting physicians was 30 minutes (2) Respiratory failure with hypoxia: Status: Acute Assessment and plan: multifactorial primary insult was her complicated pneumonia/empyema however she is now in volume overload and requires diuresis. fortunately she has responded to high dose Diuril and lasix. Lasix drip was converted to intermittent boluses of Lasix and Diuril was discontinued. Hypoxemia is improving although she still requires nasal cannula. For now we will keep her in the intensive care unit because the level of support that she requires. (3) Pneumonia: Status: Acute Assessment and plan: As above (4) Loculated pleural effusion: Status: Acute Assessment and plan: Status postplacement of right-sided chest tube placement 05/27. Pleural fluid culture showed no growth as noted above. Cytology is pending (5) Acute renal failure with oliguria: Status: Acute Assessment and plan: Renal function continues to improve. BUN is still elevated at 98 but creatinine is now down to 4.7 and she is maintaining a good urine output. Still requires diuretics as she still seems to be volume overloaded. Potassium is now low at 3.4 and she will receive supplementation to correct this. (6) Atrial fibrillation with RVR: Status: Acute Assessment and plan: Rate and rhythm are being controlled with loading doses of amiodarone as well as small doses of short acting Lopressor. Parameters for holding Lopressor have been written. She is anticoagulated with heparin as she has not recovered enough from her acute kidney injury to go back on her apixaban yet. (7) Movement disorder: Status: Acute Assessment and plan: Patient has not exhibited any further tardive dyskinesia type movements this may have been related to her acute delirium from her metabolic encephalopathy. (8) Delirium: Status: Resolved Assessment and plan: Likely metabolic encephalopathy secondary to sepsis superimposed on what sounds to be a dementia process. This appears to be resolving w/ her improvement from her sepsis. (9) DVT prophylaxis: Status: Acute Assessment and plan: begin heparin drip Continue SCDs (10) Discharge planning issues: Status: Acute Assessment and plan: Per Pastor Salas he feels that the patient cannot return home she has been failing for some time over several months and her home environment is not conducive to her recovery. She will likely need a SNF if she survives her acute illness. Subjective Subjective Interval history since last seen: Kelsey has shown significant improvement over the last 24 to 48 hours. Blood pressure has stabilized. Rhythm varies between atrial fibrillation and sinus rhythm currently in sinus rhythm. She is currently receiving loading dose of amiodarone 400 mg twice a day and she is on low-dose oral Lopressor although last night they had to hold a dose because of borderline blood pressures. With respect to her pneumonia and empyema her white count continues to decline at 14,000 although she still requires significant oxygen supplementation she r emains on high flow nasal cannula at 35% FiO2 and 35 L/min. Chest tube draining is starting to decrease. She had 90 mL overnight and has had 60 mL this morning. Urine output has responded greatly and is putting out over 100 mL of urine per hour. Patient is alert and responsive and answers questions appropriately when asked whether she has any pain she denies any and with respect any dyspnea she also denies any. When asked if she has had a bowel movement she says she has not had one yet and nursing confirmed this so they will be working on a bowel regimen today. Patient seems to be tolerating her diet which is a dysphagia diet which hopefully we can upgrade tomorrow after speech therapy evaluates her. Exam Narrative Exam Narrative: Kelsey is resting comfortably she has her eyes shut but she opens her eyes when her name is called and she responds to questions appropriately. She has a visitor with whom she has had little interaction. Neck is supple no overt JVD Lungs she has basilar rales on the left upper lung field is clear on the left on the right side she has some adventitious sounds from the chest tube but overall diminished breath sounds on the right lung base. Right upper lung field is clear Heart is regular no appreciable murmur rub Abdomen soft nondistended normal bowel sounds no guarding Extremities without peripheral edema Objective Last Vital Signs Temp 36.7 C 05/31/22 04:00 Pulse 64 05/31/22 07:43 Resp 16 05/31/22 07:43 BP 93/66 L 05/31/22 00:01 Pulse Ox 98 05/31/22 07:43 Laboratory Results - last 24 hr 05/27/22 05/27/22 05/30/22 15:40 15:40 11:00 WBC RBC Hgb Hct MCV MCH MCHC RDW Plt Count MPV Immature Gran % Neutrophils % Lymphocytes % Monocytes % Eosinophils % Basophils % Nucleated RBC % Absolute Neutrophils Absolute Lymphocytes Absolute Monocytes Absolute Eosinophils Absolute Basophils APTT 29.6 Sodium Potassium Chloride Carbon Dioxide Anion Gap BUN Creatinine Est GFR (CKD-EPI 2020) Glucose Calcium Total Bilirubin AST ALT Alkaline Phosphatase C-Reactive Protein NT-Pro-B Natriuret Pep Total Protein Albumin Procalcitonin Fluid Type pleural fluid pleural fluid Fluid Total Protein 3.4 Fluid LDH 688 05/30/22 05/31/22 05/31/22 17:56 00:30 06:10 WBC RBC Hgb Hct MCV MCH MCHC RDW Plt Count MPV Immature Gran % Neutrophils % Lymphocytes % Monocytes % Eosinophils % Basophils % Nucleated RBC % Absolute Neutrophils Absolute Lymphocytes Absolute Monocytes Absolute Eosinophils Absolute Basophils APTT 54.1 H 40.1 H Sodium 143 Potassium 3.4 L D Chloride 101 Carbon Dioxide 28.2 Anion Gap 13.8 H BUN 98 H* Creatinine 4.7 H* Est GFR (CKD-EPI 2020) 8.95 Glucose 119 H Calcium 8.2 L Total Bilirubin 0.4 AST 17 ALT 26 Alkaline Phosphatase 39 L C-Reactive Protein 10.51 H NT-Pro-B Natriuret Pep 04857 H Total Protein 5.3 L Albumin 2.2 L Procalcitonin Fluid Type Fluid Total Protein Fluid LDH 05/31/22 05/31/22 05/31/22 06:10 06:10 06:10 WBC 14.17 H RBC 3.92 L Hgb 10.7 L Hct 32.9 L MCV 84 MCH 27.3 MCHC 32.5 RDW 15.0 H Plt Count 238 MPV 10.4 Immature Gran % 0.7 Neutrophils % 84.8 Lymphocytes % 6.9 Monocytes % 7.5 Eosinophils % 0.0 Basophils % 0.1 Nucleated RBC % 0.0 Absolute Neutrophils 12.02 H Absolute Lymphocytes 0.98 L Absolute Monocytes 1.06 H Absolute Eosinophils 0.00 Absolute Basophils 0.01 APTT 63.6 H Sodium Potassium Chloride Carbon Dioxide Anion Gap BUN Creatinine Est GFR (CKD-EPI 2020) Glucose Calcium Total Bilirubin AST ALT Alkaline Phosphatase C-Reactive Protein NT-Pro-B Natriuret Pep Total Protein Albumin Procalcitonin 5.1 Fluid Type Fluid Total Protein Fluid LDH Time Spent with Patient Time Spent with Patient: 25-34 minutes Time was spent: preparing to see the patient(eg.review tests), ordering medications,tests, procedures, referring, communicating with other health adult daycare coordinator (Discussion of her care with Dr. Cornell and nursing staff), indepentently interpreting results and care coordination
[2022-05-31] MEDS: Amiodarone 200 MG TAB 400 MG PO ×2 (09:37→19:25)
[2022-05-31 09:54] LABS: Lab Add On Test DONE
[2022-05-31] MEDS: Bisacodyl 10 MG SUPP PR (09:54)
[2022-05-31 10:08] LABS: Magnesium 2.5 mg/dL (1.8-2.4)
[2022-05-31] MEDS: Metoprolol 12.5 MG TAB PO (12:39)
[2022-05-31] MEDS: Potassium Chloride Liquid 20 MEQ PKT 40 MEQ PO (12:50)
[2022-05-31 13:09] LABS: PTT Activated 47.9 sec (21.5-31.9)
[2022-05-31] MEDS: Protein Nutritional Supplement 16 GM 1 OUNCE PACKET PO ×2 (13:16→19:25)
[2022-05-31] MEDS: Furosemide 100 MG/10 ML VIAL 40 MG IVP (16:46)
[2022-05-31] MEDS: Potassium Chloride Liquid 20 MEQ PKT PO ×2 (16:46→19:24)
[2022-05-31 20:12] LABS: PTT Activated 79.4 sec (21.5-31.9)
[2022-06-01] VITALS (86 sets, daily range): BP systolic 83–116; BP diastolic 45–75; PULSE 46–131; RESP 1–28; TEMP 34–37; O2SAT 88–95
--- NOTE | 2022-06-01 | DI.CT_ITS ---
Exam(s) CT CHEST WO EXAM: CT CHEST WO CLINICAL HISTORY: Empyema, f/u remaining fluid vs mass TECHNIQUE: Imaging Protocol: Axial computed tomography images with coronal and sagittal reformatted images were created and reviewed CONTRAST MATERIAL: Noncontrast COMPARISON: CT CT THORAX ABD/PEL CTA from 05/26/2022 CR XR PORTABLE CHEST AP POST LINE from 05/27/2022 CR XR PORTABLE CHEST AP from 05/28/2022 CR,XR XR PORTABLE CHEST AP from 05/30/2022 FINDINGS: Exam is limited by patient motion and lack of IV contrast. There is a chest tube entering from the lower right anterior chest extending a along the lateral aspe ct of the ribs. The tip is not located within any fluid collection. There are moderate-sized bilateral pleural effusions and adjacent basilar atelectasis. There has bee n no significant change of a masslike density seen anteriorly in the right middle lobe with central a prashanth low attenuation given differences in technique. The heart is enlarged. Coronary artery calcifications are seen. There is a trace pericardial effusi on, stable. Pectus excavatum deformity is incidentally noted. There are severe emphysematous changes. There is roughly symmetric bilateral interstitial thickening mainly dependent which could indicate pulmonary edema. IMPRESSION: Exam limited by respiratory motion and lack of contrast. No significant change in right middle lobe mass versus empyema with central cystic change. Right-sided chest tube along the lateral chest wall. There are bilateral pleural effusions and suggestion of pulmonary edema. Underlying emphysematous changes. RADIATION DOSE DELIVERED: 379.38mGy.cm Total DLP DATA REPOSITORY: All CT scans at this facility are submitted to the National Radiology Data Registry (NRDR) Dose Index Registry (DIR) with the [employer] (A[employer]). RADIATION OPTIMIZATION: All CT scans at this facility use at least one of these dose optimization te chniques: automated exposure control; mA and/or kV adjustment per patient size (includes targeted exa ms where dose is matched to clinical indication); or iterative reconstruction.
[2022-06-01 06:47] LABS: Abs Immature Grans 0.11 10^3/uL (0.0-0.06); Absolute Basophil Count 0.01 10^3/uL (0.0-0.2); Absolute Eosinophil Count 0.05 10^3/uL (0.0-0.7); Absolute Lymphocyte Count 1.24 10^3/uL (1.2-3.4); Absolute Monocyte Count 1.01 10^3/uL (0.1-0.8); Basophils % 0.1; Eosinophils % 0.4; HCT 34.3 % (36.0-46.0); HGB 11.2 g/dL (11.2-15.7); Immature Grans % 0.8; Lymphocytes % 9.1; MCHC 32.7 % (32.0-36.0); MCV 83 fL (80-95); Monocytes % 7.4; Neutrophils % 82.2; Platelet Count 259 10^3/uL (130-400); RBC 4.15 10^6/uL (3.93-5.22); RDW 14.9 % (11.7-14.6); RDW-SD 44.9 fL; WBC 13.67 10^3/uL (4.4-10.8)
[2022-06-01] MEDS: Metoprolol 12.5 MG TAB PO ×2 (06:48→18:36)
[2022-06-01 07:04] LABS: Absolute Neutrophil Count 11.24 10^3/uL (1.2-6.7)
--- NOTE | 2022-06-01 07:14 | PUCC_ITS ---
General Date of Service Date of service: 06/01/22 Time of Service: 07:15 Reason for Admission to ICU: Loculated pleural effusion A. fib with RVR Assessment and Plan Assessment and plan (1) Leukocytosis, unspecified: Status: Acute Qualifiers: Leukocytosis type: unspecified Qualified Code(s): D72.829 - Elevated white blood cell count, unspecified (2) Tobacco dependence: Status: Acute (3) Respiratory failure with hypoxia: Status: Acute (4) Acute renal failure: Status: Acute (5) Parapneumonic effusion: Status: Acute (6) Pneumonia: Status: Acute (7) Sepsis: Status: Acute (8) Atrial fibrillation with RVR: Status: Acute Assessment and plan: This is a 81 yo woman with A.fib on Eliquis, HLD and smoking who presented to the ED with back pain and found to have Afib with RVR and a loculated right pleural effusion with concern for possible RML mass. She is s/p a surgical chest tube and has drained a total of 2500cc with output tapering down to a more physiologic level. She finally was able to start producing urine and her DEAN is significantly improving with continued diuresis. For her hospital stay she is now at an even volume status. By Light's criteria this is an exudative effusion. Although no bacteria was isolated on pleural fluid analysis, the pH less than 7.2 is diagnostic for a complicated parapneumonic effusion. Her MRSA was negative and the vancomycin was discontinued. She continues to improve on cefepime. Today I will repeat a chest CT and if the space appears to be drained sufficiently, I would recommend having the chest tube removed. Recommendations Pulmonary: Loculated pleural effusion - surgical chest tube placed - fluid exudative with multinucleated cells. - on cefepime - vanc discontinued - would recommend a repeat chest CT today to assess for chest tube liberation Hypoxic respiratory failure - supplemental O2 for sats 88-92% - HFNC weaning as tolerated - standing nebs Cardiac: A. fib with RVR - off amiodarone drip - on PO amiodarone and PO metoprolol - recommend pulling back and eventually discontinuing amiodarone if able Septic Shock, resolved - recommend PIV placement and removal of central line Renal: Acute Renal Failure, improving - urine sodium low - patient would not want HD - doing much better, with improving Cr - recommend changing Lasix from q8 to q12 dosing since the bicarb has increased I&O: Intake & Output 05/29/22 05/30/22 05/31/22 06/01/22 23:59 23:59 23:59 23:59 Intake Total 1223.335 / 1223.335 770.867 / 293.139 9613.317 / 1270.317 480 / 480 Output Total 793 / 793 3625 / 3825 2600 / 2600 300 / 300 Balance 430.335 / 430.335 -2854.133 / -3054.133 -1569.683 / -1329.683 180 / 180 Weight 55.9 kg 54.9 kg Daily Fluid Goal:: Slightly negative - (-500cc to -1L) GI Nutrition: Ok for diet Date of Last Bowel Movement: 05/31/22 Infectious Disease: Pneumonia - continue cefepime - vanc discontinued (negative MRSA nares) - urine antigens negative - pleural fluid and blood cultures negative Hematologic: Leukocytosis, improving - due to sepsis Neurologic: Pain - pain control as needed Endocrine: No acute concerns Lines: PIV CVC - right subclavian Prophylaxis: heparin gtt Code Status: Resuscitation Status DNR/DNI Subjective Critical and life-threatening events over the past 24 hours: Kelsey has improved and appears much better today than she did on Wednesday. Her renal function is improving significantly after receiving diuresis. Her A. fib with RVR is also much better controlled and she is off the amiodarone infusion and is now receiving PO metoprolol and PO amiodarone. Her mental status is much improved today. Her chest tube drainage is approaching a physiologic level. Exam Narrative Exam Narrative: POCUS 05/29/22: Left pleural space with a simple small to moderate pleural effusion. IVC is larger than last exam and with no inspiratory variation. No change in size of pericardial effusion. Good cardiac function. POCUS 05/27/22: Good cardiac windows seen. Normal LV and RV function. Atrial fibrillation. Small pericardial effusion with no tamponade physiology. IVC not collapsible with inspiration. Right pleural space with moderate sized effusion, appears less complicated as compared to yesterday now that patient is in a more advantageous position. POCUS 05/26/22: Moderate loculated appearing right sided pleural effusion. Exam not completed on left and no cardiac POCUS done due to extreme patient discomfort. Gen: normal respiratory effort, well-nourished HENT: PERRL Chest: No respiratory distress, normal appearance of chest, shallow breaths Heart: regular rate and rhythym, no murmurs, rubs or gallops Abdomen: Non-distended, soft, non tender Extremities: No clubbing, edema, cyanosis, rashes Neuro: Alert and appropriate, moving all extremities Psych: cooperative Most Recent VS/Results Last Vital Signs Temp 36.8 C 06/01/22 04:00 Pulse 98 H 06/01/22 05:00 Resp 22 06/01/22 06:00 BP 114/72 06/01/22 05:00 Pulse Ox 94 06/01/22 06:00 Laboratory Results - last 24 hr 05/31/22 05/31/22 05/31/22 06:10 06:10 06:10 WBC RBC Hgb Hct MCV MCH MCHC RDW Plt Count MPV Immature Gran % Neutrophils % Lymphocytes % Monocytes % Eosinophils % Basophils % Nucleated RBC % Absolute Neutrophils Absolute Lymphocytes Absolute Monocytes Absolute Eosinophils Absolute Basophils APTT Magnesium 2.5 H Procalcitonin 5.1 Add-On Test Request DONE 05/31/22 05/31/22 06/01/22 12:15 19:48 05:40 WBC 13.67 H RBC 4.15 Hgb 11.2 Hct 34.3 L MCV 83 MCH 27.0 MCHC 32.7 RDW 14.9 H Plt Count 259 MPV 11.0 Immature Gran % 0.8 Neutrophils % 82.2 Lymphocytes % 9.1 Monocytes % 7.4 Eosinophils % 0.4 Basophils % 0.1 Nucleated RBC % 0.0 Absolute Neutrophils 11.24 H Absolute Lymphocytes 1.24 Absolute Monocytes 1.01 H Absolute Eosinophils 0.05 Absolute Basophils 0.01 APTT 47.9 H 79.4 H Magnesium Procalcitonin Add-On Test Request Review of Systems All systems reviewed & are unremarkable except as noted in HPI and below Time spent with patient Time spent in Critical Care: 45 Time spent in Critical care included: Chart review, Documenting critically ill care, Time at immediate bedside and Discussing critically ill care with other medical staff Multi-Disciplinary Checklist Lines/Tubes CENTRAL LINE: yes, Central Line Day#: 4 ARTERIAL LINE: no PITT: yes, Pitt Day#: 6 ENDOTRACHEAL TUBE: no ICU Maintenance GLUCOSE 140-180mg/dL: yes NUTRITION AT GOAL: yes PRESSURE ULCER: no RESTRAINTS: no ANTIBIOTICS(if yes, consider Stewardship): Yes Social Issues FAMILY UPDATED: no, Reason/Intervention: Patient capable of doing this PT/OT: no, Reason/Intervention: not currently appropriate GOALS/DISPOSITION/FIXED WING AIRCRAFT FLIGHT ENGINEER: yes CODE STATUS: DNR/DNI Prophylaxis DVT PROPHYLAXIS: yes GI PROPHYLAXIS: no
[2022-06-01 07:32] LABS: PTT Activated 88.8 sec (21.5-31.9)
[2022-06-01 07:36] LABS: ALT 32 U/L (14-59); AST 27 U/L (15-37); Alkaline Phosphatase 42 U/L (46-116); Anion Gap 9.9 mmol/L (3-11); Bilirubin, Total 0.4 mg/dL (0.2-1.0); CO2 30.1 mmol/L (21.0-32.0); Calcium 8.2 mg/dL (8.5-10.1); Chloride 103 mmol/L (98-107); Estimated GFR 12.32 (mL/min/1.73m2); Glucose 122 mg/dL (74-106); Magnesium 2.2 mg/dL (1.8-2.4); Potassium 3.3 mmol/L (3.5-5.1); Sodium 143 mmol/L (136-145); Total Protein 5.2 g/dL (6.4-8.2)
[2022-06-01 07:45] LABS: BUN 105 mg/dL (7-18)
[2022-06-01 07:46] LABS: CREATININE 3.6 mg/dL (0.55-1.02)
[2022-06-01] MEDS: Levalbuterol 1.25 MG/3 ML UPD VIAL UPD ×4 (07:59→20:02)
[2022-06-01] MEDS: Ipratropium 0.5 MG/2.5 ML UPD VIAL 0.25 MG UPD ×4 (08:00→20:02)
[2022-06-01] MEDS: Furosemide 100 MG/10 ML VIAL 40 MG IVP (08:30)
[2022-06-01] MEDS: CEFEPIME 1 GM in Normal Saline 50 ML IVPB (08:31)
[2022-06-01] MEDS: Amiodarone 200 MG TAB 400 MG PO ×2 (08:35→22:15)
[2022-06-01] MEDS: Potassium Chloride Liquid 20 MEQ PKT PO ×3 (08:35→22:14)
[2022-06-01] MEDS: Protein Nutritional Supplement 16 GM 1 OUNCE PACKET PO ×3 (08:35→22:14)
--- NOTE | 2022-06-01 14:45 | W.PM.PROGNOT ---
Date of Service Date of service: 06/01/22 Time of Service: 14:47 Assessment and Plan Assessment and plan (1) Sepsis: Status: Acute Assessment and plan: Secondary to pneumonia and empyema. MRSA screen is negative so vancomycin was d/c'd. Continues on Cefepeime. Anaerobic pleural culture showed no growth after 4 days. Aerobic culture from pleural fluid also shows no growth after 96 hours although the Gram stain showed many white cells but no bacteria. Patient continues to require ICU level of care due to her hypoxemia. With improvement; d/c central line. (2) Respiratory failure with hypoxia: Status: Acute Assessment and plan: multifactorial primary insult was her complicated pneumonia/empyema however she is now in volume overload and requires diuresis. fortunately she has responded to high dose Diuril and lasix. Lasix drip was converted to intermittent boluses of Lasix. Diuril was discontinued. Hypoxemia is improving although she still requires nasal cannula; weaning from HFNC. For now we will keep her in the intensive care unit because the level of support that she requires. (3) Pneumonia: Status: Acute Assessment and plan: As above (4) Loculated pleural effusion: Status: Acute Assessment and plan: Status postplacement of right-sided chest tube placement 05/27. Pleural fluid culture showed no growth as noted above. Cytology negative for malignant cells. CT chest today showed tip of chest tube not in the area of empyema, but when she is repositioned, the tube drains pleural effusion. Will repeat CXR in AM and consider pulling chest tube tomorrow. (5) Acute renal failure with oliguria: Status: Acute Assessment and plan: Renal function continues to improve. BUN is still elevated at 105 but creatinine is now down to 3.6 and she is maintaining a good urine output. Still requires diuretics as she still seems to be volume overloaded. Potassium is now low at 3.3 and she will receive supplementation to correct this. (6) Atrial fibrillation with RVR: Status: Acute Assessment and plan: Rate and rhythm are being controlled with loading doses of amiodarone as well as small doses of short acting Lopressor. She is anticoagulated with heparin as she has not recovered enough from her acute kidney injury to go back on her apixaban as of yet. (7) Movement disorder: Status: Acute Assessment and plan: Patient has not exhibited any further tardive dyskinesia type movements this may have been related to her acute delirium from her metabolic encephalopathy. (8) Delirium: Status: Resolved Assessment and plan: Likely metabolic encephalopathy secondary to sepsis superimposed on what sounds to be a dementia process. This appears to have resolved w/ her improvement from her sepsis. (9) DVT prophylaxis: Status: Acute Assessment and plan: begin heparin drip Continue SCDs (10) Discharge planning issues: Status: Acute Assessment and plan: Per Pastor Salas he feels that the patient cannot return home she has been failing for some time over several months and her home environment is not conducive to her recovery. She will likely need a SNF if she survives her acute illness. Subjective Subjective Patient reports: shortness of breath and afebrile; denies diarrhea, nausea or vomiting Interval history since last seen: Alert and oriented this AM. Exam Narrative Exam Narrative: Lying in bed. Conversational. Const General: cooperative and no acute distress Nutritional Appearance: underweight Orientation: alert, oriented to person and oriented to place Eyes General: appearance normal, both eyes and all related structures Sclera: sclerae normal Resp Effort & Inspection: other (shallow, mildly rapid breathing. ) Auscultation: diminished lung sounds Cardio Rate: regular rate Rhythm: regular rhythm Heart Sounds: S1 normal and S2 normal GI Inspection: non-distended Palpation: soft and nontender Neuro General: no focal motor deficits Cranial Nerves: facial strength normal Extrem General: no pedal edema and no calf tenderness Psych Speech and Movement: speech clear Affect: normal affect Objective Last Vital Signs Temp 36.8 C 06/01/22 04:00 Pulse 59 L 06/01/22 13:01 Resp 21 06/01/22 13:12 BP 94/66 L 06/01/22 13:12 Pulse Ox 92 06/01/22 13:12 Laboratory Results - last 24 hr 05/31/22 06/01/22 06/01/22 19:48 05:40 05:40 WBC RBC Hgb Hct MCV MCH MCHC RDW Plt Count MPV Immature Gran % Neutrophils % Lymphocytes % Monocytes % Eosinophils % Basophils % Nucleated RBC % Absolute Neutrophils Absolute Lymphocytes Absolute Monocytes Absolute Eosinophils Absolute Basophils APTT 79.4 H 88.8 H* Sodium 143 Potassium 3.3 L Chloride 103 Carbon Dioxide 30.1 Anion Gap 9.9 BUN 105 H* Creatinine 3.6 H* Est GFR (CKD-EPI 2021) 12.32 Glucose 122 H Calcium 8.2 L Magnesium 2.2 Total Bilirubin 0.4 AST 27 ALT 32 Alkaline Phosphatase 42 L Total Protein 5.2 L Albumin 2.0 L 06/01/22 05:40 WBC 13.67 H RBC 4.15 Hgb 11.2 Hct 34.3 L MCV 83 MCH 27.0 MCHC 32.7 RDW 14.9 H Plt Count 259 MPV 11.0 Immature Gran % 0.8 Neutrophils % 82.2 Lymphocytes % 9.1 Monocytes % 7.4 Eosinophils % 0.4 Basophils % 0.1 Nucleated RBC % 0.0 Absolute Neutrophils 11.24 H Absolute Lymphocytes 1.24 Absolute Monocytes 1.01 H Absolute Eosinophils 0.05 Absolute Basophils 0.01 APTT Sodium Potassium Chloride Carbon Dioxide Anion Gap BUN Creatinine Est GFR (CKD-EPI 2020) Glucose Calcium Magnesium Total Bilirubin AST ALT Alkaline Phosphatase Total Protein Albumin Time Spent with Patient Time Spent with Patient: 25-34 minutes Time was spent: preparing to see the patient(eg.review tests), ordering medications,tests, procedures, referring, communicating with other health child care development specialist and indepentently interpreting results
[2022-06-01 15:04] LABS: PTT Activated 70.1 sec (21.5-31.9)
--- NOTE | 2022-06-01 15:37 | PDOC.CMPRO ---
- If Service Date Differs Date of service: 06/01/22 Time of Service: 15:38 Care Management Progress Note S/O:Kelsey remains ICU level of care although she has shown some improvement. Her kidney function is better and she is now awake and alert. Kelsey was sitting up in bed when CM met with her. CM identified the fact that her advanced directives and code status are different but acknowledged that she had informed the provider upon admission that she did not want CPR or intubation. When asked if this was true, Kelsey nodded yes. She also stated that she believes that Octavia is her DPOA as well as her health care agent. She did state that she wants to make her own healthcare decisions now. CM broached the subject of discharge planning and commented that it would likely be necessary for her to go to a snf facility before she would be ready to go home. She clearly stated that she just wants to go home. CM explained that she is much weaker now, but that we can wait and see how she does and revisit the issue when she is closer to discharge. A: Kelsey is a 81 year old woman admitted on 05/26/22 with sepsis, pneumonia and empyema P: Kelsey's discharge plan is unclear at this time. She is critically ill and has not responded fully to treatment. Her most recent advanced directive lists her as a full code but her current status is DNR/DNI which is what Kelsey reported to the ED physician when she presented to [facility]. She confirmed this with CM today. CM will follow and offer support to Kelsey and assess for discharge concerns.
[2022-06-01] MEDS: Furosemide 40 MG/4 ML VIAL IVP (22:15)
[2022-06-01] MEDS: Normal Saline Flush 10 ML SYR IVP (22:16)
[2022-06-02] VITALS (66 sets, daily range): BP systolic 99–114; BP diastolic 51–78; PULSE 45–109; RESP 1–24; TEMP 32–37; O2SAT 86–96
[2022-06-02] MEDS: Normal Saline Flush 10 ML SYR IVP ×3 (00:38→19:52)
[2022-06-02 06:09] LABS: Abs Immature Grans 0.08 10^3/uL (0.0-0.06); Absolute Basophil Count 0.01 10^3/uL (0.0-0.2); Absolute Eosinophil Count 0.22 10^3/uL (0.0-0.7); Absolute Lymphocyte Count 1.08 10^3/uL (1.2-3.4); Basophils % 0.1; Eosinophils % 1.8; HGB 11.3 g/dL (11.2-15.7); Immature Grans % 0.7; Lymphocytes % 8.9; MCH 27.6 pg (27.0-33.0); MCHC 33.2 % (32.0-36.0); MCV 83 fL (80-95); Monocytes % 6.3; Neutrophils % 82.2; Platelet Count 235 10^3/uL (130-400); RDW 14.8 % (11.7-14.6); RDW-SD 44.5 fL; WBC 12.15 10^3/uL (4.4-10.8)
[2022-06-02 06:16] LABS: Absolute Monocyte Count 0.77 10^3/uL (0.1-0.8); Absolute Neutrophil Count 9.99 10^3/uL (1.2-6.7)
[2022-06-02 06:24] LABS: Anion Gap 6.5 mmol/L (3-11); CO2 32.5 mmol/L (21.0-32.0); CREATININE 2.2 mg/dL (0.55-1.02); Calcium 8.2 mg/dL (8.5-10.1); Chloride 103 mmol/L (98-107); Estimated GFR 22.25 (mL/min/1.73m2); Glucose 119 mg/dL (74-106); Sodium 142 mmol/L (136-145)
[2022-06-02 06:27] LABS: PTT Activated 25.8 sec (21.5-31.9)
[2022-06-02 06:44] LABS: BUN 85 mg/dL (7-18)
[2022-06-02 06:45] LABS: Potassium 2.7 mmol/L (3.5-5.1)
--- NOTE | 2022-06-02 06:50 | W.PULMCC ---
General Date of Service Date of service: 06/02/22 Time of Service: 06:50 Reason for Admission to ICU: Loculated pleural effusion A. fib with RVR Acute Renal Failure Assessment and Plan Assessment and plan (1) Leukocytosis, unspecified: Status: Acute Qualifiers: Leukocytosis type: unspecified Qualified Code(s): D72.829 - Elevated white blood cell count, unspecified (2) Tobacco dependence: Status: Acute (3) Respiratory failure with hypoxia: Status: Acute (4) Acute renal failure: Status: Acute (5) Parapneumonic effusion: Status: Acute (6) Pneumonia: Status: Acute (7) Sepsis: Status: Acute (8) Atrial fibrillation with RVR: Status: Acute Assessment and plan: This is a 81 yo woman with A.fib on Eliquis, HLD and smoking who presented to the ED with back pain and found to have Afib with RVR and a loculated right pleural effusion with concern for possible RML mass. She is s/p a surgical chest tube and has drained a total of 2500cc with output tapering down to a more physiologic level. She finally was able to start producing urine and her DEAN is significantly improving with continued diuresis. For her hospital stay she is now at an even volume status. By Light's criteria this is an exudative effusion. Although no bacteria was isolated on pleural fluid analysis, the pH less than 7.2 is diagnostic for a complicated parapneumonic effusion. Her MRSA was negative and the vancomycin was discontinued. She continues to improve on cefepime. Yesterday with repositioning more chest tube output occured. She is stable for transfer to med-surg status Recommendations Pulmonary: Parapneumonic effusion - surgical chest tube placed - fluid exudative with multinucleated cells. 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 fib with RVR - off amiodarone drip - on PO amiodarone and PO metoprolol - recommend pulling back and eventually discontinuing amiodarone if able - with improved renal function, can put her back onto Eliquis and DC heparin infusion Septic Shock, resolved - recommend PIV placement and removal of central line Renal: Acute Renal Failure, improving - urine sodium low - patient would not want HD - doing much better, with improving Cr - recommend changing Lasix to daily from bid I&O: Intake & Output 05/30/22 05/31/22 06/01/22 06/02/22 23:59 23:59 23:59 23:59 Intake Total 770.867 / 537.938 9116.317 / 6665.991 4976.367 / 2354.367 460 / 460 Output Total 3625 / 3825 2600 / 2600 2150 / 2400 1040 / 1040 Balance -2854.133 / -3054.133 -1569.683 / -1329.683 -35.633 / -45.633 -580 / -580 Weight 54.9 kg 50.3 kg Daily Fluid Goal:: Slightly negative - (-500cc to -1L) GI Nutrition: Ok for diet Date of Last Bowel Movement: 06/01/22 Infectious Disease: Pneumonia - continue cefepime - vanc discontinued (negative MRSA nares) - urine antigens negative - pleural fluid and blood cultures negative Hematologic: Leukocytosis, improving - due to sepsis Neurologic: Pain - pain control as needed Endocrine: No acute concerns Lines: CVC - right subclavian - recommend removal once PIV are obtained Prophylaxis: heparin gtt Code Status: Resuscitation Status DNR/DNI Subjective Critical and life-threatening events over the past 24 hours: There has been no drainage from chest tube since midnight and only 200cc in preceding 24 hours. She is doing well today. Exam Narrative Exam Narrative: POCUS 05/29/22: Left pleural space with a simple small to moderate pleural effusion. IVC is larger than last exam and with no inspiratory variation. No change in size of pericardial effusion. Good cardiac function. POCUS 05/27/22: Good cardiac windows seen. Normal LV and RV function. Atrial fibrillation. Small pericardial effusion with no tamponade physiology. IVC not collapsible with inspiration. Right pleural space with moderate sized effusion, appears less complicated as compared to yesterday now that patient is in a more advantageous position. POCUS 05/26/22: Moderate loculated appearing right sided pleural effusion. Exam not completed on left and no cardiac POCUS done due to extreme patient discomfort. Gen: normal respiratory effort, well-nourished HENT: PERRL Chest: No respiratory distress, normal appearance of chest, shallow breaths Heart: regular rate and rhythym, no murmurs, rubs or gallops Abdomen: Non-distended, soft, non tender Extremities: No clubbing, edema, cyanosis, rashes Neuro: Alert and appropriate, moving all extremities Psych: cooperative Most Recent VS/Results Last Vital Signs Temp 36.4 C L 06/02/22 04:00 Pulse 51 L 06/02/22 06:01 Resp 17 06/02/22 06:01 BP 102/58 L 06/02/22 06:01 Pulse Ox 88 L 06/02/22 06:01 Laboratory Results - last 24 hr 06/01/22 06/01/22 06/01/22 05:40 05:40 05:40 WBC 13.67 H RBC 4.15 Hgb 11.2 Hct 34.3 L MCV 83 MCH 27.0 MCHC 32.7 RDW 14.9 H Plt Count 259 MPV 11.0 Immature Gran % 0.8 Neutrophils % 82.2 Lymphocytes % 9.1 Monocytes % 7.4 Eosinophils % 0.4 Basophils % 0.1 Nucleated RBC % 0.0 Absolute Neutrophils 11.24 H Absolute Lymphocytes 1.24 Absolute Monocytes 1.01 H Absolute Eosinophils 0.05 Absolute Basophils 0.01 APTT 88.8 H* Sodium 143 Potassium 3.3 L Chloride 103 Carbon Dioxide 30.1 Anion Gap 9.9 BUN 105 H* Creatinine 3.6 H* Est GFR (CKD-EPI 2020) 12.32 Glucose 122 H Calcium 8.2 L Magnesium 2.2 Total Bilirubin 0.4 AST 27 ALT 32 Alkaline Phosphatase 42 L Total Protein 5.2 L Albumin 2.0 L 06/01/22 06/02/22 06/02/22 14:42 05:10 05:10 WBC 12.15 H RBC 4.10 Hgb 11.3 Hct 34.0 L MCV 83 MCH 27.6 MCHC 33.2 RDW 14.8 H Plt Count 235 MPV 11.0 Immature Gran % 0.7 Neutrophils % 82.2 Lymphocytes % 8.9 Monocytes % 6.3 Eosinophils % 1.8 Basophils % 0.1 Nucleated RBC % 0.0 Absolute Neutrophils 9.99 H Absolute Lymphocytes 1.08 L Absolute Monocytes 0.77 Absolute Eosinophils 0.22 Absolute Basophils 0.01 APTT 70.1 H Sodium 142 Potassium 2.7 L* Chloride 103 Carbon Dioxide 32.5 H Anion Gap 6.5 BUN 85 H* Creatinine 2.2 H D Est GFR (CKD-EPI 2020) 22.25 Glucose 119 H Calcium 8.2 L Magnesium Total Bilirubin AST ALT Alkaline Phosphatase Total Protein Albumin 06/02/22 05:10 WBC RBC Hgb Hct MCV MCH MCHC RDW Plt Count MPV Immature Gran % Neutrophils % Lymphocytes % Monocytes % Eosinophils % Basophils % Nucleated RBC % Absolute Neutrophils Absolute Lymphocytes Absolute Monocytes Absolute Eosinophils Absolute Basophils APTT 25.8 Sodium Potassium Chloride Carbon Dioxide Anion Gap BUN Creatinine Est GFR (CKD-EPI 2020) Glucose Calcium Magnesium Total Bilirubin AST ALT Alkaline Phosphatase Total Protein Albumin Review of Systems All systems reviewed & are unremarkable except as noted in HPI and below Time spent with patient Time spent in Critical Care: 40 Time spent in Critical care included: Chart review, Documenting critically ill care, Time at immediate bedside and Discussing critically ill care with other medical staff Multi-Disciplinary Checklist Lines/Tubes CENTRAL LINE: yes, Central Line Day#: 5 ARTERIAL LINE: no PITT: yes, Pitt Day#: 7 ENDOTRACHEAL TUBE: no ICU Maintenance GLUCOSE 140-180mg/dL: yes NUTRITION AT GOAL: yes PRESSURE ULCER: no RESTRAINTS: no ANTIBIOTICS(if yes, consider Stewardship): Yes Social Issues FAMILY UPDATED: no, Reason/Intervention: Patient capable of doing this PT/OT: no, Reason/Intervention: not currently appropriate GOALS/DISPOSITION/SENIOR DB2 SYSTEMS PROGRAMMER: yes CODE STATUS: DNR/DNI Prophylaxis DVT PROPHYLAXIS: yes GI PROPHYLAXIS: no
[2022-06-02] MEDS: Ipratropium 0.5 MG/2.5 ML UPD VIAL 0.25 MG UPD ×4 (08:00→19:42)
[2022-06-02] MEDS: Levalbuterol 1.25 MG/3 ML UPD VIAL UPD ×4 (08:00→19:42)
[2022-06-02] MEDS: Potassium Chloride 20 MEQ TABCR PO (08:36)
[2022-06-02] MEDS: Protein Nutritional Supplement 16 GM 1 OUNCE PACKET PO ×3 (08:37→19:33)
[2022-06-02] MEDS: Amiodarone 200 MG TAB 400 MG PO ×2 (08:38→19:32)
[2022-06-02] MEDS: POTASSIUM CHLORIDE 20 MEQ/100 ML BAG 50 MEQ IVPB (08:38)
[2022-06-02] MEDS: Potassium Chloride Liquid 20 MEQ PKT PO ×3 (08:39→19:33)
[2022-06-02] MEDS: CEFEPIME 1 GM in Normal Saline 50 ML IVPB ×2 (08:40→19:51)
--- NOTE | 2022-06-02 08:44 | PDOC.CMPRO ---
- If Service Date Differs Date of service: 06/02/22 Time of Service: 08:44 Care Management Progress Note S/O: Kelsey continues to require ICU level care and per provider is making improvement. She remains on Hi-Flow O2 and is being followed by Pulmonary and RT. Per provider, when discharged pt will need a pulmonology follow up in a month with repeat CT scan. Kelsey refuses SNF for STR at this time and clearly states that she just wants to go home. Per report, she is active and independent at baseline and takes care of her horses and dog. CM explained that she is much weaker now, but that we can wait and see how she does and revisit the issue when she is closer to discharge. PT eval is ordered. A: Kelsey is a 81 year old woman admitted on 05/26/22 with sepsis, pneumonia and empyema P: Kelsey's discharge plan is unclear at this time. She is critically ill and has not responded fully to treatment. Her most recent advanced directive lists her as a full code but her current status is DNR/DNI which is what Kelsey reported to the ED physician when she presented to [facility]. She confirmed this with CM today. CM will follow and offer support to Kelsey and assess for discharge concerns.
[2022-06-02] MEDS: Furosemide 40 MG/4 ML VIAL IVP (09:50)
--- NOTE | 2022-06-02 12:53 | PT.INIE ---
Date of service: 06/02/22 Time of Service: 11:25 PT Notes Visit Reasons: Sepsis,Pneumonia, Empyema, Rapid Afib Physical Therapy Inpatient Initial Evaluation ? Date: 06/02/2022 ? Referring Doctor:? Bharathi Combs MD PT Orders: PT CONSULT: Eval/Treat Precautions: Fall. Standard. Activity as tolerated. ? Patient Profile/Admitting Diagnosis:? Patient is a 81-year-old female who presented to the ED on 05/26/2021 with report of back pain for the past 24 hours found to have atrial fibrillation with rapid ventricular response at the ED. Patient is admitted to [facility] for management of leukocytosis, tobacco dependence, respiratory failure with hypoxia, acute renal failure, parapneumonic effusion, pneumonia, sepsis, and atrial fibrillation. ? PMHX: All Active Problems?(Updated 05/26/22 @ 17:48 by Sonam Mccord MD) Pneumonia (Acute) Sepsis (Acute) Respiratory failure with hypoxia (Acute) Atrial fibrillation with RVR (Acute) Loculated pleural effusion (Acute) Gastritis (Acute) Discharge planning issues (Acute) Leukocytosis, unspecified (Acute) Acute blood loss anemia (Acute) DVT prophylaxis (Acute) Tobacco dependence (Acute) Closed right hip fracture (Acute 04/23/19) S/P screw fixation DOS: 04/24/19TIA (transient ischemic attack) (Chronic) Pt denied hx of stroke Discharge problem list from 10/08/15 states TIA Hyperlipidemia (Chronic) Hypothyroidism (Chronic) Atrial fibrillation (Chronic) on Eliquis Mild cognitive impairment with memory loss (Acute) Surgical History? History of cystogram Pt describes cystogram Discharge problem list from 10/08/15 states hx of exploratory laparotomy Social History/Home Situation: Patient lives alone. She has one step onto her sun porch to enter the home and 14 steps to get to the second floor where her bedroom is. She however has converted a room on the main floor to be her bedroom as going upstairs had become a problem. She still drives. She manages all her ADLS on her own without at assistive device. ? Equipment Owned/DME: FWW ? Subjective: Agreeable to being moved out of bed onto bedside chair. Reported being considerably fatigued during and after activity. ? Objective: General Observation: Appears frail. HF at 35L on 30% via NC. Limited monitoring in place. Chest drain in place. Mcdowell catheter in place. Mental Status: Alert and oriented as to person. Able to follow singel step commands but required repetition of commands. Verbal responses generally delayed. Pain: 0/10 with rest Vital Signs: Oxygen saturation on HF maintained above 90% at rest however patient desaturated down to 81% on 6L of oxygen during an attempt at transfer/short distance ambulation requiring switchback to HF supplementation. ? ROM: Right Upper Extremity: ? Shoulder Flexion allows up to 90 degrees. Shoulder abduction allows up to 90 degrees. Elbow flexion WFL. Wrist flexion WFL. Opening and closing of hand WFL. Left Upper Extremity:? Shoulder Flexion allows up to 90 degrees. Shoulder abduction allows up to 90 degrees. Elbow flexion WFL. Wrist flexion WFL. Opening and closing of hand WFL. Right Lower Extremity: Hip flexion to about 90 degrees while seated at edge of bed. Hip abduction WFL. Knee flexion 10 degrees to 90 degrees. Kmee extension -10 degrees Ankle dorsiflexion to neutral only. Ankle plantarflexion WFL. Left Lower Extremity: Hip flexion to about 90 degrees while seated at edge of bed. Hip abduction WFL. Knee flexion 10 degrees to 90 degrees. Kmee extension -10 degrees Ankle dorsiflexion to neutral only. Ankle plantarflexion WFL. ? Strength: Right Upper Extremity: Shoulder flexors 3-/5. Shoulder abductors 3-/5. Elbow flexors 4-/5. Elbow extensors 4-/5. Whitewasher weak but functional. Left Upper Extremity: Shoulder flexors 3-/5. Shoulder abductors 3-/5. Elbow flexors 4-/5. Elbow extensors 4-/5. Whitewasher weak but functional. Right Lower Extremity: Hip flexors 3-/5. Hip abductors 4/5. Knee flexors 43-/5. Knee extensors 3-/5. Ankle dorsiflexors 3-/5. Ankle plantarflexors 4-/5. Left Lower Extremity: Hip flexors 3-/5. Hip abductors 4/5. Knee flexors 43-/5. Knee extensors 3-/5. Ankle dorsiflexors 3-/5. Ankle plantarflexors 4-/5. ? Sensation: Intact as to pain and pressure on bilateral lower extremities. ? Bed Mobility/Transfers: Supine to sit moderate assist Sit to supine moderate assist Sit to stand moderate assist Stand to sit moderate assist of 2 for safety Bed to chair moderate assist of 2 ? Gait: 4-5 small steps using FWW but with poor knee extension, trunk extension, and decreased safety awareness requiring more cueing and more physical assistance. Nurses Kashmir and Nurse Margy helped out with line management and patient assistance for safety. ? Balance: Static Sitting: Fair Dynamic Sitting: Fair Static Standing: Poor Dynamic Standing: Poor ? Special Tests: Mobility Limitations Standardized Measure [facility]-PAC 6 clicks Basic Mobility Inpatient Short Form: Raw Score: ? 12? CMS Score: 69% deficit ? Informed Consent/Education:? Patient was instructed in purpose of PT consult and plan of care. Agreeable to proceed with established PT POC to achieve personal goals. ? Assessment: Requires assist of 2 for all transfer and ambulation task performance to reduce fall risk. Patient is a 81-year-old female who presented to the ED on 05/26/2021 with report of back pain for the past 24 hours found to have atrial fibrillation with rapid ventricular response at the ED. Patient is admitted to [facility] for management of leukocytosis, tobacco dependence, respiratory failure with hypoxia, acute renal failure, parapneumonic effusion, pneumonia, sepsis, and atrial fibrillation. ? Patient presents with clinical signs and symptoms consistent with current/admitting diagnoses that have resulted to mobility limitations, gait instability and generalized weakness, as demonstrated by the following impairment level findings: 1.? Decreased strength to right LE hip and knee major muscle groups 2.? Impaired standing balance 3.? Impaired activity tolerance 4. Decreased ventilatory function 5. Fatigue 6. Impaired safety awareness ? Impairments are contributing to the following functional limitations: 1.? Dependent bed mobility skills 2.? Increased dependence with transfers 3.? Inability to safely ambulate without assistive device and physical assistance 4.? Increase completion time for mobility ADL performance 5.? Increased fall risk 6.? Inability to negotiate steps alone safely 7. [facility] deficit score of 69% ? Patient is assessed as a 33964 high complexity based on the following: History: Patient is a 81-year-old female who presented to the ED on 05/26/2021 with report of back pain for the past 24 hours found to have atrial fibrillation with rapid ventricular response at the ED. Patient is admitted to [facility] for management of leukocytosis, tobacco dependence, respiratory failure with hypoxia, acute renal failure, parapneumonic effusion, pneumonia, sepsis, and atrial fibrillation. Examination: Demonstrable impairment in strength and balance with underlying impairments and functional limitations as documented above Presentation: Evolving Decision Makin high complexity ? Goals: Goals X1 week 1. Supine-Sit independent 2. Sit-Supine independent 3. Sit-Stand independent 4. Stand-Sit independent 5. Bed-Chair independent 6. Chair-Bed independent 7. Independent gait on level surface with use of FWW for at least 300 feet without report of pain nor dyspnea 9. Fair dynamic standing balance/tolerance ? Plan of Care/Treatment Plan: 1-2x/day, 7 days/week x 1 week. Plan of care has been reviewed with the [employer]TONHO[employer] MARKER providing the service under Physical Therapy direction. Initiate Physical Therapy intervention for strengthening, bed mobility, transfers, gait, stairs, balance training, use of assistive device. ? DISCHARGE RECOMMENDATIONS: SNF vs HHPT based on medical trajectory and progress towards goals. TREATMENT CODE/TIME: 63446 x 25 minutes, 38942 x 12 minutes beginning at 11:25 A.M. ? Jewell Kelly PT, DPT, CLT [facility] [place], [place]
[2022-06-02] MEDS: POTASSIUM CHLORIDE 20 MEQ/100 ML BAG 100 MEQ IVPB (13:10)
--- NOTE | 2022-06-02 13:59 | PT.INTREAT ---
Date of service: 06/02/22 Time of Service: 13:31 PT Notes Visit Reasons: Sepsis,Pneumonia, Empyema, Rapid Afib Inpatient Physical Therapy Treatment Note [facility] Date: 06/02/2020 PRECAUTIONS: Activity as tolerated, Fall, chest tube SUBJECTIVE: Kelsey is pleasant and agreeable to participating in PT. OBJECTIVE: PAIN: No c/o pain BED MOBILITY/TRANSFERS Sit-supine: Mod A x2 with HOB at 40 degrees Sit-stand: Min A + CGA Stand-sit: CGA x2 Chair-bed: CGA x2 GAIT Assistive Device: FWW Weight bearing: Full Assist: CGA x2 Distance: 5 steps + 3 steps Deviation: Anteroflexed posture TOILETING: Patient was incontinent of stool, requiring Max A ASSESSMENT: Patient tolerated session without complaint. She demonstrates limited activity tolerance at this time. PLAN: Continue with global strengthening and gait training for improved activity tolerance and mobility. TREATMENT CODE/TIME: 24 minutes; 51104 x2 (13:31)
--- NOTE | 2022-06-02 14:24 | PGE_ITS ---
Date of Service Date of service: 06/02/22 Time of Service: 14:24 Assessment and Plan Assessment and plan (1) Parapneumonic effusion: Status: Acute Assessment and plan: CT Chest obtained yesterday. Chest tube removal requested by Dr. Rendon, and Dr. Combs. -- Chest tube dressing and drain stitch were removed. Chest was removed and occlusive dressing placed. Pt tolerated procedure well. --Surgery will sign off, please re-consult as necessary Subjective Subjective Interval history since last seen: Pt is much improved, and is recovering from acute renal and respiratory failure. CT Chest was performed yesterday. She has been seen by Dr. Rendon, who requests removal of the chest tube. Exam Narrative Exam Narrative: Const: pt is awake and alert CV: RRR Resp: still on high-flow O2, but tachypnea has significantly decreased Abd: soft, NT, ND Psych: cooperative Objective Last Vital Signs Temp 97.7 F 06/02/22 09:59 Pulse 58 L 06/02/22 12:02 Resp 17 06/02/22 12:02 BP 107/59 L 06/02/22 09:01 Pulse Ox 88 L 06/02/22 12:02 Laboratory Results - last 24 hr 06/01/22 06/02/22 06/02/22 14:42 05:10 05:10 WBC 12.15 H RBC 4.10 Hgb 11.3 Hct 34.0 L MCV 83 MCH 27.6 MCHC 33.2 RDW 14.8 H Plt Count 235 MPV 11.0 Immature Gran % 0.7 Neutrophils % 82.2 Lymphocytes % 8.9 Monocytes % 6.3 Eosinophils % 1.8 Basophils % 0.1 Nucleated RBC % 0.0 Absolute Neutrophils 9.99 H Absolute Lymphocytes 1.08 L Absolute Monocytes 0.77 Absolute Eosinophils 0.22 Absolute Basophils 0.01 APTT 70.1 H Sodium 142 Potassium 2.7 L* Chloride 103 Carbon Dioxide 32.5 H Anion Gap 6.5 BUN 85 H* Creatinine 2.2 H D Est GFR (CKD-EPI 2020) 22.25 Glucose 119 H Calcium 8.2 L 06/02/22 05:10 WBC RBC Hgb Hct MCV MCH MCHC RDW Plt Count MPV Immature Gran % Neutrophils % Lymphocytes % Monocytes % Eosinophils % Basophils % Nucleated RBC % Absolute Neutrophils Absolute Lymphocytes Absolute Monocytes Absolute Eosinophils Absolute Basophils APTT 25.8 Sodium Potassium Chloride Carbon Dioxide Anion Gap BUN Creatinine Est GFR (CKD-EPI 2020) Glucose Calcium Time Spent with Patient Time Spent with Patient: <25 minutes Time was spent: preparing to see the patient(eg.review tests), obtaining and/or reviewing separately otained hiistory, referring, communicating with other health rn critical care, indepentently interpreting results and counseling the patient
--- NOTE | 2022-06-02 15:08 | W.PM.PROGNOT ---
Date of Service Date of service: 06/02/22 Time of Service: 15:08 Assessment and Plan Assessment and plan (1) Sepsis: Status: Acute Assessment and plan: Secondary to pneumonia and empyema. MRSA screen is negative so vancomycin was d/c'd. Continues on Cefepeime. Anaerobic pleural culture showed no growth after 4 days. Aerobic culture from pleural fluid also shows no growth after 96 hours although the Gram stain showed many white cells but no bacteria. Patient continues to require ICU level of care due to her hypoxemia. With improvement; d/c central line. (2) Respiratory failure with hypoxia: Status: Acute Assessment and plan: multifactorial primary insult was her complicated pneumonia/empyema however she is now in volume overload and requires diuresis. fortunately she has responded to high dose Diuril and lasix. Lasix drip was converted to intermittent boluses of Lasix. Diuril was discontinued. Hypoxemia is improving although she still requires HFNC. Transfer to med-surg unit.. (3) Pneumonia: Status: Acute Assessment and plan: As above (4) Loculated pleural effusion: Status: Acute Assessment and plan: Status postplacement of right-sided chest tube placement 05/27. Pleural fluid culture showed no growth as noted above. Cytology negative for malignant cells. CT chest today showed tip of chest tube not in the area of empyema, but when she is repositioned, the tube drains pleural effusion. Chest tube removed today. (5) Acute renal failure with oliguria: Status: Acute Assessment and plan: Renal function continues to improve. Cr down to 2.2 and she is maintaining a good urine output. Still requires diuretics as she still seems to be volume overloaded. Will decrease lasix dose to daily (40mg IV). Potassium is now low at 3.3 and she will receive supplementation to correct this. (6) Atrial fibrillation with RVR: Status: Acute Assessment and plan: Rate and rhythm are being controlled with loading doses of amiodarone as well as small doses of short acting Lopressor. With improvement in renal function, can d/c heparin drip and start Eliquis for anticoagulation. (7) Movement disorder: Status: Acute Assessment and plan: Patient has not exhibited any further tardive dyskinesia type movements this may have been related to her acute delirium from her metabolic encephalopathy. (8) Delirium: Status: Resolved Assessment and plan: Likely metabolic encephalopathy secondary to sepsis superimposed on what sounds to be a dementia process. This hasresolved w/ resolution of sepsis. (9) DVT prophylaxis: Status: Acute Assessment and plan: begin heparin drip Continue SCDs (10) Discharge planning issues: Status: Acute Assessment and plan: Per Pastor Salas he feels that the patient cannot return home she has been failing for some time over several months and her home environment is not conducive to her recovery. She will likely need a SNF if she survives her acute illness. Subjective Subjective Patient reports: no new complaints and afebrile; denies nausea Exam Narrative Exam Narrative: Lying in bed. Conversational. s/p chest tube removal. Const General: cooperative and no acute distress Nutritional Appearance: underweight Orientation: alert, oriented to person and oriented to place Eyes General: appearance normal, both eyes and all related structures Sclera: sclerae normal Resp Effort & Inspection: other (shallow, mildly rapid breathing. ) Auscultation: diminished lung sounds Cardio Rate: regular rate Rhythm: regular rhythm Heart Sounds: S1 normal and S2 normal GI Inspection: non-distended Palpation: soft and nontender Neuro General: no focal motor deficits Cranial Nerves: facial strength normal Extrem General: no pedal edema and no calf tenderness Psych Speech and Movement: speech clear Affect: blunted Objective Last Vital Signs Temp 36.5 C 06/02/22 09:59 Pulse 58 L 06/02/22 12:02 Resp 17 06/02/22 12:02 BP 107/59 L 06/02/22 09:01 Pulse Ox 88 L 06/02/22 12:02 Laboratory Results - last 24 hr 06/02/22 06/02/22 06/02/22 05:10 05:10 05:10 WBC 12.15 H RBC 4.10 Hgb 11.3 Hct 34.0 L MCV 83 MCH 27.6 MCHC 33.2 RDW 14.8 H Plt Count 235 MPV 11.0 Immature Gran % 0.7 Neutrophils % 82.2 Lymphocytes % 8.9 Monocytes % 6.3 Eosinophils % 1.8 Basophils % 0.1 Nucleated RBC % 0.0 Absolute Neutrophils 9.99 H Absolute Lymphocytes 1.08 L Absolute Monocytes 0.77 Absolute Eosinophils 0.22 Absolute Basophils 0.01 APTT 25.8 Sodium 142 Potassium 2.7 L* Chloride 103 Carbon Dioxide 32.5 H Anion Gap 6.5 BUN 85 H* Creatinine 2.2 H D Est GFR (CKD-EPI 2020) 22.25 Glucose 119 H Calcium 8.2 L Time Spent with Patient Time Spent with Patient: 25-34 minutes Time was spent: preparing to see the patient(eg.review tests), ordering medications,tests, procedures and referring, communicating with other health family member caretaker
--- NOTE | 2022-06-02 15:27 | CHAPLAIN ---
Kelsey is much more alert and responsive than she was a couple of days ago. She continues to have visitors from her latter day, [facility] in [place], [place]. Kelsey would like Fr. Josue Ramey, her brazer crawler torch, named as one of her HCAs and let Dr. Palomino from Palliative Care know this. Dr. Palomino asked me to call Fr. Salas to ask if that's something he would do. I have left messages for Fr. Salas at the latter day and at his house. Fr. Salas has visited often and also arranged for the care of Kelsey's animals, a dog, a cat, and two horses. I had a short visit with Kelsey today. She was tired from visiting with latter day friends, so I didn't stay long.
--- NOTE | 2022-06-02 15:31 | PDOC.STREC ---
Speech Therapy Recommendations Report ST Recommendations: Consult received, chart reviewed. Attempting to contact this patient in ICU for clinical swallow evaluation x2 today, once late morning and once in the afternoon. Patient was busy with other providers each time. Per ICU nurse Kashmir, she has been tolerating purees and thin liquids well this date without overt s/sx aspiration but has poor appetite. Will re-attempt clinical swallow evaluation tomorrow morning. Coding
--- NOTE | 2022-06-02 16:04 | PCPN_ITS ---
Date of service: 06/02/22 Time of Service: 13:35 Assessment and Plan Assessment and plan (1) Palliative care patient: Status: Acute Assessment and plan: Care managements notes reviewed. Phyllis in patient's admission, Catie Hemphill spoke several times with both refrigeration operator Vicente Ramey and previous healthcare agent Octaviashailesh Alcantara. Both expressed some concern that patient seemed to have some increasing difficulties caring for herself her animals on her property. They were not sure she was able to live on her own anymore. No specific examples given in notes. 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 Also notes that she frequently changes her healthcare agent, and she has changed her mind about CPR over time. This frequent changing of her mind could be an indication of some cognitive impairment (also suggested by her friends' reports of some decline in functioning). Today patient is still on high flow O2, only a few days out from overt delirium and seems extremely tired. Today I obtained baseline history and discussion. I Plan to return in 2 days to do more formal mental status and capacity for decision-making evaluation (2) Advanced care planning/counseling discussion: Status: Acute Assessment and plan: 1. Healthcare agent: Patient has January 2015 advanced directive on file. Note that in this document she is using her previous name, Felecia Osullivan, but this person has the same address and birthdate as this current patient. The 2015 document appoints Ruby Solorio as her primary HCA and Jolene Cast as her alternative agent. Patient says that she has grown apart from these 2 women and no longer thinks they should serve as healthcare agents for her. Case management also refers to a 2017 advance directive document which I am unable to find today. Reportedly this 2017 document this did list Octavia Cruzjonah as healthcare agent. Case management discussed this with Octavia Alcantara a few days ago. Octavia reported that she had not seen the patient in over 6 years until this hospital admission. See discussion under HPI above with concerns about capacity. Twice during our discussion she states that she would like her child and adolescent therapist Vicente Ramey (of [place]) to be her healthcare agent should she need someone to make decisions for her. When asked about Octavia being HCA, she says she is not sure, but would consider Octavia as secondaryShe has never talked to him about this. She denies having any family members (children, siblings, cousins) who she would want to appoint. Plan: Hospital operations advisor will contact Vicente Ramey and discussed this with him. I will then discuss again with patient in 2 days. If all are agreeable, HCA form will be filled out with Mr. Ramey as primary HCA. Sounds like patient is cons idering making Evelyn Alcantara her alternative healthcare agent. Based on concerns over her friends, I would like to do a more thorough capacity evaluation next time I meet with her and I am hoping she is less fatigued at that time. 2. CODE STATUS: Patient told emergency physician on May 26 that she did not want CPR or to be intubated. No [place] form was completed but CODE STATUS was ordered to reflect this. Case management Catie Hager again discussed this with the patient yesterday as per her note. Patient confirmed that she did not want CPR or intubation. Today I went in to confirm this with patient in order to fill out COLST form. When I asked patient if she would want CPR or intubation she said yes, she would like to have CPR. I asked her if she had recalled telling others that she did not want CPR. She could not recall. When asked why she changed her mind, she said she wanted to see her granddaughters, whom she has not seen in many years and currently has no contact with. At this point she seems extremely tired and unable to talk further. Based on history provided in 03/26/2023 Case management note and her changing desires for who to be healthcare agent as well as CODE STATUS, I would like to meet with her again on and do a capacity evaluation. (3) Acute renal failure: Status: Acute Assessment and plan: Thankfully, her DEAN is resolving. (4) Atrial fibrillation with RVR: Status: Acute Assessment and plan: As per hospitalist (5) Sepsis: Status: Acute (6) Parapneumonic effusion: Status: Acute Assessment and plan: Hospitalist and ICU physician are still unclear about underlying lung process. I believe chest tube has been removed after draining 2500 cc. Final impression is complicated parapneumonic effusion . There still appears to be a mass on chest x-ray and plan is to have follow-up chest CT in 1 to 2 weeks to assure there is no underlying mass. She continues to have significant hypoxia and is still on high flow O2. Further management as per hospitalist. Subjective Subjective Interval history since last seen: Ms. Yi is a 81-year-old woman with history of hypothyroidism and atrial fibrillation who was admitted to the hospital on May 26 with sepsis felt to be due to pulmonary infection. Hospital course was initially quite stormy with complications of parapneumonic effusion (which required chest tube for several days), DEAN (creatinine up to the 5 range) and episodes of delirium. Her clinical status is now improving. Renal function is improving, chest tube has been removed, and delirium is reportedly cleared. However she still requiring high flow oxygen. Palliative care team was asked to meet with her to review goals of care and CODE STATUS. History today from notes, including case management notes providing additional social history, as well as interview with the patient today. The patient lives in [facility] with her horses, dog and cat. She has been fiercely independent. She is very active in her [employer] in [place]. She has had multiple visitors from episcopalian and several visits from her child and adolescent therapist Vicente Ramey as well as an old friend Octavia Alcantara. 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 . Not willing to talk about children. Case management reports estranged son. She reports she has 3 granddaughters living in [place] who are being raised by their adoptive mother. History of smoking. Current hobbies are reading and caring for her animals and caring for her property. She used to volunteer but not so much anymore. Impression of currents health status: I do not know What bothers you the most: No answer What worries you the most: That my animals are being cared for Function: Ambulation: Reports she ambulated without assistance ADLs: Reportedly independent iADLs: Reportedly independent, was driving Hearing: Denies issues Vision: Denies issues Spiritual history: [employer] is very important, prayer is very important. Palliative review of systems: Pain: Right-sided back pain from pneumonia has resolved. Dyspnea: None GI symptoms: Denies Appetite: No hunger, is eating and drinking small amounts. Denies dysphagia. Speech and language has cleared her to drink thin liquids Depression: Denies Anxiety: None Emotional Distress: Spiritual/Existential Distress: Advanced Care Planning: Advanced Directive: 2014 on file reviewed. Case management refers to 2017 advanced directive which I am not finding. Health Care Agent: See discussion under A/P below COLST: None on file. See discussion under A/P below Limitations: Exam Narrative Exam Narrative: Thin pale elderly woman laying quietly in bed with high flow oxygen on. Talks slowly and quietly. Lips are dry. No respiratory distress. Does not appear anxious. Speech is fluid. Good eye contact. Objective Last Vital Signs Temp 36.5 C 06/02/22 09:59 Pulse 52 L 06/02/22 15:23 Resp 18 06/02/22 15:23 BP 110/55 L 06/02/22 15:23 Pulse Ox 90 L 06/02/22 15:23 Laboratory Results - last 24 hr 06/02/22 06/02/22 06/02/22 05:10 05:10 05:10 WBC 12.15 H RBC 4.10 Hgb 11.3 Hct 34.0 L MCV 83 MCH 27.6 MCHC 33.2 RDW 14.8 H Plt Count 235 MPV 11.0 Immature Gran % 0.7 Neutrophils % 82.2 Lymphocytes % 8.9 Monocytes % 6.3 Eosinophils % 1.8 Basophils % 0.1 Nucleated RBC % 0.0 Absolute Neutrophils 9.99 H Absolute Lymphocytes 1.08 L Absolute Monocytes 0.77 Absolute Eosinophils 0.22 Absolute Basophils 0.01 APTT 25.8 Sodium 142 Potassium 2.7 L* Chloride 103 Carbon Dioxide 32.5 H Anion Gap 6.5 BUN 85 H* Creatinine 2.2 H D Est GFR (CKD-EPI 2020) 22.25 Glucose 119 H Calcium 8.2 L
[2022-06-02] MEDS: Apixaban 5 MG TAB PO (19:33)
--- NOTE | 2022-06-02 21:35 | TELEP.MEDR_ITS ---
Date of service: 06/02/22 Time of Service: 21:35 Telepharmacy Home Med Rec Allergies Allergies: Sulfa (Sulfonamide Antibiotics) Allergy (Unknown, Unverified 05/26/22 08:16) codeine Adverse Reaction (Mild, Unverified 05/26/22 08:16) NAUSEA Interview Person Interviewed: * none Additional Notes Additional Notes: * Patient is incoherent and unable to assist with questions. She lives alone at home. We are unable to get any information of any pharmacy that she goes to at the moment. Recommended Changes Attestation: The home medication list is now updated to the best of my knowledge and is ready to be reconciled by the provider. Please contact the TelePharmacy Medication Reconciliation Pharmacist at for any questions.
[2022-06-03] VITALS (22 sets, daily range): BP systolic 97–116; BP diastolic 55–69; PULSE 47–100; RESP 1–247; TEMP 34–36.9; O2SAT 93–100
[2022-06-03 07:10] LABS: Abs Immature Grans 0.09 10^3/uL (0.0-0.06); Basophils % 0.2; Eosinophils % 2.1; HCT 38.4 % (36.0-46.0); HGB 12.4 g/dL (11.2-15.7); Immature Grans % 0.7; Lymphocytes % 8.7; MCH 27.4 pg (27.0-33.0); MCHC 32.3 % (32.0-36.0); MCV 85 fL (80-95); Monocytes % 6.8; Neutrophils % 81.5; Platelet Count 222 10^3/uL (130-400); RBC 4.52 10^6/uL (3.93-5.22); RDW 14.8 % (11.7-14.6); RDW-SD 45.6 fL; WBC 12.59 10^3/uL (4.4-10.8)
[2022-06-03 07:16] LABS: Absolute Basophil Count 0.03 10^3/uL (0.0-0.2); Absolute Eosinophil Count 0.26 10^3/uL (0.0-0.7); Absolute Monocyte Count 0.86 10^3/uL (0.1-0.8); Absolute Neutrophil Count 10.26 10^3/uL (1.2-6.7)
--- NOTE | 2022-06-03 07:21 | PGE_ITS ---
Assessment and Plan Assessment and plan (1) Pulmonary mass: Status: Acute (2) Parapneumonic effusion: Status: Acute (3) Respiratory failure with hypoxia: Status: Acute Assessment and plan: This is a 81 yo with a complex social history as outlined thoroughly by [facility] who was admitted to the ICU for a parapneumonic effusion as well as svere acute renal failure. Her renal failure has been significantly improving and the diuretics have been able to be peeled back significantly. She has a remaining lung mass that does not seem to be connected to the pleural effusion and will need follow up. I will repeat a chest CT in 1 month and see her as an outpatient to work this up further. She had the chest tube removed yesterday. There has been no growth on any cultures and her urine antigen testing is negative. She continues to do well on cefepime. I would continue with this with plans to switch to Augmentin on discharge. I would give her a total of 10 days of antibiotics. Parapneumonic effusion - surgical chest tube removed - fluid exudative with multinucleated cells. 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 She continues to clinically improve. Note Note: She is doing ok. She remained on HFNC for an unknown reason - she would be fine on nasal cannula. In speaking more with her she does have a smoking history but states she quit a long time ago. There is no family history of lung cancer. She does endorses unintentional weight loss. We discussed the lung mass and my concern about a possible cancer. She did not say anything and just shook her head no. I discussed my plan of repeating the CT in 1 month or so and seeing her in follow up as an outpatient, which she did not object to. Exam Narrative Exam Narrative: POCUS 05/29/22: Left pleural space with a simple small to moderate pleural effusion. IVC is larger than last exam and with no inspiratory variation. No change in size of pericardial effusion. Good cardiac function. POCUS 05/27/22: Good cardiac windows seen. Normal LV and RV function. Atrial fibrillation. Small pericardial effusion with no tamponade physiology. IVC not collapsible with inspiration. Right pleural space with moderate sized effusion, appears less complicated as compared to yesterday now that patient is in a more advantageous position. POCUS 05/26/22: Moderate loculated appearing right sided pleural effusion. Exam not completed on left and no cardiac POCUS done due to extreme patient discomfort. Gen: normal respiratory effort, well-nourished HENT: PERRL Chest: No respiratory distress, normal appearance of chest, shallow breaths Heart: regular rate and rhythym, no murmurs, rubs or gallops Abdomen: Non-distended, soft, non tender Extremities: No clubbing, edema, cyanosis, rashes Neuro: Alert and appropriate, moving all extremities Psych: cooperative Objective Last Vital Signs Temp 36.8 C 06/03/22 07:13 Pulse 50 L 06/03/22 07:13 Resp 18 06/03/22 07:13 BP 109/65 06/03/22 07:13 Pulse Ox 96 06/03/22 07:13 Laboratory Results - last 24 hr 06/03/22 06:48 WBC 12.59 H RBC 4.52 Hgb 12.4 Hct 38.4 MCV 85 MCH 27.4 MCHC 32.3 RDW 14.8 H Plt Count 222 MPV 11.0 Immature Gran % 0.7 Neutrophils % 81.5 Lymphocytes % 8.7 Monocytes % 6.8 Eosinophils % 2.1 Basophils % 0.2 Nucleated RBC % 0.0 Absolute Neutrophils 10.26 H Absolute Lymphocytes 1.10 L Absolute Monocytes 0.86 H Absolute Eosinophils 0.26 Absolute Basophils 0.03 Results Medications Medications: Active Medications Generic Name Dose Route Start Last Admin Trade Name Freq PRN Reason Stop Dose Admin Acetaminophen 0 mg 05/26/22 12:28 Acetaminophen 325 Mg Tab PO Q4H PRN PRN Al Hydrox/Mg Hydrox/Simethicone 30 ml 05/26/22 12:28 Mylanta Suspension 30 Ml Cup PO Q2H PRN PRN Amiodarone HCl 400 mg 05/28/22 20:00 06/02/22 19:32 Amiodarone 200 Mg Tab PO 400 mg BID KELTON Administration Apixaban 5 mg 06/02/22 20:00 06/02/22 19:33 Apixaban 5 Mg Tab PO 5 mg BID KELTON Administration Bisacodyl 10 mg 05/31/22 09:11 Bisacodyl 10 Mg Supp [place] DAILY PRN PRN Dimethicone/Zinc Oxide 0 gm 05/26/22 12:22 Maury Protect Cream 142 Gm Tube TP PRN PRN Docusate Sodium 100 mg 05/26/22 12:28 Docusate Sodium 100 Mg Cap PO TID PRN PRN Furosemide 40 mg 06/02/22 08:45 06/02/22 09:50 Furosemide 40 Mg/4 Ml Vial IVP 40 mg DAILY KELTON Administration Sodium Chloride 500 mls @ 0 mls/hr 05/26/22 12:27 05/27/22 10:42 Saline 500ml Bag IV Infused PRN PRN Infusion As Directed Cefepime HCl 1 gm/ Sodium 50 mls @ 100 mls/hr 06/02/22 20:00 06/02/22 20:36 Chloride IVPB Infused Q12H KELTON Infusion IV Miscellaneous Supplies 1 each 05/26/22 12:30 Iv Access IV DIRECTED KELTON Ipratropium [place] 0.25 mg 05/26/22 20:00 06/02/22 19:42 Ipratropium 0.5 Mg/2.5 Ml Upd Vial UPD 0.25 mg QID KELTON Administration Levalbuterol HCl 1.25 mg 05/29/22 08:30 06/02/22 19:42 Levalbuterol 1.25 Mg/3 Ml Upd Vial UPD 1.25 mg QID KELTON Administration Lorazepam 0.5 mg 05/26/22 18:52 05/30/22 21:07 Lorazepam 2 Mg/Ml Vial IVP 0.5 mg Q6H PRN PRN Administration Magnesium Hydroxide 30 ml 05/26/22 12:28 Milk Of Magnesia 30 Ml Cup PO DAILY PRN PRN Metoprolol Tartrate 2.5 mg 05/30/22 18:31 Metoprolol 5 Mg/5 Ml Vial IVP Q1H PRN PRN Metoprolol Tartrate 12.5 mg 06/01/22 12:00 06/03/22 06:35 Metoprolol 12.5 Mg Tab PO Not Given Q6H [facility] Multi-Ingredient Supplement 1 ounce 05/30/22 14:00 06/02/22 19:33 Protein Nutritional Supplement 16 Gm 1 Ounce Packet PO 1 ounce TID KELOTN Administration Polyethylene Glycol 17 gm 05/26/22 12:28 Polyethylene Glycol 3350 17 Gm Packet PO DAILY PRN PRN Constipation Potassium Chloride 20 meq 05/31/22 14:00 06/02/22 19:33 Potassium Chloride Liquid 20 Meq Pkt PO 20 meq TID KELTON Administration Sodium Chloride 0 ml 05/26/22 12:27 06/02/22 19:52 Normal Saline Flush 10 Ml Syr IVP 10 ml PRN PRN Administration Allergies Sulfa (Sulfonamide Antibiotics) Allergy (Unknown, Unverified 05/26/22 08:16) codeine Adverse Reaction (Mild, Unverified 05/26/22 08:16) NAUSEA Labs 06/03/22 06:48 06/02/22 05:10 Labs: 05/27/22 15:40 Pleural Anaerobic Culture - Preliminary 05/26/22 15:40 Pleural Body Fluid Culture - Preliminary 05/26/22 15:40 Pleural Gram Stain - Final 05/26/22 13:00 Blood Blood Culture - Final NO GROWTH 120 HOURS 05/26/22 09:40 Blood Blood Culture - Final NO GROWTH 120 HOURS 05/29/22 11:20 Nose MRSA Screen - Final Laboratory Tests Range/Units 05/26/22 05/26/22 05/26/22 08:35 08:35 08:35 WBC (4.4-10.8) 10^3/uL 31.54 H* RBC (3.93-5.22) 10^6/uL 5.16 Hgb (11.2-15.7) g/dL 14.2 Hct (36.0-46.0) % 45.0 MCV (80-95) fL 87 MCH (27.0-33.0) pg 27.5 MCHC (32.0-36.0) % 31.6 L RDW (11.7-14.6) % 14.2 Plt Count (130-400) 10^3/uL 422 H MPV (8.0-11.0) fL 10.2 Immature Gran % 1.0 Neutrophils % 90.4 Lymphocytes % 3.4 Monocytes % 4.9 Eosinophils % 0.0 Basophils % 0.3 Nucleated RBC % (0.0-0.3) % 0.0 Absolute Neutrophils (1.2-6.7) 10^3/uL 28.51 H Absolute Lymphocytes (1.2-3.4) 10^3/uL 1.07 L Absolute Monocytes (0.1-0.8) 10^3/uL 1.55 H Absolute Eosinophils (0.0-0.7) 10^3/uL 0.00 Absolute Basophils (0.0-0.2) 10^3/uL 0.09 RBC Morphology Normal Brad Cells/Echinocytes PT (9.3-11.0) sec INR (0.9-1.1) APTT (21.5-31.9) sec D-Dimer (<500) ng/mlFEU VBG pH (7.31-7.41) VBG pCO2 (41-51) mmHg VBG pO2 mmHg VBG HCO3 (23-28) mmol/L VBG Total CO2 (24-29) mmol/L VBG O2 Saturation % VBG Base Excess (-2-3) mmol/L VBG Lactate (0.6-1.4) mmol/L Sodium (136-145) mmol/L 137 Potassium (3.5-5.1) mmol/L 5.6 H Chloride (98-107) mmol/L 98 Carbon Dioxide (21.0-32.0) mmol/L 32.4 H Anion Gap (3-11) mmol/L 6.6 BUN (7-18) mg/dL 25 H Creatinine (0.55-1.02) mg/dL 1.2 H Est GFR (CKD-EPI 2020) (mL/min/1.73m2) 46.05 Glucose (74-106) mg/dL 122 H Calcium (8.5-10.1) mg/dL 9.2 Magnesium (1.8-2.4) mg/dL 2.0 Total Bilirubin (0.2-1.0) mg/dL 0.9 AST (15-37) U/L 25 ALT (14-59) U/L 42 Alkaline Phosphatase (46-116) U/L 72 Lactate Dehydrogenase (81-234) U/L Troponin I (<or=60) ng/L < 50 C-Reactive Protein (0.0-0.3) mg/dL NT-Pro-B Natriuret Pep (<300) pg/mL 6502 H Total Protein (6.4-8.2) g/dL 7.0 Albumin (3.4-5.0) g/dL 2.5 L Procalcitonin ng/mL TSH (0.36-3.74) uIU/mL 8.66 H Free T4 (0.76-1.46) ng/dL 1.31 Urine Color (Yellow) Urine Clarity (Clear) Urine pH (5-8) Ur Specific [place] (1.005-1.025) Urine Protein (Negative) mg/dL Urine Ketones (Negative) mg/dL Urine Blood (Negative) Urine Nitrite (Negative) Urine Bilirubin (Negative) Urine Urobilinogen (Up TO 0.2) EU/dL Ur Leukocyte Esterase (Negative) Urine RBC (0-2) HPF Urine WBC (0-5) HPF Ur Epithelial Cells (Negative) HPF Urine Crystals (Negative) HPF Urine Bacteria (Negative) HPF Urine Casts (Negative) LPF Urine Mucus (Negative) Urine Other (Negative) Ur Culture Indicated? Ur Random Sodium mmol/L Urine Glucose (Negative) mg/dL Fluid Type Fluid Source Fluid Color Fluid Clarity Fluid pH Fluid WBC (0) uL Fld Polynuclear WBCs % % Fluid Mononuclear Cell % Fluid Glucose (See Note) mg/dL Fluid Total Protein g/dL Fluid LDH U/L COVID-19 Source SARS-CoV-2 (PCR) Influenza Type A (PCR) Influenza Type B (PCR) Urine Legionella Ag (Negative) RSV (PCR) Ur Strep pneumoniae Ag (Negative) Path Cons Comment Add-On Test Request Range/Units 05/26/22 05/26/22 05/26/22 08:49 08:50 10:20 WBC (4.4-10.8) 10^3/uL RBC (3.93-5.22) 10^6/uL Hgb (11.2-15.7) g/dL Hct (36.0-46.0) % MCV (80-95) fL MCH (27.0-33.0) pg MCHC (32.0-36.0) % RDW (11.7-14.6) % Plt Count (130-400) 10^3/uL MPV (8.0-11.0) fL Immature Gran % Neutrophils % Lymphocytes % Monocytes % Eosinophils % Basophils % Nucleated RBC % (0.0-0.3) % Absolute Neutrophils (1.2-6.7) 10^3/uL Absolute Lymphocytes (1.2-3.4) 10^3/uL Absolute Monocytes (0.1-0.8) 10^3/uL Absolute Eosinophils (0.0-0.7) 10^3/uL Absolute Basophils (0.0-0.2) 10^3/uL RBC Morphology [place] Cells/Echinocytes PT (9.3-11.0) sec 11.5 H INR (0.9-1.1) 1.1 APTT (21.5-31.9) sec 26.0 D-Dimer (<500) ng/mlFEU 2079 H VBG pH (7.31-7.41) VBG pCO2 (41-51) mmHg VBG pO2 mmHg VBG HCO3 (23-28) mmol/L VBG Total CO2 (24-29) mmol/L VBG O2 Saturation % VBG Base Excess (-2-3) mmol/L VBG Lactate (0.6-1.4) mmol/L Sodium (136-145) mmol/L Potassium (3.5-5.1) mmol/L Chloride (98-107) mmol/L Carbon Dioxide (21.0-32.0) mmol/L Anion Gap (3-11) mmol/L BUN (7-18) mg/dL Creatinine (0.55-1.02) mg/dL Est GFR (CKD-EPI 2020) (mL/min/1.73m2) Glucose (74-106) mg/dL Calcium (8.5-10.1) mg/dL Magnesium (1.8-2.4) mg/dL Total Bilirubin (0.2-1.0) mg/dL AST (15-37) U/L ALT (14-59) U/L Alkaline Phosphatase (46-116) U/L Lactate Dehydrogenase (81-234) U/L Troponin I (<or=60) ng/L C-Reactive Protein (0.0-0.3) mg/dL NT-Pro-B Natriuret Pep (<300) pg/mL Total Protein (6.4-8.2) g/dL Albumin (3.4-5.0) g/dL Procalcitonin ng/mL TSH (0.36-3.74) uIU/mL Free T4 (0.76-1.46) ng/dL Urine Color (Yellow) Urine Clarity (Clear) Urine pH (5-8) Ur Specific [place] (1.005-1.025) Urine Protein (Negative) mg/dL Urine Ketones (Negative) mg/dL Urine Blood (Negative) Urine Nitrite (Negative) Urine Bilirubin (Negative) Urine Urobilinogen (Up TO 0.2) EU/dL Ur Leukocyte Esterase (Negative) Urine RBC (0-2) HPF Urine WBC (0-5) HPF Ur Epithelial Cells (Negative) HPF Urine Crystals (Negative) HPF Urine Bacteria (Negative) HPF Urine Casts (Negative) LPF Urine Mucus (Negative) Urine Other (Negative) Ur Culture Indicated? Ur Random Sodium mmol/L Urine Glucose (Negative) mg/dL Fluid Type Fluid Source Fluid Color Fluid Clarity Fluid pH Fluid WBC (0) uL Fld Polynuclear WBCs % % Fluid Mononuclear Cell % Fluid Glucose (See Note) mg/dL Fluid Total Protein g/dL Fluid LDH U/L COVID-19 Source Cancelled Nasopharynx SARS-CoV-2 (PCR) Cancelled Negative Influenza Type A (PCR) Cancelled Negative Influenza Type B (PCR) Cancelled Negative Urine Legionella Ag (Negative) RSV (PCR) Cancelled Negative Ur Strep pneumoniae Ag (Negative) Path Cons Comment Add-On Test Request Range/Units 05/26/22 05/26/22 05/26/22 12:53 13:00 13:00 WBC (4.4-10.8) 10^3/uL RBC (3.93-5.22) 10^6/uL Hgb (11.2-15.7) g/dL Hct (36.0-46.0) % MCV (80-95) fL MCH (27.0-33.0) pg MCHC (32.0-36.0) % RDW (11.7-14.6) % Plt Count (130-400) 10^3/uL MPV (8.0-11.0) fL Immature Gran % Neutrophils % Lymphocytes % Monocytes % Eosinophils % Basophils % Nucleated RBC % (0.0-0.3) % Absolute Neutrophils (1.2-6.7) 10^3/uL Absolute Lymphocytes (1.2-3.4) 10^3/uL Absolute Monocytes (0.1-0.8) 10^3/uL Absolute Eosinophils (0.0-0.7) 10^3/uL Absolute Basophils (0.0-0.2) 10^3/uL RBC Morphology Brad Cells/Echinocytes PT (9.3-11.0) sec INR (0.9-1.1) APTT (21.5-31.9) sec D-Dimer (<500) ng/mlFEU VBG pH (7.31-7.41) VBG pCO2 (41-51) mmHg VBG pO2 mmHg VBG HCO3 (23-28) mmol/L VBG Total CO2 (24-29) mmol/L VBG O2 Saturation % VBG Base Excess (-2-3) mmol/L VBG Lactate (0.6-1.4) mmol/L 1.9 H Sodium (136-145) mmol/L Potassium (3.5-5.1) mmol/L Chloride (98-107) mmol/L Carbon Dioxide (21.0-32.0) mmol/L Anion Gap (3-11) mmol/L BUN (7-18) mg/dL Creatinine (0.55-1.02) mg/dL Est GFR (CKD-EPI 2020) (mL/min/1.73m2) Glucose (74-106) mg/dL Calcium (8.5-10.1) mg/dL Magnesium (1.8-2.4) mg/dL Total Bilirubin (0.2-1.0) mg/dL AST (15-37) U/L ALT (14-59) U/L Alkaline Phosphatase (46-116) U/L Lactate Dehydrogenase (81-234) U/L Troponin I (<or=60) ng/L < 50 C-Reactive Protein (0.0-0.3) mg/dL NT-Pro-B Natriuret Pep (<300) pg/mL Total Protein (6.4-8.2) g/dL Cancelled Albumin (3.4-5.0) g/dL Procalcitonin ng/mL 7.0 TSH (0.36-3.74) uIU/mL Free T4 (0.76-1.46) ng/dL Urine Color (Yellow) Urine Clarity (Clear) Urine pH (5-8) Ur Specific [place] (1.005-1.025) Urine Protein (Negative) mg/dL Urine Ketones (Negative) mg/dL Urine Blood (Negative) Urine Nitrite (Negative) Urine Bilirubin (Negative) Urine Urobilinogen (Up TO 0.2) EU/dL Ur Leukocyte Esterase (Negative) Urine RBC (0-2) HPF Urine WBC (0-5) HPF Ur Epithelial Cells (Negative) HPF Urine Crystals (Negative) HPF Urine Bacteria (Negative) HPF Urine Casts (Negative) LPF Urine Mucus (Negative) Urine Other (Negative) Ur Culture Indicated? Ur Random Sodium mmol/L Urine Glucose (Negative) mg/dL Fluid Type Fluid Source Fluid Color Fluid Clarity Fluid pH Fluid WBC (0) uL Fld Polynuclear WBCs % % Fluid Mononuclear Cell % Fluid Glucose (See Note) mg/dL Fluid Total Protein g/dL Fluid LDH U/L COVID-19 Source SARS-CoV-2 (PCR) Influenza Type A (PCR) Influenza Type B (PCR) Urine Legionella Ag (Negative) RSV (PCR) Ur Strep pneumoniae Ag (Negative) Path Cons Comment Add-On Test Request Range/Units 05/26/22 05/26/22 05/26/22 13:30 15:40 15:40 WBC (4.4-10.8) 10^3/uL RBC (3.93-5.22) 10^6/uL Hgb (11.2-15.7) g/dL Hct (36.0-46.0) % MCV (80-95) fL MCH (27.0-33.0) pg MCHC (32.0-36.0) % RDW (11.7-14.6) % Plt Count (130-400) 10^3/uL MPV (8.0-11.0) fL Immature Gran % Neutrophils % Lymphocytes % Monocytes % Eosinophils % Basophils % Nucleated RBC % (0.0-0.3) % Absolute Neutrophils (1.2-6.7) 10^3/uL Absolute Lymphocytes (1.2-3.4) 10^3/uL Absolute Monocytes (0.1-0.8) 10^3/uL Absolute Eosinophils (0.0-0.7) 10^3/uL Absolute Basophils (0.0-0.2) 10^3/uL RBC Morphology Brad Cells/Echinocytes PT (9.3-11.0) sec INR (0.9-1.1) APTT (21.5-31.9) sec D-Dimer (<500) ng/mlFEU VBG pH (7.31-7.41) VBG pCO2 (41-51) mmHg VBG pO2 mmHg VBG HCO3 (23-28) mmol/L VBG Total CO2 (24-29) mmol/L VBG O2 Saturation % VBG Base Excess (-2-3) mmol/L VBG Lactate (0.6-1.4) mmol/L Sodium (136-145) mmol/L Potassium (3.5-5.1) mmol/L Chloride (98-107) mmol/L Carbon Dioxide (21.0-32.0) mmol/L Anion Gap (3-11) mmol/L BUN (7-18) mg/dL Creatinine (0.55-1.02) mg/dL Est GFR (CKD-EPI 2020) (mL/min/1.73m2) Glucose (74-106) mg/dL Calcium (8.5-10.1) mg/dL Magnesium (1.8-2.4) mg/dL Total Bilirubin (0.2-1.0) mg/dL AST (15-37) U/L ALT (14-59) U/L Alkaline Phosphatase (46-116) U/L Lactate Dehydrogenase (81-234) U/L Troponin I (<or=60) ng/L C-Reactive Protein (0.0-0.3) mg/dL NT-Pro-B Natriuret Pep (<300) pg/mL Total Protein (6.4-8.2) g/dL Albumin (3.4-5.0) g/dL Procalcitonin ng/mL TSH (0.36-3.74) uIU/mL Free T4 (0.76-1.46) ng/dL Urine Color (Yellow) Yellow Urine Clarity (Clear) Clear Urine pH (5-8) 6.0 Ur Specific [place] (1.005-1.025) 1.010 Urine Protein (Negative) mg/dL 30 H Urine Ketones (Negative) mg/dL Negative Urine Blood (Negative) Moderate H Urine Nitrite (Negative) Negative Urine Bilirubin (Negative) Negative Urine Urobilinogen (Up TO 0.2) EU/dL 0.2 Ur Leukocyte Esterase (Negative) Negative Urine RBC (0-2) HPF 10-20 H Urine WBC (0-5) HPF 0-2 Ur Epithelial Cells (Negative) HPF Few Urine Crystals (Negative) HPF Negative Urine Bacteria (Negative) HPF Negative Urine Casts (Negative) LPF Negative Urine Mucus (Negative) Negative Urine Other (Negative) Ur Culture Indicated? No Ur Random Sodium mmol/L Urine Glucose (Negative) mg/dL Negative Fluid Type Fluid Source Pleural Fluid Color Fluid Clarity Fluid pH 6.0 Fluid WBC (0) uL Fld Polynuclear WBCs % % Fluid Mononuclear Cell % Fluid Glucose (See Note) mg/dL 141 Fluid Total Protein g/dL Fluid LDH U/L COVID-19 Source SARS-CoV-2 (PCR) Influenza Type A (PCR) Influenza Type B (PCR) Urine Legionella Ag (Negative) RSV (PCR) Ur Strep pneumoniae Ag (Negative) Path Cons Comment Add-On Test Request Range/Units 05/26/22 05/26/22 05/27/22 16:35 Unknown 04:15 WBC (4.4-10.8) 10^3/uL RBC (3.93-5.22) 10^6/uL Hgb (11.2-15.7) g/dL Hct (36.0-46.0) % MCV (80-95) fL MCH (27.0-33.0) pg MCHC (32.0-36.0) % RDW (11.7-14.6) % Plt Count (130-400) 10^3/uL MPV (8.0-11.0) fL Immature Gran % Neutrophils % Lymphocytes % Monocytes % Eosinophils % Basophils % Nucleated RBC % (0.0-0.3) % Absolute Neutrophils (1.2-6.7) 10^3/uL Absolute Lymphocytes (1.2-3.4) 10^3/uL Absolute Monocytes (0.1-0.8) 10^3/uL Absolute Eosinophils (0.0-0.7) 10^3/uL Absolute Basophils (0.0-0.2) 10^3/uL RBC Morphology Brad Cells/Echinocytes PT (9.3-11.0) sec INR (0.9-1.1) APTT (21.5-31.9) sec D-Dimer (<500) ng/mlFEU VBG pH (7.31-7.41) VBG pCO2 (41-51) mmHg VBG pO2 mmHg VBG HCO3 (23-28) mmol/L VBG Total CO2 (24-29) mmol/L VBG O2 Saturation % VBG Base Excess (-2-3) mmol/L VBG Lactate (0.6-1.4) mmol/L Sodium (136-145) mmol/L 136 Potassium (3.5-5.1) mmol/L 5.4 H Chloride (98-107) mmol/L 102 Carbon Dioxide (21.0-32.0) mmol/L 27.7 Anion Gap (3-11) mmol/L 6.3 BUN (7-18) mg/dL 41 H Creatinine (0.55-1.02) mg/dL 1.7 H Est GFR (CKD-EPI 2020) (mL/min/1.73m2) 30.32 Glucose (74-106) mg/dL 170 H Calcium (8.5-10.1) mg/dL 8.2 L Magnesium (1.8-2.4) mg/dL 2.1 Total Bilirubin (0.2-1.0) mg/dL AST (15-37) U/L ALT (14-59) U/L Alkaline Phosphatase (46-116) U/L Lactate Dehydrogenase (81-234) U/L 171 Troponin I (<or=60) ng/L C-Reactive Protein (0.0-0.3) mg/dL NT-Pro-B Natriuret Pep (<300) pg/mL Total Protein (6.4-8.2) g/dL 6.7 Albumin (3.4-5.0) g/dL Procalcitonin ng/mL TSH (0.36-3.74) uIU/mL Free T4 (0.76-1.46) ng/dL Urine Color (Yellow) Urine Clarity (Clear) Urine pH (5-8) Ur Specific [place] (1.005-1.025) Urine Protein (Negative) mg/dL Urine Ketones (Negative) mg/dL Urine Blood (Negative) Urine Nitrite (Negative) Urine Bilirubin (Negative) Urine Urobilinogen (Up TO 0.2) EU/dL Ur Leukocyte Esterase (Negative) Urine RBC (0-2) HPF Urine WBC (0-5) HPF Ur Epithelial Cells (Negative) HPF Urine Crystals (Negative) HPF Urine Bacteria (Negative) HPF Urine Casts (Negative) LPF Urine Mucus (Negative) Urine Other (Negative) Ur Culture Indicated? Ur Random Sodium mmol/L Urine Glucose (Negative) mg/dL Fluid Type Fluid Source Fluid Color Fluid Clarity Fluid pH Fluid WBC (0) uL Fld Polynuclear WBCs % % Fluid Mononuclear Cell % Fluid Glucose (See Note) mg/dL Fluid Total Protein g/dL Fluid LDH U/L COVID-19 Source SARS-CoV-2 (PCR) Influenza Type A (PCR) Influenza Type B (PCR) Urine Legionella Ag (Negative) RSV (PCR) Ur Strep pneumoniae Ag (Negative) Path Cons Comment Add-On Test Request Cancelled Range/Units 05/27/22 05/27/22 05/27/22 04:15 15:40 15:40 WBC (4.4-10.8) 10^3/uL 32.93 H* RBC (3.93-5.22) 10^6/uL 4.41 Hgb (11.2-15.7) g/dL 12.3 Hct (36.0-46.0) % 39.0 MCV (80-95) fL 88 MCH (27.0-33.0) pg 27.9 MCHC (32.0-36.0) % 31.5 L RDW (11.7-14.6) % 14.6 Plt Count (130-400) 10^3/uL 342 MPV (8.0-11.0) fL 10.5 Immature Gran % 1.2 Neutrophils % 95.3 Lymphocytes % 1.7 Monocytes % 1.6 Eosinophils % 0.0 Basophils % 0.2 Nucleated RBC % (0.0-0.3) % 0.0 Absolute Neutrophils (1.2-6.7) 10^3/uL 31.38 H Absolute Lymphocytes (1.2-3.4) 10^3/uL 0.56 L Absolute Monocytes (0.1-0.8) 10^3/uL 0.53 Absolute Eosinophils (0.0-0.7) 10^3/uL 0.00 Absolute Basophils (0.0-0.2) 10^3/uL 0.07 RBC Morphology Normal Brad Cells/Echinocytes PT (9.3-11.0) sec INR (0.9-1.1) APTT (21.5-31.9) sec D-Dimer (<500) ng/mlFEU VBG pH (7.31-7.41) VBG pCO2 (41-51) mmHg VBG pO2 mmHg VBG HCO3 (23-28) mmol/L VBG Total CO2 (24-29) mmol/L VBG O2 Saturation % VBG Base Excess (-2-3) mmol/L VBG Lactate (0.6-1.4) mmol/L Sodium (136-145) mmol/L Potassium (3.5-5.1) mmol/L Chloride (98-107) mmol/L Carbon Dioxide (21.0-32.0) mmol/L Anion Gap (3-11) mmol/L BUN (7-18) mg/dL Creatinine (0.55-1.02) mg/dL Est GFR (CKD-EPI 2020) (mL/min/1.73m2) Glucose (74-106) mg/dL Calcium (8.5-10.1) mg/dL Magnesium (1.8-2.4) mg/dL Total Bilirubin (0.2-1.0) mg/dL AST (15-37) U/L ALT (14-59) U/L Alkaline Phosphatase (46-116) U/L Lactate Dehydrogenase (81-234) U/L Troponin I (<or=60) ng/L C-Reactive Protein (0.0-0.3) mg/dL NT-Pro-B Natriuret Pep (<300) pg/mL Total Protein (6.4-8.2) g/dL Albumin (3.4-5.0) g/dL Procalcitonin ng/mL TSH (0.36-3.74) uIU/mL Free T4 (0.76-1.46) ng/dL Urine Color (Yellow) Urine Clarity (Clear) Urine pH (5-8) Ur Specific [place] (1.005-1.025) Urine Protein (Negative) mg/dL Urine Ketones (Negative) mg/dL Urine Blood (Negative) Urine Nitrite (Negative) Urine Bilirubin (Negative) Urine Urobilinogen (Up TO 0.2) EU/dL Ur Leukocyte Esterase (Negative) Urine RBC (0-2) HPF Urine WBC (0-5) HPF Ur Epithelial Cells (Negative) HPF Urine Crystals (Negative) HPF Urine Bacteria (Negative) HPF Urine Casts (Negative) LPF Urine Mucus (Negative) Urine Other (Negative) Ur Culture Indicated? Ur Random Sodium mmol/L Urine Glucose (Negative) mg/dL Fluid Type pleural fluid Fluid Source Synovial Fluid Color Yellow Fluid Clarity Cloudy Fluid pH Fluid WBC (0) uL [address] Fld Polynuclear WBCs % % 84 Fluid Mononuclear Cell % 13 Fluid Glucose (See Note) mg/dL Fluid Total Protein g/dL 3.4 Fluid LDH U/L COVID-19 Source SARS-CoV-2 (PCR) Influenza Type A (PCR) Influenza Type B (PCR) Urine Legionella Ag (Negative) RSV (PCR) Ur Strep pneumoniae Ag (Negative) Path Cons Comment YES Add-On Test Request Range/Units 05/27/22 05/27/22 05/27/22 15:40 19:30 19:30 WBC (4.4-10.8) 10^3/uL RBC (3.93-5.22) 10^6/uL Hgb (11.2-15.7) g/dL Hct (36.0-46.0) % MCV (80-95) fL MCH (27.0-33.0) pg MCHC (32.0-36.0) % RDW (11.7-14.6) % Plt Count (130-400) 10^3/uL MPV (8.0-11.0) fL Immature Gran % Neutrophils % Lymphocytes % Monocytes % Eosinophils % Basophils % Nucleated RBC % (0.0-0.3) % Absolute Neutrophils (1.2-6.7) 10^3/uL Absolute Lymphocytes (1.2-3.4) 10^3/uL Absolute Monocytes (0.1-0.8) 10^3/uL Absolute Eosinophils (0.0-0.7) 10^3/uL Absolute Basophils (0.0-0.2) 10^3/uL RBC Morphology [place] Cells/Echinocytes PT (9.3-11.0) sec INR (0.9-1.1) APTT (21.5-31.9) sec D-Dimer (<500) ng/mlFEU VBG pH (7.31-7.41) VBG pCO2 (41-51) mmHg VBG pO2 mmHg VBG HCO3 (23-28) mmol/L VBG Total CO2 (24-29) mmol/L VBG O2 Saturation % VBG Base Excess (-2-3) mmol/L VBG Lactate (0.6-1.4) mmol/L Sodium (136-145) mmol/L Potassium (3.5-5.1) mmol/L Chloride (98-107) mmol/L Carbon Dioxide (21.0-32.0) mmol/L Anion Gap (3-11) mmol/L BUN (7-18) mg/dL Creatinine (0.55-1.02) mg/dL Est GFR (CKD-EPI 2020) (mL/min/1.73m2) Glucose (74-106) mg/dL Calcium (8.5-10.1) mg/dL Magnesium (1.8-2.4) mg/dL Total Bilirubin (0.2-1.0) mg/dL AST (15-37) U/L ALT (14-59) U/L Alkaline Phosphatase (46-116) U/L Lactate Dehydrogenase (81-234) U/L Troponin I (<or=60) ng/L C-Reactive Protein (0.0-0.3) mg/dL NT-Pro-B Natriuret Pep (<300) pg/mL Total Protein (6.4-8.2) g/dL Albumin (3.4-5.0) g/dL Procalcitonin ng/mL TSH (0.36-3.74) uIU/mL Free T4 (0.76-1.46) ng/dL Urine Color (Yellow) Urine Clarity (Clear) Urine pH (5-8) Ur Specific [place] (1.005-1.025) Urine Protein (Negative) mg/dL Urine Ketones (Negative) mg/dL Urine Blood (Negative) Urine Nitrite (Negative) Urine Bilirubin (Negative) Urine Urobilinogen (Up TO 0.2) EU/dL Ur Leukocyte Esterase (Negative) Urine RBC (0-2) HPF Urine WBC (0-5) HPF Ur Epithelial Cells (Negative) HPF Urine Crystals (Negative) HPF Urine Bacteria (Negative) HPF Urine Casts (Negative) LPF Urine Mucus (Negative) Urine Other (Negative) Ur Culture Indicated? Ur Random Sodium mmol/L 12 Urine Glucose (Negative) mg/dL Fluid Type pleural fluid Fluid Source Fluid Color Fluid Clarity Fluid pH Fluid WBC (0) uL Fld Polynuclear WBCs % % Fluid Mononuclear Cell % Fluid Glucose (See Note) mg/dL Fluid Total Protein g/dL Fluid LDH U/L 688 COVID-19 Source SARS-CoV-2 (PCR) Influenza Type A (PCR) Influenza Type B (PCR) Urine Legionella Ag (Negative) Negative RSV (PCR) Ur Strep pneumoniae Ag (Negative) Path Cons Comment Add-On Test Request Range/Units 05/27/22 05/27/22 05/28/22 19:30 21:05 06:55 WBC (4.4-10.8) 10^3/uL RBC (3.93-5.22) 10^6/uL Hgb (11.2-15.7) g/dL Hct (36.0-46.0) % MCV (80-95) fL MCH (27.0-33.0) pg MCHC (32.0-36.0) % RDW (11.7-14.6) % Plt Count (130-400) 10^3/uL MPV (8.0-11.0) fL Immature Gran % Neutrophils % Lymphocytes % Monocytes % Eosinophils % Basophils % Nucleated RBC % (0.0-0.3) % Absolute Neutrophils (1.2-6.7) 10^3/uL Absolute Lymphocytes (1.2-3.4) 10^3/uL Absolute Monocytes (0.1-0.8) 10^3/uL Absolute Eosinophils (0.0-0.7) 10^3/uL Absolute Basophils (0.0-0.2) 10^3/uL RBC Morphology Brad Cells/Echinocytes PT (9.3-11.0) sec INR (0.9-1.1) APTT (21.5-31.9) sec D-Dimer (<500) ng/mlFEU VBG pH (7.31-7.41) VBG pCO2 (41-51) mmHg VBG pO2 mmHg VBG HCO3 (23-28) mmol/L VBG Total CO2 (24-29) mmol/L VBG O2 Saturation % VBG Base Excess (-2-3) mmol/L VBG Lactate (0.6-1.4) mmol/L Sodium (136-145) mmol/L 138 Potassium (3.5-5.1) mmol/L 5.8 H Chloride (98-107) mmol/L 100 Carbon Dioxide (21.0-32.0) mmol/L 24.7 Anion Gap (3-11) mmol/L 13.3 H BUN (7-18) mg/dL 54 H Creatinine (0.55-1.02) mg/dL 3.3 H D Est GFR (CKD-EPI 2020) (mL/min/1.73m2) 13.68 Glucose (74-106) mg/dL 160 H Calcium (8.5-10.1) mg/dL 8.2 L Magnesium (1.8-2.4) mg/dL 2.3 Total Bilirubin (0.2-1.0) mg/dL AST (15-37) U/L ALT (14-59) U/L Alkaline Phosphatase (46-116) U/L Lactate Dehydrogenase (81-234) U/L Troponin I (<or=60) ng/L C-Reactive Protein (0.0-0.3) mg/dL NT-Pro-B Natriuret Pep (<300) pg/mL Total Protein (6.4-8.2) g/dL Albumin (3.4-5.0) g/dL Procalcitonin ng/mL TSH (0.36-3.74) uIU/mL Free T4 (0.76-1.46) ng/dL Urine Color (Yellow) Brown Urine Clarity (Clear) Cloudy Urine pH (5-8) 5.0 Ur Specific [place] (1.005-1.025) >= 1.030 H Urine Protein (Negative) mg/dL 100 H Urine Ketones (Negative) mg/dL Trace H Urine Blood (Negative) Large H Urine Nitrite (Negative) Negative Urine Bilirubin (Negative) Small H Urine Urobilinogen (Up TO 0.2) EU/dL 1.0 H Ur Leukocyte Esterase (Negative) Negative Urine RBC (0-2) HPF >50 H Urine WBC (0-5) HPF 0-2 Ur Epithelial Cells (Negative) HPF Few Urine Crystals (Negative) HPF Negative Urine Bacteria (Negative) HPF Negative Urine Casts (Negative) LPF Negative Urine Mucus (Negative) Negative Urine Other (Negative) Negative Ur Culture Indicated? No Ur Random Sodium mmol/L Urine Glucose (Negative) mg/dL Negative Fluid Type Fluid Source Fluid Color Fluid Clarity Fluid pH Fluid WBC (0) uL Fld Polynuclear WBCs % % Fluid Mononuclear Cell % Fluid Glucose (See Note) mg/dL Fluid Total Protein g/dL Fluid LDH U/L COVID-19 Source SARS-CoV-2 (PCR) Influenza Type A (PCR) Influenza Type B (PCR) Urine Legionella Ag (Negative) RSV (PCR) Ur Strep pneumoniae Ag (Negative) Negative Path Cons Comment Add-On Test Request Range/Units 05/28/22 05/28/22 05/28/22 06:55 06:55 10:44 WBC (4.4-10.8) 10^3/uL 30.62 H* RBC (3.93-5.22) 10^6/uL 4.38 Hgb (11.2-15.7) g/dL 12.3 Hct (36.0-46.0) % 39.3 MCV (80-95) fL 90 MCH (27.0-33.0) pg 28.1 MCHC (32.0-36.0) % 31.3 L RDW (11.7-14.6) % 15.2 H Plt Count (130-400) 10^3/uL 287 MPV (8.0-11.0) fL 10.7 Immature Gran % 1.0 Neutrophils % 92.1 Lymphocytes % 2.6 Monocytes % 4.1 Eosinophils % 0.0 Basophils % 0.2 Nucleated RBC % (0.0-0.3) % 0.0 Absolute Neutrophils (1.2-6.7) 10^3/uL 28.20 H Absolute Lymphocytes (1.2-3.4) 10^3/uL 0.80 L Absolute Monocytes (0.1-0.8) 10^3/uL 1.26 H Absolute Eosinophils (0.0-0.7) 10^3/uL 0.00 Absolute Basophils (0.0-0.2) 10^3/uL 0.06 RBC Morphology See Below Brad Cells/Echinocytes 3+ PT (9.3-11.0) sec INR (0.9-1.1) APTT (21.5-31.9) sec D-Dimer (<500) ng/mlFEU VBG pH (7.31-7.41) VBG pCO2 (41-51) mmHg VBG pO2 mmHg VBG HCO3 (23-28) mmol/L VBG Total CO2 (24-29) mmol/L VBG O2 Saturation % VBG Base Excess (-2-3) mmol/L VBG Lactate (0.6-1.4) mmol/L 1.1 0.9 Sodium (136-145) mmol/L Potassium (3.5-5.1) mmol/L Chloride (98-107) mmol/L Carbon Dioxide (21.0-32.0) mmol/L Anion Gap (3-11) mmol/L BUN (7-18) mg/dL Creatinine (0.55-1.02) mg/dL Est GFR (CKD-EPI 2020) (mL/min/1.73m2) Glucose (74-106) mg/dL Calcium (8.5-10.1) mg/dL Magnesium (1.8-2.4) mg/dL Total Bilirubin (0.2-1.0) mg/dL AST (15-37) U/L ALT (14-59) U/L Alkaline Phosphatase (46-116) U/L Lactate Dehydrogenase (81-234) U/L Troponin I (<or=60) ng/L C-Reactive Protein (0.0-0.3) mg/dL NT-Pro-B Natriuret Pep (<300) pg/mL Total Protein (6.4-8.2) g/dL Albumin (3.4-5.0) g/dL Procalcitonin ng/mL TSH (0.36-3.74) uIU/mL Free T4 (0.76-1.46) ng/dL Urine Color (Yellow) Urine Clarity (Clear) Urine pH (5-8) Ur Specific [place] (1.005-1.025) Urine Protein (Negative) mg/dL Urine Ketones (Negative) mg/dL Urine Blood (Negative) Urine Nitrite (Negative) Urine Bilirubin (Negative) Urine Urobilinogen (Up TO 0.2) EU/dL Ur Leukocyte Esterase (Negative) Urine RBC (0-2) HPF Urine WBC (0-5) HPF Ur Epithelial Cells (Negative) HPF Urine Crystals (Negative) HPF Urine Bacteria (Negative) HPF Urine Casts (Negative) LPF Urine Mucus (Negative) Urine Other (Negative) Ur Culture Indicated? Ur Random Sodium mmol/L Urine Glucose (Negative) mg/dL Fluid Type Fluid Source Fluid Color Fluid Clarity Fluid pH Fluid WBC (0) uL Fld Polynuclear WBCs % % Fluid Mononuclear Cell % Fluid Glucose (See Note) mg/dL Fluid Total Protein g/dL Fluid LDH U/L COVID-19 Source SARS-CoV-2 (PCR) Influenza Type A (PCR) Influenza Type B (PCR) Urine Legionella Ag (Negative) RSV (PCR) Ur Strep pneumoniae Ag (Negative) Path Cons Comment Add-On Test Request Range/Units 05/28/22 05/29/22 05/29/22 10:44 05:30 05:30 WBC (4.4-10.8) 10^3/uL 23.94 H RBC (3.93-5.22) 10^6/uL 3.98 Hgb (11.2-15.7) g/dL 10.8 L Hct (36.0-46.0) % 35.8 L MCV (80-95) fL 90 MCH (27.0-33.0) pg 27.1 MCHC (32.0-36.0) % 30.2 L RDW (11.7-14.6) % 15.7 H Plt Count (130-400) 10^3/uL 269 MPV (8.0-11.0) fL 10.6 Immature Gran % 0.8 Neutrophils % 90.2 Lymphocytes % 3.3 Monocytes % 5.5 Eosinophils % 0.0 Basophils % 0.2 Nucleated RBC % (0.0-0.3) % 0.0 Absolute Neutrophils (1.2-6.7) 10^3/uL 21.59 H Absolute Lymphocytes (1.2-3.4) 10^3/uL 0.79 L Absolute Monocytes (0.1-0.8) 10^3/uL 1.32 H Absolute Eosinophils (0.0-0.7) 10^3/uL 0.00 Absolute Basophils (0.0-0.2) 10^3/uL 0.05 RBC Morphology See Below [place] Cells/Echinocytes 2+ PT (9.3-11.0) sec INR (0.9-1.1) APTT (21.5-31.9) sec D-Dimer (<500) ng/mlFEU VBG pH (7.31-7.41) 7.21 L VBG pCO2 (41-51) mmHg 62 H* VBG pO2 mmHg 29 VBG HCO3 (23-28) mmol/L 25 VBG Total CO2 (24-29) mmol/L 24 VBG O2 Saturation % 51 VBG Base Excess (-2-3) mmol/L -3 L VBG Lactate (0.6-1.4) mmol/L Sodium (136-145) mmol/L Cancelled Potassium (3.5-5.1) mmol/L Cancelled Chloride (98-107) mmol/L Cancelled Carbon Dioxide (21.0-32.0) mmol/L Cancelled Anion Gap (3-11) mmol/L Cancelled BUN (7-18) mg/dL Cancelled Creatinine (0.55-1.02) mg/dL Cancelled Est GFR (CKD-EPI 2020) (mL/min/1.73m2) Cancelled Glucose (74-106) mg/dL Cancelled Calcium (8.5-10.1) mg/dL Cancelled Magnesium (1.8-2.4) mg/dL 2.5 H Total Bilirubin (0.2-1.0) mg/dL AST (15-37) U/L ALT (14-59) U/L Alkaline Phosphatase (46-116) U/L Lactate Dehydrogenase (81-234) U/L Troponin I (<or=60) ng/L C-Reactive Protein (0.0-0.3) mg/dL NT-Pro-B Natriuret Pep (<300) pg/mL Total Protein (6.4-8.2) g/dL Albumin (3.4-5.0) g/dL Procalcitonin ng/mL TSH (0.36-3.74) uIU/mL Free T4 (0.76-1.46) ng/dL Urine Color (Yellow) Urine Clarity (Clear) Urine pH (5-8) Ur Specific [place] (1.005-1.025) Urine Protein (Negative) mg/dL Urine Ketones (Negative) mg/dL Urine Blood (Negative) Urine Nitrite (Negative) Urine Bilirubin (Negative) Urine Urobilinogen (Up TO 0.2) EU/dL Ur Leukocyte Esterase (Negative) Urine RBC (0-2) HPF Urine WBC (0-5) HPF Ur Epithelial Cells (Negative) HPF Urine Crystals (Negative) HPF Urine Bacteria (Negative) HPF Urine Casts (Negative) LPF Urine Mucus (Negative) Urine Other (Negative) Ur Culture Indicated? Ur Random Sodium mmol/L Urine Glucose (Negative) mg/dL Fluid Type Fluid Source Fluid Color Fluid Clarity Fluid pH Fluid WBC (0) uL Fld Polynuclear WBCs % % Fluid Mononuclear Cell % Fluid Glucose (See Note) mg/dL Fluid Total Protein g/dL Fluid LDH U/L COVID-19 Source SARS-CoV-2 (PCR) Influenza Type A (PCR) Influenza Type B (PCR) Urine Legionella Ag (Negative) RSV (PCR) Ur Strep pneumoniae Ag (Negative) Path Cons Comment Add-On Test Request Range/Units 05/29/22 05/29/22 05/29/22 05:30 05:30 08:10 WBC (4.4-10.8) 10^3/uL RBC (3.93-5.22) 10^6/uL Hgb (11.2-15.7) g/dL Hct (36.0-46.0) % MCV (80-95) fL MCH (27.0-33.0) pg MCHC (32.0-36.0) % RDW (11.7-14.6) % Plt Count (130-400) 10^3/uL MPV (8.0-11.0) fL Immature Gran % Neutrophils % Lymphocytes % Monocytes % Eosinophils % Basophils % Nucleated RBC % (0.0-0.3) % Absolute Neutrophils (1.2-6.7) 10^3/uL Absolute Lymphocytes (1.2-3.4) 10^3/uL Absolute Monocytes (0.1-0.8) 10^3/uL Absolute Eosinophils (0.0-0.7) 10^3/uL Absolute Basophils (0.0-0.2) 10^3/uL RBC Morphology Brad Cells/Echinocytes PT (9.3-11.0) sec INR (0.9-1.1) APTT (21.5-31.9) sec D-Dimer (<500) ng/mlFEU VBG pH (7.31-7.41) 7.20 L VBG pCO2 (41-51) mmHg 54 H VBG pO2 mmHg 56 VBG HCO3 (23-28) mmol/L 21 L VBG Total CO2 (24-29) mmol/L 21 L VBG O2 Saturation % 88 VBG Base Excess (-2-3) mmol/L -7 L VBG Lactate (0.6-1.4) mmol/L Sodium (136-145) mmol/L 138 Potassium (3.5-5.1) mmol/L 6.0 H Chloride (98-107) mmol/L 99 Carbon Dioxide (21.0-32.0) mmol/L 22.3 Anion Gap (3-11) mmol/L 16.7 H BUN (7-18) mg/dL 70 H Creatinine (0.55-1.02) mg/dL Est GFR (CKD-EPI 2020) (mL/min/1.73m2) 8.95 Glucose (74-106) mg/dL 109 H Calcium (8.5-10.1) mg/dL 8.1 L Magnesium (1.8-2.4) mg/dL Total Bilirubin (0.2-1.0) mg/dL 0.4 AST (15-37) U/L 25 ALT (14-59) U/L 33 Alkaline Phosphatase (46-116) U/L 76 Lactate Dehydrogenase (81-234) U/L Troponin I (<or=60) ng/L C-Reactive Protein (0.0-0.3) mg/dL NT-Pro-B Natriuret Pep (<300) pg/mL Total Protein (6.4-8.2) g/dL 6.3 L Albumin (3.4-5.0) g/dL 3.1 L Procalcitonin ng/mL 16.7 TSH (0.36-3.74) uIU/mL Free T4 (0.76-1.46) ng/dL Urine Color (Yellow) Urine Clarity (Clear) Urine pH (5-8) Ur Specific [place] (1.005-1.025) Urine Protein (Negative) mg/dL Urine Ketones (Negative) mg/dL Urine Blood (Negative) Urine Nitrite (Negative) Urine Bilirubin (Negative) Urine Urobilinogen (Up TO 0.2) EU/dL Ur Leukocyte Esterase (Negative) Urine RBC (0-2) HPF Urine WBC (0-5) HPF Ur Epithelial Cells (Negative) HPF Urine Crystals (Negative) HPF Urine Bacteria (Negative) HPF Urine Casts (Negative) LPF Urine Mucus (Negative) Urine Other (Negative) Ur Culture Indicated? Ur Random Sodium mmol/L Urine Glucose (Negative) mg/dL Fluid Type Fluid Source Fluid Color Fluid Clarity Fluid pH Fluid WBC (0) uL Fld Polynuclear WBCs % % Fluid Mononuclear Cell % Fluid Glucose (See Note) mg/dL Fluid Total Protein g/dL Fluid LDH U/L COVID-19 Source SARS-CoV-2 (PCR) Influenza Type A (PCR) Influenza Type B (PCR) Urine Legionella Ag (Negative) RSV (PCR) Ur Strep pneumoniae Ag (Negative) Path Cons Comment Add-On Test Request Range/Units 05/29/22 05/29/22 05/30/22 11:20 19:36 05:30 WBC (4.4-10.8) 10^3/uL RBC (3.93-5.22) 10^6/uL Hgb (11.2-15.7) g/dL Hct (36.0-46.0) % MCV (80-95) fL MCH (27.0-33.0) pg MCHC (32.0-36.0) % RDW (11.7-14.6) % Plt Count (130-400) 10^3/uL MPV (8.0-11.0) fL Immature Gran % Neutrophils % Lymphocytes % Monocytes % Eosinophils % Basophils % Nucleated RBC % (0.0-0.3) % Absolute Neutrophils (1.2-6.7) 10^3/uL Absolute Lymphocytes (1.2-3.4) 10^3/uL Absolute Monocytes (0.1-0.8) 10^3/uL Absolute Eosinophils (0.0-0.7) 10^3/uL Absolute Basophils (0.0-0.2) 10^3/uL RBC Morphology Brad Cells/Echinocytes PT (9.3-11.0) sec INR (0.9-1.1) APTT (21.5-31.9) sec D-Dimer (<500) ng/mlFEU VBG pH (7.31-7.41) VBG pCO2 (41-51) mmHg VBG pO2 mmHg VBG HCO3 (23-28) mmol/L VBG Total CO2 (24-29) mmol/L VBG O2 Saturation % VBG Base Excess (-2-3) mmol/L VBG Lactate (0.6-1.4) mmol/L Sodium (136-145) mmol/L 139 139 140 Potassium (3.5-5.1) mmol/L 5.2 H 4.7 4.4 Chloride (98-107) mmol/L 99 99 99 Carbon Dioxide (21.0-32.0) mmol/L 25.1 23.7 23.6 Anion Gap (3-11) mmol/L 14.9 H 16.3 H 17.4 H BUN (7-18) mg/dL 75 H 81 H* 87 H* Creatinine (0.55-1.02) mg/dL 5.0 H* D 5.1 H* 5.3 H* Est GFR (CKD-EPI 2020) (mL/min/1.73m2) 8.31 8.11 7.75 Glucose (74-106) mg/dL 72 L 125 H 116 H Calcium (8.5-10.1) mg/dL 8.3 L 8.3 L 8.3 L Magnesium (1.8-2.4) mg/dL Total Bilirubin (0.2-1.0) mg/dL 0.4 AST (15-37) U/L 28 ALT (14-59) U/L 35 Alkaline Phosphatase (46-116) U/L 46 Lactate Dehydrogenase (81-234) U/L Troponin I (<or=60) ng/L C-Reactive Protein (0.0-0.3) mg/dL 11.76 H NT-Pro-B Natriuret Pep (<300) pg/mL Total Protein (6.4-8.2) g/dL 5.8 L Albumin (3.4-5.0) g/dL 2.5 L Procalcitonin ng/mL TSH (0.36-3.74) uIU/mL Free T4 (0.76-1.46) ng/dL Urine Color (Yellow) Urine Clarity (Clear) Urine pH (5-8) Ur Specific [place] (1.005-1.025) Urine Protein (Negative) mg/dL Urine Ketones (Negative) mg/dL Urine Blood (Negative) Urine Nitrite (Negative) Urine Bilirubin (Negative) Urine Urobilinogen (Up TO 0.2) EU/dL Ur Leukocyte Esterase (Negative) Urine RBC (0-2) HPF Urine WBC (0-5) HPF Ur Epithelial Cells (Negative) HPF Urine Crystals (Negative) HPF Urine Bacteria (Negative) HPF Urine Casts (Negative) LPF Urine Mucus (Negative) Urine Other (Negative) Ur Culture Indicated? Ur Random Sodium mmol/L Urine Glucose (Negative) mg/dL Fluid Type Fluid Source Fluid Color Fluid Clarity Fluid pH Fluid WBC (0) uL Fld Polynuclear WBCs % % Fluid Mononuclear Cell % Fluid Glucose (See Note) mg/dL Fluid Total Protein g/dL Fluid LDH U/L COVID-19 Source SARS-CoV-2 (PCR) Influenza Type A (PCR) Influenza Type B (PCR) Urine Legionella Ag (Negative) RSV (PCR) Ur Strep pneumoniae Ag (Negative) Path Cons Comment Add-On Test Request Range/Units 05/30/22 05/30/22 05/30/22 05:30 11:00 17:56 WBC (4.4-10.8) 10^3/uL 17.40 H RBC (3.93-5.22) 10^6/uL 4.09 Hgb (11.2-15.7) g/dL 11.4 Hct (36.0-46.0) % 35.7 L MCV (80-95) fL 87 MCH (27.0-33.0) pg 27.9 MCHC (32.0-36.0) % 31.9 L RDW (11.7-14.6) % 15.6 H Plt Count (130-400) 10^3/uL 256 MPV (8.0-11.0) fL 10.8 Immature Gran % 0.7 Neutrophils % 87.5 Lymphocytes % 4.3 Monocytes % 7.4 Eosinophils % 0.0 Basophils % 0.1 Nucleated RBC % (0.0-0.3) % 0.0 Absolute Neutrophils (1.2-6.7) 10^3/uL 15.23 H Absolute Lymphocytes (1.2-3.4) 10^3/uL 0.75 L Absolute Monocytes (0.1-0.8) 10^3/uL 1.29 H Absolute Eosinophils (0.0-0.7) 10^3/uL 0.00 Absolute Basophils (0.0-0.2) 10^3/uL 0.02 RBC Morphology [place] Cells/Echinocytes PT (9.3-11.0) sec INR (0.9-1.1) APTT (21.5-31.9) sec 29.6 54.1 H D-Dimer (<500) ng/mlFEU VBG pH (7.31-7.41) VBG pCO2 (41-51) mmHg VBG pO2 mmHg VBG HCO3 (23-28) mmol/L VBG Total CO2 (24-29) mmol/L VBG O2 Saturation % VBG Base Excess (-2-3) mmol/L VBG Lactate (0.6-1.4) mmol/L Sodium (136-145) mmol/L Potassium (3.5-5.1) mmol/L Chloride (98-107) mmol/L Carbon Dioxide (21.0-32.0) mmol/L Anion Gap (3-11) mmol/L BUN (7-18) mg/dL Creatinine (0.55-1.02) mg/dL Est GFR (CKD-EPI 2020) (mL/min/1.73m2) Glucose (74-106) mg/dL Calcium (8.5-10.1) mg/dL Magnesium (1.8-2.4) mg/dL Total Bilirubin (0.2-1.0) mg/dL AST (15-37) U/L ALT (14-59) U/L Alkaline Phosphatase (46-116) U/L Lactate Dehydrogenase (81-234) U/L Troponin I (<or=60) ng/L C-Reactive Protein (0.0-0.3) mg/dL NT-Pro-B Natriuret Pep (<300) pg/mL Total Protein (6.4-8.2) g/dL Albumin (3.4-5.0) g/dL Procalcitonin ng/mL TSH (0.36-3.74) uIU/mL Free T4 (0.76-1.46) ng/dL Urine Color (Yellow) Urine Clarity (Clear) Urine pH (5-8) Ur Specific [place] (1.005-1.025) Urine Protein (Negative) mg/dL Urine Ketones (Negative) mg/dL Urine Blood (Negative) Urine Nitrite (Negative) Urine Bilirubin (Negative) Urine Urobilinogen (Up TO 0.2) EU/dL Ur Leukocyte Esterase (Negative) Urine RBC (0-2) HPF Urine WBC (0-5) HPF Ur Epithelial Cells (Negative) HPF Urine Crystals (Negative) HPF Urine Bacteria (Negative) HPF Urine Casts (Negative) LPF Urine Mucus (Negative) Urine Other (Negative) Ur Culture Indicated? Ur Random Sodium mmol/L Urine Glucose (Negative) mg/dL Fluid Type Fluid Source Fluid Color Fluid Clarity Fluid pH Fluid WBC (0) uL Fld Polynuclear WBCs % % Fluid Mononuclear Cell % Fluid Glucose (See Note) mg/dL Fluid Total Protein g/dL Fluid LDH U/L COVID-19 Source SARS-CoV-2 (PCR) Influenza Type A (PCR) Influenza Type B (PCR) Urine Legionella Ag (Negative) RSV (PCR) Ur Strep pneumoniae Ag (Negative) Path Cons Comment Add-On Test Request Range/Units 05/31/22 05/31/22 05/31/22 00:30 06:10 06:10 WBC (4.4-10.8) 10^3/uL RBC (3.93-5.22) 10^6/uL Hgb (11.2-15.7) g/dL Hct (36.0-46.0) % MCV (80-95) fL MCH (27.0-33.0) pg MCHC (32.0-36.0) % RDW (11.7-14.6) % Plt Count (130-400) 10^3/uL MPV (8.0-11.0) fL Immature Gran % Neutrophils % Lymphocytes % Monocytes % Eosinophils % Basophils % Nucleated RBC % (0.0-0.3) % Absolute Neutrophils (1.2-6.7) 10^3/uL Absolute Lymphocytes (1.2-3.4) 10^3/uL Absolute Monocytes (0.1-0.8) 10^3/uL Absolute Eosinophils (0.0-0.7) 10^3/uL Absolute Basophils (0.0-0.2) 10^3/uL RBC Morphology [place] Cells/Echinocytes PT (9.3-11.0) sec INR (0.9-1.1) APTT (21.5-31.9) sec 40.1 H D-Dimer (<500) ng/mlFEU VBG pH (7.31-7.41) VBG pCO2 (41-51) mmHg VBG pO2 mmHg VBG HCO3 (23-28) mmol/L VBG Total CO2 (24-29) mmol/L VBG O2 Saturation % VBG Base Excess (-2-3) mmol/L VBG Lactate (0.6-1.4) mmol/L Sodium (136-145) mmol/L 143 Potassium (3.5-5.1) mmol/L 3.4 L D Chloride (98-107) mmol/L 101 Carbon Dioxide (21.0-32.0) mmol/L 28.2 Anion Gap (3-11) mmol/L 13.8 H BUN (7-18) mg/dL 98 H* Creatinine (0.55-1.02) mg/dL 4.7 H* Est GFR (CKD-EPI 2020) (mL/min/1.73m2) 8.95 Glucose (74-106) mg/dL 119 H Calcium (8.5-10.1) mg/dL 8.2 L Magnesium (1.8-2.4) mg/dL Total Bilirubin (0.2-1.0) mg/dL 0.4 AST (15-37) U/L 17 ALT (14-59) U/L 26 Alkaline Phosphatase (46-116) U/L 39 L Lactate Dehydrogenase (81-234) U/L Troponin I (<or=60) ng/L C-Reactive Protein (0.0-0.3) mg/dL 10.51 H NT-Pro-B Natriuret Pep (<300) pg/mL 52905 H Total Protein (6.4-8.2) g/dL 5.3 L Albumin (3.4-5.0) g/dL 2.2 L Procalcitonin ng/mL 5.1 TSH (0.36-3.74) uIU/mL Free T4 (0.76-1.46) ng/dL Urine Color (Yellow) Urine Clarity (Clear) Urine pH (5-8) Ur Specific [place] (1.005-1.025) Urine Protein (Negative) mg/dL Urine Ketones (Negative) mg/dL Urine Blood (Negative) Urine Nitrite (Negative) Urine Bilirubin (Negative) Urine Urobilinogen (Up TO 0.2) EU/dL Ur Leukocyte Esterase (Negative) Urine RBC (0-2) HPF Urine WBC (0-5) HPF Ur Epithelial Cells (Negative) HPF Urine Crystals (Negative) HPF Urine Bacteria (Negative) HPF Urine Casts (Negative) LPF Urine Mucus (Negative) Urine Other (Negative) Ur Culture Indicated? Ur Random Sodium mmol/L Urine Glucose (Negative) mg/dL Fluid Type Fluid Source Fluid Color Fluid Clarity Fluid pH Fluid WBC (0) uL Fld Polynuclear WBCs % % Fluid Mononuclear Cell % Fluid Glucose (See Note) mg/dL Fluid Total Protein g/dL Fluid LDH U/L COVID-19 Source SARS-CoV-2 (PCR) Influenza Type A (PCR) Influenza Type B (PCR) Urine Legionella Ag (Negative) RSV (PCR) Ur Strep pneumoniae Ag (Negative) Path Cons Comment Add-On Test Request Range/Units 05/31/22 05/31/22 05/31/22 06:10 06:10 06:10 WBC (4.4-10.8) 10^3/uL 14.17 H RBC (3.93-5.22) 10^6/uL 3.92 L Hgb (11.2-15.7) g/dL 10.7 L Hct (36.0-46.0) % 32.9 L MCV (80-95) fL 84 MCH (27.0-33.0) pg 27.3 MCHC (32.0-36.0) % 32.5 RDW (11.7-14.6) % 15.0 H Plt Count (130-400) 10^3/uL 238 MPV (8.0-11.0) fL 10.4 Immature Gran % 0.7 Neutrophils % 84.8 Lymphocytes % 6.9 Monocytes % 7.5 Eosinophils % 0.0 Basophils % 0.1 Nucleated RBC % (0.0-0.3) % 0.0 Absolute Neutrophils (1.2-6.7) 10^3/uL 12.02 H Absolute Lymphocytes (1.2-3.4) 10^3/uL 0.98 L Absolute Monocytes (0.1-0.8) 10^3/uL 1.06 H Absolute Eosinophils (0.0-0.7) 10^3/uL 0.00 Absolute Basophils (0.0-0.2) 10^3/uL 0.01 RBC Morphology Brad Cells/Echinocytes PT (9.3-11.0) sec INR (0.9-1.1) APTT (21.5-31.9) sec 63.6 H D-Dimer (<500) ng/mlFEU VBG pH (7.31-7.41) VBG pCO2 (41-51) mmHg VBG pO2 mmHg VBG HCO3 (23-28) mmol/L VBG Total CO2 (24-29) mmol/L VBG O2 Saturation % VBG Base Excess (-2-3) mmol/L VBG Lactate (0.6-1.4) mmol/L Sodium (136-145) mmol/L Potassium (3.5-5.1) mmol/L Chloride (98-107) mmol/L Carbon Dioxide (21.0-32.0) mmol/L Anion Gap (3-11) mmol/L BUN (7-18) mg/dL Creatinine (0.55-1.02) mg/dL Est GFR (CKD-EPI 2020) (mL/min/1.73m2) Glucose (74-106) mg/dL Calcium (8.5-10.1) mg/dL Magnesium (1.8-2.4) mg/dL Total Bilirubin (0.2-1.0) mg/dL AST (15-37) U/L ALT (14-59) U/L Alkaline Phosphatase (46-116) U/L Lactate Dehydrogenase (81-234) U/L Troponin I (<or=60) ng/L C-Reactive Protein (0.0-0.3) mg/dL NT-Pro-B Natriuret Pep (<300) pg/mL Total Protein (6.4-8.2) g/dL Albumin (3.4-5.0) g/dL Procalcitonin ng/mL TSH (0.36-3.74) uIU/mL Free T4 (0.76-1.46) ng/dL Urine Color (Yellow) Urine Clarity (Clear) Urine pH (5-8) Ur Specific [place] (1.005-1.025) Urine Protein (Negative) mg/dL Urine Ketones (Negative) mg/dL Urine Blood (Negative) Urine Nitrite (Negative) Urine Bilirubin (Negative) Urine Urobilinogen (Up TO 0.2) EU/dL Ur Leukocyte Esterase (Negative) Urine RBC (0-2) HPF Urine WBC (0-5) HPF Ur Epithelial Cells (Negative) HPF Urine Crystals (Negative) HPF Urine Bacteria (Negative) HPF Urine Casts (Negative) LPF Urine Mucus (Negative) Urine Other (Negative) Ur Culture Indicated? Ur Random Sodium mmol/L Urine Glucose (Negative) mg/dL Fluid Type Fluid Source Fluid Color Fluid Clarity Fluid pH Fluid WBC (0) uL Fld Polynuclear WBCs % % Fluid Mononuclear Cell % Fluid Glucose (See Note) mg/dL Fluid Total Protein g/dL Fluid LDH U/L COVID-19 Source SARS-CoV-2 (PCR) Influenza Type A (PCR) Influenza Type B (PCR) Urine Legionella Ag (Negative) RSV (PCR) Ur Strep pneumoniae Ag (Negative) Path Cons Comment Add-On Test Request DONE Range/Units 05/31/22 05/31/22 05/31/22 06:10 12:15 19:48 WBC (4.4-10.8) 10^3/uL RBC (3.93-5.22) 10^6/uL Hgb (11.2-15.7) g/dL Hct (36.0-46.0) % MCV (80-95) fL MCH (27.0-33.0) pg MCHC (32.0-36.0) % RDW (11.7-14.6) % Plt Count (130-400) 10^3/uL MPV (8.0-11.0) fL Immature Gran % Neutrophils % Lymphocytes % Monocytes % Eosinophils % Basophils % Nucleated RBC % (0.0-0.3) % Absolute Neutrophils (1.2-6.7) 10^3/uL Absolute Lymphocytes (1.2-3.4) 10^3/uL Absolute Monocytes (0.1-0.8) 10^3/uL Absolute Eosinophils (0.0-0.7) 10^3/uL Absolute Basophils (0.0-0.2) 10^3/uL RBC Morphology [place] Cells/Echinocytes PT (9.3-11.0) sec INR (0.9-1.1) APTT (21.5-31.9) sec 47.9 H 79.4 H D-Dimer (<500) ng/mlFEU VBG pH (7.31-7.41) VBG pCO2 (41-51) mmHg VBG pO2 mmHg VBG HCO3 (23-28) mmol/L VBG Total CO2 (24-29) mmol/L VBG O2 Saturation % VBG Base Excess (-2-3) mmol/L VBG Lactate (0.6-1.4) mmol/L Sodium (136-145) mmol/L Potassium (3.5-5.1) mmol/L Chloride (98-107) mmol/L Carbon Dioxide (21.0-32.0) mmol/L Anion Gap (3-11) mmol/L BUN (7-18) mg/dL Creatinine (0.55-1.02) mg/dL Est GFR (CKD-EPI 2020) (mL/min/1.73m2) Glucose (74-106) mg/dL Calcium (8.5-10.1) mg/dL Magnesium (1.8-2.4) mg/dL 2.5 H Total Bilirubin (0.2-1.0) mg/dL AST (15-37) U/L ALT (14-59) U/L Alkaline Phosphatase (46-116) U/L Lactate Dehydrogenase (81-234) U/L Troponin I (<or=60) ng/L C-Reactive Protein (0.0-0.3) mg/dL NT-Pro-B Natriuret Pep (<300) pg/mL Total Protein (6.4-8.2) g/dL Albumin (3.4-5.0) g/dL Procalcitonin ng/mL TSH (0.36-3.74) uIU/mL Free T4 (0.76-1.46) ng/dL Urine Color (Yellow) Urine Clarity (Clear) Urine pH (5-8) Ur Specific [place] (1.005-1.025) Urine Protein (Negative) mg/dL Urine Ketones (Negative) mg/dL Urine Blood (Negative) Urine Nitrite (Negative) Urine Bilirubin (Negative) Urine Urobilinogen (Up TO 0.2) EU/dL Ur Leukocyte Esterase (Negative) Urine RBC (0-2) HPF Urine WBC (0-5) HPF Ur Epithelial Cells (Negative) HPF Urine Crystals (Negative) HPF Urine Bacteria (Negative) HPF Urine Casts (Negative) LPF Urine Mucus (Negative) Urine Other (Negative) Ur Culture Indicated? Ur Random Sodium mmol/L Urine Glucose (Negative) mg/dL Fluid Type Fluid Source Fluid Color Fluid Clarity Fluid pH Fluid WBC (0) uL Fld Polynuclear WBCs % % Fluid Mononuclear Cell % Fluid Glucose (See Note) mg/dL Fluid Total Protein g/dL Fluid LDH U/L COVID-19 Source SARS-CoV-2 (PCR) Influenza Type A (PCR) Influenza Type B (PCR) Urine Legionella Ag (Negative) RSV (PCR) Ur Strep pneumoniae Ag (Negative) Path Cons Comment Add-On Test Request Range/Units 06/01/22 06/01/22 06/01/22 05:40 05:40 05:40 WBC (4.4-10.8) 10^3/uL 13.67 H RBC (3.93-5.22) 10^6/uL 4.15 Hgb (11.2-15.7) g/dL 11.2 Hct (36.0-46.0) % 34.3 L MCV (80-95) fL 83 MCH (27.0-33.0) pg 27.0 MCHC (32.0-36.0) % 32.7 RDW (11.7-14.6) % 14.9 H Plt Count (130-400) 10^3/uL 259 MPV (8.0-11.0) fL 11.0 Immature Gran % 0.8 Neutrophils % 82.2 Lymphocytes % 9.1 Monocytes % 7.4 Eosinophils % 0.4 Basophils % 0.1 Nucleated RBC % (0.0-0.3) % 0.0 Absolute Neutrophils (1.2-6.7) 10^3/uL 11.24 H Absolute Lymphocytes (1.2-3.4) 10^3/uL 1.24 Absolute Monocytes (0.1-0.8) 10^3/uL 1.01 H Absolute Eosinophils (0.0-0.7) 10^3/uL 0.05 Absolute Basophils (0.0-0.2) 10^3/uL 0.01 RBC Morphology [place] Cells/Echinocytes PT (9.3-11.0) sec INR (0.9-1.1) APTT (21.5-31.9) sec 88.8 H* D-Dimer (<500) ng/mlFEU VBG pH (7.31-7.41) VBG pCO2 (41-51) mmHg VBG pO2 mmHg VBG HCO3 (23-28) mmol/L VBG Total CO2 (24-29) mmol/L VBG O2 Saturation % VBG Base Excess (-2-3) mmol/L VBG Lactate (0.6-1.4) mmol/L Sodium (136-145) mmol/L 143 Potassium (3.5-5.1) mmol/L 3.3 L Chloride (98-107) mmol/L 103 Carbon Dioxide (21.0-32.0) mmol/L 30.1 Anion Gap (3-11) mmol/L 9.9 BUN (7-18) mg/dL 105 H* Creatinine (0.55-1.02) mg/dL 3.6 H* Est GFR (CKD-EPI 2020) (mL/min/1.73m2) 12.32 Glucose (74-106) mg/dL 122 H Calcium (8.5-10.1) mg/dL 8.2 L Magnesium (1.8-2.4) mg/dL 2.2 Total Bilirubin (0.2-1.0) mg/dL 0.4 AST (15-37) U/L 27 ALT (14-59) U/L 32 Alkaline Phosphatase (46-116) U/L 42 L Lactate Dehydrogenase (81-234) U/L Troponin I (<or=60) ng/L C-Reactive Protein (0.0-0.3) mg/dL NT-Pro-B Natriuret Pep (<300) pg/mL Total Protein (6.4-8.2) g/dL 5.2 L Albumin (3.4-5.0) g/dL 2.0 L Procalcitonin ng/mL TSH (0.36-3.74) uIU/mL Free T4 (0.76-1.46) ng/dL Urine Color (Yellow) Urine Clarity (Clear) Urine pH (5-8) Ur Specific [place] (1.005-1.025) Urine Protein (Negative) mg/dL Urine Ketones (Negative) mg/dL Urine Blood (Negative) Urine Nitrite (Negative) Urine Bilirubin (Negative) Urine Urobilinogen (Up TO 0.2) EU/dL Ur Leukocyte Esterase (Negative) Urine RBC (0-2) HPF Urine WBC (0-5) HPF Ur Epithelial Cells (Negative) HPF Urine Crystals (Negative) HPF Urine Bacteria (Negative) HPF Urine Casts (Negative) LPF Urine Mucus (Negative) Urine Other (Negative) Ur Culture Indicated? Ur Random Sodium mmol/L Urine Glucose (Negative) mg/dL Fluid Type Fluid Source Fluid Color Fluid Clarity Fluid pH Fluid WBC (0) uL Fld Polynuclear WBCs % % Fluid Mononuclear Cell % Fluid Glucose (See Note) mg/dL Fluid Total Protein g/dL Fluid LDH U/L COVID-19 Source SARS-CoV-2 (PCR) Influenza Type A (PCR) Influenza Type B (PCR) Urine Legionella Ag (Negative) RSV (PCR) Ur Strep pneumoniae Ag (Negative) Path Cons Comment Add-On Test Request Range/Units 06/01/22 06/02/22 06/02/22 14:42 05:10 05:10 WBC (4.4-10.8) 10^3/uL 12.15 H RBC (3.93-5.22) 10^6/uL 4.10 Hgb (11.2-15.7) g/dL 11.3 Hct (36.0-46.0) % 34.0 L MCV (80-95) fL 83 MCH (27.0-33.0) pg 27.6 MCHC (32.0-36.0) % 33.2 RDW (11.7-14.6) % 14.8 H Plt Count (130-400) 10^3/uL 235 MPV (8.0-11.0) fL 11.0 Immature Gran % 0.7 Neutrophils % 82.2 Lymphocytes % 8.9 Monocytes % 6.3 Eosinophils % 1.8 Basophils % 0.1 Nucleated RBC % (0.0-0.3) % 0.0 Absolute Neutrophils (1.2-6.7) 10^3/uL 9.99 H Absolute Lymphocytes (1.2-3.4) 10^3/uL 1.08 L Absolute Monocytes (0.1-0.8) 10^3/uL 0.77 Absolute Eosinophils (0.0-0.7) 10^3/uL 0.22 Absolute Basophils (0.0-0.2) 10^3/uL 0.01 RBC Morphology [place] Cells/Echinocytes PT (9.3-11.0) sec INR (0.9-1.1) APTT (21.5-31.9) sec 70.1 H D-Dimer (<500) ng/mlFEU VBG pH (7.31-7.41) VBG pCO2 (41-51) mmHg VBG pO2 mmHg VBG HCO3 (23-28) mmol/L VBG Total CO2 (24-29) mmol/L VBG O2 Saturation % VBG Base Excess (-2-3) mmol/L VBG Lactate (0.6-1.4) mmol/L Sodium (136-145) mmol/L 142 Potassium (3.5-5.1) mmol/L 2.7 L* Chloride (98-107) mmol/L 103 Carbon Dioxide (21.0-32.0) mmol/L 32.5 H Anion Gap (3-11) mmol/L 6.5 BUN (7-18) mg/dL 85 H* Creatinine (0.55-1.02) mg/dL 2.2 H D Est GFR (CKD-EPI 2020) (mL/min/1.73m2) 22.25 Glucose (74-106) mg/dL 119 H Calcium (8.5-10.1) mg/dL 8.2 L Magnesium (1.8-2.4) mg/dL Total Bilirubin (0.2-1.0) mg/dL AST (15-37) U/L ALT (14-59) U/L Alkaline Phosphatase (46-116) U/L Lactate Dehydrogenase (81-234) U/L Troponin I (<or=60) ng/L C-Reactive Protein (0.0-0.3) mg/dL NT-Pro-B Natriuret Pep (<300) pg/mL Total Protein (6.4-8.2) g/dL Albumin (3.4-5.0) g/dL Procalcitonin ng/mL TSH (0.36-3.74) uIU/mL Free T4 (0.76-1.46) ng/dL Urine Color (Yellow) Urine Clarity (Clear) Urine pH (5-8) Ur Specific [place] (1.005-1.025) Urine Protein (Negative) mg/dL Urine Ketones (Negative) mg/dL Urine Blood (Negative) Urine Nitrite (Negative) Urine Bilirubin (Negative) Urine Urobilinogen (Up TO 0.2) EU/dL Ur Leukocyte Esterase (Negative) Urine RBC (0-2) HPF Urine WBC (0-5) HPF Ur Epithelial Cells (Negative) HPF Urine Crystals (Negative) HPF Urine Bacteria (Negative) HPF Urine Casts (Negative) LPF Urine Mucus (Negative) Urine Other (Negative) Ur Culture Indicated? Ur Random Sodium mmol/L Urine Glucose (Negative) mg/dL Fluid Type Fluid Source Fluid Color Fluid Clarity Fluid pH Fluid WBC (0) uL Fld Polynuclear WBCs % % Fluid Mononuclear Cell % Fluid Glucose (See Note) mg/dL Fluid Total Protein g/dL Fluid LDH U/L COVID-19 Source SARS-CoV-2 (PCR) Influenza Type A (PCR) Influenza Type B (PCR) Urine Legionella Ag (Negative) RSV (PCR) Ur Strep pneumoniae Ag (Negative) Path Cons Comment Add-On Test Request Range/Units 06/02/22 06/03/22 05:10 06:48 WBC (4.4-10.8) 10^3/uL 12.59 H RBC (3.93-5.22) 10^6/uL 4.52 Hgb (11.2-15.7) g/dL 12.4 Hct (36.0-46.0) % 38.4 MCV (80-95) fL 85 MCH (27.0-33.0) pg 27.4 MCHC (32.0-36.0) % 32.3 RDW (11.7-14.6) % 14.8 H Plt Count (130-400) 10^3/uL 222 MPV (8.0-11.0) fL 11.0 Immature Gran % 0.7 Neutrophils % 81.5 Lymphocytes % 8.7 Monocytes % 6.8 Eosinophils % 2.1 Basophils % 0.2 Nucleated RBC % (0.0-0.3) % 0.0 Absolute Neutrophils (1.2-6.7) 10^3/uL 10.26 H Absolute Lymphocytes (1.2-3.4) 10^3/uL 1.10 L Absolute Monocytes (0.1-0.8) 10^3/uL 0.86 H Absolute Eosinophils (0.0-0.7) 10^3/uL 0.26 Absolute Basophils (0.0-0.2) 10^3/uL 0.03 RBC Morphology [place] Cells/Echinocytes PT (9.3-11.0) sec INR (0.9-1.1) APTT (21.5-31.9) sec 25.8 D-Dimer (<500) ng/mlFEU VBG pH (7.31-7.41) VBG pCO2 (41-51) mmHg VBG pO2 mmHg VBG HCO3 (23-28) mmol/L VBG Total CO2 (24-29) mmol/L VBG O2 Saturation % VBG Base Excess (-2-3) mmol/L VBG Lactate (0.6-1.4) mmol/L Sodium (136-145) mmol/L Potassium (3.5-5.1) mmol/L Chloride (98-107) mmol/L Carbon Dioxide (21.0-32.0) mmol/L Anion Gap (3-11) mmol/L BUN (7-18) mg/dL Creatinine (0.55-1.02) mg/dL Est GFR (CKD-EPI 2020) (mL/min/1.73m2) Glucose (74-106) mg/dL Calcium (8.5-10.1) mg/dL Magnesium (1.8-2.4) mg/dL Total Bilirubin (0.2-1.0) mg/dL AST (15-37) U/L ALT (14-59) U/L Alkaline Phosphatase (46-116) U/L Lactate Dehydrogenase (81-234) U/L Troponin I (<or=60) ng/L C-Reactive Protein (0.0-0.3) mg/dL NT-Pro-B Natriuret Pep (<300) pg/mL Total Protein (6.4-8.2) g/dL Albumin (3.4-5.0) g/dL Procalcitonin ng/mL TSH (0.36-3.74) uIU/mL Free T4 (0.76-1.46) ng/dL Urine Color (Yellow) Urine Clarity (Clear) Urine pH (5-8) Ur Specific [place] (1.005-1.025) Urine Protein (Negative) mg/dL Urine Ketones (Negative) mg/dL Urine Blood (Negative) Urine Nitrite (Negative) Urine Bilirubin (Negative) Urine Urobilinogen (Up TO 0.2) EU/dL Ur Leukocyte Esterase (Negative) Urine RBC (0-2) HPF Urine WBC (0-5) HPF Ur Epithelial Cells (Negative) HPF Urine Crystals (Negative) HPF Urine Bacteria (Negative) HPF Urine Casts (Negative) LPF Urine Mucus (Negative) Urine Other (Negative) Ur Culture Indicated? Ur Random Sodium mmol/L Urine Glucose (Negative) mg/dL Fluid Type Fluid Source Fluid Color Fluid Clarity Fluid pH Fluid WBC (0) uL Fld Polynuclear WBCs % % Fluid Mononuclear Cell % Fluid Glucose (See Note) mg/dL Fluid Total Protein g/dL Fluid LDH U/L COVID-19 Source SARS-CoV-2 (PCR) Influenza Type A (PCR) Influenza Type B (PCR) Urine Legionella Ag (Negative) RSV (PCR) Ur Strep pneumoniae Ag (Negative) Path Cons Comment Add-On Test Request
[2022-06-03 07:22] LABS: Anion Gap 6.1 mmol/L (3-11); BUN 69 mg/dL (7-18); CO2 29.9 mmol/L (21.0-32.0); CREATININE 1.8 mg/dL (0.55-1.02); Calcium 8.6 mg/dL (8.5-10.1); Chloride 104 mmol/L (98-107); Estimated GFR 28.31 (mL/min/1.73m2); Glucose 120 mg/dL (74-106); Potassium 4.2 mmol/L (3.5-5.1); Sodium 140 mmol/L (136-145)
[2022-06-03] MEDS: Levalbuterol 1.25 MG/3 ML UPD VIAL UPD ×2 (08:14→12:51)
[2022-06-03] MEDS: Ipratropium 0.5 MG/2.5 ML UPD VIAL 0.25 MG UPD ×2 (08:15→12:52)
[2022-06-03] MEDS: Normal Saline Flush 10 ML SYR IVP ×2 (08:18→19:10)
[2022-06-03] MEDS: CEFEPIME 1 GM in Normal Saline 50 ML IVPB ×2 (08:18→19:09)
[2022-06-03] MEDS: Apixaban 5 MG TAB PO (08:19)
[2022-06-03] MEDS: Furosemide 40 MG/4 ML VIAL IVP (08:19)
[2022-06-03] MEDS: Amiodarone 200 MG TAB 400 MG PO (08:19)
--- NOTE | 2022-06-03 09:18 | PDOC.CMPRO ---
- If Service Date Differs Date of service: 06/03/22 Time of Service: 09:18 Care Management Progress Note S/O: Kelsey continues to improve medically and is now med surg status. She is lying in bed wearing hi-flow O2 when CM met with her. She is pleasant and able to engage in conversation. Kelsey is also now very agreeable to discharge to SNF for STR when medically ready with a goal of getting strong enough to return home. Also, Kelsey met with Dr. Palomino from Palliative today and a COLST form was completed and code status is changed to DNR/DNI. CM sent referrals to [facility] and [facility]. CM will continue to follow. A: Kelsey is a 81 year old woman admitted on 05/26/22 with sepsis, pneumonia and empyema P: Anticipate Kelsey will discharge to SNF for STR, prior to returning She is critically ill and has not responded fully to treatment. She confirmed this with CM today. CM will follow and offer support to Kelsey and assess for discharge concerns.
--- NOTE | 2022-06-03 11:06 | W.PALPGNOTE ---
Date of service: 06/03/22 Time of Service: 09:10 Assessment and Plan Assessment and plan (1) Advanced care planning/counseling discussion: Status: Acute Assessment and plan: 1. Patient was very clear today that she has decided she would like Evelyn Alcantara to continue to be her healthcare agent. When asked to explain why, she told me she is a good 1 . Current advance directive and healthcare agent designation will remain as previous. 2.CODE STATUS: Patient was also very clear and unwavering today that she did not want cardiopulmonary resuscitation. When asked to explain her decision, she told me if it is my time, it is my time. . When asked about intubation, she was very adamant that she would not want to be intubated if she was in respiratory failure for any reason. This is a change from yesterday's conversation but aligns with what she expressed in the emergency room and 2 days ago with case management. Patient was asked a second time about 15 minutes later the same question and answers and rationale were unchanged. Colst form was completed. (2) Palliative care patient: Status: Acute (3) Discharge planning issues: Status: Acute Assessment and plan: After discussion with multiple friends and providers who have known patient for 6 or more years, as well as discussion with her today, I am not getting a picture of significant cognitive decline. 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 She may have some mild cognitive impairment as exhibited by her increasing difficulty with managing her home and caring for her pets. I wonder if today there is still some hypoactive delirium that has not cleared yet, she still not able to recall her days in the intensive care unit nor retained what what she is told about that time. Motivational interviewing done today around possibility of brief HASRHIL stay after hospital discharge. Patient repeatedly reassured that her animals are being well cared for while she is here. Reminded her that she was able to do a HARSHIL stay after hip fracture few years ago. ST stay would allow her to be as strong as possible when she went home, and more sucessful at remaining home. She said (and her friends agreed) that she would except assistance at home through home health agency and any other resources. There is lingering question of whether there is a pulmonary mass. She will have follow-up imaging in the next few weeks. Palliative care team is available to meet with her again as needed. We will plan to follow-up with her next week or as an outpatient. Subjective Subjective Interval history since last seen: I met with Ms. Yi again this morning to review healthcare agent and CODE STATUS, due to conflicting information obtained during yesterday's visit. Prior to my meeting with her I spoke on the phone with: 1.Josue Tanvir, her clearance diver. He does not want to be her healthcare agent. He would like to remain her clearance diver and friend and advocate for her in that role. He gave additional background history including that horses had to be removed this week because of neglect and will not be coming back, she has troubles maintaining her home, unable to shovel the ice, unclear what if any help she is getting with shopping. He describes that she lives in a [id number] house which she has not been able to maintain due to economic reasons. She is not a hoarder. He thinks someone is helping her do shopping. No one has been shoveling or doing snow removal. He is only aware that she drives to [employer] and back every Wednesday when she is able to. He notes that she has become increasingly frail and weak looking over the last few months. She has always been a personality . But she participates in reading groups at [employer]. Always has her own unique opinion, but interacts well with others for the most part. He has not seen any overt signs of memory loss. 2.Octavia Alcantara: Octavia is an older friend of adi's. 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 They had not been in touch at all over the last 6 years. Octavia is happy to be back in touch with patient and is very willing to be her healthcare agent. She described Kelsey as generally reclusive and very independent. 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 She cannot comment on leases recent level of functioning. She has not seen any overt signs of memory loss. 3. PCP Dr. Pro Loaiza in [place]. He has known her for 5 to 6 years. She does not like to see the doctor, did not go at all for 2 or 3 years over [facility]. He reports that she continues to smoke. Her weight has been stable over the last 5 years at 120 pounds. He has not noted any overt signs of memory loss. He wonders if she might have a personality disorder. She is always pleasant in the office. Exam Narrative Exam Narrative: Patient is lying quietly in bed with high flow oxygen on. Still looking pale. She is oriented to month and year and [facility] and [facility]. She does not know how long she has been in the hospital. She is unable to tell me why she was in the hospital aside from back pain. (I note that we discussed pneumonia and kidney failure yesterday). I again tell her about the pneumonia, kidney failure and chest tube. When I asked her 10 minutes after this to tell me why she is in the hospital, she is able to tell me my lungs...smoking , but is not unable to tell me about pneumonia or kidney problems. Chart review shows Head CT without contrast on May 26, day of admission. No obvious mass, bleeding. Objective Last Vital Signs Temp 36.8 C 06/03/22 07:13 Pulse 52 L 06/03/22 08:30 Resp 24 06/03/22 08:30 BP 109/65 06/03/22 07:13 Pulse Ox 96 06/03/22 08:30 Laboratory Results - last 24 hr 06/03/22 06/03/22 06:48 06:48 WBC 12.59 H RBC 4.52 Hgb 12.4 Hct 38.4 MCV 85 MCH 27.4 MCHC 32.3 RDW 14.8 H Plt Count 222 MPV 11.0 Immature Gran % 0.7 Neutrophils % 81.5 Lymphocytes % 8.7 Monocytes % 6.8 Eosinophils % 2.1 Basophils % 0.2 Nucleated RBC % 0.0 Absolute Neutrophils 10.26 H Absolute Lymphocytes 1.10 L Absolute Monocytes 0.86 H Absolute Eosinophils 0.26 Absolute Basophils 0.03 Sodium 140 Potassium 4.2 D Chloride 104 Carbon Dioxide 29.9 Anion Gap 6.1 BUN 69 H Creatinine 1.8 H Est GFR (CKD-EPI 2020) 28.31 Glucose 120 H Calcium 8.6
--- NOTE | 2022-06-03 12:00 | SP_ITS ---
Date of service: 06/03/22 Time of Service: 12:00 Subjective Clinical (Bedside) Swallow Evaluation Speech Language Pathology Patient referredClinical Swallow Evaluation from Dr. Fitzpatrick given sepsis secondary pneumonia and empyema, respiratory failure with hypoxia, and pleural effusion with concern for aspiration. Precautions: Fall, Standard, DNR/DNI Kelsey was contacted during the lunch meal. RT was present initially and assisted to reposition patient for best upright posture at mealtime. Patient was alert but lethargic, agreeable to evaluation, with minimal verbal output unless prompted, largely agreeable to evaluation and appeared to demonstrate comprehension of recommendations for safe PO intake as evidence by good within- session carryover of recommendations. HPI: Pt is a 81 year old female with complex social history admitted with [facility] on [facility] who presented to the ED with back pain and found to have Afib with RVR and a loculated right pleural effusion with sepsis susepcted due to pulmonary infection, with additional concern for possible RML mass. Admitted to the ICU for a parapneumonic effusion, and chest tube placed. Also was found with severe acute renal failure. Her renal failure has been significantly improving and the diuretics have been able to be peeled back significantly.Chest tubes removed and delerium is improved. She has a remaining lung mass that does not seem to be connected to the pleural effusion and will need follow up.?This date she was taken off of HFNC and at the time of this visit she was on 1L O2 via nasal cannula and followed by RT. Predisposing dysphagia risk factors: n/a Clinical signs of possible chronic dysphagia: PNA Precipitating dysphagia risk factors / triggering event: respiratory failure with hypoxia PFSH All Active Problems?(Updated 05/26/22 @ 17:48 by Sonam Mccord MD) Pneumonia (Acute) Sepsis (Acute) Respiratory failure with hypoxia (Acute) Atrial fibrillation with RVR (Acute) Loculated pleural effusion (Acute) Gastritis (Acute) Discharge planning issues (Acute) Leukocytosis, unspecified (Acute) Acute blood loss anemia (Acute) DVT prophylaxis (Acute) Tobacco dependence (Acute) Closed right hip fracture (Acute 04/23/19) S/P screw fixation DOS: 04/24/19TIA (transient ischemic attack) (Chronic) Pt denied hx of stroke Discharge problem list from 10/08/15 states TIAHyperlipidemia (Chronic) Hypothyroidism (Chronic) Atrial fibrillation (Chronic) on EliquisMild cognitive impairment with memory loss (Acute) Surgical History? History of cystogram Pt describes cystogram Discharge problem list from 10/08/15 states hx of exploratory laparotomy Objective Objective Sp02: 94% (per RT, not observed by MONEY ORDER CLERK during PO trials) Respiratory: 1L O2, maintaining saturation per RT (continuous telemetry not available at bedside), appears SOB with exertion, clavicular breathing Oral Motor Exam: ? Dentition: Edentulous - patient reports she no longer wears dentures ? Oral Mucosa : Good oral care, no lesions ? CN V - Trigeminal ? Sensation not tested ?Jaw Movement WFL ? CN VII ? Labial/Facial ? Patient unable to adequately follow instructions to perfrorm non-speech AMR's ? CN IX ? Palate ? WFL ? CN X ? Laryngeal ? MPT : less than 5 s ? Vocal quality ? Rough, breathy ? Volitional cough ? Weak ? Uncoordinated ? CN XII ? Lingual ? Unable to test strength or coordination do to patient unable to follow instructions Symmetry and ROM appear intact ?Volitional Swallow ?Suspect delayed onset of swallow ? Food items tested: ?? [ ] None. Further swallow assessment not warranted at this time.? [x] Ice: x1-2 chips [x] IDDSI 0: x10-12 sips via straw [ ] IDDSI 1: [ ] IDDSI 2: [ ] IDDSI 3: [X] IDDSI 4: 1 serving mashed potatoes and squash [X] IDDSI 5: [place], modified/shredded with gravy x 6-7 bites [ ] IDDSI 6: [X] IDDSI 7: [place] x2-3 bites [ ] Pill/tablet: Oral phase: [ ] WFL [ ] Leakage from mouth [ ] Difficulty with bolus manipulation [ ] Difficulty with a-p transport [x] Difficulty chewing [ ] Pocketing [ ] Residue Pharyngeal phase: [ ] WFL [x] Delayed swallow initiation [ ] Reduced hyolaryngeal elevation/excursion [x] Cough after swallow [ ] Voice change after swallow? [ ] Throat clearing? [ ] Endorsed stasis? Additional observation: Patient appears very fatigued. Unable to take any bites without stopping to breathe deeply with open mouth posture with food in mouth. Appears more short of breath while chewing (vs manipulating purees/liquids). When taking multiple sips liquid, stopping to breath while performing oral bolus hold (mouth open). Coughing with large/consecutive sips liquid. Coughing eliminated with use of one small sip at a time verbal cues. Provided education to: Patient, Nursing, MD Topics Addressed: anatomy/physiology of swallowing mechanism, overt s/sx to monitor for re: potential aspiration of food / liquids, recommendations for improved oral care, relationship between respiratory function changes and deglutition, Rationale for recommendations as outlined below Outcome: Verbalized/demonstrated understanding Assessment Likely acute dysphagia in setting of poor respiratory/swallow coordination. Patient taking large gaping breaths of air during PO intake including when drinking and with purees. Cues for 1 sip at a time eliminated s/sx aspiration wi th thin liquids. Recommend diet of Level 5 Minced/Moist solids to minimize work of chewing and reduce risk of choking on larger food pieces, as well as given edentulous status (patient without dentures). When modifications are made to reflect the recommended diet and strategies in place as below, patient appears with good tolerance of PO intake despite high work of breathing increasing risk of aspiration. PLAN: MONEY ORDER CLERK will continue to follow while on unit to ensure safest/least restsrictive diet and monitor for diet tolerance or potential upgrade as respiratory status improves. If respiratory status improves do not suspect patient will need further MONEY ORDER CLERK services for dysphagia upon discharge. If respiratory issues remain unresolved, MONEY ORDER CLERK to re-evaluate discharge re commendations at that time. Recommendations: Diet Texture Modification(s): IDDSI Level(s) SOLIDS 5-Minced & Moist Solids LIQUIDS 0-Thin Liquids Medication Intake: Whole with 4-Extremely Thick Liquids RISK MANAGEMENT: HOB upright as tolerated; upright for all PO intake. Encourage physical mobility as tolerated. Oral hygiene q4h/every 4 hours & before/after PO intake, using friction with toothbrush on all oral structures as tolerated ? Level of Assistance/Supervision: 1:1 line of sight supervision for all PO intake and setup assist PO intake only when awake/alert? Strategies/Adaptations/Assistive Equipment: Reduce auditory and/or visual distractions when eating Provide verbal and/or visual cues to use recommended strategies: Small sips and bites when eating, Slow rate of intake Posture/Positioning Needs: Maintain upright position at least 30 minutes after meals, Avoid meals/snacks 2- 3 hours prior to reclining/sleeping Plan Short Term Goals: Patient will tolerate safest/least restrictive diet as dictated by respiratory tolerance without s/sx aspiration. - Current: IDDSI 5 minced moist solids / IDDSI 0 thin liquids. Patient/caregiver will be independent with aspiration precautions, diet modifications, and safe swallowing strategies. CODIN CLINICAL SWALLOW EVALUATION x 40 minutes Coding Diagnoses
--- NOTE | 2022-06-03 12:30 | W.PM.PROGNOT ---
Date of Service Date of service: 06/03/22 Time of Service: 12:30 Assessment and Plan Assessment and plan (1) Sepsis: Status: Acute Assessment and plan: Secondary to pneumonia and empyema. MRSA screen is negative so vancomycin was d/c'd. Continues on Cefepeime. Anaerobic pleural culture showed no growth after 5 days. Aerobic culture from pleural fluid also shows no growth after 120 hours although the Gram stain showed many white cells but no bacteria. Now med-surg status. (2) Respiratory failure with hypoxia: Status: Acute Assessment and plan: multifactorial primary insult was her complicated pneumonia/empyema however she is now in volume overload and requires diuresis. fortunately she has responded to high dose Diuril and lasix. Lasix drip was converted to intermittent boluses of Lasix. Diuril was discontinued. Hypoxemia is improving although she still requires HFNC. (3) Pneumonia: Status: Acute Assessment and plan: As above (4) Loculated pleural effusion: Status: Acute Assessment and plan: Status postplacement of right-sided chest tube placement 05/27. Pleural fluid culture showed no growth as noted above. Cytology negative for malignant cells. CT chest today showed tip of chest tube not in the area of empyema, but when she is repositioned, the tube drains pleural effusion. Chest tube has been removed. (5) Acute renal failure with oliguria: Status: Acute Assessment and plan: Renal function continues to improve. Cr down to 1.8 and she is maintaining a good urine output. Still requires diuretics as she still seems to be volume overloaded. Will decrease lasix dose to daily (40mg IV). (6) Atrial fibrillation with RVR: Status: Acute Assessment and plan: Rate and rhythm are being controlled with loading doses of amiodarone as well as small doses of short acting Lopressor. With improvement in renal function, can d/c heparin drip and start Eliquis for anticoagulation. (7) Movement disorder: Status: Acute Assessment and plan: Patient has not exhibited any further tardive dyskinesia type movements this may have been related to her acute delirium from her metabolic encephalopathy. (8) Delirium: Status: Resolved Assessment and plan: Likely metabolic encephalopathy secondary to sepsis superimposed on what sounds to be a dementia process. This hasresolved w/ resolution of sepsis. (9) DVT prophylaxis: Status: Acute Assessment and plan: begin heparin drip Continue SCDs (10) Discharge planning issues: Status: Acute Assessment and plan: Per Pastor Salas he feels that the patient cannot return home she has been failing for some time over several months and her home environment is not conducive to her recovery. She will likely need a SNF if she survives her acute illness. Pt agreeable to rehab but eventually plans on returning to her home. Palliative care consult appreciate; now has COLST form, DNI/DNR. Subjective Subjective Patient reports: feels better, tolerating a regular diet, shortness of breath (Improved per patient) and afebrile Exam Narrative Exam Narrative: Lying in bed. Conversational. HFNC in place. Const General: cooperative and no acute distress Nutritional Appearance: underweight Orientation: alert, oriented to person and oriented to place Eyes General: appearance normal, both eyes and all related structures Sclera: sclerae normal Resp Effort & Inspection: other (shallow, mildly rapid breathing. ) Auscultation: diminished lung sounds and rhonchi (soft, scattered.) Cardio Rate: regular rate Rhythm: regular rhythm Heart Sounds: S1 normal and S2 normal GI Inspection: non-distended Palpation: soft and nontender Neuro General: no focal motor deficits Cranial Nerves: facial strength normal Extrem General: no pedal edema and no calf tenderness Psych Speech and Movement: speech clear Affect: blunted Objective Last Vital Signs Temp 36.4 C L 06/03/22 11:15 Pulse 55 L 06/03/22 11:15 Resp 18 06/03/22 11:15 BP 103/61 06/03/22 11:15 Pulse Ox 94 06/03/22 12:10 Laboratory Results - last 24 hr 06/03/22 06/03/22 06:48 06:48 WBC 12.59 H RBC 4.52 Hgb 12.4 Hct 38.4 MCV 85 MCH 27.4 MCHC 32.3 RDW 14.8 H Plt Count 222 MPV 11.0 Immature Gran % 0.7 Neutrophils % 81.5 Lymphocytes % 8.7 Monocytes % 6.8 Eosinophils % 2.1 Basophils % 0.2 Nucleated RBC % 0.0 Absolute Neutrophils 10.26 H Absolute Lymphocytes 1.10 L Absolute Monocytes 0.86 H Absolute Eosinophils 0.26 Absolute Basophils 0.03 Sodium 140 Potassium 4.2 D Chloride 104 Carbon Dioxide 29.9 Anion Gap 6.1 BUN 69 H Creatinine 1.8 H Est GFR (CKD-EPI 2020) 28.31 Glucose 120 H Calcium 8.6 Time Spent with Patient Time Spent with Patient: 25-34 minutes Time was spent: preparing to see the patient(eg.review tests), ordering medications,tests, procedures, indepentently interpreting results and care coordination
--- NOTE | 2022-06-03 16:16 | PT.INTREAT ---
Date of service: 06/03/22 Time of Service: 15:20 PT Notes Visit Reasons: Sepsis,Pneumonia, Empyema, Rapid Afib Inpatient Physical Therapy Treatment Note [facility] Date: 06/03/2022 PRECAUTIONS: PRECAUTIONS: Activity as tolerated, Fall, chest tube SUBJECTIVE: Stated she did not really care to get out of bed. Was asked by nursing staff to hold on getting up due to patient's transition from SCU and limited O2 tolerance. OBJECTIVE: PAIN: No complaints offered. THEREX: Performed bed exercises only this afternoon. This included ankle pumps, QS, GS, hip abd/add with min assist, hip flexion with min assist, bicep curls, shoulder IR/ER and assisted shoulder abd/adduct and flexion bed to 50 degrees. All exercises performed for 8 to 10 reps each. O2 supplement tubing in place throughout session, currently set at 1L and increased to 2L by nursing staff. 92% to 89% noted throughout session. ASSESSMENT: Appeared very sleepy, but answering questions appropriately. PLAN: Continue with current plan of care. Hope to resume ambulation tomorrow. TREATMENT CODE/TIME: [id number], 3:20 to 3:35 pm
[2022-06-03] MEDS: Apixaban 2.5 MG TAB PO (19:10)
[2022-06-04] VITALS (14 sets, daily range): BP systolic 102–136; BP diastolic 56–72; PULSE 51–58; RESP 8–22; TEMP 36.2–36.8; O2SAT 90–99
[2022-06-04] MEDS: CEFEPIME 1 GM in Normal Saline 50 ML IVPB (07:56)
[2022-06-04] MEDS: Normal Saline Flush 10 ML SYR IVP (07:57)
[2022-06-04] MEDS: Amiodarone 200 MG TAB 400 MG PO (07:59)
[2022-06-04] MEDS: Furosemide 20 MG TAB PO (07:59)
[2022-06-04] MEDS: Apixaban 2.5 MG TAB PO ×2 (08:00→20:53)
--- NOTE | 2022-06-04 08:30 | PDOC.CMPRO ---
- If Service Date Differs Date of service: 06/04/22 Time of Service: 08:30 Care Management Progress Note S/O: Kelsey was sitting up in a chair when CM met with her. She was polite but not very talkative. Kelsey informed CM that she just wants to go home. CM reminded her that she has agreed to go to rehab for strengthening prior to returning home. Kelsey responded that she has been to rehab before and that it went well. She agreed that she was still willing to go. A bed offer has been received and accepted at [facility] for tomorrow. Clinically, Kelsey is much improved. The high flow oxygen was discontinued yesterday and she is now on 1-3 L/min of nasal oxygen with saturations in the 90s consistently. A: Kelsey is a 81 year old woman admitted on 05/26/22 with sepsis, pneumonia and empyema P: Anticipate Kelsey will discharge to SNF for STR, prior to returning home. She has received and accepted a bed offer at [facility] for tomorrow. She will transport via facility w/c van and follow up with facility providers and plan of care. CM will follow and offer support to Kelsey and assess for discharge concerns.
[2022-06-04] MEDS: Ipratropium 0.5 MG/2.5 ML UPD VIAL 0.25 MG UPD ×3 (09:09→20:52)
[2022-06-04] MEDS: Levalbuterol 1.25 MG/3 ML UPD VIAL UPD ×3 (09:09→20:52)
--- NOTE | 2022-06-04 09:10 | PT.INTREAT ---
Date of service: 06/04/22 Time of Service: 08:30 PT Notes Visit Reasons: Sepsis,Pneumonia, Empyema, Rapid Afib Inpatient Physical Therapy Treatment Note [facility] Date: 06/04/2020 PRECAUTIONS: Activity as tolerated, Fall, monitor SaO2 SUBJECTIVE: Kelsey is pleasant and agreeable to participating in PT. She does not communicate much verbally, but does express that she is feeling better today. OBJECTIVE: PAIN: No c/o pain BED MOBILITY/TRANSFERS Supine-sit: Mod A with HOB at 40 degrees Sit-supine: Min A with HOB flat Sit-stand: CGA x2 Stand-sit: CGA + SBA Bed: CGA + SBA GAIT Assistive Device: FWW Weight bearing: Full Assist: CGA + SBA Distance: 10 steps in both a.m. and p.m. Deviation: C/o feeling woozy, slow pacing THEREX: Patient was instructed in ankle pumps in a long-sitting position in a.m.; in p.m., patient is instructed in a LE strengthening and stabilization program, completed in a supine position, to include: ankle pumps, quad sets, glute sets and heel slides. She requires assist with heel slides, bilaterally. VITALS: SaO2: 90% on 2L O2 with activity ASSESSMENT: Patient tolerated session without complaint. She demonstrates limited activity tolerance at this time. PLAN: Continue with global strengthening and gait training for improved activity tolerance and mobility. TREATMENT CODE/TIME: Session 1: 35 minutes; 87802 x2 (08:30) Session 2: 24 minutes; [id number], [id number] (13:03)
--- NOTE | 2022-06-04 11:50 | SPP_ITS ---
Date of service: 06/04/22 Time of Service: 11:36 Subjective Per nursing, pt was coughing while drinking thin liquids by straw before breakfast this AM. Nsg stated pt appeared to tolerate breakfast well. Pt remains on 2L O2 via NC, saturating ~98% at rest per nsg. Fatigued today, remains nearly aphonic with absent glottal coup during elicited cough. Responsive to questions and appreciative of ice chips provided. Nsg is unable to provide close supervision for duration of meal at this time. Objective/Assessment/Plan Objective Treatment Techniques & Outcomes: PO trials provided today: single small and large ice chips, thin water by cup, pureed solids. No overt s/sx aspiration/penetration observed across trials today, however, pt did demonstrate increased work of breathing while consuming consecutive bites of pureed solids, approx. 1/2 tsp size. Patient/Caregiver/Staff Education: Educated nsg regarding no straw precaution and provided rationale to pt for remaining on current recommended diet level. Reviewed precautions/strategies recommended during initial CUSTOMER STRATEGY MANAGER evaluation yesterday, particularly use of small single bites and sips and reduced rate of intake to stabilize breathing. Level of Assistance/Supervision: 1:1 line of sight supervision for all PO intake and setup assist PO intake only when awake/alert? Strategies/Adaptations/Assistive Equipment: Reduce auditory and/or visual distractions when eating Provide verbal and/or visual cues to use recommended strategies: Small sips and bites when eating, Slow rate of intake Posture/Positioning Needs: Maintain upright position at least 30 minutes after meals, Avoid meals/snacks 2- 3 hours prior to reclining/sleeping Assessment Pt demonstrates signs of improvement in terms of dysphagia severity as evidenced by no bolus holding today, which was prominent during yesterday's evaluation. However, O2 has been increased from 1 to 2 L due to inability to maintain adequate O2 saturation. Because she is unable to be closely monitored 1:1 during meals, she is inappropriate for diet level advancement at this time due to ongoing fatigue, respiratory effort and aspiration risk. Plan Plan: CUSTOMER STRATEGY MANAGER will continue to follow for diet level and safety recommendations. Recommendations Diet: 5-Minced & Moist (Mechancially Altered/Ground) Liquids: 0-Thin Liquids Other: no straws Strategies/Adaptions: Use supports to ensure upright/midline posture, Pace rate of intake, Small bites, Small sips, No straws, Oral care at least 2x/day and Other (implement breaks during meal) Supervision: Direct Supervision via of [facility] staff,self-feeding and Frequ ent/periodic check-ins Additional Notes: Codin Treatment of swallowing/oral dysfunction Total Time Spent: 17 minutes Coding Diagnoses
[2022-06-04] MEDS: Levothyroxine 75 MCG TAB PO (13:02)
--- NOTE | 2022-06-04 14:23 | CHAPLAIN ---
Kelsey was resting in bed when I visited. She spoke very softly. We talked about her adventist family from [facility] and the people from that adventist who have visited her here, including Fr. Salas. Kelsey said she is getting some good rest here. She was pleased to tell me that Fr. Salas is caring for her dog, Whit. I will continue to visit. I spoke with Fr. Salas yesterday and he said he will be likely be into visit this afternoon. Dr. Palomino from Palliative Care, asked me to see of Fr. Salas would agree to be one of Kelsey' Health Care Agents, as she had requested. He said he would prefer to remain as her clergy support person and not confuse that role with also being a HCA for Kelsey. I let Dr. Palomino know this. According to Care Management notes, Kelsey has accepted a bed offer at [facility] and will likely transfer there tomorrow.
--- NOTE | 2022-06-04 15:42 | PGE_ITS ---
Date of Service Date of service: 06/04/22 Time of Service: 15:42 Assessment and Plan Assessment and plan (1) Sepsis: Status: Acute Assessment and plan: Secondary to pneumonia and empyema. Resolved. (2) Respiratory failure with hypoxia: Status: Acute Assessment and plan: Multifactorial primary insult was her complicated pneumonia/empyema however she is now in volume overload and requires diuresis. She responded to high dose Diuril and lasix. Lasix drip was converted to intermittent boluses of Lasix. Diuril was discontinued. Hypoxemia is improving . Now on NC. (3) Pneumonia: Status: Acute Assessment and plan: On Cefepime and will continue with consideration of changing to oral antibiotic soon. (4) Loculated pleural effusion: Status: Acute Assessment and plan: Status postplacement of right-sided chest tube placement 05/27. Pleural fluid culture showed no growth as noted above. Cytology negative for malignant cells. Diuresing with po lasix and treating PNA with cefepime. (5) Acute renal failure with oliguria: Status: Acute Assessment and plan: Renal function continues to improve. Cr down to 1.8 and she is maintaining a good urine output. Still requires diuretics as she still seems to be volume overloaded. Will decrease lasix dose to daily (40mg IV). BMP in AM (6) Atrial fibrillation with RVR: Status: Acute Assessment and plan: Rate and rhythm are being controlled with loading doses of amiodarone as well as small doses of short acting Lopressor. Now in sinus with bradycardia. D/W pulmonary/provider relations manager tomorrow regarding continuing amiodarone or not. Cont eliquis for AC. (7) Movement disorder: Status: Acute Assessment and plan: Patient has not exhibited any further tardive dyskinesia type movements this may have been related to her acute delirium from her metabolic encephalopathy. (8) Delirium: Status: Resolved Assessment and plan: Likely metabolic encephalopathy secondary to sepsis superimposed on what sounds to be a dementia process. This hasresolved w/ resolution of sepsis. (9) DVT prophylaxis: Status: Acute Assessment and plan: begin heparin drip Continue SCDs (10) Discharge planning issues: Status: Acute Assessment and plan: Per Pastor Salas he feels that the patient cannot return home she has been failing for some time over several months and her home environment is not conducive to her recovery. She will likely need a SNF if she survives her acute illness. Pt agreeable to rehab but eventually plans on returning to her home. Palliative care consult appreciate; now has COLST form, DNI/DNR. Subjective Subjective Patient reports: no new complaints, feels better, shortness of breath and afebrile; denies nausea or vomiting Interval history since last seen: Feels generally weak but walked with PT Exam Narrative Exam Narrative: Sitting in recliner. NC in place. Appears frail. Const General: cooperative and no acute distress Nutritional Appearance: underweight Orientation: alert, oriented to person and oriented to place Eyes General: appearance normal, both eyes and all related structures Sclera: sclerae normal Resp Effort & Inspection: other (shallow, mildly rapid breathing. ) Auscultation: diminished lung sounds and rhonchi (soft, scattered.) Cardio Rate: regular rate Rhythm: regular rhythm Heart Sounds: S1 normal and S2 normal GI Inspection: non-distended Palpation: soft and nontender Neuro General: no focal motor deficits Cranial Nerves: facial strength normal Extrem General: no pedal edema and no calf tenderness Psych Speech and Movement: speech clear Affect: blunted Objective Last Vital Signs Temp 36.5 C 06/04/22 15:19 Pulse 54 L 06/04/22 15:19 Resp 14 06/04/22 15:19 BP 106/60 06/04/22 15:19 Pulse Ox 91 L 06/04/22 15:19 Time Spent with Patient Time Spent with Patient: 25-34 minutes Time was spent: preparing to see the patient(eg.review tests), ordering medications,tests, procedures, indepentently interpreting results and counseling the patient
[2022-06-04] MEDS: Amoxicillin 500/Clav. 125 TAB PO (20:52)
[2022-06-04] MEDS: Pravastatin 20 MG TAB PO (20:53)
[2022-06-05 04:02] VITALS: BP 122/62; PULSE 54; RESP 16; TEMP 36.8; O2SAT 92
[2022-06-05] MEDS: Levothyroxine 75 MCG TAB PO (06:00)
[2022-06-05 07:00] VITALS: PULSE 50
[2022-06-05 07:03] LABS: Abs Immature Grans 0.16 10^3/uL (0.0-0.06); Absolute Basophil Count 0.04 10^3/uL (0.0-0.2); Absolute Eosinophil Count 0.26 10^3/uL (0.0-0.7); Absolute Lymphocyte Count 1.66 10^3/uL (1.2-3.4); Absolute Monocyte Count 1.12 10^3/uL (0.1-0.8); Absolute Neutrophil Count 11.09 10^3/uL (1.2-6.7); Basophils % 0.3; Eosinophils % 1.8; HGB 12.1 g/dL (11.2-15.7); Immature Grans % 1.1; Lymphocytes % 11.6; MCH 26.9 pg (27.0-33.0); MCV 87 fL (80-95); MPV 10.9 fL (8.0-11.0); Monocytes % 7.8; Neutrophils % 77.4; Platelet Count 270 10^3/uL (130-400); RBC 4.49 10^6/uL (3.93-5.22); RDW 14.9 % (11.7-14.6); RDW-SD 46.9 fL; WBC 14.33 10^3/uL (4.4-10.8)
[2022-06-05 07:24] LABS: Anion Gap 3.7 mmol/L (3-11); BUN 36 mg/dL (7-18); CO2 32.3 mmol/L (21.0-32.0); CREATININE 1.3 mg/dL (0.55-1.02); Calcium 8.6 mg/dL (8.5-10.1); Chloride 102 mmol/L (98-107); Estimated GFR 41.83 (mL/min/1.73m2); Glucose 96 mg/dL (74-106); Potassium 4.5 mmol/L (3.5-5.1); Sodium 138 mmol/L (136-145)
[2022-06-05 07:34] VITALS: BP 127/71; PULSE 51; RESP 18; TEMP 36.9; O2SAT 93
[2022-06-05 08:03] VITALS: PULSE 53; RESP 1; RESP 8; O2SAT 89
[2022-06-05] MEDS: Ipratropium 0.5 MG/2.5 ML UPD VIAL 0.25 MG UPD (08:03)
[2022-06-05] MEDS: Levalbuterol 1.25 MG/3 ML UPD VIAL UPD (08:03)
[2022-06-05] MEDS: Furosemide 20 MG TAB PO (09:16)
[2022-06-05] MEDS: Apixaban 2.5 MG TAB PO (09:16)
[2022-06-05] MEDS: Amiodarone 200 MG TAB 400 MG PO (09:16)
[2022-06-05] MEDS: Amoxicillin 500/Clav. 125 TAB PO (09:16)
[2022-06-05] MEDS: Normal Saline Flush 10 ML SYR IVP (09:17)
--- NOTE | 2022-06-05 10:00 | PDOC.CMDIS ---
- If Service Date Differs Date of service: 06/05/22 Time of Service: 10:00 LACE Index Scoring Tool - Questions: Length of Stay (in days): 7 - 13 Acuity (Admit via E.D.?): Yes Comorbidities: Cerebrovascular Disease, Chronic Pulmonary Disease E.D. Visits: 1 - Answers: Total Score: 12 Risk of Readmission: High Risk Care Management Discharge Reason for Hospitalization: Sepsis Discharge Plan: Kelsey will discharge to [facility] for STR, prior to returning home. She will transport via facility w/c van and follow up with facility providers and plan of care. Patient/Family Education Needs: Revirew of discharge instructions, limitations, activity, follow up plan, discuss Ask Me Three
--- NOTE | 2022-06-05 10:09 | W.PM.DS.N ---
Date of service: 06/05/22 Time of Service: 10:09 DS: Diagnosis Discharge Diagnosis (1) Sepsis: Status: Acute Asessment and Plan: Zosyn and vancomycin admistered initially. Anitbiotic coverage changed to cefepime; vancomycin d/c'd after MRSA screen was negative. Mildly elevated lactate of 1.9 normalized. (2) Respiratory failure with hypoxia: Status: Acute Asessment and Plan: Multifactorial primary insult was her complicated pneumonia/empyema however she was in volume overload and required diuresis. She responded to high dose Diuril and lasix.? Lasix drip was converted to intermittent boluses of Lasix and Diuril was discontinued.? On 15L NRB after admission then changed to HFNC. Ultimately, discharged on regular NC at 2L supplemental O2. Pulmonary/Critical Care physician involved in patients care. ? (3) Pneumonia: Status: Acute Asessment and Plan: As above under sepsis. Prior to d/c changed to Augmentin 500mg po BID. (4) Loculated pleural effusion: Status: Acute Asessment and Plan: Pigtail catheter placed for drainage and subsequently removed after some success. Treatment of pneumonia and volume overload also contributed to improvement. (5) Acute renal failure with oliguria: Status: Acute Asessment and Plan: Creatinine increased to 5.3 . Discussion with patient and next of kin regarding whether dialysis is something consistent with her goals was undertaken. All involved agreed that dialysis was not an option. Multifactorial including ATN from contrast nephropathy and superimposed hypotension/decr. renal perfusion injury and antibiotics (although antibiotics are more likely to cause and acute interstitial nephritis). Dr. Don, nephrology, recommended a trial of lasix high dose i.e. 200 mg and if no response over 2hr then likely will need LIVESTOCK TRUCKER, correct hyperkalemia and acidosis, control source of ATN i.e. avoid nephrotoxins and avoid hypotension. After 2 doses of 200mg IV lasix and high dose diuril (1000mg) her urine output improved and her creatinine continued to improve. Creatinine of 1.3 on day of discharge. (6) Atrial fibrillation with RVR: Status: Acute Asessment and Plan: Treated initially with a cardizem drip, then changed to amiodarone drip. Heparin drip initiated for anticoagulation. Was on Eliquis at home. Changed to po amiadarone. Also on metoprolol that was titrated to effectiveness. Heparin drip was subsequently discontinued and she went back on Eliquis. On d/c, she will continue on metoprolol and amiodarone was stopped. (7) Movement disorder: Status: Acute Asessment and Plan: At time of admission she displayed tardive dyskinesia type movements. No known history of phenothiazine or antipsychotic use known by PCP. The movements did not persist after pts encephalopathic state resolved. (8) Pulmonary mass: Status: Acute Asessment and Plan: NOted on both CT chest films performed during hospitalization. Suspicion of cancer, though could be part of the empyema that was present. She needs to follow up with Dr Maria in the pulmonary clinic and have a repeat CT scan once she is discharged from SNF. Discharge Plan Disposition Patient Disposition: Longterm Facility(SNF) Condition: Improving Discharge Details Reason For Visit: Sepsis,Pneumonia, Empyema, Rapid Afib Admit Date/Time: 05/26/22 12:24 Admit Provider: Sonam Mccord Attending Provider: Sonam Mccord Primary Care Provider: [facility] Hospital Course Hospital Course: Ms Yi is a 81 year old female with PMhx of Afib on eliquis, Prior TIA, hypothyroidism, hyperlipidemia, who presented to [facility] ED today c/o back pain. The patient denies injury to her back and cannot say how long the pain has been going on, but does state that it got especially bad yesterday. She denied fevers, states she had not noticed how long she has been short of breath for, but that it has snuck up on her, denies palpitations. She still smokes. She denied noticing weight loss, but says apparently I have! Denied night sweats. In the ER, she was found to be in Afib w/ RVR with HR in 160s and 170s. She was started on cardizem drip. The rest of her workup revealed WBC of 31 and a loculated RML mass vs effusion with a central hypodensity. The patient was afebrile. Pulmonology consult was sought, and the finding was felt to be an effusion, likely an empyema. The patient was initiated on empiric zosyn. Hospitalist admission to the ICU was requested. General surgery consulted for a pig tail catheter placement to drain the effusion. The patient refused to have this procedure done until the follow day when it was placed. See Diagnosis Home Meds and New Rx's Prescriptions: New furosemide 20 mg Tablet 20 mg PO DAILY Qty: 0 0RF ipratropium bromide 0.02 % Solution 0.25 mg UPD BID Qty: 0 0RF amoxicillin-pot clavulanate 500-125 mg Tablet 1 tab PO BID Qty: 0 0RF metoprolol succinate 25 mg Tablet Extended Release 24 Hr 25 mg PO HS Qty: 0 0RF levalbuterol HCl 1.25 mg/3 mL Solution For Nebulization 1.25 mg UPD Q4H PRN PRNQty: 0 0RF polyethylene glycol 3350 17 gram Powder In Packet 17 g PO DAILY PRN PRN (Reason: Constipation) Qty: 0 0RF potassium chloride 20 mEq Packet 20 meq PO DAILY Qty: 0 0RF Phlexy-Vits 15 mg- 700 mcg Powder In Packet 1 oz PO TID Qty: 0 0RF Continued cholecalciferol (vitamin D3) 1,000 UNIT capsule 1,000 unit PO DAILY Patient Comments: pt unsure if she takes this 09/30/15 docusate sodium [Stool Softener] 100 MG capsule 100 mg PO DAILY Patient Comments: Pt states these medicines she does not take and should be removed pravastatin 10 mg tablet 20 mg PO DAILY Qty: 90 latanoprost 0.005 % drops 1 drp ophthalmic (eye) QPM Patient Comments: INSTILL 1 DROP IN BOTH EYES EVERY EVENING levothyroxine 75 mcg tablet 75 mcg PO DAILY Patient Comments: TAKE 1 TABLET BY MOUTH EVERY DAY IN THE MORNING ON AN EMPTY STOMACH ondansetron 4 mg tablet,disintegrating 4 mg PO Q6H PRN (Reason: nausea and vomiting) Qty: 10 0RF Patient Comments: Pt states these medicines she does not take and should be removed pantoprazole 40 mg tablet,delayed release (DR/EC) 40 mg PO DAILY Qty: 20 0RF Patient Comments: Pt states these medicines she does not take and should be removed acetaminophen [Tylenol] 325 mg Tablet 650 mg PO Q4H PRN PRNQty: 0 0RF Eliquis 2.5 mg Tablet 2.5 mg PO BID Qty: 0 0RF Changed ferrous gluconate 324 mg (37.5 mg iron) Tablet 324 mg PO DAILY Qty: 0 0RF Patient Comments: Pt states these medicines she does not take and should be removed Discontinued amlodipine 5 MG tablet 5 mg PO DAILY Qty: 90 Patient Comments: pt unsure when she took this last 09/30/15 ascorbate calcium (vitamin C) 500 MG tablet 500 mg PO DAILY Patient Comments: pt unsure when she took this last 09/30/15 Therems-M 27-0.4 mg Tablet 1 tab PO DAILY Qty: 0 0RF Patient Comments: Pt states these medicines she does not take and should be removed Discharge Instructions Instructions: A-fib (Atrial Fibrillation) (DC), Sepsis (DC), Pneumonia (DC) Additional Instructions: Schedule pulmonary medicine consult when patient is being discharged. F/U of likely lung mass. Stand Alone Forms: Nursing Discharge Form Activity:: Activity as Tolerated Equipment/Supplies:: No Equipment Needed Diet:: As Tolerated Discharge Orders Discharge Orders: Discharge Order (Routine); Ordered 06/05/22 Ordered By: Bharathi Combs DS: Summary Time Spent with Patient providing and/or coordinating discharge services: Greater than 30 minutes Status at Discharge Functional status at discharge: uses cane/walker Overall status at discharge: patient is progressing back to baseline Mental Status: other (Forgetful. ) Speech and Movement: speech clear Mood: euthymic mood and other (Forgetful. ) Affect: blunted Exam Narrative Exam Narrative: Sitting in recliner. NC in place. Appears frail. Const General: cooperative and no acute distress Nutritional Appearance: underweight Orientation: alert, oriented to person and oriented to place Eyes General: appearance normal, both eyes and all related structures Sclera: sclerae normal Resp Effort & Inspection: other (shallow, mildly rapid breathing. ) Auscultation: diminished lung sounds and rhonchi (soft, scattered.) Cardio Rate: regular rate Rhythm: regular rhythm Heart Sounds: S1 normal and S2 normal GI Inspection: non-distended Palpation: soft and nontender Neuro General: no focal motor deficits Cranial Nerves: facial strength normal Extrem General: no pedal edema and no calf tenderness Psych Mental Status: other (Forgetful. ) Speech and Movement: speech clear Mood: euthymic mood and other (Forgetful. ) Affect: blunted DS: Data Vitals/I&O Vitals and I&O: Vital Signs Temperature 36.9 C 06/05/22 07:34 Temperature Source Tympanic 06/05/22 07:34 Pulse 53 L 06/05/22 08:03 Pulse Rhythm Regular 06/05/22 02:30 Pulse 54 L 06/02/22 16:01 Respiratory Rate 18 06/05/22 07:34 Respiratory Effort Normal, Non-Labored 06/05/22 02:30 Respiratory Depth Normal 06/05/22 02:30 Respiratory Pattern Normal 06/05/22 02:30 Blood Pressure 127/71 06/05/22 07:34 Blood Pressure Mean 64 06/02/22 16:01 Blood Pressure Position Sitting 06/02/22 04:00 Pulse Oximetry 89 L 06/05/22 08:03 Oxygen Delivery Method Nasal Cannula 06/05/22 08:03 Oxygen Flow Rate 2 06/05/22 08:03 Fraction of Inspired Oxygen (FIO2) 30 06/03/22 11:32 Pain Level 0 06/05/22 04:02 Comment p.t removed o2. was 88% recheck 92 06/05/22 04:02 Arterial Systolic 123 05/30/22 10:01 Arterial Diastolic 72 05/30/22 10:01 Arterial Mean 256 05/30/22 10:30 Intake & Output 06/04/22 06/04/22 06/05/22 11:59 23:59 11:59 Intake Total 50 / 50 Output Total 1100 / 1100 675 / 675 Balance -1050 / -1050 -675 / -675 Weight 57 kg Intake: IV 50 / 50 Output: Urine 1100 / 1100 675 / 675 Other: Urine Color Yellow Light Diana Urine Appearance Cloudy Clear Cloudy Comment rossi bonilla'peña at 0910 Data Completed and Pending Labs on day of discharge: Labs from last 24 hours 06/05/22 06/05/22 06/05/22 10:00 06:44 06:44 WBC 14.33 H RBC 4.49 Hgb 12.1 Hct 39.0 MCV 87 MCH 26.9 L MCHC 31.0 L RDW 14.9 H Plt Count 270 MPV 10.9 Immature Gran % 1.1 Neutrophils % 77.4 Lymphocytes % 11.6 Monocytes % 7.8 Eosinophils % 1.8 Basophils % 0.3 Nucleated RBC % 0.0 Absolute Neutrophils 11.09 H Absolute Lymphocytes 1.66 Absolute Monocytes 1.12 H Absolute Eosinophils 0.26 Absolute Basophils 0.04 Sodium 138 Potassium 4.5 Chloride 102 Carbon Dioxide 32.3 H Anion Gap 3.7 BUN 36 H Creatinine 1.3 H Est GFR (CKD-EPI 2020) 41.83 Glucose 96 Calcium 8.6 COVID-19 Source Pending SARS-CoV-2 (PCR) Pending [facility] All Active Problems Advanced care planning/counseling discussion (Acute) Palliative care patient (Acute) Pulmonary mass (Acute) Parapneumonic effusion (Acute) Acute renal failure (Acute) Acute renal failure with oliguria (Acute) Movement disorder (Acute) Pneumonia (Acute) Sepsis (Acute) Respiratory failure with hypoxia (Acute) Atrial fibrillation with RVR (Acute) Loculated pleural effusion (Acute) Gastritis (Acute) Discharge planning issues (Acute) Leukocytosis, unspecified (Acute) Acute blood loss anemia (Acute) DVT prophylaxis (Acute) Tobacco dependence (Acute) Closed right hip fracture (Acute 04/23/19) S/P screw fixation DOS: 04/24/19 TIA (transient ischemic attack) (Chronic) Pt denied hx of stroke Discharge problem list from 10/08/15 states TIA Hyperlipidemia (Chronic) Hypothyroidism (Chronic) Atrial fibrillation (Chronic) on Eliquis Mild cognitive impairment with memory loss (Acute) Surgical History History of cystogram Pt describes cystogram Discharge problem list from 10/08/15 states hx of exploratory laparotomy Family History Mother No problems noted. Father Cancer Grandfather , WWII at age 31. No problems noted. Grandfather No problems noted. Grandmother Heart disease Grandmother No problems noted. Social History Smoking/Tobacco Use Status: Current every day Tobacco Type: cigarettes Smoking risk assessment performed?: Yes Alcohol Intake: never Drug use: Never Substance use type: does not use Current gender identity: female Do you feel safe at home: Yes Do you feel safe in your relationship?: Yes Additional Social history: Pt lives alone Time Spent with Patient Time Spent with Patient: 45-69 minutes Time was spent: preparing to see the patient(eg.review tests), ordering medications,tests, procedures, referring, communicating with other health wound care specialist, indepentently interpreting results, counseling the patient and care coordination
[2022-06-05 10:20] LABS: Source Nasal/Nares
[2022-06-05 10:52] LABS: COVID-19 PCR Negative (Negative)
--- NOTE | 2022-06-05 10:57 | NUR.NOTE ---
Nursing Note: called report to Wendy at [facility].
[2022-06-05 11:34] VITALS: BP 126/75; PULSE 53; RESP 16; TEMP 36.6; O2SAT 92
[2022-06-05 12:11] VITALS: PULSE 51
--- NOTE | 2022-06-16 18:33 | INDS_ITS ---
Date of service: 06/16/22 PT Notes Visit Reasons: Sepsis,Pneumonia, Empyema, Rapid Afib Physical Therapy Inpatient Discharge Summary ? Date: 06/16/2022 Dates of service: 06/02/2022 through 06/04/2022 This is a clinical summary of care provided for the duration of dates listed above. No charge was made in the completion of this documentation. ? Referring Doctor:? Bharathi Combs MD PT Orders: PT CONSULT: Eval/Treat Precautions: Fall. Standard. Activity as tolerated. ? Patient Profile/Admitting Diagnosis:? Patient is a 81-year-old female who presented to the ED on 05/26/2021 with report of back pain for the past 24 hours found to have atrial fibrillation with rapid ventricular response at the ED.? Patient is admitted to [facility] for management of leukocytosis, tobacco dependence, respiratory failure with hypoxia, acute renal failure, parapneumonic effusion, pneumonia, sepsis, and atrial fibrillation. ? PMHX: All Active Problems?(Updated 05/26/22 @ 17:48 by Sonam Mccord MD) Pneumonia (Acute) Sepsis (Acute) Respiratory failure with hypoxia (Acute) Atrial fibrillation with RVR (Acute) Loculated pleural effusion (Acute) Gastritis (Acute) Discharge planning issues (Acute) Leukocytosis, unspecified (Acute) Acute blood loss anemia (Acute) DVT prophylaxis (Acute) Tobacco dependence (Acute) Closed right hip fracture (Acute 04/23/19) S/P screw fixation DOS: 04/24/19TIA (transient ischemic attack) (Chronic) Pt denied hx of stroke Discharge problem list from 10/08/15 states TIA Hyperlipidemia (Chronic) Hypothyroidism (Chronic) Atrial fibrillation (Chronic) on Eliquis Mild cognitive impairment with memory loss (Acute) Surgical History? History of cystogram Pt describes cystogram Discharge problem list from 10/08/15 states hx of exploratory laparotomy Social History/Home Situation: Patient lives alone.? She has one step onto her sun porch to enter the home and 14 steps to get to the second floor where her bedroom is.? She however has converted a room on the main floor to be her bedroom as going upstairs had become a problem.? She still drives.? She manages all her ADLS on her own without at assistive device. ? Equipment Owned/DME: FWW ? Subjective: NT. See most recent PLANNING AND ANALYSIS MANAGER notes. ? Objective: General Observation: NT. See most recent PLANNING AND ANALYSIS MANAGER notes. Mental Status: NT. See most recent PLANNING AND ANALYSIS MANAGER notes. Pain: NT. See most recent PLANNING AND ANALYSIS MANAGER notes. Vital Signs: NT. See most recent PLANNING AND ANALYSIS MANAGER notes. ? ROM: Right Upper Extremity: ? Shoulder Flexion allows up to 90 degrees. Shoulder abduction allows up to 90 degrees. Elbow flexion WFL. Wrist flexion WFL. Opening and closing of hand WFL. Left Upper Extremity:? Shoulder Flexion allows up to 90 degrees. Shoulder abduction allows up to 90 degrees. Elbow flexion WFL. Wrist flexion WFL. Opening and closing of hand WFL. Right Lower Extremity: Hip flexion to about 90 degrees while seated at edge of bed. Hip abduction WFL. Knee flexion 10 degrees to 90 degrees. Kmee extension - 10 degrees? Ankle dorsiflexion to neutral only. Ankle plantarflexion WFL. Left Lower Extremity: Hip flexion to about 90 degrees while seated at edge of bed. Hip abduction WFL. Knee flexion 10 degrees to 90 degrees. Kmee extension - 10 degrees? Ankle dorsiflexion to neutral only. Ankle plantarflexion WFL. ? Strength: Right Upper Extremity: Shoulder flexors 3-/5. Shoulder abductors 3-/5. Elbow flexors 4-/5. Elbow extensors 4-/5. Senior Managing Director weak but functional. Left Upper Extremity: Shoulder flexors 3-/5. Shoulder abductors 3-/5. Elbow flexors 4-/5. Elbow extensors 4-/5. Senior Managing Director weak but functional. Right Lower Extremity: Hip flexors 3-/5. Hip abductors 4/5. Knee flexors 43-/5. Knee extensors 3-/5. Ankle dorsiflexors 3-/5. Ankle plantarflexors 4-/5. Left Lower Extremity: Hip flexors 3-/5. Hip abductors 4/5. Knee flexors 43-/5. Knee extensors 3-/5. Ankle dorsiflexors 3-/5. Ankle plantarflexors 4-/5. ? Sensation: Intact as to pain and pressure on bilateral lower extremities. ? BED MOBILITY/TRANSFERS? Supine-sit: Mod A with HOB at 40 degrees Sit-supine: Min A with HOB flat Sit-stand: CGA x2 ? Stand-sit: CGA + SBA ? Bed: CGA + SBA ? GAIT? Assistive Device: FWW? Weight bearing: Full Assist: CGA + SBA? Distance:? 10 steps in both a.m. and p.m. ? Deviation: C/o feeling woozy, slow pacing ? Balance: Static Sitting: Fair Dynamic Sitting: Fair Static Standing: Poor Dynamic Standing: Poor ? Assessment: Requires assist of 2 for all transfer and ambulation task performance to reduce fall risk.? Patient is a 81-year-old female who presented to the ED on 05/26/2021 with report of back pain for the past 24 hours found to have atrial fibrillation with rapid ventricular response at the ED.? Patient is admitted to [facility] for management of leukocytosis, tobacco dependence, respiratory failure with hypoxia, acute renal failure, parapneumonic effusion, pneumonia, sepsis, and atrial fibrillation.? ? Patient presents with clinical signs and symptoms consistent with current/admitting diagnoses that have resulted to mobility limitations, gait instability and generalized weakness, as demonstrated by the following impairment level findings: 1.? Decreased strength to right LE hip and knee major muscle groups 2.? Impaired standing balance 3.? Impaired activity tolerance 4.? Decreased ventilatory function 5.? Fatigue 6.? Impaired safety awareness ? Impairments are contributing to the following functional limitations: 1.? Dependent bed mobility skills 2.? Increased dependence with transfers 3.? Inability to safely ambulate without assistive device and physical assistance 4.? Increase completion time for mobility ADL performance 5.? Increased fall risk 6.? Inability to negotiate steps alone safely 7.? [place] [facility] deficit score of 69% ? Patient is assessed as a 48669 high complexity based on the following: History: Patient is a 81-year-old female who presented to the ED on 05/26/2021 with report of back pain for the past 24 hours found to have atrial fibrillation with rapid ventricular response at the ED.? Patient is admitted to [facility] for management of leukocytosis, tobacco dependence, respiratory failure with hypoxia, acute renal failure, parapneumonic effusion, pneumonia, sepsis, and atrial fibrillation. Examination: Demonstrable impairment in strength and balance with underlying impairments and functional limitations as documented above Presentation: Evolving Decision Makin high complexity ? Goals: Goals X1 week 1. Supine-Sit independent NOT MET 2. Sit-Supine independent NOT MET 3. Sit-Stand independent NOT MET 4. Stand-Sit independent NOT MET 5. Bed-Chair independent NOT MET 6. Chair-Bed independent NOT MET 7. Independent gait on level surface with use of FWW for at least 300 feet without report of pain nor dyspnea NOT MET 9. Fair dynamic standing balance/tolerance NOT MET ? DISCHARGE RECOMMENDATIONS: SNF vs HHPT based on medical trajectory and progress towards goals. TREATMENT CODE/TIME: NC ? Jewell Kelly PT, DPT, CLT [facility] [place], [place]
== END 2022-06-05 12:40 | disposition skilled nursing facility (03) | DRG 871 ==
LOC: ER 15:39 → ICU 15:47 → MS 06-02 17:43
PROVIDERS: Family Medicine; Internal Medicine; Student in an Organized Health Care Education/Training Program; Surgery; Admitting Provider Internal Medicine; Emergency Provider Physician Assistant; PCP Internal Medicine; Visit Provider Internal Medicine
PROC: 0W9930Z Drainage of Right Pleural Cavity with Drainage Device, Percutaneous Approach (ICD-10-PCS; CPT 32551; principal; 2022-05-27 15:00)
DX: A41.9 Sepsis, unspecified organism (principal); G93.41 Metabolic encephalopathy; J18.9 Pneumonia, unspecified organism; J96.01 Acute respiratory failure with hypoxia; J86.9 Pyothorax without fistula; R65.21 Severe sepsis with septic shock; N17.0 Acute kidney failure with tubular necrosis; J90 Pleural effusion, not elsewhere classified; I48.91 Unspecified atrial fibrillation; Z66 Do not resuscitate; Z86.73 Personal history of transient ischemic attack (TIA), and cerebral infarction without residual deficits; E78.5 Hyperlipidemia, unspecified; E03.9 Hypothyroidism, unspecified; Z79.01 Long term (current) use of anticoagulants; M54.9 Dorsalgia, unspecified; F17.210 Nicotine dependence, cigarettes, uncomplicated; D72.829 Elevated white blood cell count, unspecified; G31.84 Mild cognitive impairment of uncertain or unknown etiology; J98.01 Acute bronchospasm; G25.5 Other chorea; R91.8 Other nonspecific abnormal finding of lung field
CPT/HCPCS: 32551; 36415; 51702; 71045; 71250; 71275; 76770; 80048; 80053; 82805; 84145; 87040; 87081; 87449; 87635; 87637; 92526; 92610; 93005; 94640; 96361; 96365; 96367; 96375; 97110; 97162; 97530; 99221; 99222; 99231; 99232; 99291; 70450; 74174; 81003; 81015; 81373; 83605; 83615; 83735; 83880; 83986; 84155; 84157; 84300; 84439; 84443; 84484; 85025; 85379; 85610; 85730; 86140; 87070; 87075; 87205; 87899; 88104; 89051; 93010; 93306; 94667; 94668; 99233; 99239; J0131; J0610; J1170; J1940; J2060; J2270; J2543; J2704; J2930; J3010; J3480; J3490; J7512; J7614; J7644

== ENCOUNTER 2022-06-15 18:21 | Outpatient (REF) | payer MEDICARE, SELFPAY ==
[2022-06-15 13:14] LABS: Anion Gap 5.9 mmol/L (3-11); BUN 20 mg/dL (7-18); CO2 33.1 mmol/L (21.0-32.0); CREATININE 1.1 mg/dL (0.55-1.02); Calcium 8.4 mg/dL (8.5-10.1); Chloride 106 mmol/L (98-107); Glucose 85 mg/dL (74-106); Sodium 145 mmol/L (136-145)
[2022-06-15 13:15] LABS: Abs Immature Grans 0.04 10^3/uL (0.0-0.06); Absolute Basophil Count 0.07 10^3/uL (0.0-0.2); Absolute Lymphocyte Count 2.42 10^3/uL (1.2-3.4); Absolute Monocyte Count 0.62 10^3/uL (0.1-0.8); Absolute Neutrophil Count 7.21 10^3/uL (1.2-6.7); Basophils % 0.7; Eosinophils % 2.8; HCT 37.4 % (36.0-46.0); HGB 11.3 g/dL (11.2-15.7); Immature Grans % 0.4; Lymphocytes % 22.7; MCH 27.3 pg (27.0-33.0); MCHC 30.2 % (32.0-36.0); MCV 90 fL (80-95); MPV 11.1 fL (8.0-11.0); Monocytes % 5.8; Neutrophils % 67.6; Platelet Count 337 10^3/uL (130-400); RBC 4.14 10^6/uL (3.93-5.22); RDW 15.4 % (11.7-14.6); RDW-SD 50.7 fL; WBC 10.66 10^3/uL (4.4-10.8)
== END 2022-06-15 18:22 | disposition home or self-care (01) ==
LOC: LBN 18:21
PROVIDERS: PCP Internal Medicine; Visit Provider Family Medicine
DX: J18.1 Lobar pneumonia, unspecified organism (principal); E03.9 Hypothyroidism, unspecified; D62 Acute posthemorrhagic anemia; E78.5 Hyperlipidemia, unspecified
CPT/HCPCS: 80048; 85025

== ENCOUNTER 2022-07-13 01:56 | Outpatient (CLI) | payer MEDICARE, SELFPAY ==
--- NOTE | 2022-07-13 07:45 | DI.CT_ITS ---
Exam(s) CT CHEST WO EXAM: CT CHEST WO CLINICAL HISTORY: f/u RML mass,R91.8. TECHNIQUE: Multi planar reconstructions were performed. CONTRAST MATERIAL: None COMPARISON: CT CT CHEST WO from 06/01/2022 FINDINGS: CHEST: LUNGS: There has been significant improvement in the by lateral pleural effusions which have now reso lved with the exception of some mild remaining posteriorly located right pleural fluid. There is no remaining pleural fluid on the left side. There are emphysematous COPD changes again noted throughout both lung aragon a but there presently no infiltrates nor ominous nodules in the left lung. On the opposite-right side the medially located r ight middle lobe density is again noted but on today's study exhibits air bronchograms therein and is probably infectious as opposed to neoplastic. There has been re-expansion of the basal segments of both lower lobes since resolution of the pleural effusions. Still some atelectasis in the posterior basal segment of the right lower lobe. MEDIASTINUM: There is no obvious pathologic appearing hilar nor mediastinal adenopathy. No obvious a xillary adenopathy CARDIAC: Heart size normal. Coronary artery calcification noted. There is a thin pericardial effusi on noted measuring 4-5 mm..Caliber of the thoracic aorta is within normal limits. VISUALIZED UPPER ABDOMEN:Benign cyst in the upper pole the left kidney. No significant adrenal blake s OSSEOUS: No significant osseous lesions.No fractures.. IMPRESSION: 1. Compared to the prior CT scan of 06/01/2022 there has been significant bilateral improvement in th is patient with severe COPD. 2. There has been significant resolution of the pleural effusions and re-expansion of the lower lobes with the exception of some mild remaining atelectasis in the right lung base posterior basal segment . 3. Previously described density in the right middle lobe presently exhibits air bronchograms and may possibly be infectious as opposed to neoplastic but continuing close follow-up is recommended. There is no obvious pathologic adenopathy in the ipsilateral right hilum nor in the mediastinum and subcar inal region. 4. Small pericardial effusion noted. Maximum thickness 4-5 mm. Mild cardiomegaly. Coronary artery calcification. RADIATION DOSE DELIVERED: 288.73mGy.cm Total DLP DATA REPOSITORY: All CT scans at this facility are submitted to the National Radiology Data Registry (NRDR) Dose Index Registry (DIR) with the [employer] (ACR). RADIATION OPTIMIZATION: All CT scans at this facility use at least one of these dose optimization te chniques: automated exposure control; mA and/or kV adjustment per patient size (includes targeted exa ms where dose is matched to clinical indication); or iterative reconstruction.
== END 2022-07-13 02:16 ==
LOC: DI 01:56
PROVIDERS: PCP Internal Medicine; Visit Provider Student in an Organized Health Care Education/Training Program
DX: R91.8 Other nonspecific abnormal finding of lung field (principal); J90 Pleural effusion, not elsewhere classified; J44.9 Chronic obstructive pulmonary disease, unspecified; J98.11 Atelectasis; I31.39 Other pericardial effusion (noninflammatory); I51.7 Cardiomegaly
CPT/HCPCS: 71250

== ENCOUNTER 2022-07-20 17:15 | Outpatient (REF) | payer MEDICARE, SELFPAY ==
[2022-07-20 17:56] LABS: Abs Immature Grans 0.04 10^3/uL (0.0-0.06); Absolute Basophil Count 0.08 10^3/uL (0.0-0.2); Absolute Eosinophil Count 0.31 10^3/uL (0.0-0.7); Absolute Lymphocyte Count 1.86 10^3/uL (1.2-3.4); Absolute Monocyte Count 0.89 10^3/uL (0.1-0.8); Absolute Neutrophil Count 5.16 10^3/uL (1.2-6.7); Eosinophils % 3.7; HCT 36.2 % (36.0-46.0); HGB 11.2 g/dL (11.2-15.7); Immature Grans % 0.5; Lymphocytes % 22.3; MCH 27.4 pg (27.0-33.0); MCHC 30.9 % (32.0-36.0); MCV 89 fL (80-95); MPV 10.9 fL (8.0-11.0); Monocytes % 10.7; Neutrophils % 61.8; Platelet Count 257 10^3/uL (130-400); RBC 4.09 10^6/uL (3.93-5.22); RDW 17.7 % (11.7-14.6); WBC 8.34 10^3/uL (4.4-10.8)
[2022-07-20 18:06] LABS: ALT 14 U/L (14-59); AST 12 U/L (15-37); Albumin 2.9 g/dL (3.4-5.0); Alkaline Phosphatase 78 U/L (46-116); Anion Gap 3.5 mmol/L (3-11); BUN 21 mg/dL (7-18); Bilirubin, Total 0.3 mg/dL (0.2-1.0); CO2 33.5 mmol/L (21.0-32.0); CREATININE 1.4 mg/dL (0.55-1.02); Calcium 8.9 mg/dL (8.5-10.1); Chloride 102 mmol/L (98-107); Estimated GFR 38.03 (mL/min/1.73m2); Glucose 105 mg/dL (74-106); Potassium 4.3 mmol/L (3.5-5.1); Sodium 139 mmol/L (136-145); Total Protein 6.6 g/dL (6.4-8.2)
== END 2022-07-20 17:16 | disposition home or self-care (01) ==
LOC: LBN 17:15
PROVIDERS: PCP Internal Medicine; Visit Provider Physician Assistant
DX: R53.1 Weakness (principal); E03.9 Hypothyroidism, unspecified; J44.9 Chronic obstructive pulmonary disease, unspecified
CPT/HCPCS: 80053; 85025

== ENCOUNTER 2022-07-22 01:09 | Outpatient (CLI) | payer MEDICARE, SELFPAY ==
--- NOTE | 2022-07-22 | DI.RAD_ITS ---
Exam(s) XR CHEST 2V PA LATERAL EXAM: XR CHEST 2V PA LATERAL CLINICAL HISTORY: CHEST PAIN. TECHNIQUE: 2D digital imaging was performed. COMPARISON: CR,XR XR PORTABLE CHEST AP from 05/30/[address] CHEST WO from 07/13/2022 FINDINGS: 2 views: Heart size is upper normal. The mediastinum is not widened. Bilateral hyperinflation-COPD changes again noted. However, there has been significant improvement in the bilateral infiltrates seen 2 months ago. There is persistent mild infiltrate in the right pericardiac region-medial segment of the right middl e lobe. This corresponds to finding on the recent chest CT scan of 07/13/2022. There are no pleural effusions. IMPRESSION: COPD. Persistent right middle lobe infiltrate, as best seen on the lateral view and as also seen on the recent CT scan of 07/13/2022. There are no pleural effusions. DATA REPOSITORY: RADIATION DOSE DELIVERED:
== END 2022-07-22 01:29 ==
LOC: DI 01:09
PROVIDERS: PCP Internal Medicine; Visit Provider Physician Assistant
DX: R07.89 Other chest pain (principal); R91.8 Other nonspecific abnormal finding of lung field; J44.9 Chronic obstructive pulmonary disease, unspecified
CPT/HCPCS: 71046

== ENCOUNTER 2022-07-31 02:52 | Outpatient (CLI) | payer MEDICARE, SELFPAY ==
[2022-07-31] MEDS: Inhaler, Assist Device 1 EACH MC (15:06)
[2022-07-31] MEDS: Albuterol HFA 18 GM 200 PUFF INH IH (15:06)
--- NOTE | 2022-07-31 15:16 | W.PFT ---
Date of service: 07/31/22 Time of Service: 12:59 Pulmonary Function Test Result Indications: Emphysema Interpretation Spirometry: Although the FEV1/FVC is technically normal, airflow limitation is inferred by the flow volume loop and the volume time curve. There was a significant bronchodilator response. Lung Volumes: Unable to perform Diffusion Capacity: Severely reduced diffusion. Impression Likely airflow obstruction with a severely reduced diffusion and bronchodilator response. Clinical Correlation therefore is recommended.
== END 2022-07-31 02:53 | disposition home or self-care (01) ==
LOC: RT 02:53
PROVIDERS: PCP Internal Medicine; Visit Provider Student in an Organized Health Care Education/Training Program
DX: J43.0 Unilateral pulmonary emphysema [MacLeod's syndrome] (principal)
CPT/HCPCS: 94060; 94729

== ENCOUNTER 2022-08-06 15:02 | Outpatient (REF) | payer MEDICARE, SELFPAY ==
[2022-08-06 16:11] LABS: Potassium 4.1 mmol/L (3.5-5.1)
== END 2022-08-06 15:03 | disposition home or self-care (01) ==
LOC: LBN 15:02
PROVIDERS: PCP Internal Medicine; Visit Provider Physician Assistant
DX: E87.6 Hypokalemia (principal)
CPT/HCPCS: 84132

== ENCOUNTER 2023-04-22 15:18 | Observation (INO) | payer MEDICARE, SELFPAY ==
[2023-04-22 15:25] VITALS: BP 178/108; PULSE 64; RESP 18; TEMP 36.9; O2SAT 93
--- NOTE | 2023-04-22 15:30 | RT.EKG_ITS ---
APPROVED REPORT Exam: Resting ECG Reason for Exam: FALL Patient Location: E HR:66 bpm ECG Measurements Heart Rate 66 AXIS KS 144 P 75 QRSd 83 QRS 34 QT 411 T 73 QTc 430 Conclusion Sinus rhythm normal axis LVH no acute ST changes
[2023-04-22] MEDS: Acetaminophen 500 MG TAB 1000 MG PO (15:48)
[2023-04-22 16:08] LABS: Abs Immature Grans 0.03 10^3/uL (0.0-0.06); Absolute Basophil Count 0.05 10^3/uL (0.0-0.2); Absolute Eosinophil Count 0.11 10^3/uL (0.0-0.7); Absolute Lymphocyte Count 2.01 10^3/uL (1.2-3.4); Absolute Neutrophil Count 6.68 10^3/uL (1.2-6.7); Basophils % 0.5; Eosinophils % 1.1; HCT 49.5 % (36.0-46.0); HGB 15.8 g/dL (11.2-15.7); Immature Grans % 0.3; MCHC 31.9 % (32.0-36.0); MCV 88 fL (80-95); MPV 10.8 fL (8.0-11.0); Monocytes % 7.3; Neutrophils % 69.8; Platelet Count 184 10^3/uL (130-400); RBC 5.64 10^6/uL (3.93-5.22); RDW 14.8 % (11.7-14.6); RDW-SD 47.9 fL; WBC 9.58 10^3/uL (4.4-10.8)
[2023-04-22 16:20] LABS: ETHANOL BLOOD < 3.0 mg/dL (<10)
[2023-04-22 16:26] LABS: ALT 16 U/L (14-59); AST 19 U/L (15-37); Albumin 3.7 g/dL (3.4-5.0); Alkaline Phosphatase 74 U/L (46-116); Anion Gap 6.1 mmol/L (3-11); BUN 25 mg/dL (7-18); Bilirubin, Total 0.9 mg/dL (0.2-1.0); CO2 31.9 mmol/L (21.0-32.0); CREATININE 1.3 mg/dL (0.55-1.02); Calcium 9.5 mg/dL (8.5-10.1); Chloride 102 mmol/L (98-107); Estimated GFR 41.57 (mL/min/1.73m2); Glucose 104 mg/dL (74-106); Sodium 140 mmol/L (136-145); Total Protein 7.9 g/dL (6.4-8.2); Troponin I < 50 ng/L (< or =60)
--- NOTE | 2023-04-22 16:56 | DI.CT_ITS ---
Exam(s) CT HEAD CERVICAL SPINE WO EXAM: CT HEAD CERVICAL SPINE WO CLINICAL HISTORY: FALL. TECHNIQUE: Imaging Protocol: Axial computed tomography images with coronal and sagittal reformatted images were created and reviewed COMPARISON: No exams were available for comparison FINDINGS: CT Head: Ventricles and Extra axial spaces: Normal in size and morphology for the patient's age. Hemorrhage: None. Cerebral parenchyma: There are areas of decreased attenuation in the white matter most consistent wit h small vessel ischemic disease. No mass effect is identified. Midline shift: None. Brainstem/Cerebellum: Normal. Calvarium: Normal. Visualized Paranasal sinuses/Mastoids: Clear. Soft Tissues: Unremarkable. CT Cervical Spine: Bones: No acute fracture or subluxation. There is straightening of the normal cervical lordosis which may be due to muscle spasm or patient positioning. Age-related degenerative changes are seen in the cervical spine. Soft Tissues: Unremarkable. Lung Apices: Emphysematous changes are seen in the lung apices. IMPRESSION: 1. No acute intracranial process. 2. No acute fracture or subluxation in the cervical spine. RADIATION DOSE DELIVERED: 1,202.38mGy.cm Total DLP DATA REPOSITORY: All CT scans at this facility are submitted to the National Radiology Data Registry (NRDR) Dose Index Registry (DIR) with the [employer] ([employer]). RADIATION OPTIMIZATION: All CT scans at this facility use at least one of these dose optimization te chniques: automated exposure control; mA and/or kV adjustment per patient size (includes targeted exa ms where dose is matched to clinical indication); or iterative reconstruction.
--- NOTE | 2023-04-22 16:57 | DI.CT_ITS ---
Exam(s) CT PELVIC WO EXAM: CT PELVIC WO CLINICAL HISTORY: FALL. TECHNIQUE: Imaging Protocol: Axial computed tomography images with coronal and sagittal reformatted images were created and reviewed. COMPARISON: No exams were available for comparison FINDINGS: Bones: The osseous structures and articular surfaces are intact. Bony alignment is satisfactory. N o cellulitic or osteomyelitic changes are identified. There are 3 partially threaded screws in the r ight femoral neck transfixing an old femoral neck fracture. The bones are osteopenic. Degenerative changes are seen in the lumbar spine in the hips bilaterally. Soft Tissues: There is a large amount of stool in the rectum which may reflect impaction. Diverticul osis is seen in the colon. Atherosclerosis is present. IMPRESSION: No acute fractures or subluxations. RADIATION DOSE DELIVERED: 329.78mGy.cm Total DLP 329.78mGy.cmTotal DLP DATA REPOSITORY: All CT scans at this facility are submitted to the National Radiology Data Registry (NRDR) Dose Index Registry (DIR) with the [employer] (ACR). RADIATION OPTIMIZATION: All CT scans at this facility use at least one of these dose optimization te chniques: automated exposure control; mA and/or kV adjustment per patient size (includes targeted exa ms where dose is matched to clinical indication); or iterative reconstruction.
--- NOTE | 2023-04-22 16:57 | DI.CT_ITS ---
Exam(s) CT THORACIC LUMBAR SPINE WO EXAM: CT THORACIC LUMBAR SPINE WO CLINICAL HISTORY: FALL. TECHNIQUE: Imaging Protocol: Axial computed tomography images with coronal and sagittal reformatted images were created and reviewed. COMPARISON: No exams were available for comparison FINDINGS: The examination is limited due to patient motion artifact. Bones: No fractures or dislocations are seen. There is a right convex curvature of the thoracic spine . The bones are osteopenic. Age-appropriate degenerative changes are present throughout the thoraci c spine. There is a left convex curvature of the lumbar spine. Soft tissues: The soft tissues are unremarkable. Moderate centrilobular emphysematous changes are pre sent in the lungs. IMPRESSION: No acute fracture or subluxation in the thoracic or lumbar spine. RADIATION DOSE DELIVERED: 902.91mGy.cm Total DLP DATA REPOSITORY: All CT scans at this facility are submitted to the National Radiology Data Registry (NRDR) Dose Index Registry (DIR) with the [employer] (ACR). RADIATION OPTIMIZATION: All CT scans at this facility use at least one of these dose optimization te chniques: automated exposure control; mA and/or kV adjustment per patient size (includes targeted exa ms where dose is matched to clinical indication); or iterative reconstruction.
[2023-04-22] MEDS: Normal Saline 1,000 ML 1000 ML IV (17:01)
[2023-04-22 17:47] LABS: Bilirubin Negative (Negative); Blood Negative (Negative); Clarity Clear (Clear); Glucose Negative (Negative); Ketones Trace mg/dL (Negative); Leukocyte Esterase Negative (Negative); Nitrite Negative (Negative); Urobilinogen 0.2 mg/dL (Up to 0.2)
[2023-04-22 18:05] LABS: Bacteria Rare HPF (Negative); Crystals Negative HPF (Negative); Epithelial Cells Rare HPF (Negative); RBC Negative HPF (0-2)
[2023-04-22 18:06] LABS: C & S Indicated? Yes; Casts Negative LPF (Negative); Mucus Negative (Negative)
--- NOTE | 2023-04-22 19:39 | HPE_ITS ---
Date of service: 04/22/23 Time of Service: 19:39 Assessment and Plan Assessment and plan (1) Fall: Start date: 04/22/23 Status: Acute Assessment and plan: This is an 82-year-old lady who had a fall at home and was on the floor for an unknown time who was incontinent of urine and stool but does not remember this when questioned during my interview. EMS did find her in the state that she was able to make calls her on a call EMS. Imaging in the ED was unrevealing and labs revealed slight dehydrated state with elevated TSH though the patient is on levothyroxine supplement low-dose as well as the patient stating she had not taken her Eliquis for PAF for 1 week. Compliance with medical therapy is questionable. She does live alone and case management needs to investigate her social situation. She was slightly hypertensive in the ED but is on no chronic medical therapy for this or for rate control with her history of proximal atrial fibrillation. Extensive imaging revealed no acute fractures or injury and exam is benign at this time but the patient did have difficulty getting up out of the bed in the ED after evaluation appear to be benign. She did not have rhabdomyolysis with her prolonged stay on the floor but because of slight dehydration will receive IV hydration overnight. Labs will be monitored and followed up. She is a full code at this time but does need to be investigated in the morning by contacting her PCP and family. Qualifiers: Encounter type: initial encounter Qualified Code(s): W19.XXXA - Unspecified fall, initial encounter (2) DEAN (acute kidney injury): Start date: 04/22/23 Status: Acute Assessment and plan: This no baseline creatinine is available to patient. Be slightly dry with an elevated creatinine. Gentle IV hydration and follow-up lab in the morning. (3) HTN (hypertension): Status: Acute Assessment and plan: Patient has known history of hypertension and is on no antihypertensive medication. This may be secondary to her fall and pain. She appears to be normalizing without specific therapy does have a slow heart rate by pulse. Continue to monitor threat monitoring analyst and observe for recurrent atrial fibrillation or tachycardia. For now with no specific treatment with follow-up PCP office in the morning to reconcile her medication list. She is a vague historian and appeared to be noncompliant with medical therapy being off Eliquis for a week and also having an elevated TSH level on thyroid supplement. Qualifiers: Hypertension type: primary hypertension Qualified Code(s): I10 - Essential (primary) hypertension (4) Acute dehydration: Start date: 04/22/23 Status: Acute Assessment and plan: Mild dehydration with elevated creatinine and elevated H&H. IV hydration and follow-up lab in the morning. (5) PAF (paroxysmal atrial fibrillation): Status: Chronic Assessment and plan: Patient is in sinus rhythm presently and has been off Eliquis. She is on heparin DVT prophylaxis for now while in the hospital because of her recent falls and since she has been on Eliquis for more than a week this will be restarted once her medication list has been reconciled. She does not appear to have any sequela of bleeding with her falls. CT of the head was negative for acute bleed. She does have a affect this. Be chronic. (6) Tobacco abuse: Status: Chronic Assessment and plan: Nicotine patch 7 mg/h with low continuous use of tobacco as an outpatient. She is on no respiratory care. History of Present Illness History of Present Illness Chief Complaint: Fall at home Narrative: This is an 82-year-old female patient who lives alone but has a surrogate son who lives in [place] and by history a granddaughter who is her POA lives out of state. She was outside of her house in a shed and was returning to the house back into her kitchen and fell backwards onto her back. She did not have any loss of consciousness or dizziness but was unable to get up from the floor for quite some time. She eventually mated to the phone and call her surrogate son who advised her to call EMS. When EMS reached her home they found her covered in urine and feces and there is no good history of how long she was on the floor. She does live alone with her dog and cat. She is a poor historian but appears to be given a fairly clear history at the time of my interview. She does appear dysarthric at times as if she has a tic over her face when speaking. Her baseline is unknown. She does state that she has electrical problem with her heart and recognize paroxysmal atrial fibs as a diagnosis and is on Eliquis but no other cardiac meds. She has not been on her Eliquis for about a week. She does smoke 5 cigarettes a day but is on no inhaler therapy. She does take pravastatin. She also has thyroid disease on levothyroxine but her TSH is elevated indicating she may not be compliant with medical therapy. She denies any recent weight gain or palpitations and has had no bleeding. She denies any prodromal symptoms prior to her fall. She has no focal neurological complaints and appears to have chronic problems with her speech. Hopefully case management can review the patient's social history and confirm her family contacts as well as whether she has a POA. By default she is a full code at this time but this can be reviewed once we are able to contact her primary care physician and family. Review of Systems Narrative: 13 point review of systems otherwise unrevealing or stable. PFSH All Active Problems (Updated 04/22/23 @ 23:53 by Saturnino Keane) Tobacco abuse (Chronic) HTN (hypertension) (Acute) PAF (paroxysmal atrial fibrillation) (Chronic) Acute dehydration (Acute) DEAN (acute kidney injury) (Acute) Fall (Acute) Surgical History (Updated 04/22/23 @ 23:34 by Saturnino Keane) S/P ORIF (open reduction internal fixation) fracture Right hip performed by Dr. Gaines Social History Smoking/Tobacco Use Status: Current every day Tobacco Type: cigarettes Smoking risk assessment performed?: Yes Drug use: Never Substance use type: does not use Housing: house Meds Allergies and Home Medications Allergies Allergy/AdvReac Type Severity Reaction Status Date / Time Sulfa (Sulfonamide Allergy Unknown Unverified 04/22/23 15:29 Antibiotics) codiene Allergy Unknown Uncoded 04/22/23 15:29 Home Medications Medication Instructions Recorded Confirmed Type apixaban 5 mg tablet (Eliquis) 5 mg PO BID 04/22/23 04/22/23 History ascorbic acid (vitamin C) 500 mg 500 mg PO DAILY 04/22/23 04/22/23 History tablet (C-500) cholecalciferol (vitamin D3) 25 25 mcg PO DAILY 04/22/23 04/22/23 History mcg (1,000 unit) chewable tablet (VitaJoy Daily D) levothyroxine 25 mcg tablet 25 mcg PO DAILY 04/22/23 04/22/23 History (Synthroid) pravastatin 10 mg tablet 10 mg PO DAILY 04/22/23 04/22/23 History Exam Narrative Exam Narrative: General: Patient appears appropriate for age, thinly built in no acute distress. She is alert and oriented at least to person and place. HEENT: Normocephalic, eyes with pupils equal and react to light symmetrically, extraocular movement intact and sclera anicteric. Oropharynx with slightly dry mucosa and upper denture plate but missing lower denture plate being edentulous. Neck: Supple without JVD. Back: Kyphotic without CVA tenderness. Lungs: Fair aeration and clear to auscultation percussion with no auscultated wheeze. No focalizing rales or rhonchi. Breast: Exam deferred. Heart: Regular rate and rhythm with distant heart sounds, no appreciable murmur or gallop. Abdomen: Scaphoid contour, soft nontender to palpation with no palpable hepatosplenomegaly. No surgical scars over the abdomen noted. Genitalia/rectal: Exam deferred. Extremity: Without clubbing, cyanosis or pitting edema. Good capillary refill. No joint swelling. Well-healed scar over upper right lateral thigh in the trochanteric area. Skin: Normal color, warm and dry. Neuro: Cranial nerves II through XII grossly intact, no focalizing motor deficits or tremor. Patient does have a facial distortion when speaking which appears to be chronic and possible tic. Psych: Normal affect and mood. Slightly euphoric. No abnormal thought processes. Remote memory intact and recent memory grossly intact the patient is a vague historian. Results Imaging Imaging Studies: CT HEAD CERVICAL SPINE WO EXAM: CT HEAD CERVICAL SPINE WO CLINICAL HISTORY: FALL. TECHNIQUE: Imaging Protocol: Axial computed tomography images with coronal and sagittal reformatted images were created and reviewed COMPARISON: No exams were available for comparison FINDINGS: CT Head: Ventricles and Extra axial spaces: Normal in size and morphology for the patient's age. Hemorrhage: None. Cerebral parenchyma: There are areas of decreased attenuation in the white matter most consistent with small vessel ischemic disease. No mass effect is identified. Midline shift: None. Brainstem/Cerebellum: Normal. Calvarium: Normal. Visualized Paranasal sinuses/Mastoids: Clear. Soft Tissues: Unremarkable. CT Cervical Spine: Bones: No acute fracture or subluxation. There is straightening of the normal cervical lordosis which may be due to muscle spasm or patient positioning. Age- related degenerative changes are seen in the cervical spine. Soft Tissues: Unremarkable. Lung Apices: Emphysematous changes are seen in the lung apices. IMPRESSION: 1. No acute intracranial process. 2. No acute fracture or subluxation in the cervical spine. EXAM: CT PELVIC WO CLINICAL HISTORY: FALL. TECHNIQUE: Imaging Protocol: Axial computed tomography images with coronal and sagittal reformatted images were created and reviewed. COMPARISON: No exams were available for comparison FINDINGS: Bones: The osseous structures and articular surfaces are intact. Bony alignment is satisfactory. No cellulitic or osteomyelitic changes are identified. There are 3 partially threaded screws in the right femoral neck transfixing an old femoral neck fracture. The bones are osteopenic. Degenerative changes are seen in the lumbar spine in the hips bilaterally. Soft Tissues: There is a large amount of stool in the rectum which may reflect impaction. Diverticulosis is seen in the colon. Atherosclerosis is present. IMPRESSION: No acute fractures or subluxations. Exam(s) CT THORACIC LUMBAR SPINE WO EXAM: CT THORACIC LUMBAR SPINE WO CLINICAL HISTORY: FALL. TECHNIQUE: Imaging Protocol: Axial computed tomography images with coronal and sagittal reformatted images were created and reviewed. COMPARISON: No exams were available for comparison FINDINGS: The examination is limited due to patient motion artifact. Bones: No fractures or dislocations are seen. There is a right convex curvature of the thoracic spine. The bones are osteopenic. Age-appropriate degenerative changes are present throughout the thoracic spine. There is a left convex curvature of the lumbar spine. Soft tissues: The soft tissues are unremarkable. Moderate centrilobular emphysematous changes are present in the lungs. IMPRESSION: No acute fracture or subluxation in the thoracic or lumbar spine. Labs 04/22/23 16:00 04/22/23 16:00 Labs: Laboratory Results - last 24 hr 04/22/23 04/22/23 16:00 17:41 WBC 9.58 RBC 5.64 H Hgb 15.8 H Hct 49.5 H MCV 88 MCH 28.0 MCHC 31.9 L RDW 14.8 H Plt Count 184 MPV 10.8 Immature Gran % 0.3 Neutrophils % 69.8 Lymphocytes % 21.0 Monocytes % 7.3 Eosinophils % 1.1 Basophils % 0.5 Nucleated RBC % 0.0 Absolute Neutrophils 6.68 Absolute Lymphocytes 2.01 Absolute Monocytes 0.70 Absolute Eosinophils 0.11 Absolute Basophils 0.05 Sodium 140 Potassium 4.0 Chloride 102 Carbon Dioxide 31.9 Anion Gap 6.1 BUN 25 H Creatinine 1.3 H Est GFR (CKD-EPI 2020) 41.57 Glucose 104 Calcium 9.5 Total Bilirubin 0.9 AST 19 ALT 16 Alkaline Phosphatase 74 Troponin I < 50 Total Protein 7.9 Albumin 3.7 Urine Color Yellow Urine Clarity Clear Urine pH 7.0 Ur Specific [place] 1.020 Urine Protein 30 H Urine Ketones Trace H Urine Blood Negative Urine Nitrite Negative Urine Bilirubin Negative Urine Urobilinogen 0.2 Ur Leukocyte Esterase Negative Urine RBC Negative Urine WBC 5-10 Ur Epithelial Cells Rare Urine Crystals Negative Urine Bacteria Rare Urine Casts Negative Urine Mucus Negative Ur Culture Indicated? Yes Urine Glucose Negative Ethyl Alcohol < 3.0 Last Vital Signs Temp 36.9 C 04/22/23 15:25 Pulse 64 04/22/23 15:25 Resp 18 04/22/23 15:25 BP 178/108 H 04/22/23 15:25 Pulse Ox 93 04/22/23 15:25 Time Spent Time spent with Patient: >75 minutes Time was spent: preparing to see the patient(eg.review tests), obtaining and/or reviewing separately otained hiistory, ordering medications,tests, procedures, indepentently interpreting results and care coordination
[2023-04-22 19:43] VITALS: BP 179/89; PULSE 75; RESP 16; TEMP 36.6; O2SAT 97
[2023-04-22 20:31] LABS: Lactate 0.9 mmol/L (0.6-1.4)
[2023-04-22 20:48] VITALS: BP 133/95; PULSE 73; RESP 15; TEMP 36.7; O2SAT 96
[2023-04-22 20:50] LABS: Creatine Kinase 106 U/L (26-192)
[2023-04-22 21:01] LABS: Troponin I < 50 ng/L (< or =60)
[2023-04-22 21:07] VITALS: BP 139/76; PULSE 72; RESP 16; TEMP 36.7; O2SAT 95
[2023-04-22 21:16] LABS: FREE T4 0.87 ng/dL (0.76-1.46)
--- NOTE | 2023-04-22 21:38 | W.ED.GENAD ---
HPI General Stated Complaint: Nk/Back Pain SUSI: 3 Date/Time Provider Initiated Documentation: 04/22/23 15:36. Limitations to Documentation: no limitations. Information obtained by: patient. HPI Narrative: 82-year-old female with unknown past medical history presents for evaluation after of fall. Patient reports that she was getting a paper bag out of her shed and when she was backing into the kitchen when she tripped and fell. She landed on her back. She states that she did not hit her head or lose consciousness. No additional history was able to be obtained by EMS. Patient reports that she lives at home alone with a dog and a cat. EMS noted that she was covered in urine and feces, but it is unknown how long she was down. It is unknown who called 911. I do not know if any treatments were given by EMS prior to arrival. Related Data Home Medications Medication Instructions Recorded Confirmed apixaban 5 mg tablet (Eliquis) 5 mg PO BID 04/22/23 04/22/23 ascorbic acid (vitamin C) 500 mg 500 mg PO DAILY 04/22/23 04/22/23 tablet (C-500) cholecalciferol (vitamin D3) 25 25 mcg PO DAILY 04/22/23 04/22/23 mcg (1,000 unit) chewable tablet (VitaJoy Daily D) levothyroxine 25 mcg tablet 25 mcg PO DAILY 04/22/23 04/22/23 (Synthroid) pravastatin 10 mg tablet 10 mg PO DAILY 04/22/23 04/22/23 Allergies Allergy/AdvReac Type Severity Reaction Status Date / Time Sulfa (Sulfonamide Allergy Unknown Unverified 04/22/23 15:29 Antibiotics) codiene Allergy Unknown Uncoded 04/22/23 15:29 [facility] All Active Problems (Updated 04/22/23 @ 21:46 by Cary Morris MD) Altered mental status (Acute) Acute dehydration (Acute) DEAN (acute kidney injury) (Acute) Fall (Acute) Social History Smoking/Tobacco Use Status: Current every day Tobacco Type: cigarettes Smoking risk assessment performed?: Yes Drug use: Never Substance use type: does not use Exam Narrative Exam Narrative: Review of Systems: All systems reviewed & are unremarkable except as noted in HPI and below Well-developed, no acute distress NACT PERRL, normal conjunctiva RRR Unlabored respiratory effort, clear breath sounds bilaterally Nondistended abdomen, nontender Extremities w/o deformity, no cyanosis, no edema Pelvis stable No midline spine tenderness, step-off or deformity No rashes or lesions. no focal neurologic deficits Appropriate mood and affect Course Vital Signs Vital signs: Vital Signs Temperature 36.9 C 04/22/23 15:25 Pulse 64 04/22/23 15:25 Respiratory Rate 18 04/22/23 15:25 Blood Pressure 178/108 H 04/22/23 15:25 Pulse Oximetry 93 04/22/23 15:25 Temperature 36.7 C 04/22/23 20:48 Temperature Source Temporal Artery Scan 04/22/23 19:43 Pulse 73 04/22/23 20:48 Respiratory Rate 15 04/22/23 20:48 Respiratory Effort Normal, Non-Labored 04/22/23 15:29 Blood Pressure 133/95 H 04/22/23 20:48 Blood Pressure Position Sitting 04/22/23 15:25 Pulse Oximetry 96 04/22/23 20:48 Oxygen Delivery Method Room Air 04/22/23 19:43 Oxygen Flow Rate 0 04/22/23 19:43 Pain Level 0 04/22/23 20:48 Lab/Test Results Lab/Test Results: 04/22/23 17:41 Urine - Reflex from Ua Urine Culture - Pending Laboratory Tests Range/Units 04/22/23 04/22/23 16:00 17:41 WBC (4.4-10.8) 10^3/uL 9.58 RBC (3.93-5.22) 10^6/uL 5.64 H Hgb (11.2-15.7) g/dL 15.8 H Hct (36.0-46.0) % 49.5 H MCV (80-95) fL 88 MCH (27.0-33.0) pg 28.0 MCHC (32.0-36.0) % 31.9 L RDW (11.7-14.6) % 14.8 H Plt Count (130-400) 10^3/uL 184 MPV (8.0-11.0) fL 10.8 Immature Gran % 0.3 Neutrophils % 69.8 Lymphocytes % 21.0 Monocytes % 7.3 Eosinophils % 1.1 Basophils % 0.5 Nucleated RBC % (0.0-0.3) % 0.0 Absolute Neutrophils (1.2-6.7) 10^3/uL 6.68 Absolute Lymphocytes (1.2-3.4) 10^3/uL 2.01 Absolute Monocytes (0.1-0.8) 10^3/uL 0.70 Absolute Eosinophils (0.0-0.7) 10^3/uL 0.11 Absolute Basophils (0.0-0.2) 10^3/uL 0.05 Sodium (136-145) mmol/L 140 Potassium (3.5-5.1) mmol/L 4.0 Chloride (98-107) mmol/L 102 Carbon Dioxide (21.0-32.0) mmol/L 31.9 Anion Gap (3-11) mmol/L 6.1 BUN (7-18) mg/dL 25 H Creatinine (0.55-1.02) mg/dL 1.3 H Est GFR (CKD-EPI 2020) (mL/min/1.73m2) 41.57 Glucose (74-106) mg/dL 104 Calcium (8.5-10.1) mg/dL 9.5 Total Bilirubin (0.2-1.0) mg/dL 0.9 AST (15-37) U/L 19 ALT (14-59) U/L 16 Alkaline Phosphatase (46-116) U/L 74 Troponin I (< or =60) ng/L < 50 Total Protein (6.4-8.2) g/dL 7.9 Albumin (3.4-5.0) g/dL 3.7 Urine Color (Yellow) Yellow Urine Clarity (Clear) Clear Urine pH (5-8) 7.0 Ur Specific [place] (1.005-1.025) 1.020 Urine Protein (Negative) mg/dL 30 H Urine Ketones (Negative) mg/dL Trace H Urine Blood (Negative) Negative Urine Nitrite (Negative) Negative Urine Bilirubin (Negative) Negative Urine Urobilinogen (Up to 0.2) mg/dL 0.2 Ur Leukocyte Esterase (Negative) Negative Urine RBC (0-2) HPF Negative Urine WBC (0-5) HPF 5-10 Ur Epithelial Cells (Negative) HPF Rare Urine Crystals (Negative) HPF Negative Urine Bacteria (Negative) HPF Rare Urine Casts (Negative) LPF Negative Urine Mucus (Negative) Negative Ur Culture Indicated? Yes Urine Glucose (Negative) mg/dL Negative Ethyl Alcohol (<10) mg/dL < 3.0 Medical Decision Making Emergent evaluation after fall. Patient is alert and oriented but just seems a little odd. Consider intoxication versus head trauma. There is no additional medical history noted. There are no signs of trauma noted. Initial differential includes fracture, intracranial injury, intoxication electrolyte derangement. EKG with sinus rhythm, normal axis, LVH Lab work reviewed, hemoconcentration noted with a mild DEAN, likely dehydrated. IV fluids given. CPK. Not elevated. Discussed with hospitalist. At this point the patient has no available family members. We have attempted to call every number that she is provided and everything. We have looked for the person she reports is her son, Juan Salinas, but have not been able to locate a number. The patient reports that she lives at home alone and that she is totally independently functional. However at this time she cannot even get herself up out of a chair. She was placed on a bedside commode and she cannot stand up independently. At this time she is not safe to be discharged home and I cannot find any family to provide any collateral information. She appears mildly dehydrated and will be admitted to the hospital for further management. Medical Records Medical records reviewed: Yes I reviewed the patient's medical records. Lab Data Lab results reviewed: Yes I reviewed the patient's lab results. ECG Data Attestation: I personally reviewed and interpreted this ECG (s) as follows: Interpretation: Sinus 64 normal axis LVH, no acute ischemic change Quality:SDOH Health Related Social Needs: No Data to Display Discharge Plan Disposition Patient Disposition: Admit to [facility] Condition: Good Discharge Details Clinical Impression: Fall, DEAN (acute kidney injury), Acute dehydration, Altered mental status Admit Date/Time: 04/22/23 19:47 Admit Provider: Saturnino Keane Attending Provider: Saturnino Keane Primary Care Provider: [facility] ED Provider: Cary Morris
[2023-04-22] MEDS: Nicotine 7 MG/24 HR PATCH TD (22:39)
[2023-04-22] MEDS: Normal Saline Flush 10 ML SYR IVP ×2 (22:39→23:55)
[2023-04-22] MEDS: Heparin 5,000 UNITS/ML VIAL 5000 UNITS SC (22:39)
[2023-04-22 22:45] VITALS: BP 139/76; PULSE 72; RESP 16; TEMP 36.7; O2SAT 95
[2023-04-22 23:18] VITALS: BP 141/88; PULSE 60; RESP 18; TEMP 37; O2SAT 93
[2023-04-22] MEDS: Normal Saline 1,000 ML 100 ML IV (23:55)
[2023-04-23 00:35] LABS: Troponin I < 50 ng/L (< or =60)
[2023-04-23 03:53] VITALS: BP 148/73; PULSE 70; RESP 16; TEMP 37.1; O2SAT 94
[2023-04-23] MEDS: Heparin 5,000 UNITS/ML VIAL 5000 UNITS SC ×2 (06:52→21:34)
[2023-04-23 07:26] LABS: HGB 14.3 g/dL (11.2-15.7); MCH 28.6 pg (27.0-33.0); MCHC 32.5 % (32.0-36.0); MCV 88 fL (80-95); Platelet Count 155 10^3/uL (130-400); RDW 14.8 % (11.7-14.6); RDW-SD 48.1 fL; WBC 8.36 10^3/uL (4.4-10.8)
[2023-04-23 07:33] LABS: ALT 11 U/L (14-59); AST 15 U/L (15-37); Albumin 2.9 g/dL (3.4-5.0); Alkaline Phosphatase 58 U/L (46-116); Anion Gap 9.5 mmol/L (3-11); BUN 23 mg/dL (7-18); Bilirubin, Total 0.7 mg/dL (0.2-1.0); CO2 26.5 mmol/L (21.0-32.0); Calcium 8.7 mg/dL (8.5-10.1); Chloride 106 mmol/L (98-107); Estimated GFR 56.95 (mL/min/1.73m2); Glucose 98 mg/dL (74-106); Potassium 3.6 mmol/L (3.5-5.1); Sodium 142 mmol/L (136-145); Total Protein 6.4 g/dL (6.4-8.2)
[2023-04-23 08:01] VITALS: BP 177/92; PULSE 68; RESP 16; TEMP 36.7; O2SAT 97
[2023-04-23] MEDS: Normal Saline Flush 10 ML SYR IVP ×2 (09:13→21:34)
--- NOTE | 2023-04-23 09:46 | INITIAL_ITS ---
Date of service: 04/23/23 Time of Service: 09:46 Care Management Initial Assmt Initial Assessment REASON FOR HOSPITALIZATION:: fall PREVIOUS FUNCTIONAL STATUS/SOCIAL/FAMILY SUPPORTS:: Kelsey lives alone in a single family home in [place], [place]. She has a surrogate son, Juan Salinas, in [place] and a granddaughter, Kalli, who lives in [place] and is her HCA. Kelsey is independent at baseline. She has a case making machine operator, Tiana, through [facility] and has requ ested meals on Wheels and plans to discuss Life Alert. CURRENT FUNCTIONAL STATUS:: Kelsey was sitting up in a chair when CM met with her. She stated that she is being discharged today and that a friend has agreed to take her home. ADVANCE DIRECTIVES:: on file. Kalli Merino, HCA ([place] Has patient been provided with info about the portal/API?: Yes Did the patient sign up for the portal?: No CODE STATUS:: Full Code INSURANCE COVERAGE / FINANCIAL ISSUES:: / Medicare Advantage CURRENT HOME/COMMUNITY SERVICES/EQUIPMENT:: community case management through [facility]. PRIMARY CARE PHYSICIAN:: Mary [place] POTENTIAL DISCHARGE NEEDS:: follow up with PCP and plan of care PATIENT/FAMILY EDUCATION NEEDS:: Review of discharge instructions, limitations, follow up plan, discuss Ask Me Three TRANSPORTATION:: via private vehicle with family PLAN:: Anticipate Kelsey will return home, possibly with new home health services for nursing and PT. She will follow up with her PCP and plan of care and transport with family. CM will follow and continue to assess discharge needs. PFSH All Active Problems (Updated 04/23/23 @ 07:52 by Solange Zimmerman) Tobacco abuse (Chronic) HTN (hypertension) (Acute) PAF (paroxysmal atrial fibrillation) (Chronic) Acute dehydration (Acute) DEAN (acute kidney injury) (Acute) Fall (Acute) COPD (chronic obstructive pulmonary disease) (Chronic) Advanced care planning/counseling discussion (Acute) Nicotine dependence, cigarettes, uncomplicated (Acute) Emphysema lung (Acute) Change in mental status (Acute) Palliative care patient (Acute) Pulmonary mass (Acute) Parapneumonic effusion (Acute) Movement disorder (Acute) Pneumonia (Acute) Respiratory failure with hypoxia (Acute) Atrial fibrillation with RVR (Acute) Loculated pleural effusion (Acute) Gastritis (Acute) Acute blood loss anemia (Acute) Tobacco dependence (Acute) Closed right hip fracture (Acute 04/23/19) S/P screw fixation DOS: 04/24/19 TIA (transient ischemic attack) (Chronic) Pt denied hx of stroke Discharge problem list from 10/08/15 states TIA Hyperlipidemia (Chronic) Hypothyroidism (Chronic) Atrial fibrillation (Chronic) on Eliquis Mild cognitive impairment with memory loss (Acute) Surgical History History of cystogram Pt describes cystogram Discharge problem list from 10/08/15 states hx of exploratory laparotomy Family History (System 04/23/23 @ 07:52 by Solange Zimmerman) Mother No problems noted. Father Cancer Grandfather , WWII at age 31. No problems noted. Grandfather No problems noted. Grandmother Heart disease Grandmother No problems noted. Social History (System 04/23/23 @ 07:52 by Solange Zimmerman) Smoking/Tobacco Use Status: Current every day Tobacco Type: cigarettes Smoking risk assessment performed?: Yes Alcohol Intake: never Drug use: Never Substance use type: does not use Housing: house Current gender identity: female Do you feel safe at home: Yes Do you feel safe in your relationship?: Yes Additional Social history: Pt lives alone SDOH(Care Management) Screening Will the Patient Participate in the Screening?: Yes Do you worry about having a steady place to live?: no Problems where you live: no known problems In the past 12 months, have you had to go without electric, gas, oil or water in your home?: no Have you or anyone in your house had to go without enough food to eat?: no Has lack of transportation kept you from medical appointments or from doing things needed for daily living?: yes Has anyone in your support network made you feel unsafe for any reason?: no Social Determinants of Health Comments(SDOH Details): pt states no longer has car, depends on others for transportation Health Related Social Needs Health related social needs: transportation insecurity(Z59.82)
[2023-04-23 11:34] VITALS: BP 171/77; PULSE 71; RESP 16; TEMP 37.3; O2SAT 97
--- NOTE | 2023-04-23 12:07 | CHAPLAIN ---
Kelsey was resting in bed when I visited. Kelsey and I know each other from outside the hospital. 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 She lives alone in a house in [place], [place] and is part of the [employer] in [place]. We have several friends in common in [place]. Kelsey was hospitalized about a year ago, and her jewelry repairer, Fr. Josue Ramey spend a lot of time here with Kelsey and also found alternatives homes for her animals, (dogs and horse) as she was no longer able to care for them. I asked Kelsey if she'd like me to contact Fr. Salas and let him know she is here. She declined saying she thinks she'll be discharged today. She is trying to get a hold of Juan Salinas, a friend (revenue enforcement agent and member of [facility]) but doesn't have his cell phone number. I found a business number for Juan and will give that to Kelsey. Kelsey coughlin talked about friends we have in common, and about her fall. She said her email production specialist has been helpful and will bring cigarettes or greens if Kelsey leaves a note. Other than Fr. Josue Martinez and members of [employer], I don't know who Kelsey's supports are. She has a granddaughter who lives out of state.
--- NOTE | 2023-04-23 13:57 | PT.INIE ---
Date of service: 04/23/23 PT Notes Visit Reasons: Fall, DEAN, PAF, HTN Date: 04/23/23 Referring Doctor: Saturnino Keane PT Orders: PT CONSULT: limited ability Precautions: Fall risk, standard Patient Profile/Admitting Diagnosis: 82 y o female S/P fall in her home, brought to [facility] via EMS on 04/22/23. Time on floor is unknown, but ER workout up suggested onset of dehydration and was admitted overnight for IV fluids. Social History/Home Situation: lives alone in a private home with 3-4 stairs to enter with no rail. Surrogate son, Juan, lives in [facility] and POA granddaughter who lives out of [facility]. She has a strong confucianism community who check in on her daily. Equipment Owned/DME: Cane, but does not use. Commode Subjective: Reporting she wants to go home, but admits she is not as steady as she usually is. She is most concerned that noone knows she is in hospital, and she has a dog and cat at home that need to be cared for. She did expect to be brought to hospital via EMS, but rather just helped back to her feet. Reports she normally ambulates without assistive device, does her own cooking and light cleaning. She uses a commode at night and during naps as it is easier than traveling to bathroom. Objective: General Observation: Lying on left side in position in recliner chair. Facial tic and observe this to also be a motor control tic with hesitancy with reactions, and some intermittent rigidity - not sure of baseline. Mental Status: Alert to person, place and time. Unrealistic, wants to go home, but unsteady. ROM: Right Upper Extremity: WFL Left Upper Extremity: WFL Right Lower Extremity: WFL Left Lower Extremity:WFL Strength: Right Upper Extremity: Grossly 4-/5 throughout Left Upper Extremity: Grossly 4-/5 throughout Right Lower Extremity: Grossly 5/5 throughout, aside from hip flexors at 4/5 Left Lower Extremity: Grossly 5/5 throughout, aside from hip flexors at 4/5 Bed Mobility/Transfers: CG Sit to stand at RW CG with ambulation at RW Stand to sit CG from RW Sit to stand Min A x 1, to RW Chair to bed CG with RW Bed mobility SBA, verbal cues needed Gait: 75 ft RW, CG. With attempt of ambulation with device per reported baseline, unsteady requires assist from all. Uncoordinated, alternating between step through gait pattern and step to pattern, speed ever changing and smoothness of gait coming and going. Requires CG throughout to steady her, and at times requires a steadier hand to right her. Balance: Static Sitting: Good Dynamic Sitting: Fair Static Standing: Poor Dynamic Standing: Poor Stage 4 Balance Test Time (seconds) Feet together 10, CG Partial tandem 3 Tandem unable One foot unable Special Tests: Mobility Limitations Standardized Measure [facility]-PAC 6 clicks Basic Mobility Inpatient Short Form: 50% disability Informed Consent/Education: Patient instructed in purpose of PT consult and plan of care. Treatment: Initial evaluation 82929 Assessment: Patient is a 82 year old female referred to physical therapy services with reason for PT evaluation of limited ability,and admitted diagnosis of dehydration S/P fall. Patient presents with with strength, balance, and gait impairments related to acute medical event. She has documentation of tic at baseline, which may or may not be contributing to motor control findings of incoordination, unsteadiness, and clumsiness. I am uncertain of her baseline and she is a poor historian. In any event her current presentation reveals she would be unsafe to return home, unless she had a 24/7 support, and at this time the availability of that is unknown to myself. If family or friend support and supervision is unavailable rehabilitation placement is needed until she demonstrates safety for return home. She will require a RW for safety with ambulation and to prevent falls. She requires skilled PT intervention to maximize safety mobility to allow for safe transition home once medically stable, and attend to below deficits. Impairment level findings: Poor balance Motor control impairment Unsteady gait UE weakness Uncoordinated movements Impairments are contributing to the following functional limitations: Dependence on RW for ambulation CG-Min A for sit to stand transfer, and ambulation Patient is assessed as moderate complexity based on the following: History: Lives alone - with no known 24/7 support availability at current time Fall history Tobacco abuse (Chronic) HTN (hypertension) (Acute) PAF (paroxysmal atrial fibrillation) (Chronic) Acute dehydration (Acute) DEAN (acute kidney injury) (Acute) Fall (Acute) Surgical History (Updated 04/22/23 @ 23:34 by Saturnino Keane) S/P ORIF (open reduction internal fixation) fracture Right hip performed by Dr. Gaines Examination: impairment and functional limitations as noted above Presentation: evolving Decision Making: Easy Goals: Goals X1 week 1. Supine-Sit : Independent 2. Sit-Supine : Independent 3. Sit-Stand : Independent 4. Stand-Sit : Independent 5. Bed-Chair : Independent 6. Chair-Bed : Independent 7. Gait : Independent, 50 ft steady 8. Stairs : 4 no rail, per home environment Plan of Care/Treatment Plan: 1-2x/day, 7 days/week x 1 week. Plan of care has been reviewed with the TECHNOLOGY TRAINING ASSOCIATE providing the service under Physical Therapy direction. Initiate Physical Therapy intervention for strengthening, bed mobility, transfers, gait, stairs, balance training, use of assistive device. DISCHARGE RECOMMENDATIONS: Home with 24/7 supervision and support if this is not attainable rehabilitation placement. She will require RW to prevent falls. TREATMENT CODE/TIME: [id number], 2:00-2:30 Anabelle Mukherjee, [facility]
--- NOTE | 2023-04-23 13:59 | PDOC.CMDIS ---
Date of service: 04/23/23 Time of Service: 13:59 Care Management Discharge Plan Reason for Hospitalization: fall Discharge Plan: Anticipate Kelsey will return home, possibly with new home health services for nursing and PT. She will follow up with her PCP and plan of care and transport with family. CM will follow and continue to assess discharge needs. Patient/Family Education Needs: Review of discharge instructions, limitations, follow up plan, discuss Ask Me Three SDOH Health Related Social Needs: Health related social needs transpo insecurity Health related social needs: transportation insecurity(Z59.82)
[2023-04-23 15:43] VITALS: BP 168/94; PULSE 66; RESP 16; TEMP 36.5; O2SAT 96
--- NOTE | 2023-04-23 18:06 | W.PM.PROGNOT ---
Date of Service Date of service: 04/23/23 Time of Service: 11:45 Assessment and Plan Assessment and plan (1) Fall: Start date: 04/22/23 Status: Acute Assessment and plan: mechanical fall PT consult: Not safe for discharge OT consult:note pending (2) DEAN (acute kidney injury): Start date: 04/22/23 Status: Acute Assessment and plan: Cr 1.0 today BMP in AM (3) Acute dehydration: Start date: 04/22/23 Status: Acute Assessment and plan: as above (4) HTN (hypertension): Status: Acute Assessment and plan: Continue telemetry continue home regimen of antihypertensive (5) PAF (paroxysmal atrial fibrillation): Status: Chronic Assessment and plan: On telemetry: sinusal rhythm will continue to monitor (6) Tobacco abuse: Status: Chronic Assessment and plan: Continue Nicotine patch 7 mg/h (7) Discharge planning issues: Status: Resolved Assessment and plan: Not determined CM to f/u Discussed with Dr. Fitzpatrick (8) On deep vein thrombosis (DVT) prophylaxis: Status: Acute Assessment and plan: Heparin SC Subjective Subjective Patient reports: no new complaints, feels better, tolerating liquids well, tolerating a regular diet, voiding w/o difficulty, flatus, bowel movement and afebrile; denies diarrhea, nausea, vomiting, shortness of breath or fever Exam Narrative Exam Narrative: General: Patient appears older than stated age, no acute distress no pain. She is alert and oriented at least to person and place. Neuro: No focal deficits, facial distortion questioning previous neuro-degenerative diagnosis HEENT: Normocephalic, atraumatic, Neck: No JVD. Lungs:clear to auscultation percussion Heart: Regular rate and rhythm , S1- S2. Pulses palpable positive x 4 Abdomen: Scaphoid , soft nontender , no mass felt. Extremity: strength 3/5 to upper ext on resisting push, otherwise 5/5 to UE and LE Skin: Normal color, warm and dry.. Psych: Normal affect and mood. Objective Last Vital Signs Temp 36.5 C 04/23/23 15:43 Pulse 66 04/23/23 15:43 Resp 16 04/23/23 15:43 BP 168/94 H 04/23/23 15:43 Pulse Ox 96 04/23/23 15:43 Laboratory Results - last 24 hr 04/22/23 04/22/23 04/22/23 17:41 20:18 20:27 WBC RBC Hgb Hct MCV MCH MCHC RDW Plt Count MPV VBG Lactate 0.9 Sodium Potassium Chloride Carbon Dioxide Anion Gap BUN Creatinine Est GFR (CKD-EPI 2020) Glucose Calcium Magnesium Total Bilirubin AST ALT Alkaline Phosphatase Creatine Kinase 106 Troponin I < 50 Cancelled Total Protein Albumin TSH 33.20 H Free T4 0.87 Urine RBC Negative Urine WBC 5-10 Ur Epithelial Cells Rare Urine Crystals Negative Urine Bacteria Rare Urine Casts Negative Urine Mucus Negative Ur Culture Indicated? Yes 04/23/23 04/23/23 00:05 06:40 WBC 8.36 RBC 5.00 Hgb 14.3 Hct 44.0 MCV 88 MCH 28.6 MCHC 32.5 RDW 14.8 H Plt Count 155 MPV 12.0 H VBG Lactate Sodium 142 Potassium 3.6 Chloride 106 Carbon Dioxide 26.5 Anion Gap 9.5 BUN 23 H Creatinine 1.0 Est GFR (CKD-EPI 2020) 56.95 Glucose 98 Calcium 8.7 Magnesium 2.0 Total Bilirubin 0.7 AST 15 ALT 11 L Alkaline Phosphatase 58 Creatine Kinase Troponin I < 50 Total Protein 6.4 Albumin 2.9 L TSH Free T4 Urine RBC Urine WBC Ur Epithelial Cells Urine Crystals Urine Bacteria Urine Casts Urine Mucus Ur Culture Indicated? Time Spent with Patient Time Spent with Patient: >50 minutes Time was spent: preparing to see the patient(eg.review tests), ordering medications,tests, procedures, referring, communicating with other health child care education coordinator, indepentently interpreting results, counseling the patient and care coordination
[2023-04-23 20:03] VITALS: BP 135/82; PULSE 73; RESP 16; TEMP 36.9; O2SAT 92
[2023-04-23 23:36] VITALS: BP 159/89; PULSE 64; RESP 16; TEMP 36.7; O2SAT 95
[2023-04-24] MEDS: Heparin 5,000 UNITS/ML VIAL 5000 UNITS SC (06:26)
[2023-04-24 07:16] LABS: Abs Immature Grans 0.03 10^3/uL (0.0-0.06); Absolute Basophil Count 0.06 10^3/uL (0.0-0.2); Absolute Eosinophil Count 0.26 10^3/uL (0.0-0.7); Absolute Lymphocyte Count 2.43 10^3/uL (1.2-3.4); Basophils % 0.7; Eosinophils % 3.1; HCT 44.5 % (36.0-46.0); HGB 14.3 g/dL (11.2-15.7); Immature Grans % 0.4; Lymphocytes % 29.3; MCH 28.1 pg (27.0-33.0); MCHC 32.1 % (32.0-36.0); MCV 87 fL (80-95); MPV 11.3 fL (8.0-11.0); Monocytes % 9.7; Neutrophils % 56.8; Platelet Count 173 10^3/uL (130-400); RBC 5.09 10^6/uL (3.93-5.22); RDW 14.6 % (11.7-14.6); RDW-SD 47.6 fL; WBC 8.28 10^3/uL (4.4-10.8)
[2023-04-24 07:34] LABS: Anion Gap 6.8 mmol/L (3-11); BUN 25 mg/dL (7-18); CO2 28.2 mmol/L (21.0-32.0); Chloride 104 mmol/L (98-107); Estimated GFR 56.95 (mL/min/1.73m2); Glucose 100 mg/dL (74-106); Potassium 3.8 mmol/L (3.5-5.1); Sodium 139 mmol/L (136-145)
[2023-04-24 08:25] VITALS: BP 143/79; PULSE 64; RESP 16; TEMP 36.3; O2SAT 93
[2023-04-24] MEDS: Normal Saline Flush 10 ML SYR IVP (09:08)
[2023-04-24 11:00] VITALS: BP 128/76; PULSE 61; RESP 16; TEMP 36.1; O2SAT 96
--- NOTE | 2023-04-24 12:17 | DSE_ITS ---
Date of service: 04/24/23 Time of Service: 13:20 DS: Diagnosis Discharge Diagnosis (1) Mild cognitive impairment with memory loss: Status: Acute (2) Ambulatory dysfunction: Status: Acute (3) Atrial fibrillation: Status: Chronic (4) Hypothyroidism: Status: Chronic (5) DEAN (acute kidney injury): Status: Acute Discharge Plan Disposition Patient Disposition: Home W/Home Health Services Condition: Improving Discharge Details Reason For Visit: Fall, DEAN, PAF, HTN Admit Date/Time: 04/22/23 19:47 Admit Provider: Saturnino Keane Attending Provider: Saturnino Keane Primary Care Provider: Pro Loaiza Hospital Course Hospital Course: This 82-year-old female patient living alone with a past medical history of atrial fibrillation with noncompliance to Eliquis, hypothyroidism, hip fracture, transient ischemic attack presented in the ED at [facility] via EMS on 04/22/2023 for evaluation s/p fall at home for an indeterminate amount of time with incontinence of bladder and bowel. Imaging in the ED was unremarkable for trauma. EKG showed sinus all rhythm with normal axis and no left ventricular hypertrophy. Labs were unremarkable except for an elevated creatinine at 1.3 pointing to acute kidney injury (DEAN), an elevated TSH at 33 and T4 at 0.87 while patient is compliant on low-dose levothyroxine supplementation. Hemoconcentration noted most likely due to dehydration; no elevation in CPK. The patient stated not taking her Eliquis for a week. In the ED, patient was unable to stand up independently to use the bedside commode.the hospitalist was consulted and admitted the patient to the medical surgical floor with telemetry for evaluation and management of DEAN, ambulatory dysfunction, fall. During her stay, the patient received IV hydration resulting in lower creatinine level to 1.0 and the resolution of her DEAN. The patient remained in a sinus rhythm as per telemetry monitoring. Physical therapy consult obtained and recommendations made for 24/7 supervision or rehabilitation placement if unable to meet conditions. The patient is requesting to go home and will accept home health physical therapy. The patient will need home health physical therapy for strengthening, bed mobility, transfers, gait, stairs, balance training, use of assistive device such as a front wheel walker. The patient will also benefit from home health occupational therapy for evaluation in activity of daily living proficeincy, and biomedical repair technician for coordination of care. The patient will need to follow up with her PCP for the management of her Eliquis and adjustment of her other home drugs for her chronic illness. Home Meds and New Rx's Prescriptions: New docusate sodium [Colace] 100 mg Capsule 100 mg PO DAILY Qty: 30 0RF Continued Glucerna Liquid 237 ml PO DAILY pravastatin 10 mg tablet 10 mg PO DAILY Qty: 90 cholecalciferol (vitamin D3) 1,000 UNIT capsule 1,000 unit PO DAILY Patient Comments: pt unsure if she takes this 09/30/15 latanoprost 0.005 % drops 1 drp ophthalmic (eye) QPM Patient Comments: INSTILL 1 DROP IN BOTH EYES EVERY EVENING acetaminophen [Tylenol] 325 mg Tablet 650 mg PO Q4H PRN PRNQty: 0 0RF Eliquis 2.5 mg Tablet 2.5 mg PO BID Qty: 0 0RF ipratropium bromide 0.02 % Solution 0.25 mg UPD BID Qty: 0 0RF Phlexy-Vits 15 mg- 700 mcg Powder In Packet 1 oz PO TID Qty: 0 0RF levothyroxine [Synthroid] 25 mcg tablet 25 mcg PO DAILY pravastatin 10 mg tablet 10 mg PO DAILY cholecalciferol (vitamin D3) [VitaJoy Daily D] 25 mcg (1,000 unit) tablet,chewable 25 mcg PO DAILY ascorbic acid (vitamin C) [C-500] 500 mg tablet 500 mg PO DAILY Held levothyroxine 75 mcg tablet 75 mcg PO DAILY Hold Instructions: Resume on 05/03/23. as per PCP Patient Comments: TAKE 1 TABLET BY MOUTH EVERY DAY IN THE MORNING ON AN EMPTY STOMACH Eliquis 5 mg tablet 5 mg PO BID Hold Instructions: Resume on 05/03/23. Reevaluate by PCP, on 2.5 mg BID Discharge Instructions Additional Instructions: Please be careful when ambulating in your home. Take Motrin or Tylenol as needed for pain. Follow-up with your primary care provider. Stand Alone Forms: Nursing Discharge Form Referrals: Pro Loaiza [Primary Care Provider] - (Please call on Wednesday to make a follow up within 10-14 days) Activity:: Activity as Tolerated Equipment/Supplies:: Cane has FW art home Diet:: As Tolerated Discharge Orders Discharge Orders: Discharge Order (Routine); Ordered 04/24/23 Ordered By: Tawanna Griffin DS: Summary Time Spent with Patient providing and/or coordinating discharge services: Greater than 30 minutes Status at Discharge Functional status at discharge: uses cane/walker Overall status at discharge: patient is back to baseline Mental Status: mental status grossly normal Speech and Movement: speech and movement normal Mood: congruent mood Affect: normal affect Quality:SDOH Health Related Social Needs: Health related social needs transpo insecurity Exam Narrative Exam Narrative: General: Patient appears older than stated age, no acute distress no pain. She is alert and oriented at least to person and place. Neuro: No focal deficits, facial distortion questioning previous neuro-degenerative diagnosis HEENT: facial structures well-aligned Lungs:clear to auscultation Heart: Regular rate and rhythm , S1- S2. Tele SR, Pulses palpable positive x 4 Abdomen: Scaphoid , soft nontender , no mass felt. Extremity: strength 5/5 to all extremity. Skin: Normal color, warm and dry.. Psych: Normal affect and mood. Psych Mental Status: mental status grossly normal Speech and Movement: speech and movement normal Mood: congruent mood Affect: normal affect DS: Data Vitals/I&O Vitals and I&O: Vital Signs Temperature 36.1 C L 04/24/23 11:00 Temperature Source Tympanic 04/24/23 11:00 Pulse 61 04/24/23 11:00 Pulse Rhythm Regular 04/24/23 09:00 Respiratory Rate 16 04/24/23 11:00 Respiratory Effort Normal, Non-Labored 04/24/23 09:00 Respiratory Depth Normal 04/24/23 09:00 Respiratory Pattern Normal 04/24/23 09:00 Blood Pressure 128/76 04/24/23 11:00 Blood Pressure Position Sitting 04/22/23 15:25 Pulse Oximetry 96 04/24/23 11:00 Oxygen Delivery Method Room Air 04/24/23 11:00 Oxygen Flow Rate 0 04/24/23 11:00 Pain Level 0 04/24/23 11:00 Comment BP called over radio 04/24/23 08:25 Intake & Output 04/23/23 04/24/23 04/24/23 23:59 11:59 23:59 Intake Total 71.667 / 1311.667 Output Total 500 / 500 Balance 71.667 / 911.667 -500 / -500 Weight 51.4 kg Intake: IV 71.667 / 1071.667 Output: Urine 500 / 500 Other: Urine Color Yellow Urine Appearance Clear Clear Urine Odor Normal Stool Size Copious Stool Characteristics Formed Brown Voiding Methods Bedside Commode Bedside Commode Diaper Diaper Incontinent Incontinent Data Completed and Pending Labs on day of discharge: Labs from last 24 hours 04/24/23 05:56 WBC 8.28 RBC 5.09 Hgb 14.3 Hct 44.5 MCV 87 MCH 28.1 MCHC 32.1 RDW 14.6 Plt Count 173 MPV 11.3 H Immature Gran % 0.4 Neutrophils % 56.8 Lymphocytes % 29.3 Monocytes % 9.7 Eosinophils % 3.1 Basophils % 0.7 Nucleated RBC % 0.0 Absolute Neutrophils 4.70 Absolute Lymphocytes 2.43 Absolute Monocytes 0.80 Absolute Eosinophils 0.26 Absolute Basophils 0.06 Sodium 139 Potassium 3.8 Chloride 104 Carbon Dioxide 28.2 Anion Gap 6.8 BUN 25 H Creatinine 1.0 Est GFR (CKD-EPI 2020) 56.95 Glucose 100 Calcium 9.0 PFSH All Active Problems (Updated 04/24/23 @ 13:27 by Tawanna Griffin APRN) Ambulatory dysfunction (Acute) On deep vein thrombosis (DVT) prophylaxis (Acute) Tobacco abuse (Chronic) HTN (hypertension) (Acute) PAF (paroxysmal atrial fibrillation) (Chronic) Acute dehydration (Acute) DEAN (acute kidney injury) (Acute) Fall (Acute) COPD (chronic obstructive pulmonary disease) (Chronic) Advanced care planning/counseling discussion (Acute) Nicotine dependence, cigarettes, uncomplicated (Acute) Emphysema lung (Acute) Change in mental status (Acute) Palliative care patient (Acute) Pulmonary mass (Acute) Parapneumonic effusion (Acute) Movement disorder (Acute) Pneumonia (Acute) Respiratory failure with hypoxia (Acute) Atrial fibrillation with RVR (Acute) Loculated pleural effusion (Acute) Gastritis (Acute) Acute blood loss anemia (Acute) Tobacco dependence (Acute) Closed right hip fracture (Acute 04/23/19) S/P screw fixation DOS: 04/24/19 TIA (transient ischemic attack) (Chronic) Pt denied hx of stroke Discharge problem list from 10/08/15 states TIA Hyperlipidemia (Chronic) Hypothyroidism (Chronic) Atrial fibrillation (Chronic) on Eliquis Mild cognitive impairment with memory loss (Acute) Surgical History History of cystogram Pt describes cystogram Discharge problem list from 10/08/15 states hx of exploratory laparotomy Family History (System 04/23/23 @ 07:52 by Solange Zimmerman) Mother No problems noted. Father Cancer Grandfather , WWII at age 31. No problems noted. Grandfather No problems noted. Grandmother Heart disease Grandmother No problems noted. Social History (System 04/23/23 @ 07:52 by Solange Zimmerman) Smoking/Tobacco Use Status: Current every day Tobacco Type: cigarettes Smoking risk assessment performed?: Yes Alcohol Intake: never Drug use: Never Substance use type: does not use Housing: house Current gender identity: female Do you feel safe at home: Yes Do you feel safe in your relationship?: Yes Additional Social history: Pt lives alone Time Spent with Patient Time Spent with Patient: >85 minutes Time was spent: preparing to see the patient(eg.review tests), obtaining and/or reviewing separately otained hiistory, ordering medications,tests, procedures, referring, communicating with other health primary care coordinator, indepentently interpreting results, counseling the patient and care coordination
--- NOTE | 2023-04-24 13:19 | PDOC.CMDIS ---
Date of service: 04/24/23 Time of Service: 13:19 LACE Index Scoring Tool Questions: Length of Stay (in days): 2 Was the patient admitted via the E.D.?: Yes Comorbidities: Cerebrovascular Disease, Chronic Pulmonary Disease and Dementia E.D. Visits: 1 Answers: Total Score: 11 Risk of Readmission: High Risk Care Management Discharge Plan Reason for Hospitalization: fall Discharge Plan: Kelsey will return home with new home health services for nursing and PT. She will follow up with her PCP and plan of care and transport with RCT coordinated by CM. Patient/Family Education Needs: Review of discharge instructions, limitations, follow up plan, discuss Ask Me Three Services Needed at Discharge: Home Health Care Services SDOH Health Related Social Needs: Health related social needs transpo insecurity Health related social needs: transportation insecurity(Z59.82)
--- NOTE | 2023-04-24 14:26 | PDOC.HHF2F_ITS ---
Home Health Referral Home Health Orders Clinical synopsis of why skilled professionals are needed: ambulatory dysfunction, fall Medical diagnosis necessitation home health referral: ambulatory dysfunction, fall Physical Therapist: Check all that apply Increase strength & endurance for safe mobility at home: Ordered To design/establish home maintenance program: Ordered Fall reduction therapy program for patient with history of frequent falls: Ordered Home safety evaluation and teaching/gait training including stair management (if applicable): Ordered Occupational Therapist: Evaluate and treat for patient unable to perform ADL/IADL/self-care: Ordered Upper extremity strengthening, range and motion: Ordered Communication Assistant: Assist with community resources: Ordered Assist with longterm care planning: Ordered Other: Coordination of care Encounter Date and Reason: I certify that a FTF encounter for this patient was performed on April 24, 2023 and that such encounter was related to the primary reason the patient requires home health services. The encounter was conducted in the following manner: * By me as the certifying physician, SALES AGENT PROTECTIVE SERVICE, PA or * By an inpatient physician, SALES AGENT PROTECTIVE SERVICE or PA during an inpatient stay who communicated findings to me, Certification And Authentication I certify that I composed the above information based on my clinical judgment relating to this patient's medical condition and, if applicable, clinical findings communicated to me by the NPP or inpatient physician who performed the FTF encounter. Name of Provider that will be monitoring home health services: PCP
--- NOTE | 2023-04-24 15:51 | PDOC.CMPRO ---
Date of service: 04/24/23 Time of Service: 15:51 Care Management Progress Note Progress Note Text Progress Note Text: ALLEN received a call from [facility] nurse Sweeney about 1/2 hour after Kelsey was discharged. She informed CM that Kelsey's PCP, Pro Loaiza, will not sign off on and follow home health orders until after he sees the patient for their post-hospital visit. Since it is a weekend, the initiation of Kelsey's home health services will likely be delayed by several days. The provider was notified.
--- NOTE | 2023-04-28 13:51 | CMPROGNOTE_ITS ---
Date of service: 04/27/23 Time of Service: 13:51 Care Management Progress Note Progress Note Text Progress Note Text: On 04/26/23 CM RN reportedly spoke with [facility] Liana Watt who advised patient's PCP out of [place] was unwilling to follow home health orders until PCP met with patient. CM recommended having OFFICE AUTOMATION CLERK follow orders until PCP could connect with patient. 04/27/23 This CM received notice from [facility] that Kelsey was calling upset as she did not have home health services post discharge. CM spoke with OFFICE AUTOMATION CLERK Dr. Tolbert who was agreeable to following orders. CM notified [facility] Liana Watt via phone who advised services could be opened to [facility]-though staff were unable to outreach until -if OFFICE AUTOMATION CLERK was willing to follow orders. ALLEN requested Liana email the list of [place] providers who were unable to follow orders post discharge for follow up discussion. Liana inquired as to how to reach OFFICE AUTOMATION CLERK after hours. ALLEN called Kelsey and confirmed that [facility] would be outreaching to [facility] for service connection. 04/28/23 ALLEN received voicemail from Liana Watt requesting documentation in chart that Dr. Tolbert, OFFICE AUTOMATION CLERK at [facility] will follow home health orders. This note serves as that documentation.
--- NOTE | 2023-04-28 13:51 | PDOC.CMPRO ---
Date of service: 04/27/23 Time of Service: 13:51 Care Management Progress Note Progress Note Text Progress Note Text: On 04/26/23 CM RN reportedly spoke with [facility] Liana Watt who advised patient's PCP out of [place] was unwilling to follow home health orders until PCP met with patient. CM recommended having SHAPER SETTER follow orders until PCP could connect with patient. 04/27/23 This CM received notice from [facility] that Kelsey was calling upset as she did not have home health services post discharge. CM spoke with SHAPER SETTER Dr. Tolbert who was agreeable to following orders. CM notified [facility] Liana Watt via phone who advised services could be opened to [facility]-though staff were unable to outreach until -if SHAPER SETTER was willing to follow orders. ALLEN requested Liana email the list of [place] providers who were unable to follow orders post discharge for follow up discussion. Liana inquired as to how to reach SHAPER SETTER after hours. ALLEN called Kelsey and confirmed that [facility] would be outreaching to [facility] for service connection. 04/28/23 ALLEN received voicemail from Liana Watt requesting documentation in chart that Dr. Tolbert, SHAPER SETTER at [facility] will follow home health orders. This note serves as that documentation.
== END 2023-04-24 15:06 | disposition home health service (06) ==
LOC: ER 18:29 → MS 21:04
PROVIDERS: Nurse Practitioner Acute Care; Admitting Provider Family Medicine; Emergency Provider Emergency Medicine; PCP Internal Medicine; Visit Provider Family Medicine
DX: N17.9 Acute kidney failure, unspecified (principal); E86.0 Dehydration; G31.84 Mild cognitive impairment of uncertain or unknown etiology; I10 Essential (primary) hypertension; I48.0 Paroxysmal atrial fibrillation; W19.XXXA Unspecified fall, initial encounter; Z79.899 Other long term (current) drug therapy; R32 Unspecified urinary incontinence; Z79.01 Long term (current) use of anticoagulants; F17.210 Nicotine dependence, cigarettes, uncomplicated; E03.9 Hypothyroidism, unspecified; T45.516A Underdosing of anticoagulants, initial encounter
CPT/HCPCS: 00123; 36415; 80048; 80053; 82550; 85027; 93005; 96360; 96361; 96372; 97162; 99285; 70450; 72125; 72128; 72131; 72192; 80320; 81003; 81015; 83605; 83735; 84439; 84443; 84484; 85025; 87086; 93010; 99223; 99233; 99239; G0378; J1644